=== PATIENT | male | born 1950 | race Caucasian/White ===

== ENCOUNTER 2019-07-26 09:18 | Inpatient (IN) ==
--- NOTE | 2019-07-26 10:22 | Emergency Department Note ---
General Adult HPI - General Chief complaint: Bleeding Other Stated complaint: Bleeding from Permacath port Time Seen by Provider: 07/26/19 10:01 Source: patient, family Mode of arrival: ambulatory Limitations: no limitations - History of Present Illness HPI Narrative: 69-year-old male with a history of bleeding around dialysis catheter since placement [address] Melchor. He is on a chemotherapy drug for CLL, Ibrutnib, which could increase his bleeding risk but he is not on any blood thinners but he also has uremic associated platelet dysfunction. He is due for dialysis tomorrow; he had dialysis Saturday or 2 days ago. His bandage this morning soaked through with blood so he was concerned and came in. Apparently this happened several days ago and [facility] ER gave him DDAVP to get the bleeding to stop . He does not have a hematoma visible at this time - Related Data Home Medications Medication Instructions Recorded Confirmed epinephrine 0.3 mg/0.3 mL 0.3 mg IM Q10-15M PRN 01/05/16 07/21/19 injection, auto-injector metoprolol tartrate 100 mg tablet 100 mg PO BID 01/05/16 07/21/19 simvastatin 20 mg tablet 20 mg PO QDAY tab 01/05/16 07/21/19 tramadol 50 mg tablet 100 mg PO TID tab 01/05/16 07/21/19 ibrutinib 140 mg capsule 420 mg PO QDAY cap 03/13/18 07/21/19 insulin glargine 100 unit/mL (3 See Rx Instructions SUB-Q QHS 03/13/18 07/21/19 mL) subcutaneous pen ferrous gluconate 240 mg (27 mg 240 mg PO QDAY 06/19/19 07/21/19 iron) tablet insulin aspart U-100 100 unit/mL See Rx Instructions SUB-Q BID ml 06/19/19 07/21/19 (3 mL) subcutaneous pen acetaminophen 650 mg 1,300 mg PO Q7H PRN tab 07/21/19 07/21/19 tablet,extended release furosemide 40 mg tablet 40 mg PO QDAY tab 07/21/19 07/21/19 Previous Rx's Medication Instructions Recorded amlodipine 5 mg tablet 5 mg PO BID #180 tab 05/19/18 cholecalciferol (vitamin D3) 10,000 unit PO QDAY #90 cap 02/19/19 10,000 unit capsule tamsulosin 0.4 mg capsule 0.4 mg PO QDAY #90 cap 05/08/19 febuxostat 40 mg tablet See Rx Instructions .ROUTE 05/21/19 .COMPLEX #30 tablet Allergies Allergy/AdvReac Type Severity Reaction Status Date / Time hydrochlorothiazide Allergy Unknown Rash Verified 07/26/19 09:22 ibuprofen Allergy Unknown Kidney Verified 07/26/19 09:22 Disease penicillin V Allergy Unknown rash Verified 07/26/19 09:22 Bee sting Allergy Unknown Other Uncoded 07/21/19 09:26 Review of Systems All systems ED: reviewed and negative except as stated. Past Medical History - Past Medical History Attestation: Yes: The following information was validated with the patient. [facility] Narrative: Family History (Last Reviewed 06/19/19 @ 11:12 by Thelma Gonzalez RN) Father DM type 2 (diabetes mellitus, type 2) Grandmother DM type 2 (diabetes mellitus, type 2) Mother DM type 2 (diabetes mellitus, type 2) Brother DM type 2 (diabetes mellitus, type 2) Medical History (Last Reviewed 06/19/19 @ 11:12 by Thelma Gonzalez, MINAL) Other lymphoid leukemia, in relapse (Chronic) Gouty arthritis (Chronic) Tubular adenoma of colon (Chronic) Constipation (Chronic) Diastolic dysfunction (Chronic) Leukemia (Chronic) Encounter for long-term current use of medication (Acute) Abnormal immunological finding in serum (Chronic) Tophus (Chronic) Petechial rash (Chronic) Arteriovenous malformation (Chronic) Peripheral neuropathy (Chronic) Hx of basal cell carcinoma (Chronic) Effusion of knee joint right (Chronic) Chronic pain of right knee (Chronic) DJD (degenerative joint disease) (Chronic) Hyperlipidemia (Chronic) Sleep apnea (Chronic) Hypertension (Chronic) Tinnitus (Chronic) Anemia (Chronic) Controlled type 2 diabetes mellitus (Chronic) Olecranon bursitis of left elbow (Chronic) Chronic lymphoid leukemia (Chronic) Nasal polyp (Chronic) Hypertensive cardiomyopathy (Chronic) Gout (Acute) Vasculitis of skin (Chronic) Blunt wound (Chronic) Past Surgical History (Last Reviewed 06/19/19 @ 11:12 by Thelma Gonzalez RN) Hx of arthroscopy of knee (Chronic) Hx of colonoscopy (Chronic) Hx of inguinal herniorrhaphy (Chronic) Hx of total knee replacement (Chronic) - Social History smoking status: Former smoker Physical Exam No acute distress resting. Normocephalic atraumatic. Conjunctive are clear sclerae white nonicteric. No nasal discharge or congestion. Oropharynx pink and moist. Heart is regular rate and rhythm no murmur appreciated. Lungs are clear to auscultation bilaterally throughout without rales wheezes rhonchi or respiratory distress. Dialysis catheter is in the left upper chest wall. We changed his bandages I see a large blood clot at the medial portion of the wound site-we did not fully remove that clot but cleaned all around it and put a temporary bandage on top in sterile fashion. We did not remove that clot because we did not want to disturb the hemostasis for talking to the interventional radiologist. He does have another wound site on the right which has good hemostasis but a bandage over that as well. He is alert oriented able to answer questions appropriately Limitations: no limitations Course Vital Signs Temperature 98.0 F 07/26/19 09:19 Pulse Rate 76 07/26/19 09:19 Respiratory Rate 16 07/26/19 09:19 Blood Pressure 158/86 07/26/19 09:19 Pulse Oximetry (%) 98 07/26/19 09:19 Temperature 98.0 F 07/26/19 09:19 Pulse Rate 89 07/26/19 12:32 Respiratory Rate 16 07/26/19 09:19 Blood Pressure 158/86 07/26/19 09:19 Pulse Oximetry (%) 98 07/26/19 12:32 Medical Decision Making - Lab Data Lab results reviewed: Yes I reviewed the patient's lab results. Result diagrams: 07/26/19 10:55 07/26/19 10:55 Lab Results 07/26/19 07/26/19 07/26/19 Range/Units 10:55 10:55 10:55 WBC 14.4 H (4.50-11.00) K/mcL RBC 3.23 L (4.63-6.08) M/mcL Hgb 9.4 L (13.7-17.5) g/dL Hct 28.8 L (40.1-51.0) % MCV 89.2 (80.0-100.0) fL MCH 29.1 (26.0-34.0) pg MCHC 32.6 (31.0-36.0) g/dL RDW 13.9 (11.5-14.5) % Plt Count 102 L (140-440) K/mcL MPV 10.3 (7.4-10.4) fL Gran % 76.9 (38.0-78.0) % Lymph % (Auto) 15.1 L (15.5-49.0) % Alexander % (Auto) 7.6 (1.0-12.0) % Eos % (Auto) 0.1 (0.0-7.0) % Baso % (Auto) 0.3 (0.0-2.0) % Gran # 11.06 H (1.80-8.00) K/mcL Lymph # (Auto) 2.18 (1.50-4.80) K/mcL Alexander # (Auto) 1.10 H (0.10-0.90) K/mcL Eos # (Auto) 0.01 (0.00-0.70) K/mcL Baso # (Auto) 0.05 (0.00-0.30) K/mcL PT 15.1 H (11.9-14.5) sec INR 1.2 H (0.9-1.1) Sodium 134 (133-145) mmol/L Potassium 4.2 (3.3-5.1) mmol/L Chloride 99 (96-108) mmol/L Carbon Dioxide 20 L (22-30) mmol/L Anion Gap 15.0 (8-16) BUN 60 H (8-23) mg/dl Creatinine 5.4 H* (0.7-1.2) mg/dl GFR Calculation 10 Glucose 151 H (70-105) mg/dL Calcium 8.5 L (8.6-10.4) mg/dl Total Bilirubin 0.5 (0.0-1.0) mg/dL AST 10 (0-37) U/l ALT 14 (0-40) U/l Alkaline Phosphatase 65 (39-117) U/L Total Protein 6.1 (5.9-8.4) gm/dL Albumin 3.7 (3.2-5.2) gm/dL Globulin 2.4 (2.2-3.7) gm/dL Albumin/Globulin Ratio 1.5 (1.0-2.3) Disposition Pt seen by SALARY AND WAGE ADMINISTRATOR/PA only: No Clinical Impression: Hemorrhage complicating a procedure, ESRD (end stage renal disease) on dialysis, Chronic lymphoid leukemia Summary: Continued bleeding from dialysis catheter site likely secondary to elevated BUN but his chemotherapy drug, Imbrutinib may be contributing-this is a known side effect of this medicine. Called out to interventional radiology at [facility] for more information, assistance and guidance with this-this is where he had the procedure done I discussed the case with Dr. Melchor, vascular interventional radiologist over at [facility], who recommended we repeat DDAVP to help stop bleeding. He also recommended doing dialysis early to help with uremic platelet dysfunction. I then discussed the case with Dr. Kim, his clinical social worker, who agreed we could do dialysis if we brought him in the hospital on an emergent basis. Labs are ordered Dr. Kim came in to the ER and visited with the patient. DDAVP was running. We will plan on admitting the patient for emergency dialysis. Updated Dr. Melchor on patient status-patient's BUN is 60. Discussed the situation with the patient. He agreed to come in for emergency dialysis. He would be due for his chemotherapy drug tomorrow morning as well. I then discussed the case with Dr. Dutton, hospitalist who agreed to accept the patient further care and evaluation in the hospital Disposition: Xfer As Inpt ([facility]) Condition: Fair Referrals: Fabby Damon ARNP [Primary Care Provider] -
[2019-07-26] MEDS ORDERED: DESMOPRESSIN ACETATE 20 MCG in 0.9 % SODIUM CHLORIDE 50 ML IV ONE (10:40)
[2019-07-26 11:24] LABS: Basophils # (Auto) 0.05 K/mcL (0.00-0.30); Basophils % (Auto) 0.3 % (0.0-2.0); Eosinophils # (Auto) 0.01 K/mcL (0.00-0.70); Eosinophils % (Auto) 0.1 % (0.0-7.0); Granulocytes % (Auto) 76.9 % (38.0-78.0); Hematocrit 28.8 % (40.1-51.0); Hemoglobin 9.4 g/dL (13.7-17.5); Lymphocytes # (Auto) 2.18 K/mcL (1.50-4.80); Lymphocytes % (Auto) 15.1 % (15.5-49.0); Mean Cell Volume 89.2 fL (80.0-100.0); Mean Corpuscular HGB Conc 32.6 g/dL (31.0-36.0); Mean Platelet Volume 10.3 fL (7.4-10.4); Monocytes % (Auto) 7.6 % (1.0-12.0); Platelet Count 102 K/mcL (140-440); RBC 3.23 M/mcL (4.63-6.08); Red Cell Distribution Width 13.9 % (11.5-14.5); WBC 14.4 K/mcL (4.50-11.00)
[2019-07-26 11:43] LABS: ALT/SGPT 14 U/l (0-40); AST/SGOT 10 U/l (0-37); Albumin 3.7 gm/dL (3.2-5.2); Albumin/Globulin Ratio 1.5 (1.0-2.3); Alkaline Phosphatase 65 U/L (39-117); Bilirubin,Total 0.5 mg/dL (0.0-1.0); Blood Urea Nitrogen 60 mg/dl (8-23); Calcium 8.5 mg/dl (8.6-10.4); Carbon Dioxide 20 mmol/L (22-30); Chloride 99 mmol/L (96-108); Globulin 2.4 gm/dL (2.2-3.7); Glucose 151 mg/dL (70-105)
[2019-07-26 11:54] LABS: Glomerular Filtration Rate 10
[2019-07-26 12:03] LABS: INR 1.2 (0.9-1.1); Prothrombin Time 15.1 sec (11.9-14.5)
--- NOTE | 2019-07-26 13:41 | Internal Med History&Physical ---
Medical - H&P: HPI Patient information: Note initiated : 07/26/19 at 1:39 pm Service Date, if different from initiated Date: [] Patient: Artie Bhatt a 69 y/o M admitted on for Bleeding from Permacath port. Chief Complaint: [] History of present illness: Mr. Bhatt is a 69 year old M Patient had a recent hemodialysis catheter placed by Dr. Melchor and has had subsequent bleeding since then. The catheter placed at [facility] on and return the next day for bleeding and had DDAVP which seemed to help for day. And is been bleeding again over the weekend. Even to the ED because of the bleeding and Dr. Bear talked with Dr. Melchor. DDAVP was given again and because of the continued bleeding is requested for him to get dialysis today. Dr. Kim would like to admit him to obs for dialysis and monitor bleeding. She had a little bit of nausea this morning. Otherwise no new complaints no chest pain shortness of breath. Other bleeding. Review of Systems: Positives as above. Denies headache/fever/chills/vomiting/chest or abdominal pain/cough/dyspnea/diarrhea. Many 10 point review of system reviewed negative Medical - H&P: PMH Medical history: Medical History (Last Reviewed 06/19/19 @ 11:12 by Thelma Gonzalez RN) Other lymphoid leukemia, in relapse (Chronic) Gouty arthritis (Chronic) Tubular adenoma of colon (Chronic) Constipation (Chronic) Diastolic dysfunction (Chronic) Leukemia (Chronic) Encounter for long-term current use of medication (Acute) Abnormal immunological finding in serum (Chronic) Tophus (Chronic) Petechial rash (Chronic) Arteriovenous malformation (Chronic) Peripheral neuropathy (Chronic) Hx of basal cell carcinoma (Chronic) Effusion of knee joint right (Chronic) Chronic pain of right knee (Chronic) DJD (degenerative joint disease) (Chronic) Hyperlipidemia (Chronic) Sleep apnea (Chronic) Hypertension (Chronic) Tinnitus (Chronic) Anemia (Chronic) Controlled type 2 diabetes mellitus (Chronic) Olecranon bursitis of left elbow (Chronic) Chronic lymphoid leukemia (Chronic) Nasal polyp (Chronic) Hypertensive cardiomyopathy (Chronic) Gout (Acute) Vasculitis of skin (Chronic) Blunt wound (Chronic) Past Surgical History (Last Reviewed 06/19/19 @ 11:12 by Thelma Gonzalez RN) Hx of arthroscopy of knee (Chronic) Hx of colonoscopy (Chronic) Hx of inguinal herniorrhaphy (Chronic) Hx of total knee replacement (Chronic) Family History (Last Reviewed 06/19/19 @ 11:12 by Thelma Gonzalez RN) Father DM type 2 (diabetes mellitus, type 2) Grandmother DM type 2 (diabetes mellitus, type 2) Mother DM type 2 (diabetes mellitus, type 2) Brother DM type 2 (diabetes mellitus, type 2) Social History (Last Updated 07/21/19 @ 10:11 by Bethany Kim MD) Patient is a former smoker and is 30 pack history Drinks alcohol rarely Lives by himself Medical - H&P: Meds Home Medications Medication Instructions Recorded Confirmed Type epinephrine 0.3 mg/0.3 mL 0.3 mg IM Q10-15M PRN 01/05/16 07/26/19 History injection, auto-injector metoprolol tartrate 100 mg tablet 100 mg PO BID 01/05/16 07/26/19 History simvastatin 20 mg tablet 20 mg PO QDAY tab 01/05/16 07/26/19 History tramadol 50 mg tablet 100 mg PO TID tab 01/05/16 07/26/19 History ibrutinib 140 mg capsule 420 mg PO QDAY cap 03/13/18 07/26/19 History insulin glargine 100 unit/mL (3 See Rx Instructions SUB-Q QHS 03/13/18 07/26/19 History mL) subcutaneous pen amlodipine 5 mg tablet 5 mg PO BID #180 tab 05/19/18 07/26/19 Rx cholecalciferol (vitamin D3) 10,000 unit PO QDAY #90 cap 02/19/19 07/26/19 Rx 10,000 unit capsule tamsulosin 0.4 mg capsule 0.4 mg PO QDAY #90 cap 05/08/19 07/21/19 Rx febuxostat 40 mg tablet See Rx Instructions .ROUTE 05/21/19 07/26/19 Rx .COMPLEX #30 tablet ferrous gluconate 240 mg (27 mg 240 mg PO QDAY 06/19/19 07/26/19 History iron) tablet insulin aspart U-100 100 unit/mL See Rx Instructions SUB-Q BID ml 06/19/19 07/26/19 History (3 mL) subcutaneous pen acetaminophen 650 mg 1,300 mg PO Q7H PRN tab 07/21/19 07/26/19 History tablet,extended release furosemide 40 mg tablet 40 mg PO QDAY tab 07/21/19 07/26/19 History Allergies Allergy/AdvReac Type Severity Reaction Status Date / Time hydrochlorothiazide Allergy Unknown Rash Verified 07/26/19 09:22 ibuprofen Allergy Unknown Kidney Verified 07/26/19 09:22 Disease penicillin V Allergy Unknown rash Verified 07/26/19 09:22 Bee sting Allergy Unknown Other Uncoded 07/21/19 09:26 Medical - H&P: Exam - Constitutional Vitals: Temp Pulse Resp BP Pulse Ox 98.0 F 88 16 162/70 97 07/26/19 09:19 07/26/19 12:47 07/26/19 09:19 07/26/19 12:41 07/26/19 13:02 Exam: General: Alert, Awake, No acute Distress Eyes/N/T: EOMI, PERRL, Head/Neck: neck supple, normocephalic atraumatic CV: RRR, 2/6 SM, normal s1/s2 Pulm: Clear b/l, no wheezing/rhonchi/rales Abd: soft, nontender, +BS x4 Ext: no clubbing/cyanosis 1+RLE and 2+ LLE edema Neuro: Alert, no focal deficits, moves all extremities, CN 2-12 grossly intact, symmetrical strength b/l upper/lower, sensations intact b/l upper/lower Skin: warm/dry Medical - H&P: Reslt - Labs CBC & Chem 7: 07/26/19 10:55 07/26/19 10:55 Labs: Short CBC 07/26/19 Range/Units 10:55 WBC 14.4 H (4.50-11.00) K/mcL Hgb 9.4 L (13.7-17.5) g/dL Hct 28.8 L (40.1-51.0) % Plt Count 102 L (140-440) K/mcL BMP 07/26/19 10:55 Sodium 134 Potassium 4.2 Chloride 99 Carbon Dioxide 20 L BUN 60 H Creatinine 5.4 H* Glucose 151 H Calcium 8.5 L Liver Function 07/26/19 Range/Units 10:55 Total Bilirubin 0.5 (0.0-1.0) mg/dL AST 10 (0-37) U/l ALT 14 (0-40) U/l Alkaline Phosphatase 65 (39-117) U/L Albumin 3.7 (3.2-5.2) gm/dL Medical - H&P: A/P - Narrative A/P Narrative: A: *Bleeding around hemodialysis catheter: 2/2 underlying CLL and chemotherapy plus likely underlying platelet dysfunction from ESRD *ESRD: *Anemia, acute blood loss on chronic: *CLL: *HTN: *DM: P: -Nephro for HD today -f/u H&H -cont home meds -SSI and basal -ppx: SCD full code
[2019-07-26] MEDS ORDERED: traMADol 50 MG TABLET PO ONE (14:08)
[2019-07-26] MEDS ORDERED: ACETAMINOPHEN 325 MG TABLET PO ONE (14:08)
--- NOTE | 2019-07-26 14:15 | Nephrology Consult Note ---
History of Present Illness - Reason for Consult Patient information: Note initiated : 07/26/19 at 2:08 pm Patient: Artie Bhatt 69 y/o M admitted on for Bleeding from Permacath port. Consult date: 07/26/19 end stage renal disease, metabolic acidosis Requesting physician: Tae Dutton - Chief Complaint Bleeding from dialysis catheter - History of Present Illness Artie Bhatt is a 69-year-old male with diabetes mellitus type 2, hypertension, a history of chronic lymphocytic leukemia and history of colonic AVMs, started on chronic hemodialysis on 07/24/2019 for end stage renal disease. He had tunneled hemodialysis catheter placement at [facility] on 07/23/2019. Exit site has been oozing blood since then. He was seen at [facility] ED on 07/25/2019 and given DDAVP. The patient has history of diffuse ecchymosis and takes a chemotherapy drug for CLL, Ibrutnib. He presented to [facility] ED for persistent bleeding. He received DDAVP in ED but still has oozing. Dr. Melchor was called and recommended hemodialysis for uremic component of bleeding diathesis. Review of Systems Constitutional: weakness, no fever(s) Nose, mouth and throat: no nasal congestion, no sore throat Cardiovascular: no chest pain, no palpatations Respiratory: no dyspnea, no wheezing Gastrointestinal: no melena, no nausea, no vomiting Genitourinary: no dysuria, no hematuria Integumentary: no rash Neurological: no confusion, no focal weakness Psychiatric: no anxiety, no panic attacks Hematologic/Lymphatic: easy bleeding, easy bruising Allergic/Immunologic: no tongue swelling, no uticaria Past History Past medical history: Medical History (Last Reviewed 06/19/19 @ 11:12 by Thelma Gonzalez RN) Other lymphoid leukemia, in relapse (Chronic) Gouty arthritis (Chronic) Tubular adenoma of colon (Chronic) Constipation (Chronic) Diastolic dysfunction (Chronic) Leukemia (Chronic) Encounter for long-term current use of medication (Acute) Abnormal immunological finding in serum (Chronic) Tophus (Chronic) Petechial rash (Chronic) Arteriovenous malformation (Chronic) Peripheral neuropathy (Chronic) Hx of basal cell carcinoma (Chronic) Effusion of knee joint right (Chronic) Chronic pain of right knee (Chronic) DJD (degenerative joint disease) (Chronic) Hyperlipidemia (Chronic) Sleep apnea (Chronic) Hypertension (Chronic) Tinnitus (Chronic) Anemia (Chronic) Controlled type 2 diabetes mellitus (Chronic) Olecranon bursitis of left elbow (Chronic) Chronic lymphoid leukemia (Chronic) Nasal polyp (Chronic) Hypertensive cardiomyopathy (Chronic) Gout (Acute) Vasculitis of skin (Chronic) Blunt wound (Chronic) Past surgical history: Past Surgical History (Last Reviewed 06/19/19 @ 11:12 by Thelma Gonzalez RN) Hx of arthroscopy of knee (Chronic) Hx of colonoscopy (Chronic) Hx of inguinal herniorrhaphy (Chronic) Hx of total knee replacement (Chronic) Past family history: Family History (Last Reviewed 06/19/19 @ 11:12 by Thelma Gonzalez RN) Father DM type 2 (diabetes mellitus, type 2) Grandmother DM type 2 (diabetes mellitus, type 2) Mother DM type 2 (diabetes mellitus, type 2) Brother DM type 2 (diabetes mellitus, type 2) Medications and Allergies Home Medications Medication Instructions Recorded Confirmed Type epinephrine 0.3 mg/0.3 mL 0.3 mg IM Q10-15M PRN 01/05/16 07/26/19 History injection, auto-injector metoprolol tartrate 100 mg tablet 100 mg PO BID 01/05/16 07/26/19 History simvastatin 20 mg tablet 20 mg PO QDAY tab 01/05/16 07/26/19 History tramadol 50 mg tablet 100 mg PO TID tab 01/05/16 07/26/19 History ibrutinib 140 mg capsule 420 mg PO QDAY cap 03/13/18 07/26/19 History insulin glargine 100 unit/mL (3 See Rx Instructions SUB-Q QHS 03/13/18 07/26/19 History mL) subcutaneous pen amlodipine 5 mg tablet 5 mg PO BID #180 tab 05/19/18 07/26/19 Rx cholecalciferol (vitamin D3) 10,000 unit PO QDAY #90 cap 02/19/19 07/26/19 Rx 10,000 unit capsule tamsulosin 0.4 mg capsule 0.4 mg PO QDAY #90 cap 05/08/19 07/21/19 Rx febuxostat 40 mg tablet See Rx Instructions .ROUTE 05/21/19 07/26/19 Rx .COMPLEX #30 tablet ferrous gluconate 240 mg (27 mg 240 mg PO QDAY 06/19/19 07/26/19 History iron) tablet insulin aspart U-100 100 unit/mL See Rx Instructions SUB-Q BID ml 06/19/19 07/26/19 History (3 mL) subcutaneous pen acetaminophen 650 mg 1,300 mg PO Q7H PRN tab 07/21/19 07/26/19 History tablet,extended release furosemide 40 mg tablet 40 mg PO QDAY tab 07/21/19 07/26/19 History Allergies Allergy/AdvReac Type Severity Reaction Status Date / Time hydrochlorothiazide Allergy Unknown Rash Verified 07/26/19 09:22 ibuprofen Allergy Unknown Kidney Verified 07/26/19 09:22 Disease penicillin V Allergy Unknown rash Verified 07/26/19 09:22 Bee sting Allergy Unknown Other Uncoded 07/21/19 09:26 Exam - Vital Signs Vital signs: Temp Pulse Resp BP Pulse Ox 98.0 F 88 16 161/75 95 07/26/19 09:19 07/26/19 12:47 07/26/19 09:19 07/26/19 14:02 07/26/19 14:02 - General Appearance General appearance: appears started age, fatigue EENT: mucous membranes moist Neck: supple Respiratory: clear Cardiology: edema Gastrointestinal: no tenderness Integumentary: warm and dry, ecchymotic Neurologic: no focal deficit, alert and oriented x3 Musculoskeletal: no deformities Psychiatric: mood/affect appropriate, cooperative Results - Lab Results 07/26/19 10:55 07/26/19 10:55 Most recent lab results Calcium 8.5 mg/dl (8.6-10.4) L 07/26/19 10:55 Assessment and Plan (1) ESRD (end stage renal disease) on dialysis Hemodialysis today which will be his second since 07/24/2019 for 2.5 hours with low flows for uremic bleeding diathesis. Will UF 1 kg and also try to correct metabolic acidosis. Status: Chronic Priority: Medium (2) Metabolic acidosis Status: Chronic Priority: Medium (3) Complications, dialysis, catheter, mechanical Status: Acute Priority: Medium Qualifiers: Encounter type: initial encounter Qualified Code(s): T82.49XA - Other complication of vascular dialysis catheter, initial encounter
[2019-07-26] MEDS ORDERED: DEXTROSE 50% 50 ML VIAL IV PRN (16:00)
[2019-07-26] MEDS ORDERED: MAGNESIUM SULFATE 2 GM/50 ML BAG IV PRN (16:00)
[2019-07-26] MEDS ORDERED: NON FORMULARY MEDICATION 1 DOSE MISCELL (Epinephrine [Epipen 2-Pak] 0.3 MG) IM PRN (16:00)
[2019-07-26] MEDS ORDERED: ACETAMINOPHEN 325 MG TABLET PO PRN (16:00)
[2019-07-26] MEDS ORDERED: traMADol 50 MG TABLET PO SCH (16:00)
[2019-07-26] MEDS ORDERED: POLYETHYLENE GLYCOL 3350 17 GM PACKET PO PRN (16:00)
[2019-07-26] MEDS ORDERED: SENNOSIDES 1 TABLET PO PRN (16:00)
[2019-07-26] MEDS ORDERED: ACETAMINOPHEN 1300 MG PO PRN (16:00)
[2019-07-26] MEDS ORDERED: DEXTROSE 31 GM ORAL.SUSP PO PRN (16:00)
[2019-07-26] MEDS ORDERED: IPRATROPIUM/ALBUTEROL 3 ML AMPUL.NEB NEB PRN (16:00)
[2019-07-26] MEDS ORDERED: ONDANSETRON 4 MG/2 ML VIAL IV PRN (16:00)
[2019-07-26] MEDS ORDERED: POTASSIUM CHLORIDE 40 MEQ in DEXTROSE 5% IN WATER 500 ML IV PRN (16:00)
[2019-07-26] MEDS ORDERED: POTASSIUM CHLORIDE 20 MEQ TABLET PO PRN ×2 (16:00)
[2019-07-26] MEDS: 0.9 % SODIUM CHLORIDE 10 ML SYRINGE IV SCH (16:05)
[2019-07-26] MEDS ORDERED: traMADol 50 MG TABLET PO PRN (16:15)
[2019-07-26] MEDS: INSULIN LISPRO 1 UNIT/0.01 ML UNIT SQ SCH ×2 (16:55→21:12)
[2019-07-26 17:53] LABS: Hematocrit 31.2 % (40.1-51.0); Hemoglobin 10.4 g/dL (13.7-17.5)
[2019-07-26] MEDS: traMADol 50 MG TABLET PO PRN (19:56)
[2019-07-26] MEDS: METOPROLOL TARTRATE 50 MG TABLET PO SCH (19:56)
[2019-07-26] MEDS: ACETAMINOPHEN 325 MG TABLET PO PRN (19:57)
[2019-07-26] MEDS: amLODIPine 5 MG TABLET PO SCH (19:57)
[2019-07-26] MEDS: INSULIN GLARGINE, HUMAN 1 UNIT/0.01 ML SQ SCH (21:12)
[2019-07-27] MEDS: 0.9 % SODIUM CHLORIDE 10 ML SYRINGE IV SCH ×4 (02:52→22:06)
[2019-07-27 06:42] LABS: Basophils # (Auto) 0.02 K/mcL (0.00-0.30); Basophils % (Auto) 0.2 % (0.0-2.0); Eosinophils # (Auto) 0 K/mcL (0.00-0.70); Eosinophils % (Auto) 0 % (0.0-7.0); Granulocytes % (Auto) 85.9 % (38.0-78.0); Hematocrit 31.1 % (40.1-51.0); Hemoglobin 9.9 g/dL (13.7-17.5); Lymphocytes # (Auto) 0.86 K/mcL (1.50-4.80); Lymphocytes % (Auto) 6.5 % (15.5-49.0); Mean Cell Volume 90.4 fL (80.0-100.0); Mean Corpuscular HGB Conc 31.8 g/dL (31.0-36.0); Mean Platelet Volume 10.8 fL (7.4-10.4); Monocytes # (Auto) 0.98 K/mcL (0.10-0.90); Monocytes % (Auto) 7.4 % (1.0-12.0); Platelet Count 97 K/mcL (140-440); RBC 3.44 M/mcL (4.63-6.08); Red Cell Distribution Width 13.8 % (11.5-14.5); WBC 13.3 K/mcL (4.50-11.00)
[2019-07-27 07:10] LABS: ALT/SGPT 14 U/l (0-40); AST/SGOT 13 U/l (0-37); Albumin 3.6 gm/dL (3.2-5.2); Albumin/Globulin Ratio 1.4 (1.0-2.3); Alkaline Phosphatase 65 U/L (39-117); Bilirubin,Direct 0.2 mg/dL (0.0-0.3); Bilirubin,Total 0.7 mg/dL (0.0-1.0); Blood Urea Nitrogen 49 mg/dl (8-23); Calcium 8.5 mg/dl (8.6-10.4); Carbon Dioxide 20 mmol/L (22-30); Globulin 2.6 gm/dL (2.2-3.7); Glucose 258 mg/dL (70-105); Lactate Dehydrogenase 219 U/L (94-250); Triglycerides 197 mg/dl (<150); Uric Acid 3.1 mg/dL (2.5-8.0)
[2019-07-27 07:17] LABS: Chloride 94 mmol/L (96-108); Glomerular Filtration Rate 10
--- NOTE | 2019-07-27 07:47 | Internal Med Progress Note ---
Medical - PN: Subj Patient information: Note initiated : 07/27/19 at 7:44 am Service Date, if different from initiated Date: [] Patient: Artie Bhatt 69 y/o M admitted on 07/26/19 for Bleeding from Permacath port. Chief Complaint: [] Interval history: Mr. Bhatt is a 69 year old M Patient had a recent hemodialysis catheter placed by Dr. Melchor and has had subsequent bleeding since then. The catheter placed at [facility] on and return the next day for bleeding and had DDAVP which seemed to help for day. And is been bleeding again over the weekend. Even to the ED because of the bleeding and Dr. Bear talked with Dr. Melchor. DDAVP was given again and because of the continued bleeding is requested for him to get dialysis today. Dr. Kim would like to admit him to obs for dialysis and monitor bleeding. She had a little bit of nausea this morning. Otherwise no new complaints no chest pain shortness of breath. Other bleeding. 07/27 Still had a little oozing last night from the site. Poor sleep last night otherwise no new complaints. Review of Systems: Positives as above. Denies headache/fever/chills/vomiting/chest or abdominal pain/cough/dyspnea/diarrhea. - Constitutional Vitals: Vital Signs Temp Pulse Resp BP Pulse Ox 100.6 F H 107 H 20 161/76 95 07/27/19 04:00 07/27/19 04:00 07/27/19 04:00 07/27/19 04:00 07/27/19 04:00 Period Temp Pulse Resp BP Sys/Corona Pulse Ox Last 24 Hr 98.0 F-100.6 F 76-121 16-24 94-179/59-104 90-100 Intake and Output 07/26/19 07/27/19 07/27/19 21:59 05:59 13:59 Intake Total 800 Output Total 1400 350 Balance -1400 450 Weight 113.852 kg Intake & Output: Intake & Output 07/26/19 07/27/19 07/27/19 21:59 05:59 13:59 Intake Total 800 Output Total 1400 350 Balance -1400 450 Weight 113.852 kg Intake: Oral 800 Output: Void Amount 300 350 Hemodialysis UF 1100 Other: Urine Appearance Clear Clear Urine Color Dark Yellow Dark Yellow Urine Odor Normal # Voids 2 1 1 Exam: General: Alert, Awake, No acute Distress Eyes/N/T: EOMI, Head/Neck: neck supple, CV: RRR, 2/6 SM, Pulm: Clear b/l, no wheezing/rhonchi/rales Abd: soft, nontender, +BS x4 Ext: no clubbing/cyanosis 1+RLE and 2+ LLE edema Neuro: Alert, no focal deficits, moves all extremities, Skin: warm/dry Medical - PN: Obj Da - Labs CBC & Chem 7: 07/27/19 05:35 07/27/19 05:35 Labs: Abnormal Lab Results 07/27/19 07/27/19 07/26/19 05:35 05:35 17:15 WBC 13.3 H RBC 3.44 L Hgb 9.9 L 10.4 L Hct 31.1 L 31.2 L Plt Count 97 L MPV 10.8 H Gran % 85.9 H Lymph % (Auto) 6.5 L Gran # 11.44 H Lymph # (Auto) 0.86 L Woodson # (Auto) 0.98 H PT INR Chloride 94 L Carbon Dioxide 20 L Anion Gap 19.0 H BUN 49 H Creatinine 5.3 H* Glucose 258 H Calcium 8.5 L Magnesium 1.5 L GGT 64 H Triglycerides 197 H 07/26/19 07/26/19 07/26/19 10:55 10:55 10:55 WBC 14.4 H RBC 3.23 L Hgb 9.4 L Hct 28.8 L Plt Count 102 L MPV Gran % Lymph % (Auto) 15.1 L Gran # 11.06 H Lymph # (Auto) Woodson # (Auto) 1.10 H PT 15.1 H INR 1.2 H Chloride Carbon Dioxide 20 L Anion Gap BUN 60 H Creatinine 5.4 H* Glucose 151 H Calcium 8.5 L Magnesium GGT Triglycerides Meds: Medications Acetaminophen (Tylenol) 650 mg PO Q6HP PRN PRN Reason: PAIN/FEVER > 101 Last Admin: 07/26/19 19:57 Dose: 650 mg Documented by: Albuterol/Ipratropium (Duoneb) 3 ml NEB Q4HP PRN PRN Reason: Shortness Of Breath Amlodipine Besylate (Norvasc) 5 mg PO BID JENA Last Admin: 07/26/19 19:57 Dose: 5 mg Documented by: Dextrose (Dextrose 50%) 0 ml IV UD PRN PRN Reason: Hypoglycemia Diagnostic Test (Pha) (Accu-Chek) 1 each FS [facility] Last Admin: 07/26/19 19:57 Dose: 1 each Documented by: Ferrous Gluconate (Fergon) 324 mg PO DAILY [facility] Furosemide (Lasix) 40 mg PO QDAY [facility] Glucose (Insta-Glucose) 15 gm PO PRN PRN PRN Reason: Hypoglycemia Potassium Chloride 40 meq/ (Dextrose) 520 mls @ 130 mls/hr IV UD PRN PRN Reason: Potassium < 3 Magnesium Sulfate (Magnesium Sulfate) 2 gm in 50 mls @ 50 mls/hr IV UD PRN PRN Reason: Magnesium </= 1.6 Insulin Glargine (Lantus) 52 unit SQ [facility] Last Admin: 07/26/19 21:12 Dose: 52 units Documented by: Insulin Human Lispro (Humalog) 0 unit SQ [facility]; Protocol Last Admin: 07/26/19 21:12 Dose: 6 unit Documented by: Metoprolol Tartrate (Lopressor) 100 mg PO BID [facility] Last Admin: 07/26/19 19:56 Dose: 100 mg Documented by: Ondansetron HCl (Zofran) 4 mg IV Q4HP PRN PRN Reason: Nausea And Vomiting Last Admin: 07/27/19 05:09 Dose: 4 mg Documented by: Ibrutinib [Imbruvica (] 420 Mg Tablet) 1 dose PO DAILY [facility] Febuxostat 40 Mg (Tablet) 1 dose PO DAILY [facility] Polyethylene Glycol (Miralax) 17 gm PO DAILYP PRN PRN Reason: Constipation Potassium Chloride (Kdur) 40 meq PO UD PRN PRN Reason: Potssium is 3-3.5 Potassium Chloride (Kdur) 40 meq PO UD PRN PRN Reason: Potassium < 3 Senna (Senokot) 2 tab PO DAILYP PRN PRN Reason: Constipation Simvastatin (Zocor) 20 mg PO QDAY [facility] Sodium Chloride (Saline Flush) 10 ml IV Q8 [facility] Last Admin: 07/27/19 05:10 Dose: 10 ml Documented by: Tramadol HCl (Ultram) 100 mg PO TIDP PRN; Protocol PRN Reason: Pain Last Admin: 07/26/19 19:56 Dose: 100 mg Documented by: Vitamin D (Vitamin D3) 10,000 unit PO DAILY JENA Medical - PN: A/P - Time Spent With Patient Total time spent is greater than 50% in coordination of care (as documented) at patient's floor/unit and/or counseling patient: - Narrative A/P Narrative: A: *Bleeding around hemodialysis catheter: 2/2 underlying CLL and chemotherapy plus likely underlying platelet dysfunction from ESRD *ESRD: *Anemia, acute blood loss on chronic: H&H stable *CLL: *HTN: *DM: P: -Nephro for HD -f/u H&H -cont home meds -SSI and basal -ppx: SCD full code Medical - PN: Qual - VTE Deep Vein Thrombosis/Pulmonary Embolism Present on Admission: No
[2019-07-27] MEDS: INSULIN LISPRO 1 UNIT/0.01 ML UNIT SQ SCH ×4 (08:05→19:44)
[2019-07-27] MEDS: amLODIPine 5 MG TABLET PO SCH (08:11)
[2019-07-27] MEDS: METOPROLOL TARTRATE 50 MG TABLET PO SCH ×2 (08:11→19:43)
[2019-07-27] MEDS ORDERED: Febuxostat 40 MG Tablet PO SCH (09:00)
[2019-07-27] MEDS ORDERED: FUROSEMIDE 40 MG TABLET PO SCH (09:00)
[2019-07-27] MEDS ORDERED: FERROUS GLUCONATE 324 MG TABLET PO SCH (09:00)
[2019-07-27] MEDS ORDERED: SIMVASTATIN 20 MG TABLET PO SCH (09:00)
[2019-07-27] MEDS ORDERED: VITAMIN D3 5,000 UNIT CAPSULE PO SCH (09:00)
[2019-07-27 09:23] LABS: Band Neutrophils % 4 % (0-10); Lymphocytes % 9 % (15-49); Monocytes % (Manual) 13 % (1-12); Platelet Estimate DECREASED (NORMAL); RBC Morphology NORMAL (NORMAL); Segmented Neutrophils % 74 % (38-78)
--- NOTE | 2019-07-27 09:41 | Discharge Summary ---
Medical - DS: Prov Patient information: Note initiated : 07/27/19 at 9:39 am Service Date, if different from initiated Date: [] Patient: Artie Bhatt 69 y/o M admitted on 07/26/19 for Bleeding from Permacath port. Chief Complaint: [] Date of admission: 07/26/19 14:44 Discharge date: 07/27/19 Primary care physician: Fabby Damon Consults: 07/26/19 Consult to Physician [CONS] Stat Comment: Consulting Provider: Tae Dutton Reason For Exam: Physician to Consult 07/26/19 14:06 Consult to Physician [CONS] Routine Comment: Consulting Provider: Bethany Kim Reason For Exam: Physician to Consult Medical - DS: Meds - Discharge Medications Active and Home Medications: Home Medications epinephrine 0.3 mg/0.3 mL injection, auto-injector 0.3 mg IM Q10-15M PRN 01/05/16 [History Confirmed 07/26/19 Last Taken Unknown] metoprolol tartrate 100 mg tablet 100 mg PO BID 01/05/16 [History Confirmed 07/26/19 Last Taken Unknown] simvastatin 20 mg tablet 20 mg PO QDAY tab 01/05/16 [History Confirmed 07/26/19 Last Taken Unknown] tramadol 50 mg tablet 100 mg PO TID tab 01/05/16 [History Confirmed 07/26/19 Last Taken Unknown] ibrutinib 140 mg capsule 420 mg PO QDAY cap 03/13/18 [History Confirmed 07/26/19 Last Taken Unknown] insulin glargine 100 unit/mL (3 mL) subcutaneous pen See Rx Instructions SUB-Q QHS 03/13/18 [History Confirmed 07/26/19 Last Taken Unknown] amlodipine 5 mg tablet 5 mg PO BID #180 tab 05/19/18 [Rx Confirmed 07/26/19 Last Taken Unknown] cholecalciferol (vitamin D3) 10,000 unit capsule 10,000 unit PO QDAY #90 cap 02/19/19 [Rx Confirmed 07/26/19 Last Taken Unknown] tamsulosin 0.4 mg capsule 0.4 mg PO QDAY #90 cap 05/08/19 [Rx Confirmed 07/21/19 Last Taken Unknown] febuxostat 40 mg tablet See Rx Instructions .ROUTE .COMPLEX #30 tablet 05/21/19 [Rx Confirmed 07/26/19 Last Taken Unknown] ferrous gluconate 240 mg (27 mg iron) tablet 240 mg PO QDAY 06/19/19 [History Confirmed 07/26/19 Last Taken Unknown] insulin aspart U-100 100 unit/mL (3 mL) subcutaneous pen See Rx Instructions SUB-Q BID ml 06/19/19 [History Confirmed 07/26/19 Last Taken Unknown] acetaminophen 650 mg tablet,extended release 1,300 mg PO Q7H PRN tab 07/21/19 [History Confirmed 07/26/19 Last Taken Unknown] furosemide 40 mg tablet 40 mg PO QDAY tab 07/21/19 [History Confirmed 07/26/19 Last Taken Unknown] Medical - DS: Hosp Hospital Course: Mr. Bhatt is a 69 year old M Patient had a recent hemodialysis catheter placed by Dr. Melchor and has had subsequent bleeding since then. The catheter placed at [facility] on and return the next day for bleeding and had DDAVP which seemed to help for day. And is been bleeding again over the weekend. Even to the ED because of the bleeding and Dr. Bear talked with Dr. Melchor. DDAVP was given again and because of the continued bleeding is requested for him to get dialysis today. Dr. Kim would like to admit him to obs for dialysis and monitor bleeding. She had a little bit of nausea this morning. Otherwise no new complaints no chest pain shortness of breath. Other bleeding. 07/27 Still had a little oozing last night from the site. No active bleeding. Poor sleep last night otherwise no new complaints. Discharge diagnosis: Bleeding around hemodialysis catheter site Secondary discharge diagnosis: CLL stage renal disease chronic anemia hypertension diabetes - Time Spent with Patient Total time spent providing and/or coordinating discharge services: Greater than 30 minutes Medical - DS: Exam - Constitutional Vitals: Vital Signs Temp Pulse Pulse Resp BP BP BP 07/27/19 08:15 99.0 F 108 H 20 126/74 07/27/19 04:00 100.6 F H 107 H 20 161/76 07/26/19 23:45 100 F H 89 18 105/65 07/26/19 21:51 90 95/61 07/26/19 21:36 92 H 94/62 07/26/19 21:21 97 H 101/68 07/26/19 21:07 105 H 112/68 07/26/19 20:52 100.0 F H 115 H 135/67 07/26/19 20:42 100.0 F H 07/26/19 20:37 121 H 133/71 07/26/19 20:21 114 H 139/74 07/26/19 20:07 117 H 125/69 07/26/19 20:00 100.0 F H 110 H 24 H 160/76 07/26/19 19:57 100.0 F H 07/26/19 19:10 100 F H 98 H 179/104 07/26/19 18:45 97 H 146/86 07/26/19 18:30 97 H 132/80 07/26/19 18:15 89 141/83 07/26/19 18:00 96 H 137/80 07/26/19 17:45 101 H 143/86 07/26/19 17:30 94 H 119/67 07/26/19 17:15 109 H 107/59 07/26/19 17:00 93 H 127/78 07/26/19 16:45 93 H 122/77 07/26/19 16:30 98.1 F 107 H 122/68 07/26/19 16:00 99.7 F H 105 H 20 162/77 07/26/19 14:44 99.7 F H 105 H 20 162/77 07/26/19 14:17 163/78 07/26/19 14:02 161/75 07/26/19 13:46 160/82 07/26/19 13:19 07/26/19 13:02 07/26/19 12:47 88 07/26/19 12:41 90 162/70 07/26/19 12:32 89 07/26/19 12:21 07/26/19 12:03 84 07/26/19 11:47 80 Pulse Ox 07/27/19 08:15 95 07/27/19 04:00 95 07/26/19 23:45 90 07/26/19 21:51 94 07/26/19 21:36 97 07/26/19 21:21 97 07/26/19 21:07 95 07/26/19 20:52 95 07/26/19 20:42 07/26/19 20:37 92 07/26/19 20:21 92 07/26/19 20:07 96 07/26/19 20:00 97 07/26/19 19:57 07/26/19 19:10 07/26/19 18:45 07/26/19 18:30 07/26/19 18:15 07/26/19 18:00 07/26/19 17:45 07/26/19 17:30 07/26/19 17:15 07/26/19 17:00 07/26/19 16:45 07/26/19 16:30 07/26/19 16:00 96 07/26/19 14:44 96 07/26/19 14:17 96 07/26/19 14:02 95 07/26/19 13:46 97 07/26/19 13:19 97 07/26/19 13:02 97 07/26/19 12:47 97 07/26/19 12:41 98 07/26/19 12:32 98 07/26/19 12:21 100 07/26/19 12:03 98 07/26/19 11:47 100 Intake and Output 07/26/19 07/27/19 07/27/19 21:59 05:59 13:59 Intake Total 800 650 Output Total 1400 350 125 Balance -1400 450 525 Intake: Oral 800 650 Output: Void Amount 300 350 125 Hemodialysis UF 1100 Other: Urine Appearance Clear Clear Clear Urine Color Dark Yellow Dark Yellow Dark Yellow Urine Odor Normal Normal # Voids 2 1 1 Weight 113.852 kg Medical - DS: Data Labs on day of discharge: Labs from last 24 hours 07/27/19 07/27/19 07/27/19 05:35 05:35 05:35 WBC 13.3 H RBC 3.44 L Hgb 9.9 L Hct 31.1 L MCV 90.4 MCH 28.8 MCHC 31.8 RDW 13.8 Plt Count 97 L MPV 10.8 H Gran % 85.9 H Lymph % (Auto) 6.5 L Cavalier % (Auto) 7.4 Eos % (Auto) 0 Baso % (Auto) 0.2 Gran # 11.44 H Lymph # (Auto) 0.86 L Cavalier # (Auto) 0.98 H Eos # (Auto) 0 Baso # (Auto) 0.02 Total Counted 100 Seg Neutrophils % 74 Band Neutrophils % 4 Lymphocytes % 9 L Monocytes % (Manual) 13 H WBC Morphology Abnorm A Vacuolated Neuts 1+ A Platelet Estimate Decreased A RBC Morphology Normal PT INR Sodium 133 Potassium 4.5 Chloride 94 L Carbon Dioxide 20 L Anion Gap 19.0 H BUN 49 H Creatinine 5.3 H* GFR Calculation 10 Glucose 258 H Uric Acid 3.1 Calcium 8.5 L Phosphorus 3.0 Magnesium 1.5 L Total Bilirubin 0.7 Direct Bilirubin 0.2 GGT 64 H AST 13 ALT 14 Alkaline Phosphatase 65 Lactate Dehydrogenase 219 Total Protein 6.2 Albumin 3.6 Globulin 2.6 Albumin/Globulin Ratio 1.4 Triglycerides 197 H 07/26/19 07/26/19 07/26/19 17:15 10:55 10:55 WBC RBC Hgb 10.4 L Hct 31.2 L MCV MCH MCHC RDW Plt Count MPV Gran % Lymph % (Auto) Cavalier % (Auto) Eos % (Auto) Baso % (Auto) Gran # Lymph # (Auto) Cavalier # (Auto) Eos # (Auto) Baso # (Auto) Total Counted Seg Neutrophils % Band Neutrophils % Lymphocytes % Monocytes % (Manual) WBC Morphology Vacuolated Neuts Platelet Estimate RBC Morphology PT 15.1 H INR 1.2 H Sodium 134 Potassium 4.2 Chloride 99 Carbon Dioxide 20 L Anion Gap 15.0 BUN 60 H Creatinine 5.4 H* GFR Calculation 10 Glucose 151 H Uric Acid Calcium 8.5 L Phosphorus Magnesium Total Bilirubin 0.5 Direct Bilirubin GGT AST 10 ALT 14 Alkaline Phosphatase 65 Lactate Dehydrogenase Total Protein 6.1 Albumin 3.7 Globulin 2.4 Albumin/Globulin Ratio 1.5 Triglycerides 07/26/19 10:55 WBC 14.4 H RBC 3.23 L Hgb 9.4 L Hct 28.8 L MCV 89.2 MCH 29.1 MCHC 32.6 RDW 13.9 Plt Count 102 L MPV 10.3 Gran % 76.9 Lymph % (Auto) 15.1 L Cavalier % (Auto) 7.6 Eos % (Auto) 0.1 Baso % (Auto) 0.3 Gran # 11.06 H Lymph # (Auto) 2.18 Cavalier # (Auto) 1.10 H Eos # (Auto) 0.01 Baso # (Auto) 0.05 Total Counted Seg Neutrophils % Band Neutrophils % Lymphocytes % Monocytes % (Manual) WBC Morphology Vacuolated Neuts Platelet Estimate RBC Morphology PT INR Sodium Potassium Chloride Carbon Dioxide Anion Gap BUN Creatinine GFR Calculation Glucose Uric Acid Calcium Phosphorus Magnesium Total Bilirubin Direct Bilirubin GGT AST ALT Alkaline Phosphatase Lactate Dehydrogenase Total Protein Albumin Globulin Albumin/Globulin Ratio Triglycerides Medical - DS: A/P - Patient/Caregiver Discharge Instructions Activity: increase activity as tolerated Diet: Renal/Consistent Carbs - Follow up Plan Follow up with: Fabby Damon ARNP [Primary Care Provider] - Jossue Morelos MD [Physician] - Disposition: Home, Self-Care Prognosis: Fair Rehab Potential: Fair Overall status at discharge: patient is progressing back to baseline Medical - DS: Qual - VTE Deep Vein Thrombosis/Pulmonary Embolism Present on Admission: No
[2019-07-27] MEDS: traMADol 50 MG TABLET PO PRN (19:43)
[2019-07-27] MEDS: INSULIN GLARGINE, HUMAN 1 UNIT/0.01 ML SQ SCH (19:44)
--- NOTE | 2019-07-27 20:03 | Nephrology Progress Note ---
Subjective Patient information: Note initiated : 07/27/19 at 7:50 pm Service Date, if different from initiated Date: [] Patient: Artie Bhatt 69 y/o M admitted on 07/26/19 for Bleeding from Permacath port. Chief Complaint: [] Principal diagnosis: ESRD and bleeding from recent HD placement Interval history: Hx of CLL on Rx No prior bleeding diathasis After placement of cuffed HD catheter he has swelling and likely hematoma along tractIntermittent fever to 38.1 Was weak and confused/impulsive today. Catheter dressing with well formed clot but soaked thru gauze Went to HD and had another episode of fever, weakness and decreased level of mentation There was hypotension as we tried to lower CVP to reduce catheter bleeding Was called by HD nurse that he is basically a 1:1 patient Asked by MS nurse to re-evaluate post HD He is lethargic but arousable and answers appropriately Following simple instructions No active bleeding from catheter site Myoclonus is present Lifts arms and leg against gravity Blood cultures obtained in HD Needs cath U/A and C&S CXR Vanco loading dose and cefepime as he has CLL pending cultures May as well make full admit and start looking for NHP Hold the Imbruica as many of the side effects are related to bleeding, hemorrhage and low platelets. Pertinent ROS: As in HPI and admit note Additional PMFSH (Level 3 Only): N/A Objective - Vital Signs Vital signs: Vital Signs Temp Pulse Resp BP BP Pulse Ox 07/27/19 18:35 36.9 C 107 H 26 H 129/62 96 07/27/19 12:00 37.9 C H 98 H 22 112/77 93 07/27/19 08:15 37.2 C 108 H 20 126/74 95 07/27/19 04:00 38.1 C H 107 H 20 161/76 95 07/26/19 23:45 37.7 C H 89 18 105/65 90 07/26/19 21:51 90 95/61 94 07/26/19 21:36 92 H 94/62 97 07/26/19 21:21 97 H 101/68 97 07/26/19 21:07 105 H 112/68 95 07/26/19 20:52 37.8 C H 115 H 135/67 95 07/26/19 20:42 37.8 C H 07/26/19 20:37 121 H 133/71 92 07/26/19 20:21 114 H 139/74 92 07/26/19 20:07 117 H 125/69 96 07/26/19 20:00 37.8 C H 110 H 24 H 160/76 97 07/26/19 19:57 37.8 C H Intake and Output 07/27/19 07/27/19 07/27/19 05:59 13:59 21:59 Intake Total 800 650 Output Total 350 325 50 Balance 450 325 -50 Intake: Oral 800 650 Output: Void Amount 350 325 50 Other: Meal Breakfast Percent of Meal Consumed 75% Urine Appearance Clear Clear Clear Urine Color Dark Yellow Dark Yellow Dark Yellow Urine Odor Normal Normal # Voids 1 1 Intake & Output: Intake & Output 07/27/19 07/27/19 07/27/19 05:59 13:59 21:59 Intake Total 800 650 Output Total 350 325 50 Balance 450 325 -50 Intake: Oral 800 650 Output: Void Amount 350 325 50 Other: Meal Breakfast Percent of Meal Consumed 75% Urine Appearance Clear Clear Clear Urine Color Dark Yellow Dark Yellow Dark Yellow Urine Odor Normal Normal # Voids 1 1 - General Appearance General appearance: chronically ill, fatigue, frail EENT: ATNC, PERRL, mucous membranes dry Neck: no JVD, no carotid bruit Respiratory: rhonchi Cardiology: no rub, edema Gastrointestinal: normoactive bowel sounds Integumentary: ecchymotic Neurologic: no asterixis Psychiatric: depressed - Lab 07/27/19 05:35 07/27/19 05:35 Most recent lab results Calcium 8.5 mg/dl (8.6-10.4) L 07/27/19 05:35 Phosphorus 3.0 mg/dL (2.7-4.5) 07/27/19 05:35 Magnesium 1.5 mg/dL (1.6-2.5) L 07/27/19 05:35 Assessment and Plan (1) ESRD (end stage renal disease) on dialysis 1. Due to underlying medical condition and co-morbidities I do not think this patient will benefit from group home HD. Anticipate High 1 year mortality and morbidity Next HD in next 48 hours Status: Chronic Priority: High (2) Complications, dialysis, catheter, mechanical Bleeding improved with thrombin gauze and HD and Cessation of Heparin Stop hisImbruvica for now due to bleeding complicatuions Status: Acute Priority: High Qualifiers: Encounter type: initial encounter Qualified Code(s): T82.49XA - Other complication of vascular dialysis catheter, initial encounter (3) Other lymphoid leukemia, in relapse Hold Imbruvica due to catheter bleeding Status: Chronic Priority: Medium (4) Fever Occured on HD and cultures drawn Also occured in early AM before dialysis Given CLL he will need broad coverage, fever w/u and conversion to full admit. Garcia culture CXR Vanco and cefepime Status: Acute Priority: High Qualifiers: Encounter type: initial encounter
[2019-07-27] MEDS ORDERED: VANCOMYCIN 2,000 MG in 0.9 % SODIUM CHLORIDE 500 ML IV ONE (20:23)
[2019-07-27] MEDS ORDERED: CEFEPIME 1 GM VIAL IV ONE (20:32)
[2019-07-27] MEDS ORDERED: MELATONIN 3 MG TABLET PO SCH (21:00)
[2019-07-27] MEDS: ACETAMINOPHEN 325 MG TABLET PO PRN (23:15)
[2019-07-27 23:27] LABS: Appearance,Urine HAZY; Bacteria,Urine 0 /hpf (0); Bilirubin,Urine NEG (NEG); Color,Urine YELLOW; Culture Indicated,Urine NO; Glucose,Urine (UA) 50 mg/dL (NEG); Ketones,Urine NEG (NEG); Leukocyte Esterase,Urine NEG /uL (NEG); Nitrate,Urine NEG (NEG); Protein,Urine >=500 mg/dL (NEG); Specific Gravity,Urine 1.015 (1.000-1.035); Urine Blood 0.2 mg/dL (<0.03); Urine RBC 5 /hpf (0-1); Urine Squamous Epithelial Cell < 1 /hpf (0-4); Urine WBC 7 /hpf (0-4); Urobilinogen,Urine NEG (NEG)
[2019-07-28] MEDS ORDERED: 0.9 % SODIUM CHLORIDE 250 ML IV ONE (02:27)
[2019-07-28] MEDS ORDERED: 0.9 % SODIUM CHLORIDE 250 ML IV SCH (02:30)
[2019-07-28] MEDS ORDERED: NOREPINEPHRINE BITARTRATE 16 MG in 0.9 % SODIUM CHLORIDE 234 ML IV SCH (02:30)
[2019-07-28] MEDS ORDERED: NOREPINEPHRINE BITARTRATE 4 MG/4 ML VIAL IV ONE (02:33)
[2019-07-28] MEDS ORDERED: DEXTROSE 31 GM ORAL.SUSP PO PRN (02:51)
[2019-07-28] MEDS ORDERED: ONDANSETRON 4 MG/2 ML VIAL IV PRN (02:51)
[2019-07-28] MEDS ORDERED: ACETAMINOPHEN 325 MG TABLET PO PRN (02:51)
[2019-07-28] MEDS ORDERED: IPRATROPIUM/ALBUTEROL 3 ML AMPUL.NEB NEB PRN (02:51)
[2019-07-28] MEDS ORDERED: MAGNESIUM SULFATE 2 GM/50 ML BAG IV PRN (02:51)
[2019-07-28] MEDS ORDERED: SENNOSIDES 1 TABLET PO PRN (02:51)
[2019-07-28] MEDS ORDERED: POTASSIUM CHLORIDE 20 MEQ TABLET PO PRN ×2 (02:51)
[2019-07-28] MEDS ORDERED: POTASSIUM CHLORIDE 40 MEQ in DEXTROSE 5% IN WATER 500 ML IV PRN (02:51)
[2019-07-28] MEDS ORDERED: DEXTROSE 50% 50 ML VIAL IV PRN (02:51)
[2019-07-28] MEDS: 0.9 % SODIUM CHLORIDE 250 ML IV SCH ×2 (02:59→16:39)
[2019-07-28 03:11] LABS: Basophils # (Auto) 0.02 K/mcL (0.00-0.30); Basophils % (Auto) 0.1 % (0.0-2.0); Eosinophils # (Auto) 0.14 K/mcL (0.00-0.70); Eosinophils % (Auto) 0.9 % (0.0-7.0); Granulocytes % (Auto) 80.7 % (38.0-78.0); Hematocrit 26.6 % (40.1-51.0); Hemoglobin 8.8 g/dL (13.7-17.5); Lymphocytes # (Auto) 1.81 K/mcL (1.50-4.80); Lymphocytes % (Auto) 11.6 % (15.5-49.0); Mean Cell Volume 89.6 fL (80.0-100.0); Mean Corpuscular HGB Conc 33.1 g/dL (31.0-36.0); Mean Platelet Volume 10.9 fL (7.4-10.4); Monocytes # (Auto) 1.04 K/mcL (0.10-0.90); Monocytes % (Auto) 6.7 % (1.0-12.0); Platelet Count 88 K/mcL (140-440); RBC 2.97 M/mcL (4.63-6.08); Red Cell Distribution Width 13.5 % (11.5-14.5); WBC 15.6 K/mcL (4.50-11.00)
[2019-07-28 03:25] LABS: ALT/SGPT 22 U/l (0-40); AST/SGOT 29 U/l (0-37); Albumin 2.9 gm/dL (3.2-5.2); Albumin/Globulin Ratio 1.1 (1.0-2.3); Alkaline Phosphatase 60 U/L (39-117); Bilirubin,Direct 0.2 mg/dL (0.0-0.3); Bilirubin,Total 0.6 mg/dL (0.0-1.0); Blood Urea Nitrogen 58 mg/dl (8-23); Calcium 7.7 mg/dl (8.6-10.4); Carbon Dioxide 19 mmol/L (22-30); Globulin 2.6 gm/dL (2.2-3.7); Glucose 207 mg/dL (70-105); Lactate Dehydrogenase 271 U/L (94-250); Phosphorous 4.1 mg/dL (2.7-4.5); Triglycerides 234 mg/dl (<150); Uric Acid 2.6 mg/dL (2.5-8.0)
[2019-07-28 03:30] LABS: Chloride 95 mmol/L (96-108); Glomerular Filtration Rate 8
[2019-07-28] MEDS ORDERED: traMADol 50 MG TABLET PO ONE (03:59)
[2019-07-28] MEDS ORDERED: ACETAMINOPHEN 1,000 MG/100 ML BOTTLE IV ONE (04:46)
[2019-07-28] MEDS ORDERED: ACETAMINOPHEN 650 MG/65 ML BOTTLE IV PRN (04:52)
[2019-07-28] MEDS: 0.9 % SODIUM CHLORIDE 10 ML SYRINGE IV SCH ×3 (05:33→21:24)
[2019-07-28] MEDS ORDERED: VANCOMYCIN PER PHARMACY IV SCH (06:00)
--- NOTE | 2019-07-28 07:19 | Internal Med Progress Note ---
Medical - PN: Subj Patient information: Note initiated : 07/28/19 at 7:12 am Service Date, if different from initiated Date: [] Patient: Artie Bhatt 69 y/o M admitted on 07/27/19 for Bleeding from Permacath port. Chief Complaint: [] Interval history: Mr. Bhatt is a 69 year old M Patient had a recent hemodialysis catheter placed by Dr. Melchor and has had subsequent bleeding since then. The catheter placed at [facility] on and return the next day for bleeding and had DDAVP which seemed to help for day. And is been bleeding again over the weekend. Even to the ED because of the bleeding and Dr. Bear talked with Dr. Melchor. DDAVP was given again and because of the continued bleeding is requested for him to get dialysis today. Dr. Kim would like to admit him to obs for dialysis and monitor bleeding. She had a little bit of nausea this morning. Otherwise no new complaints no chest pain shortness of breath. Other bleeding. 07/27 Still had a little oozing last night from the site. Poor sleep last night otherwise no new complaints. 07/28 Patient had continued fevers through the night which increased and he became hypotensive. Patient started have been started on antibiotics earlier in the evening. Patient then started on vasopressors and transferred to the ICU. Vasopressors have been cut in half this morning. Has occasional cough. Some chills. Review of Systems: Denies headache/fever/nausea/vomiting/chest or abdominal pain/diarrhea. - Constitutional Vitals: Vital Signs Temp Pulse Resp BP Pulse Ox 99.8 F H 85 19 107/65 98 07/28/19 05:31 07/28/19 05:31 07/28/19 05:31 07/28/19 05:31 07/28/19 05:31 Period Temp Pulse Resp BP Sys/Corona Pulse Ox Last 24 Hr 98.5 F-102.7 F 85-108 19-36 78-135/53-77 90-99 Intake and Output 07/27/19 07/28/19 07/28/19 21:59 05:59 13:59 Intake Total 1000 713 Output Total 50 400 Balance 950 313 Weight 113.035 kg Intake & Output: Intake & Output 01/27/20 01/28/20 01/28/20 21:59 05:59 13:59 Intake Total 1000 713 Output Total 50 400 Balance 950 313 Weight 113.035 kg Intake: IV 353 Sodium Chloride 0.9% 250 ml @ 250 Wide Open IV BOLUS ONE Rx#: [id number] OFIRMEV 1,000 mg In 100 ml @ 0 100 mls/hr IV .STK-MED ONE Rx#: [id number] Levophed 16 mg In Sodium 3 Chloride 0.9% 234 ml @ 10 MCG/ MIN 9.375 mls/hr IV Q24H [facility] Rx #:[id number] Oral 1000 360 Output: Urine Catheter Amount 400 Void Amount 50 Other: Urine Appearance Clear Straight Cloudy Urine Color Dark Yellow Straight Bright Yellow Urine Odor Normal Exam: General: Awake, No acute Distress Eyes/N/T: EOMI, Head/Neck: neck supple, CV: RRR, 2/6 SM, Pulm: Clear b/l, no wheezing/rhonchi/rales Abd: soft, nontender, +BS x4 Ext: no clubbing/cyanosis 1+RLE and 2+ LLE edema Neuro: Alert, moves all extremities, follow commands Skin: warm/dry Medical - PN: Obj Da - Labs CBC & Chem 7: 07/28/19 02:25 07/28/19 02:25 Labs: Abnormal Lab Results 07/28/19 07/28/19 07/27/19 02:25 02:25 21:40 WBC 15.6 H RBC 2.97 L Hgb 8.8 L Hct 26.6 L Plt Count 88 L MPV 10.9 H Gran % 80.7 H Lymph % (Auto) 11.6 L Gran # 12.60 H Lymph # (Auto) [place] # (Auto) 1.04 H Lymphocytes % Monocytes % (Manual) WBC Morphology Vacuolated Neuts Platelet Estimate PT INR Sodium 132 L Chloride 95 L Carbon Dioxide 19 L Anion Gap 18.0 H BUN 58 H Creatinine 6.3 H* Glucose 207 H Calcium 7.7 L Magnesium GGT Lactate Dehydrogenase 271 H Total Protein 5.5 L Albumin 2.9 L Triglycerides 234 H Urine Protein >=500 A Urine Glucose (UA) 50 A Urine Occult Blood 0.2 A Urine RBC 5 H Urine WBC 7 H 07/27/19 07/27/19 07/27/19 05:35 05:35 05:35 WBC 13.3 H RBC 3.44 L Hgb 9.9 L Hct 31.1 L Plt Count 97 L MPV 10.8 H Gran % 85.9 H Lymph % (Auto) 6.5 L Gran # 11.44 H Lymph # (Auto) 0.86 L [place] # (Auto) 0.98 H Lymphocytes % 9 L Monocytes % (Manual) 13 H WBC Morphology Abnorm A Vacuolated Neuts 1+ A Platelet Estimate Decreased A PT INR Sodium Chloride 94 L Carbon Dioxide 20 L Anion Gap 19.0 H BUN 49 H Creatinine 5.3 H* Glucose 258 H Calcium 8.5 L Magnesium 1.5 L GGT 64 H Lactate Dehydrogenase Total Protein Albumin Triglycerides 197 H Urine Protein Urine Glucose (UA) Urine Occult Blood Urine RBC Urine WBC 07/26/19 07/26/19 07/26/19 17:15 10:55 10:55 WBC RBC Hgb 10.4 L Hct 31.2 L Plt Count MPV Gran % Lymph % (Auto) Gran # Lymph # (Auto) [place] # (Auto) Lymphocytes % Monocytes % (Manual) WBC Morphology Vacuolated Neuts Platelet Estimate PT 15.1 H INR 1.2 H Sodium Chloride Carbon Dioxide 20 L Anion Gap BUN 60 H Creatinine 5.4 H* Glucose 151 H Calcium 8.5 L Magnesium GGT Lactate Dehydrogenase Total Protein Albumin Triglycerides Urine Protein Urine Glucose (UA) Urine Occult Blood Urine RBC Urine WBC 07/26/19 10:55 WBC 14.4 H RBC 3.23 L Hgb 9.4 L Hct 28.8 L Plt Count 102 L MPV Gran % Lymph % (Auto) 15.1 L Gran # 11.06 H Lymph # (Auto) [place] # (Auto) 1.10 H Lymphocytes % Monocytes % (Manual) WBC Morphology Vacuolated Neuts Platelet Estimate PT INR Sodium Chloride Carbon Dioxide Anion Gap BUN Creatinine Glucose Calcium Magnesium GGT Lactate Dehydrogenase Total Protein Albumin Triglycerides Urine Protein Urine Glucose (UA) Urine Occult Blood Urine RBC Urine WBC Meds: Medications Acetaminophen (Tylenol) 650 mg PO Q6HP PRN PRN Reason: PAIN/FEVER > 101 Albuterol/Ipratropium (Duoneb) 3 ml NEB Q4HP PRN PRN Reason: Shortness Of Breath Cefepime HCl (Maxipime) 0.5 gm IV Q24H [facility]; Protocol Dextrose (Dextrose 50%) 0 ml IV UD PRN PRN Reason: Hypoglycemia Diagnostic Test (Pha) (Accu-Chek) 1 each FS ACHS [facility] Last Admin: 07/28/19 06:52 Dose: 1 each Documented by: Ferrous Gluconate (Fergon) 324 mg PO DAILY [facility] Glucose (Insta-Glucose) 15 gm PO PRN PRN PRN Reason: Hypoglycemia Potassium Chloride 40 meq/ (Dextrose) 520 mls @ 130 mls/hr IV UD PRN PRN Reason: Potassium < 3 Magnesium Sulfate (Magnesium Sulfate) 2 gm in 50 mls @ 50 mls/hr IV UD PRN PRN Reason: Magnesium </= 1.6 Norepinephrine Bitartrate 16 (mg/ Sodium Chloride) 250 mls @ 9.375 mls/hr IV Q24H [facility]; Protocol Sodium Chloride (Sodium Chloride 0.9%) 250 mls @ 20 mls/hr IV .[id number] [facility] Last Admin: 07/28/19 02:59 Dose: Not Given Documented by: Acetaminophen (Ofirmev) 650 mg in 65 mls @ 130 mls/hr IV Q6HP PRN; Protocol PRN Reason: PAIN/FEVER > 101 Insulin Glargine (Lantus) 52 unit SQ HS [facility] Insulin Human Lispro (Humalog) 0 unit SQ ACHS [facility]; Protocol Melatonin (Melatonin 3mg Tablet) 3 mg PO QHS [facility] Ondansetron HCl (Zofran) 4 mg IV Q4HP PRN PRN Reason: Nausea And Vomiting Febuxostat 40 Mg (Tablet) 1 dose PO DAILY [facility] Polyethylene Glycol (Miralax) 17 gm PO DAILYP PRN PRN Reason: Constipation Potassium Chloride (Kdur) 40 meq PO UD PRN PRN Reason: Potssium is 3-3.5 Potassium Chloride (Kdur) 40 meq PO UD PRN PRN Reason: Potassium < 3 Senna (Senokot) 2 tab PO DAILYP PRN PRN Reason: Constipation Simvastatin (Zocor) 20 mg PO QDAY [facility] Sodium Chloride (Saline Flush) 10 ml IV Q8 [facility] Last Admin: 07/28/19 05:33 Dose: 10 ml Documented by: Tamsulosin HCl (Flomax) 0.4 mg PO QDAY [facility] Tramadol HCl (Ultram) 100 mg PO TIDP PRN; Protocol PRN Reason: Pain Vancomycin HCl (Vancomycin Per Pharmacy) 1 order IV UD [facility]; Protocol Vitamin D (Vitamin D3) 10,000 unit PO DAILY [facility] Medical - PN: A/P - Time Spent With Patient Total time spent is greater than 50% in coordination of care (as documented) at patient's floor/unit and/or counseling patient: - Narrative A/P Narrative: A: *Septic Shock: -on vasopressors weaning down -UA/CXR unremarkable for source of infection *Bacteremia (MRSA): source of entry likely recently placed HD Cath *Bleeding around hemodialysis catheter: 2/2 underlying CLL and chemotherapy plus likely underlying platelet dysfunction from ESRD -improved *ESRD: *Anemia, acute blood loss on chronic: H&H stable *CLL: *HTN: *DM: P: -wean off vasopressors as able -Vanc -pending BC's, also ordered BC via HD cath -Nephro following -monitoring H&H -echo pending -SSI and basal -ppx: SCD full code Medical - PN: Qual - VTE Deep Vein Thrombosis/Pulmonary Embolism Present on Admission: No
--- NOTE | 2019-07-28 07:30 | XRay Report ---
HISTORY: Fever, bleeding from a permacath port FINDINGS: The heart is mildly enlarged but magnified by portable technique. The heart is larger today than it was on 02/23/16. Lung volumes are smaller today and there is crowding of the pulmonary vascular markings. There is no consolidating infiltrate mass or pleural effusion. Aorta is tortuous. Patient has a Port-A-Cath placed through the right internal jugular vein into the innominate vein. The catheter is looped above the clavicle. Placement of this catheter is unchanged since 2016. A second larger dual lumen catheter has been inserted through the left internal jugular vein with the tip in the superior vena cava. The catheter appears well-positioned and intact. IMPRESSION: Mild cardiomegaly Prominent lung markings bilaterally. This may be crowding of normal pulmonary vascular markings related to suboptimal inspiration or a mild generalized interstitial inflammatory process Interpreted and Authenticated by: Salomon Celeste 07/28/19
[2019-07-28] MEDS: INSULIN LISPRO 1 UNIT/0.01 ML UNIT SQ SCH ×4 (08:00→21:23)
--- NOTE | 2019-07-28 08:32 | Nephrology Progress Note ---
Subjective Patient information: Note initiated : 07/28/19 at 8:28 am Service Date, if different from initiated Date: [] Patient: Artie Bhatt 69 y/o M admitted on 07/27/19 for Bleeding from Permacath port. Chief Complaint: [] Principal diagnosis: ESRD and bleeding from recent HD placement Interval history: Has the appearance of SIRS with fever spikes x 2, low BP during and post HD (co uld be secondary to fluid removal, hemodynamic effects of dialysis, or sepsis), and finally altered mentation and weakness upon return to his room after dialysis. There is been an increase in his white count he failed to respond to fluid bolus and he now finds himself requiring norepinephrine for blood pressure support. Laboratory Tests 07/27/19 07/28/19 07/28/19 21:40 02:25 02:25 WBC 15.6 H Hgb 8.8 L Hct 26.6 L Plt Count 88 L Gran # 12.60 H VBG Lactic Acid 1.4 Sodium 132 L Potassium 4.1 Chloride 95 L Carbon Dioxide 19 L Anion Gap 18.0 H BUN 58 H Creatinine 6.3 H* Glucose 207 H Uric Acid 2.6 Calcium 7.7 L Phosphorus 4.1 Magnesium 1.6 Lactate Dehydrogenase 271 H Albumin 2.9 L Procalcitonin 99.7 Urine Color Yellow Urine Appearance Hazy Urine pH 6.0 Ur Specific Ada 1.015 Urine Protein >=500 A Urine Glucose (UA) 50 A Urine Ketones Neg Urine Occult Blood 0.2 A Urine Nitrate Neg Urine Bilirubin Neg Urine Urobilinogen Neg Ur Leukocyte Esterase Neg Urine RBC 5 H Urine WBC 7 H Ur Squamous Epith Cells < 1 Urine Bacteria 0 Portable CXR 07/27/2017: MPRESSION: Mild cardiomegaly Prominent lung markings bilaterally. This may be crowding of normal pulmonary vascular markings related to suboptimal inspiration or a mild generalized interstitial inflammatory process Pertinent ROS: 10 pt ROS and documented in HPI and subsequent history. Nothing more to add. Additional PMFSH (Level 3 Only): N/A Objective - Vital Signs Vital signs: Vital Signs Temp Pulse Pulse Resp BP BP BP 07/28/19 07:56 07/28/19 07:31 36.9 C 81 20 115/74 07/28/19 07:02 37.0 C 82 16 123/64 07/28/19 06:54 37.1 C 84 17 120/64 07/28/19 06:31 37.2 C 87 17 122/58 07/28/19 06:01 37.4 C H 84 21 111/51 07/28/19 05:31 37.7 C H 85 19 107/65 07/28/19 05:01 37.9 C H 86 24 H 111/70 07/28/19 04:50 37.9 C H 07/28/19 04:46 37.9 C H 88 22 129/57 07/28/19 04:31 37.9 C H 87 24 H 116/69 07/28/19 04:16 37.8 C H 86 21 135/63 07/28/19 04:01 37.6 C H 87 19 128/66 07/28/19 03:45 89 25 H 133/53 07/28/19 03:01 84/58 07/28/19 02:56 115/67 07/28/19 02:41 96/60 07/28/19 02:36 87/56 07/28/19 02:22 88/61 07/28/19 02:08 78/54 07/28/19 01:57 37.6 C H 87 24 H 94/59 07/28/19 00:00 39.3 C H 101 H 36 H 108/62 07/27/19 23:15 38.8 C H 07/27/19 23:04 39.2 C H 104 H 36 H 104/60 07/27/19 18:35 36.9 C 107 H 26 H 129/62 07/27/19 12:00 37.9 C H 98 H 22 112/77 Pulse Ox 07/28/19 07:56 96 07/28/19 07:31 94 07/28/19 07:02 95 07/28/19 06:54 98 07/28/19 06:31 96 07/28/19 06:01 98 07/28/19 05:31 98 07/28/19 05:01 97 07/28/19 04:50 07/28/19 04:46 97 07/28/19 04:31 97 07/28/19 04:16 99 07/28/19 04:01 96 07/28/19 03:45 91 07/28/19 03:01 07/28/19 02:56 07/28/19 02:41 07/28/19 02:36 07/28/19 02:22 07/28/19 02:08 07/28/19 01:57 92 07/28/19 00:00 90 07/27/19 23:15 07/27/19 23:04 90 07/27/19 18:35 96 07/27/19 12:00 93 Intake and Output 07/27/19 07/28/19 07/28/19 21:59 05:59 13:59 Intake Total 1000 713 39 Output Total 50 400 Balance 950 313 39 Intake: IV 353 39 Sodium Chloride 0.9% 250 ml @ 250 Wide Open IV BOLUS ONE Rx#: [id number] OFIRMEV 1,000 mg In 100 ml @ 0 100 mls/hr IV .STK-MED ONE Rx#: [id number] Levophed 16 mg In Sodium 3 39 Chloride 0.9% 234 ml @ 10 MCG/ MIN 9.375 mls/hr IV Q24H [facility] Rx #:[id number] Oral 1000 360 Output: Urine Catheter Amount 400 Void Amount 50 Other: Urine Appearance Clear Straight Cloudy Urine Color Dark Yellow Straight Bright Yellow Urine Odor Normal Weight 113.035 kg Intake & Output: Intake & Output 07/27/19 07/28/19 07/28/19 21:59 05:59 13:59 Intake Total 1000 713 39 Output Total 50 400 Balance 950 313 39 Weight 113.035 kg Intake: IV 353 39 Sodium Chloride 0.9% 250 ml @ 250 Wide Open IV BOLUS ONE Rx#: [id number] OFIRMEV 1,000 mg In 100 ml @ 0 100 mls/hr IV .STK-MED ONE Rx#: [id number] Levophed 16 mg In Sodium 3 39 Chloride 0.9% 234 ml @ 10 MCG/ MIN 9.375 mls/hr IV Q24H [facility] Rx #:[id number] Oral 1000 360 Output: Urine Catheter Amount 400 Void Amount 50 Other: Urine Appearance Clear Straight Cloudy Urine Color Dark Yellow Straight Bright Yellow Urine Odor Normal - General Appearance General appearance: moderate distress, chronically ill, fatigue EENT: ATNC, PERRL, mucous membranes dry Neck: no JVD, no carotid bruit Respiratory: no scoliosis, course breath sounds Cardiology: no rub, no gallops, no edema, rapid rhythm, normal S1, normal S2 Gastrointestinal: normoactive bowel sounds, no tenderness, no guarding Integumentary: no rash, ecchymotic, hyperpigmentation Neurologic: no asterixis, confused (weak but moves all extremities) Psychiatric: mood/affect appropriate (impoverished) - Lab 07/28/19 17:59 07/28/19 02:25 Most recent lab results Calcium 7.7 mg/dl (8.6-10.4) L 07/28/19 02:25 Phosphorus 4.1 mg/dL (2.7-4.5) 07/28/19 02:25 Magnesium 1.6 mg/dL (1.6-2.5) 07/28/19 02:25 - Imaging Kidney/bladder ultrasound: image reviewed (MRI spine: The vertebral bodies are normal in height signal and alignment. There is) Assessment and Plan (1) ESRD (end stage renal disease) on dialysis 1. Due to underlying medical condition and co-morbidities I do not think this patient will benefit from fpc HD. Anticipate High 1 year mortality and morbidity. 2. Hd tomorrow with 4 hrs, 1-2 liter U/F, albumin for bp support, heparin free treatent and remover recently placed cuff catheter due to MRSA infection with localized redness and swelling at the area need the IJ insertion site bot the skin exit site. 3. Complication if right IJ HD catheter including bleeding Next HD in AM tomorrow. Status: Chronic Priority: High (2) Other lymphoid leukemia, in relapse Hold Imbruvica due to catheter bleeding Status: Chronic Priority: Medium (3) Complications, dialysis, catheter, mechanical Bleeding improved with thrombin gauze and HD and Cessation of Heparin MRSA (+) bacteremia and SIRS/SEPSIS. Survived past 24 hours but far from out of the chau Updated discussion of high mortality with sepsis, followed by 25% mortality per year on HD in >70 yr olds with DM. CLL and treatment thereof is helping increase morbidity and mortality as well. Stop hisImbruvica for now due to bleeding complicatuions Status: Acute Priority: High Qualifiers: Qualified Code(s): T82.49XA - Other complication of vascular dialysis catheter, initial encounter (4) Fever Occured on HD and cultures drawn Also occured in early AM before dialysis Given CLL he will need broad coverage, fever w/u and conversion to full admit. Garcia culture CXR Vanco and cefepime 1 set of blood cultures already positive. 2 gm IV load of vanco last evening, stop 4th generation cephalosporin Status: Acute Priority: High Qualifiers: Qualified Code(s): T88.3XXA - Malignant hyperthermia due to anesthesia, initial encounter
[2019-07-28] MEDS ORDERED: CEFEPIME 1 GM VIAL IV SCH (09:00)
[2019-07-28] MEDS ORDERED: TAMSULOSIN 0.4 MG CAPSULE PO SCH (09:00)
[2019-07-28] MEDS ORDERED: POLYETHYLENE GLYCOL 3350 17 GM PACKET PO SCH (09:00)
[2019-07-28] MEDS: TAMSULOSIN 0.4 MG CAPSULE PO SCH (09:08)
[2019-07-28] MEDS: VITAMIN D3 5,000 UNIT CAPSULE PO SCH (09:08)
[2019-07-28] MEDS: FERROUS GLUCONATE 324 MG TABLET PO SCH (09:08)
[2019-07-28] MEDS: Febuxostat 40 MG Tablet PO SCH (09:09)
[2019-07-28] MEDS: SIMVASTATIN 20 MG TABLET PO SCH (09:09)
[2019-07-28] MEDS: MUPIROCIN OINT 2% 22GM TOPICAL SCH ×2 (11:50→21:24)
[2019-07-28] MEDS: POLYETHYLENE GLYCOL 3350 17 GM PACKET PO PRN (11:50)
[2019-07-28] MEDS: traMADol 50 MG TABLET PO PRN ×2 (11:51→19:34)
--- NOTE | 2019-07-28 13:03 | XRay Report ---
HISTORY: Screening for metal in orbits prior to an MRI scan FINDINGS: there are no metallic foreign bodies in or around the orbits. Orbits appear normal and symmetric. The visualized sinuses are clear. No facial bone lesion is identified. IMPRESSION: normal exam Interpreted and Authenticated by: Salomon Celeste 07/28/19
[2019-07-28] MEDS ORDERED: LORazepam 2 MG/ML VIAL IV ONE (13:35)
--- NOTE | 2019-07-28 14:05 | Infectious Disease Consult ---
History of Present Illness Patient information: Note initiated : 07/28/19 at 2:03 pm Service Date, if different from initiated Date: [] Patient: Artie Bhatt 69 y/o M admitted on 07/27/19 for Bleeding from Permacath port. Chief Complaint: [] Consult date: 07/28/19 Requesting Physician: Tae Dutton Reason for Consult: MRSA bacteremia Chief complaint: bleeding from HD cath, low back pain History of present illness: 69 year old man with CLL (currently on Ibrutininb), ESRD, DM2 was admitted to [facility] on 07/26 for bleeding from recently placed tunnelled HD catheter. Is not a good historian. HPI obtained from chart review mainly. He had the HD catheter placed by Dr. Melchor about 7-8 days ago, and had multiple ER visits since then due to bleeding from and around the cath site. It is unclear if he had any MRSA nasal testing prior to HD cath placement. Pt started having fevers since last night, and pt became hypotensive, needing norepinepherine infusion. Blood Cx were sent. Pt was started on IV Vanc and IV cefepime. At time of visit, pt confirmed the above Hx. Added that he is in unbearable low back pain now. Unsure of how long he had it but thinks that it has recently got worse. Endorsed fevers, chills. Denied any recent skin boils, n/v, diarrhea. Mentions that his last HD was on Saturday. Denies any sick contacts. Review of Systems All systems PM: reviewed and no additional remarkable complaints except as stated Constitutional: as per HPI Past History Past medical history: ESRD on HD since last 1 week DM2 with neuropathy CLL: on Ibrutinib Past surgical history: b/l TKA Past social history: lives in [place], [place] Medications and Allergies Home Medications Medication Instructions Recorded Confirmed Type epinephrine 0.3 mg/0.3 mL 0.3 mg IM Q10-15M PRN 01/05/16 07/26/19 History injection, auto-injector metoprolol tartrate 100 mg tablet 100 mg PO BID 01/05/16 07/26/19 History simvastatin 20 mg tablet 20 mg PO QDAY tab 01/05/16 07/26/19 History tramadol 50 mg tablet 100 mg PO TID tab 01/05/16 07/26/19 History ibrutinib 140 mg capsule 420 mg PO QDAY cap 03/13/18 07/26/19 History insulin glargine 100 unit/mL (3 See Rx Instructions SUB-Q QHS 03/13/18 07/26/19 History mL) subcutaneous pen amlodipine 5 mg tablet 5 mg PO BID #180 tab 05/19/18 07/26/19 Rx cholecalciferol (vitamin D3) 10,000 unit PO QDAY #90 cap 02/19/19 07/26/19 Rx 10,000 unit capsule tamsulosin 0.4 mg capsule 0.4 mg PO QDAY #90 cap 05/08/19 07/27/19 Rx febuxostat 40 mg tablet See Rx Instructions .ROUTE 05/21/19 07/26/19 Rx .COMPLEX #30 tablet ferrous gluconate 240 mg (27 mg 240 mg PO QDAY 06/19/19 07/26/19 History iron) tablet insulin aspart U-100 100 unit/mL See Rx Instructions SUB-Q BID ml 06/19/19 07/26/19 History (3 mL) subcutaneous pen acetaminophen 650 mg 1,300 mg PO Q7H PRN tab 07/21/19 07/26/19 History tablet,extended release furosemide 40 mg tablet 40 mg PO QDAY tab 07/21/19 07/26/19 History Allergies Allergy/AdvReac Type Severity Reaction Status Date / Time hydrochlorothiazide Allergy Mild Rash Verified 07/28/19 07:17 penicillin V Allergy Mild rash Verified 07/28/19 07:17 ibuprofen Allergy Unknown Kidney Verified 07/26/19 09:22 Disease Bee sting Allergy Unknown Other Uncoded 07/21/19 09:26 Physical Examination Vital signs: Temp Pulse Resp BP Pulse Ox 38.4 C H 113 H 21 153/132 95 07/28/19 12:10 07/28/19 12:10 07/28/19 12:10 07/28/19 12:01 07/28/19 12:10 General appearance: appears uncomfortable Eyes pulmonary: nonicteric ENT: oropharynx dry, other (no thrush) Neck: other (has prominent supraclavicular pad of fat) Auscultation: bilateral: diminished breath sounds Cardiovascular: other (s1 s2 normal, no m/r/g) Gastrointestinal: normoactive bowel sounds, non-tender Integumentary: other (has stasis dermatitis in both legs) Extremities: other Gait: other (has point vertebral tenderness over lumbar spine, no fluctuance, SLRT +ve on both sides, absent sensation in L5-S1 dermatome on fine touch) Results - Laboratory Findings CBC and BMP: 07/29/19 05:11 07/29/19 05:11 PT/INR, D-dimer PT 15.1 sec (11.9-14.5) H 07/26/19 10:55 INR 1.2 (0.9-1.1) H 07/26/19 10:55 Abnormal lab findings: Abnormal Labs 07/26/19 07/26/19 07/26/19 10:55 10:55 10:55 WBC 14.4 H RBC 3.23 L Hgb 9.4 L Hct 28.8 L Plt Count 102 L MPV Gran % Lymph % (Auto) 15.1 L Gran # 11.06 H Lymph # (Auto) [place] # (Auto) 1.10 H Lymphocytes % Monocytes % (Manual) WBC Morphology Vacuolated Neuts Platelet Estimate PT 15.1 H INR 1.2 H Sodium Chloride Carbon Dioxide 20 L Anion Gap BUN 60 H Creatinine 5.4 H* Glucose 151 H Calcium 8.5 L Magnesium GGT Lactate Dehydrogenase Total Protein Albumin Triglycerides Urine Protein Urine Glucose (UA) Urine Occult Blood Urine RBC Urine WBC 07/26/19 07/27/19 07/27/19 17:15 05:35 05:35 WBC 13.3 H RBC 3.44 L Hgb 10.4 L 9.9 L Hct 31.2 L 31.1 L Plt Count 97 L MPV 10.8 H Gran % 85.9 H Lymph % (Auto) 6.5 L Gran # 11.44 H Lymph # (Auto) 0.86 L [place] # (Auto) 0.98 H Lymphocytes % Monocytes % (Manual) WBC Morphology Vacuolated Neuts Platelet Estimate PT INR Sodium Chloride 94 L Carbon Dioxide 20 L Anion Gap 19.0 H BUN 49 H Creatinine 5.3 H* Glucose 258 H Calcium 8.5 L Magnesium 1.5 L GGT 64 H Lactate Dehydrogenase Total Protein Albumin Triglycerides 197 H Urine Protein Urine Glucose (UA) Urine Occult Blood Urine RBC Urine WBC 07/27/19 07/27/19 07/28/19 05:35 21:40 02:25 WBC 15.6 H RBC 2.97 L Hgb 8.8 L Hct 26.6 L Plt Count 88 L MPV 10.9 H Gran % 80.7 H Lymph % (Auto) 11.6 L Gran # 12.60 H Lymph # (Auto) [place] # (Auto) 1.04 H Lymphocytes % 9 L Monocytes % (Manual) 13 H WBC Morphology Abnorm A Vacuolated Neuts 1+ A Platelet Estimate Decreased A PT INR Sodium Chloride Carbon Dioxide Anion Gap BUN Creatinine Glucose Calcium Magnesium GGT Lactate Dehydrogenase Total Protein Albumin Triglycerides Urine Protein >=500 A Urine Glucose (UA) 50 A Urine Occult Blood 0.2 A Urine RBC 5 H Urine WBC 7 H 07/28/19 02:25 WBC RBC Hgb Hct Plt Count MPV Gran % Lymph % (Auto) Gran # Lymph # (Auto) [place] # (Auto) Lymphocytes % Monocytes % (Manual) WBC Morphology Vacuolated Neuts Platelet Estimate PT INR Sodium 132 L Chloride 95 L Carbon Dioxide 19 L Anion Gap 18.0 H BUN 58 H Creatinine 6.3 H* Glucose 207 H Calcium 7.7 L Magnesium GGT Lactate Dehydrogenase 271 H Total Protein 5.5 L Albumin 2.9 L Triglycerides 234 H Urine Protein Urine Glucose (UA) Urine Occult Blood Urine RBC Urine WBC Microbiology: Microbiology 07/27/19 20:00 Blood Blood Culture - Preliminary Gram positive cocci 07/28/19 02:50 Nose MRSA (PCR) - Final MRSA PCR positive 07/27/19 15:45 Blood Blood Culture - Preliminary Gram positive cocci Assessment and Plan - Narrative A/P Narrative: A: 1. Tunneled HD-catheter associated MRSA bacteremia: - blood Cx from ve, 2/2 sets - risk factors: MRSA nasal carrier, HD catheter, bleeding around the HD catheter insertion site, on chemo for CLL, chemo-port - HD catheter seems most likely source with seeding from nasal MRSA. Early HD catheter removal should be considered given septic shock 2. Septic shock: sec to (1) 3. Lumbar back pain with lack of sensation in L5-S1 dermatomes, SLRT +ve - r/o any lumbar spine infection 4. ESRD on HD 5. DM2 with neuropathy 6. CLL : on Po Ibrutinib Recommendations: - Remove the HD catheter. Draw 2 sets of blood Cx after removal. If Cx neg for 48 hrs, place a new HD catheter. Spoke with Dr Quintanilla today, and he is on board - Given possibility of seeding of chemoport with MRSA bacteremia; will touch base with the oncologist for its removal as part of management and source control - Continue IV Vanc per pharmacy assisted dosing. Check levels prior to HD (target 15-20) - D/C Cefepime - MRI of thoracic and lumbar spine without contrast. - await TTE, repeat blood Cx - continue MRSA decolonization with intranasal mupirocin 2% bid and below neck whole body chlorhexidine once daily, for 5 days will follow Andrea Becerra MD Infectious diseases
--- NOTE | 2019-07-28 16:35 | Magnetic Resonance Report ---
History: Low back pain, MRSA bacteremia, renal failure, evaluate for epidural abscess TECHNIQUE: Multiplanar imaging was performed using multiple pulse sequences. FINDINGS: L5-S1 disc is normal in height. There is a small midline bulge. Mild arthritis is present in both facets. Left-sided neural foramen is severely stenotic and there is moderately severe stenosis on the right side. Central canal is normal in caliber. L4-5 disc is mildly narrowed and degenerated. There is a medium-sized broad-based disc herniation. There is also arthritis in the facets and hypertrophy of ligamentum flavum resulting in severe spinal canal stenosis. There is severe stenosis of the right and moderately severe stenosis left-sided neural foramina. The L3-4 disc is normal. There is mild spinal canal stenosis due to hypertrophy of the facets and the ligamentum flavum. The neural foramina are normal. The T12-L1, L1-2 and L2-3 disc space levels are normal. The vertebral bodies are normal in height signal and alignment. There is no evidence of a fracture, osteomyelitis or discitis. No epidural or paraspinal abscess are present. The spinal cord is normal and the conus is at the L1 level. IMPRESSION: No evidence of spinal infection Severe spinal canal stenosis at L4-5 due to a moderate size broad-based herniated disc and arthritis in the facets Small midline bulge at L5-S1 Stenosis of the neural foramina bilaterally at L4-5 and L5-S1. Greatest narrowing is on the right side at L4-5 Interpreted and Authenticated by: Salomon Celeste 07/28/19
--- NOTE | 2019-07-28 16:40 | Magnetic Resonance Report ---
History: Thoracic back pain, MRSA bacteremia, renal failure, evaluate for epidural abscess TECHNIQUE: Multiplanar imaging was performed using multiple pulse sequences. FINDINGS: There is no evidence of spinal infection. No epidural or paraspinal abscess are present. No fracture or destructive bone lesion are present either. There is arthritis with formation of medium-size anterior spurs throughout the mid and lower thoracic spine was smaller anterior spurs in the upper thoracic spine. There is moderate disc space narrowing at T7-8 and T8-9. There are Schmorl's nodes at T7, T8 and T9. No disc bulge or herniation are present. The spinal cord is normal in size signal and contour. No spinal canal or neural foraminal stenosis are present IMPRESSION: Arthritis throughout the thoracic spine No evidence of infection, neoplasm or herniated disc Interpreted and Authenticated by: Salomon Celeste 07/28/19
[2019-07-28] MEDS: METOPROLOL TARTRATE 5 MG/5 ML VIAL IV PRN ×2 (16:50→17:33)
[2019-07-28] MEDS: METOPROLOL TARTRATE 50 MG TABLET PO SCH ×3 (16:51→21:24)
[2019-07-28 19:08] LABS: Hematocrit 29.4 % (40.1-51.0); Hemoglobin 9.7 g/dL (13.7-17.5)
[2019-07-28 20:11] LABS: Vancomycin,Random 19.5 ug/mL
[2019-07-28] MEDS: INSULIN GLARGINE, HUMAN 1 UNIT/0.01 ML SQ SCH (21:23)
[2019-07-28] MEDS: MELATONIN 3 MG TABLET PO SCH ×2 (21:24→21:32)
[2019-07-29] MEDS: traMADol 50 MG TABLET PO PRN ×3 (02:05→20:43)
[2019-07-29] MEDS ORDERED: NOREPINEPHRINE BITARTRATE 16 MG in 0.9 % SODIUM CHLORIDE 234 ML IV PRN (02:30)
[2019-07-29] MEDS: 0.9 % SODIUM CHLORIDE 250 ML IV SCH ×2 (03:12→16:06)
[2019-07-29] MEDS: 0.9 % SODIUM CHLORIDE 10 ML SYRINGE IV SCH ×3 (05:21→20:36)
[2019-07-29] MEDS: Febuxostat 40 MG Tablet PO SCH (07:16)
[2019-07-29 07:18] LABS: Phosphorous 5.3 mg/dL (2.7-4.5)
[2019-07-29 07:22] LABS: Basophils # (Auto) 0.03 K/mcL (0.00-0.30); Basophils % (Auto) 0.2 % (0.0-2.0); Eosinophils # (Auto) 0.07 K/mcL (0.00-0.70); Eosinophils % (Auto) 0.5 % (0.0-7.0); Granulocytes % (Auto) 80.6 % (38.0-78.0); Hematocrit 27.4 % (40.1-51.0); Lymphocytes # (Auto) 1.32 K/mcL (1.50-4.80); Lymphocytes % (Auto) 10.1 % (15.5-49.0); Mean Cell Volume 89.5 fL (80.0-100.0); Mean Corpuscular HGB Conc 32.8 g/dL (31.0-36.0); Mean Platelet Volume 12.9 fL (7.4-10.4); Monocytes # (Auto) 1.13 K/mcL (0.10-0.90); Monocytes % (Auto) 8.6 % (1.0-12.0); Platelet Count 73 K/mcL (140-440); RBC 3.06 M/mcL (4.63-6.08); WBC 13.1 K/mcL (4.50-11.00)
[2019-07-29 07:26] LABS: Calcium 8.1 mg/dl (8.6-10.4); Carbon Dioxide 19 mmol/L (22-30); Glucose 204 mg/dL (70-105)
[2019-07-29] MEDS: INSULIN LISPRO 1 UNIT/0.01 ML UNIT SQ SCH ×4 (07:43→20:36)
[2019-07-29] MEDS: MUPIROCIN OINT 2% 22GM TOPICAL SCH ×2 (07:43→20:35)
[2019-07-29] MEDS: FERROUS GLUCONATE 324 MG TABLET PO SCH (07:44)
[2019-07-29] MEDS: SIMVASTATIN 20 MG TABLET PO SCH (07:44)
[2019-07-29] MEDS: METOPROLOL TARTRATE 50 MG TABLET PO SCH ×2 (07:44→20:49)
[2019-07-29] MEDS: TAMSULOSIN 0.4 MG CAPSULE PO SCH (07:44)
[2019-07-29 07:47] LABS: Blood Urea Nitrogen 91 mg/dl (8-23); Chloride 94 mmol/L (96-108); Glomerular Filtration Rate 5
--- NOTE | 2019-07-29 07:53 | Internal Med Progress Note ---
Medical - PN: Subj Patient information: Note initiated : 07/29/19 at 7:48 am Service Date, if different from initiated Date: [] Patient: Artie Bhatt 69 y/o M admitted on 07/27/19 for Bleeding from Permacath port. Chief Complaint: [] Interval history: Mr. Bhatt is a 69 year old M Patient had a recent hemodialysis catheter placed by Dr. Melchor and has had subsequent bleeding since then. The catheter placed at [facility] on and return the next day for bleeding and had DDAVP which seemed to help for day. And is been bleeding again over the weekend. Even to the ED because of the bleeding and Dr. Bear talked with Dr. Melchor. DDAVP was given again and because of the continued bleeding is requested for him to get dialysis today. Dr. Kim would like to admit him to obs for dialysis and monitor bleeding. She had a little bit of nausea this morning. Otherwise no new complaints no chest pain shortness of breath. Other bleeding. 07/27 Still had a little oozing last night from the site. Poor sleep last night otherwise no new complaints. 07/28 Patient had continued fevers through the night which increased and he became hypotensive. Patient started have been started on antibiotics earlier in the evening. Patient then started on vasopressors and transferred to the ICU. Vasopressors have been cut in half this morning. Has occasional cough. Some chills. called by nurse early evening pt in afib 120's, restarted home lopressor @lower dose, with prn IV lopressor 07/29 No overnight events. Patient feeling better. Blood cultures from yesterday positive. No new complaints. Review of Systems: Denies headache/fever/nausea/vomiting/chest or abdominal pain/diarrhea. - Constitutional Vitals: Vital Signs Temp Pulse Resp BP Pulse Ox 99.0 F 88 23 H 119/66 94 07/29/19 04:01 07/29/19 04:01 07/29/19 04:01 07/29/19 04:01 07/29/19 04:01 Period Temp Pulse Resp BP Sys/Corona Pulse Ox Last 24 Hr 97.6 F-101.9 F 69-120 13-25 72-153/52-132 91-99 Intake and Output 07/28/19 07/29/19 07/29/19 21:59 05:59 13:59 Intake Total 720 Output Total 450 450 Balance -450 270 Weight 108.817 kg Intake & Output: Intake & Output 07/28/19 07/29/19 07/29/19 21:59 05:59 13:59 Intake Total 720 Output Total 450 450 Balance -450 270 Weight 108.817 kg Intake: Oral 720 Output: Urine Catheter Amount 450 450 Other: Urine Appearance Straight Clear Urine Color Straight Dark Yellow Exam: General: Awake, No acute Distress Eyes/N/T: EOMI, Head/Neck: neck supple, CV: irreg with occasional regularity this morning, 2/6 SM, Pulm: Clear b/l, no wheezing/rhonchi/rales Abd: soft, nontender, +BS x4 Ext: no clubbing/cyanosis, b/l LE edema Neuro: Alert, moves all extremities, follow commands Skin: warm/dry Medical - PN: Obj Da - Labs CBC & Chem 7: 07/29/19 05:11 07/29/19 05:11 Labs: Abnormal Lab Results 07/29/19 07/29/19 07/29/19 05:11 05:11 05:11 WBC 13.1 H RBC 3.06 L Hgb 9.0 L Hct 27.4 L Plt Count 73 L MPV 12.9 H Gran % 80.6 H Lymph % (Auto) 10.1 L Gran # 10.58 H Lymph # (Auto) 1.32 L [place] # (Auto) 1.13 H Lymphocytes % Monocytes % (Manual) WBC Morphology Vacuolated Neuts Platelet Estimate PT INR Sodium Chloride 94 L Carbon Dioxide 19 L Anion Gap 20.0 H BUN 91 H Creatinine 8.9 H* Glucose 204 H Calcium 8.1 L Phosphorus 5.3 H Magnesium GGT Lactate Dehydrogenase Total Protein Albumin 3.0 L Triglycerides Urine Protein Urine Glucose (UA) Urine Occult Blood Urine RBC Urine WBC 07/28/19 07/28/19 07/28/19 17:59 02:25 02:25 WBC 15.6 H RBC 2.97 L Hgb 9.7 L 8.8 L Hct 29.4 L 26.6 L Plt Count 88 L MPV 10.9 H Gran % 80.7 H Lymph % (Auto) 11.6 L Gran # 12.60 H Lymph # (Auto) [place] # (Auto) 1.04 H Lymphocytes % Monocytes % (Manual) WBC Morphology Vacuolated Neuts Platelet Estimate PT INR Sodium 132 L Chloride 95 L Carbon Dioxide 19 L Anion Gap 18.0 H BUN 58 H Creatinine 6.3 H* Glucose 207 H Calcium 7.7 L Phosphorus Magnesium GGT Lactate Dehydrogenase 271 H Total Protein 5.5 L Albumin 2.9 L Triglycerides 234 H Urine Protein Urine Glucose (UA) Urine Occult Blood Urine RBC Urine WBC 07/27/19 07/27/19 07/27/19 21:40 05:35 05:35 WBC RBC Hgb Hct Plt Count MPV Gran % Lymph % (Auto) Gran # Lymph # (Auto) [place] # (Auto) Lymphocytes % 9 L Monocytes % (Manual) 13 H WBC Morphology Abnorm A Vacuolated Neuts 1+ A Platelet Estimate Decreased A PT INR Sodium Chloride 94 L Carbon Dioxide 20 L Anion Gap 19.0 H BUN 49 H Creatinine 5.3 H* Glucose 258 H Calcium 8.5 L Phosphorus Magnesium 1.5 L GGT 64 H Lactate Dehydrogenase Total Protein Albumin Triglycerides 197 H Urine Protein >=500 A Urine Glucose (UA) 50 A Urine Occult Blood 0.2 A Urine RBC 5 H Urine WBC 7 H 07/27/19 07/26/19 07/26/19 05:35 17:15 10:55 WBC 13.3 H RBC 3.44 L Hgb 9.9 L 10.4 L Hct 31.1 L 31.2 L Plt Count 97 L MPV 10.8 H Gran % 85.9 H Lymph % (Auto) 6.5 L Gran # 11.44 H Lymph # (Auto) 0.86 L [place] # (Auto) 0.98 H Lymphocytes % Monocytes % (Manual) WBC Morphology Vacuolated Neuts Platelet Estimate PT INR Sodium Chloride Carbon Dioxide 20 L Anion Gap BUN 60 H Creatinine 5.4 H* Glucose 151 H Calcium 8.5 L Phosphorus Magnesium GGT Lactate Dehydrogenase Total Protein Albumin Triglycerides Urine Protein Urine Glucose (UA) Urine Occult Blood Urine RBC Urine WBC 07/26/19 07/26/19 10:55 10:55 WBC 14.4 H RBC 3.23 L Hgb 9.4 L Hct 28.8 L Plt Count 102 L MPV Gran % Lymph % (Auto) 15.1 L Gran # 11.06 H Lymph # (Auto) [place] # (Auto) 1.10 H Lymphocytes % Monocytes % (Manual) WBC Morphology Vacuolated Neuts Platelet Estimate PT 15.1 H INR 1.2 H Sodium Chloride Carbon Dioxide Anion Gap BUN Creatinine Glucose Calcium Phosphorus Magnesium GGT Lactate Dehydrogenase Total Protein Albumin Triglycerides Urine Protein Urine Glucose (UA) Urine Occult Blood Urine RBC Urine WBC Meds: Medications Acetaminophen (Tylenol) 650 mg PO Q6HP PRN PRN Reason: PAIN/FEVER > 101 Albuterol/Ipratropium (Duoneb) 3 ml NEB Q4HP PRN PRN Reason: Shortness Of Breath Dextrose (Dextrose 50%) 0 ml IV UD PRN PRN Reason: Hypoglycemia Diagnostic Test (Pha) (Accu-Chek) 1 each FS [facility] Last Admin: 07/29/19 07:39 Dose: 1 each Documented by: Ferrous Gluconate (Fergon) 324 mg PO DAILY [facility] Last Admin: 07/29/19 07:44 Dose: 324 mg Documented by: Glucose (Insta-Glucose) 15 gm PO PRN PRN PRN Reason: Hypoglycemia Potassium Chloride 40 meq/ (Dextrose) 520 mls @ 130 mls/hr IV UD PRN PRN Reason: Potassium < 3 Magnesium Sulfate (Magnesium Sulfate) 2 gm in 50 mls @ 50 mls/hr IV UD PRN PRN Reason: Magnesium </= 1.6 Norepinephrine Bitartrate 16 (mg/ Sodium Chloride) 250 mls @ 9.375 mls/hr IV Q24HP PRN; Protocol PRN Reason: Hypotension Sodium Chloride (Sodium Chloride 0.9%) 250 mls @ 20 mls/hr IV .[id number] [facility] Last Admin: 07/29/19 03:12 Dose: Not Given Documented by: Acetaminophen (Ofirmev) 650 mg in 65 mls @ 130 mls/hr IV Q6HP PRN; Protocol PRN Reason: PAIN/FEVER > 101 Insulin Glargine (Lantus) 52 unit SQ [facility] Last Admin: 07/28/19 21:23 Dose: 52 units Documented by: Insulin Human Lispro (Humalog) 0 unit SQ [facility]; Protocol Last Admin: 07/29/19 07:43 Dose: 4 unit Documented by: Melatonin (Melatonin 3mg Tablet) 3 mg PO QHS [facility] Last Admin: 07/28/19 21:32 Dose: Not Given Documented by: Metoprolol Tartrate (Lopressor) 50 mg PO BID [facility] Last Admin: 07/29/19 07:44 Dose: 50 mg Documented by: Metoprolol Tartrate (Lopressor) 5 mg IV Q2HP PRN PRN Reason: Tachyarrhythmias HR>110 Last Admin: 07/28/19 17:33 Dose: 5 mg Documented by: Morphine Sulfate (Morphine) 1 - 3 mg IV Q3HP PRN; Protocol PRN Reason: Per Pain Protocol Last Admin: 07/29/19 00:12 Dose: 2 mg Documented by: Mupirocin (Bactroban Oint 2%) 1 dose TOPICAL BID [facility] Stop: 08/01/19 21:01 Last Admin: 07/29/19 07:43 Dose: 1 dose Documented by: Ondansetron HCl (Zofran) 4 mg IV Q4HP PRN PRN Reason: Nausea And Vomiting Febuxostat 40 Mg (Tablet) 1 dose PO DAILY [facility] Last Admin: 07/29/19 07:16 Dose: Not Given Documented by: Polyethylene Glycol (Miralax) 17 gm PO DAILYP PRN PRN Reason: Constipation Last Admin: 07/28/19 11:50 Dose: 17 gm Documented by: Potassium Chloride (Kdur) 40 meq PO UD PRN PRN Reason: Potssium is 3-3.5 Potassium Chloride (Kdur) 40 meq PO UD PRN PRN Reason: Potassium < 3 Senna (Senokot) 2 tab PO DAILYP PRN PRN Reason: Constipation Simvastatin (Zocor) 20 mg PO QDAY [facility] Last Admin: 07/29/19 07:44 Dose: 20 mg Documented by: Sodium Chloride (Saline Flush) 10 ml IV Q8 [facility] Last Admin: 07/29/19 05:21 Dose: 10 ml Documented by: Tamsulosin HCl (Flomax) 0.4 mg PO QDAY [facility] Last Admin: 07/29/19 07:44 Dose: 0.4 mg Documented by: Tramadol HCl (Ultram) 100 mg PO TIDP PRN; Protocol PRN Reason: Pain Last Admin: 07/29/19 02:05 Dose: 100 mg Documented by: Vancomycin HCl (Vancomycin Per Pharmacy) 1 order IV UD [facility]; Protocol Vitamin D (Vitamin D3) 10,000 unit PO DAILY [facility] Last Admin: 07/28/19 09:08 Dose: 10,000 unit Documented by: Medical - PN: A/P - Time Spent With Patient Total time spent is greater than 50% in coordination of care (as documented) at patient's floor/unit and/or counseling patient: - Narrative A/P Narrative: A: *Septic Shock: -off vasopressors off since morning of -UA/CXR unremarkable for source of infection *Bacteremia (MRSA): source of entry suspected to be recently placed HD Cath *Afib rvr (?new): likely 2/2 above -controlled *ESRD: *Bleeding around hemodialysis catheter: 2/2 underlying CLL and chemotherapy plus likely underlying platelet dysfunction from ESRD -stable *Anemia, acute blood loss on chronic: H&H stable *CLL: *HTN: *DM: P: -Vancomycin, ID following -repeat BC in AM, also pending BC via HD cath -Nephro following -HD catheter to come out; ID discussing with oncologist about port coming out -monitoring H&H -cont home lopressor but at lower dose given low BP, prn IV -echo pending -SSI and basal -ppx: SCD full code Medical - PN: Qual - VTE Deep Vein Thrombosis/Pulmonary Embolism Present on Admission: No
[2019-07-29] MEDS: VITAMIN D3 5,000 UNIT CAPSULE PO SCH (08:08)
[2019-07-29] MEDS ORDERED: ALBUMIN HUMAN 12.5 GM/50 ML BAG IV PRN (09:21)
[2019-07-29 09:24] LABS: Band Neutrophils % 16 % (0-10); Dohle Bodies FEW (NONE SEEN); Hypochromasia 1+ (NONE SEEN); Lymphocytes % 13 % (15-49); Monocytes % (Manual) 6 % (1-12); Platelet Estimate DECREASED (NORMAL); Polychromasia 1+ (NONE SEEN); RBC Morphology ABNORM (NORMAL); Segmented Neutrophils % 65 % (38-78)
[2019-07-29] MEDS ORDERED: ALTEPLASE 2 MG VIAL IV ONE ×3 (09:40→11:05)
[2019-07-29 10:20] LABS: Vancomycin,Random 17.4 ug/mL
--- NOTE | 2019-07-29 15:11 | Infectious Disease Prog Note ---
Subjective Patient information: Note initiated : 07/29/19 at 3:07 pm Service Date, if different from initiated Date: [] Patient: Artie Bhatt 69 y/o M admitted on 07/27/19 for Bleeding from Permacath port. Chief Complaint: [] Principal diagnosis: ESRD and bleeding from recent HD placement Interval history: Pt reports feeling slightly better in terms of his back pain. Had fevers last ni ght but not since then. Denies any n/v/diarrhea. was undergoing HD at time of visit. aware of plan to remove the HD catheter. Objective Objective Narrative: ao x 3, in nad chest has decreased BS at bases, with some crackles s1 s2 normal, no m/r/g bs ++, nttd the left chest wall cath site has some swelling, the dressing has blood soaked in it - Vital Signs Vital signs: Vital Signs Temp Pulse Resp BP Pulse Ox 07/29/19 15:00 93 H 95/61 07/29/19 14:46 87 97/55 07/29/19 14:30 98 H 84/53 07/29/19 14:16 93 H 82/58 07/29/19 14:02 96 H 99/54 07/29/19 13:46 99 H 81/59 07/29/19 13:33 93 H 91/69 07/29/19 13:17 93 H 94/60 07/29/19 13:05 96 H 101/49 07/29/19 12:50 91 H 104/56 07/29/19 12:20 37.1 C 90 131/119 07/29/19 04:01 37.2 C 88 23 H 119/66 94 07/29/19 03:01 80 22 107/55 91 07/29/19 02:02 25 H 99/67 07/29/19 01:01 17 123/61 95 07/29/19 00:01 37.3 C H 81 25 H 123/70 93 07/28/19 23:02 76 16 120/63 95 07/28/19 22:10 75 23 H 103/69 94 07/28/19 22:03 69 25 H 88/57 96 07/28/19 21:25 78 19 72/52 95 07/28/19 21:01 24 H 82/66 07/28/19 20:01 36.4 C 99 H 19 114/58 95 07/28/19 19:33 94 H 13 103/71 97 07/28/19 19:30 94 07/28/19 19:01 96 H 17 99/69 99 07/28/19 18:01 108 H 21 121/63 96 07/28/19 17:31 120 H 19 112/76 96 07/28/19 17:27 37.5 C H 07/28/19 16:42 106 H 91 07/28/19 16:33 120 H 122/81 93 07/28/19 16:30 97 Intake and Output 07/29/19 07/29/19 07/29/19 05:59 13:59 21:59 Intake Total 720 120 Output Total 450 Balance 270 120 Intake: Oral 720 120 Output: Urine Catheter Amount 450 Other: Meal Breakfast Percent of Meal Consumed 5% Feeding Ability Assist with Tray Set Up Weight 108.817 kg Patient Weight 07/30/19 05:59 Weight 108.817 kg Intake & Output: Intake & Output 07/29/19 07/29/19 07/29/19 05:59 13:59 21:59 Intake Total 720 120 Output Total 450 Balance 270 120 Weight 108.817 kg Intake: Oral 720 120 Output: Urine Catheter Amount 450 Other: Meal Breakfast Percent of Meal Consumed 5% Feeding Ability Assist with Tray Set Up - Lab 07/29/19 05:11 07/29/19 05:11 Most recent lab results Calcium 8.1 mg/dl (8.6-10.4) L 07/29/19 05:11 Phosphorus 5.3 mg/dL (2.7-4.5) H 07/29/19 05:11 Magnesium 2.1 mg/dL (1.6-2.5) 07/29/19 05:11 Microbiology 07/27/19 20:00 Blood Blood Culture - Preliminary Staphylococcus aureus 07/27/19 21:40 Urine - Catheterized Urine Culture - Preliminary Staphylococcus aureus 07/28/19 12:13 Blood Blood Culture - Preliminary Gram positive cocci 07/28/19 12:00 Blood Blood Culture - Preliminary Gram positive cocci 07/28/19 02:50 Nose MRSA (PCR) - Final MRSA PCR positive 07/27/19 15:45 Blood Blood Culture - Preliminary Gram positive cocci Medications Active Medications: Acetaminophen (Tylenol) 650 mg PO Q6HP PRN PRN Reason: PAIN/FEVER > 101 Albuterol/Ipratropium (Duoneb) 3 ml NEB Q4HP PRN PRN Reason: Shortness Of Breath Dextrose (Dextrose 50%) 0 ml IV UD PRN PRN Reason: Hypoglycemia Diagnostic Test (Pha) (Accu-Chek) 1 each FS ACHS [facility] Last Admin: 07/29/19 11:37 Dose: 1 each Documented by: [email or web address] Admin: 07/29/19 07:39 Dose: 1 each Documented by: [id number] Admin: 07/28/19 21:16 Dose: 1 each Documented by: [email or web address] Admin: 07/28/19 17:42 Dose: 1 each Documented by: [email or web address] Admin: 07/28/19 11:53 Dose: 1 each Documented by: [id number] Admin: 07/28/19 06:52 Dose: 1 each Documented by: [id number] Ferrous Gluconate (Fergon) 324 mg PO DAILY [facility] Last Admin: 07/29/19 07:44 Dose: 324 mg Documented by: [id number] Admin: 07/28/19 09:08 Dose: 324 mg Documented by: [id number] Glucose (Insta-Glucose) 15 gm PO PRN PRN PRN Reason: Hypoglycemia Potassium Chloride 40 meq/ (Dextrose) 520 mls @ 130 mls/hr IV UD PRN PRN Reason: Potassium < 3 Magnesium Sulfate (Magnesium Sulfate) 2 gm in 50 mls @ 50 mls/hr IV UD PRN PRN Reason: Magnesium </= 1.6 Norepinephrine Bitartrate 16 (mg/ Sodium Chloride) 250 mls @ 9.375 mls/hr IV Q24HP PRN; Protocol PRN Reason: Hypotension Sodium Chloride (Sodium Chloride 0.9%) 250 mls @ 20 mls/hr IV .[id number] [facility] Last Admin: 07/29/19 03:12 Dose: Not Given Documented by: [email or web address] Non-Admin Reason: Clinical Judgement Admin: 07/28/19 16:39 Dose: Not Given Documented by: [id number] Non-Admin Reason: prn Admin: 07/28/19 02:59 Dose: Not Given Documented by: [email or web address] Non-Admin Reason: see other chartine Acetaminophen (Ofirmev) 650 mg in 65 mls @ 130 mls/hr IV Q6HP PRN; Protocol PRN Reason: PAIN/FEVER > 101 Albumin Human (Buminate) 12.5 gm in 50 mls @ 100 mls/hr IV Q1HP PRN PRN Reason: Hypotension Last Admin: 07/29/19 13:49 Dose: 100 mls/hr Documented by: [id number] Vancomycin HCl 1,500 mg/ (Sodium Chloride) 500 mls @ 333.3 mls/hr IV ONCE ONE Stop: 07/29/19 18:30 Insulin Glargine (Lantus) 52 unit SQ [facility] Last Admin: 07/28/19 21:23 Dose: 52 units Documented by: [email or web address] Insulin Human Lispro (Humalog) 0 unit SQ [facility]; Protocol Last Admin: 07/29/19 11:42 Dose: 8 unit Documented by: [id number] Admin: 07/29/19 07:43 Dose: 4 unit Documented by: Admin: 07/28/19 21:23 Dose: 6 unit Documented by: [email or web address] Admin: 07/28/19 18:04 Dose: 4 unit Documented by: [id number] Admin: 07/28/19 13:17 Dose: 8 unit Documented by: [id number] Admin: 07/28/19 08:00 Dose: 6 unit Documented by: [id number] Melatonin (Melatonin 3mg Tablet) 3 mg PO QHS [facility] Last Admin: 07/28/19 21:32 Dose: Not Given Documented by: [email or web address] Non-Admin Reason: Held for decreased mentation Metoprolol Tartrate (Lopressor) 5 mg IV Q2HP PRN PRN Reason: Tachyarrhythmias HR>110 Last Admin: 07/28/19 17:33 Dose: 5 mg Documented by: [id number] Metoprolol Tartrate (Lopressor) 25 mg PO BID [facility] Morphine Sulfate (Morphine) 1 - 3 mg IV Q3HP PRN; Protocol PRN Reason: Per Pain Protocol Last Admin: 07/29/19 00:12 Dose: 2 mg Documented by: [email or web address] Admin: 07/28/19 16:50 Dose: 2 mg Documented by: [id number] Admin: 07/28/19 13:49 Dose: 2 mg Documented by: [id number] Mupirocin (Bactroban Oint 2%) 1 dose TOPICAL BID [facility] Stop: 08/01/19 21:01 Last Admin: 07/29/19 07:43 Dose: 1 dose Documented by: [id number] Admin: 07/28/19 21:24 Dose: 1 dose Documented by: [email or web address] Admin: 07/28/19 11:50 Dose: 1 dose Documented by: [id number] Ondansetron HCl (Zofran) 4 mg IV Q4HP PRN PRN Reason: Nausea And Vomiting Febuxostat 40 Mg (Tablet) 1 dose PO DAILY [facility] Last Admin: 07/29/19 07:16 Dose: Not Given Documented by: [email or web address] Non-Admin Reason: Unavailable Admin: 07/28/19 09:09 Dose: Not Given Documented by: [id number] Non-Admin Reason: Unavailable Polyethylene Glycol (Miralax) 17 gm PO DAILYP PRN PRN Reason: Constipation Last Admin: 07/28/19 11:50 Dose: 17 gm Documented by: [id number] Potassium Chloride (Kdur) 40 meq PO UD PRN PRN Reason: Potssium is 3-3.5 Potassium Chloride (Kdur) 40 meq PO UD PRN PRN Reason: Potassium < 3 Senna (Senokot) 2 tab PO DAILYP PRN PRN Reason: Constipation Simvastatin (Zocor) 20 mg PO QDAY [facility] Last Admin: 07/29/19 07:44 Dose: 20 mg Documented by: [id number] Admin: 07/28/19 09:09 Dose: 20 mg Documented by: [id number] Sodium Chloride (Saline Flush) 10 ml IV Q8 [facility] Last Admin: 07/29/19 12:41 Dose: 10 ml Documented by: [id number] Admin: 07/29/19 05:21 Dose: 10 ml Documented by: [email or web address] Admin: 07/28/19 21:24 Dose: 10 ml Documented by: [email or web address] Admin: 07/28/19 16:39 Dose: 10 ml Documented by: [id number] Admin: 07/28/19 05:33 Dose: 10 ml Documented by: [email or web address] Tamsulosin HCl (Flomax) 0.4 mg PO QDAY [facility] Last Admin: 07/29/19 07:44 Dose: 0.4 mg Documented by: [id number] Admin: 07/28/19 09:08 Dose: 0.4 mg Documented by: [id number] Tramadol HCl (Ultram) 100 mg PO TIDP PRN; Protocol PRN Reason: Pain Last Admin: 07/29/19 02:05 Dose: 100 mg Documented by: [email or web address] Admin: 07/28/19 19:34 Dose: 100 mg Documented by: [email or web address] Admin: 07/28/19 11:51 Dose: 100 mg Documented by: [email or web address] Vancomycin HCl (Vancomycin Per Pharmacy) 1 order IV UD [facility]; Protocol Vitamin D (Vitamin D3) 10,000 unit PO DAILY [facility] Last Admin: 07/29/19 08:08 Dose: 10,000 unit Documented by: [id number] Admin: 07/28/19 09:08 Dose: 10,000 unit Documented by: [id number] Assessment and Plan - Narrative A/P Narrative: A: 1. 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 Early HD catheter removal should be considered given septic shock 2. Septic shock: sec to (1) 3. Lumbar back pain with lack of sensation in L5-S1 dermatomes, SLRT +ve - MRI neg for any lumbar spine infection. Above clinical findinngs due to degenerative disc ds and spinal canal stenosis due to disc protrusion 4. ESRD on HD 5. DM2 with neuropathy 6. CLL : on Po Ibrutinib Recommendations: - HD cath to be removed today by Dr Quintanilla - Draw 2 sets of blood Cx after removal. If blood Cx (from today) neg for next 48 hrs, a new HD cath could be placed - Given possibility of seeding of chemoport with MRSA bacteremia; consider removal as part of management and source control. Oncologist (Dr Sierra) ok with its removal. - Continue IV Vanc per pharmacy assisted dosing. Check levels prior to HD (target 15-20). Vanc level of 17 noted from today am - will plan for OP DIANE, given high risk for IE and limited TTE - continue MRSA decolonization with intranasal mupirocin 2% bid and below neck whole body chlorhexidine once daily, for 5 days will follow Andrea Becerra MD Infectious diseases
[2019-07-29] MEDS ORDERED: VANCOMYCIN 1,500 MG in 0.9 % SODIUM CHLORIDE 500 ML IV ONE (17:00)
[2019-07-29] MEDS: MELATONIN 3 MG TABLET PO SCH (20:35)
[2019-07-29] MEDS: INSULIN GLARGINE, HUMAN 1 UNIT/0.01 ML SQ SCH (20:48)
--- NOTE | 2019-07-29 20:54 | Nephrology Progress Note ---
Subjective Patient information: Note initiated : 07/29/19 at 8:36 pm Service Date, if different from initiated Date: [] Patient: Artie Bhatt 69 y/o M admitted on 07/27/19 for Bleeding from Permacath port. Chief Complaint: [] Principal diagnosis: ESRD and bleeding from recent HD placement Interval history: Patient seen and evaluated on HD today. The catheter had poor flows and requir ed cathflo Tx x 2. Following HD the catheter was easily removed and brown pus pored forth from the track and was sent for culture and sensitivity. At the incision site near the right IJ insertion site there is a area swollen and may represent an abscess or hematoma. This should be ultrasounded and if a fluid collection is present it should be drained as well. Plan is to continue vancomycin and use temporary mariaelena catheter in femoral region till blood is sterilized and we can re-establish access with a cuffed HD catheter from the right side with flouro guidence to avoid the right portacath with the loop in right innominant vein. Pertinent ROS: 10 point ROS is negative except for subjective and prior ros Additional PMFSH (Level 3 Only): N/A Objective - Vital Signs Vital signs: Vital Signs Temp Pulse Pulse Resp BP Pulse Ox 07/29/19 17:44 93 H 22 92 07/29/19 16:46 22 119/57 92 07/29/19 16:31 22 125/109 95 07/29/19 16:16 22 113/55 98 07/29/19 16:13 36.9 C 91 H 98/61 07/29/19 16:10 22 114/62 93 07/29/19 16:01 36.3 C 22 98/61 94 07/29/19 15:49 96 H 118/94 07/29/19 15:46 22 118/94 98 07/29/19 15:34 91 H 106/62 07/29/19 15:31 21 106/62 92 07/29/19 15:16 22 111/59 94 07/29/19 15:15 90 111/59 07/29/19 15:01 21 95/61 95 07/29/19 15:00 93 H 95/61 07/29/19 14:46 87 22 97/55 94 07/29/19 14:31 21 84/53 95 07/29/19 14:30 98 H 84/53 07/29/19 14:16 93 H 22 82/58 93 07/29/19 14:02 96 H 99/54 07/29/19 14:01 21 99/54 95 07/29/19 13:49 22 81/64 95 07/29/19 13:46 99 H 22 81/59 95 07/29/19 13:33 93 H 91/69 07/29/19 13:31 19 91/69 07/29/19 13:17 93 H 94/60 07/29/19 13:16 19 94/60 07/29/19 13:05 96 H 101/49 07/29/19 13:01 18 101/49 94 07/29/19 12:50 91 H 104/56 07/29/19 12:49 36.6 C 19 104/56 93 07/29/19 12:20 37.1 C 90 131/119 07/29/19 11:01 22 122/70 93 07/29/19 10:01 19 90/68 90 07/29/19 09:31 18 109/56 92 07/29/19 09:29 22 94/63 95 07/29/19 09:02 24 H 93/68 93 07/29/19 08:01 36.7 C 21 101/60 95 07/29/19 08:00 92 H 22 95 07/29/19 07:01 20 98/61 93 07/29/19 06:15 21 103/64 92 07/29/19 06:01 15 144/111 93 07/29/19 05:03 23 H 128/53 95 07/29/19 04:01 37.2 C 88 23 H 119/66 94 07/29/19 03:01 80 22 107/55 91 07/29/19 02:02 25 H 99/67 07/29/19 01:01 17 123/61 95 07/29/19 00:01 37.3 C H 81 25 H 123/70 93 07/28/19 23:02 76 16 120/63 95 07/28/19 22:10 75 23 H 103/69 94 07/28/19 22:03 69 25 H 88/57 96 07/28/19 21:25 78 19 72/52 95 07/28/19 21:01 24 H 82/66 Intake and Output 01/07/29/19 07/29/19 05:59 13:59 21:59 Intake Total 720 120 50 Output Total 450 1125 Balance 270 120 -1075 Intake: IV 50 Oral 720 120 Output: Urine Catheter Amount 450 325 Hemodialysis UF 800 Other: Meal Breakfast Percent of Meal Consumed 5% Feeding Ability Assist with Tray Set Up Urine Appearance Clear Clear Straight Clear Clear Urine Color Dark Yellow Light Camila Straight Dark Yellow Dark Yellow Urine Odor Normal Normal Straight Normal Normal Weight 108.817 kg Patient Weight 07/30/19 05:59 Weight 108.817 kg Intake & Output: Intake & Output 07/29/19 07/29/19 07/29/19 05:59 13:59 21:59 Intake Total 720 120 50 Output Total 450 1125 Balance 270 120 -1075 Weight 108.817 kg Intake: IV 50 Oral 720 120 Output: Urine Catheter Amount 450 325 Hemodialysis UF 800 Other: Meal Breakfast Percent of Meal Consumed 5% Feeding Ability Assist with Tray Set Up Urine Appearance Clear Clear Straight Clear Clear Urine Color Dark Yellow Light Camila Straight Dark Yellow Dark Yellow Urine Odor Normal Normal Straight Normal Normal - General Appearance General appearance: moderate distress, chronically ill EENT: ATNC, PERRL, mucous membranes moist Neck: no JVD Respiratory: no kyphosis Cardiology: no murmurs, no rub, no gallops, regular rate, regular rhythm Gastrointestinal: normoactive bowel sounds Integumentary: warm and dry, hyperpigmentation Neurologic: disoriented, upper extremity weakness Musculoskeletal: erythema (left SCM/SC region) Psychiatric: cooperative - Lab 07/29/19 05:11 07/29/19 05:11 Most recent lab results Calcium 8.1 mg/dl (8.6-10.4) L 07/29/19 05:11 Phosphorus 5.3 mg/dL (2.7-4.5) H 07/29/19 05:11 Magnesium 2.1 mg/dL (1.6-2.5) 07/29/19 05:11 Assessment and Plan (1) ESRD (end stage renal disease) on dialysis 1. Due to underlying medical condition and co-morbidities I do not think this patient will benefit from assisted HD. Anticipate High 1 year mortality and morbidity. 2. Hd tomorrow with 4 hrs, 1-2 liter U/F, albumin for bp support, heparin free treatent and remover recently placed cuff catheter due to MRSA infection with localized redness and swelling at the area need the IJ insertion site bot the skin exit site. 3. Complication if right IJ HD catheter including bleeding Next HD in AM tomorrow. Status: Chronic Priority: High (2) Other lymphoid leukemia, in relapse Hold Imbruvica due to catheter bleeding Status: Chronic Priority: Medium (3) Complications, dialysis, catheter, mechanical Bleeding improved with thrombin gauze and HD and Cessation of Heparin MRSA (+) bacteremia and SIRS/SEPSIS. Survived past 24 hours but far from out of the chau Updated discussion of high mortality with sepsis, followed by 25% mortality per year on HD in >70 yr olds with DM. CLL and treatment thereof is helping increase morbidity and mortality as well. Stop hisImbruvica for now due to bleeding complicatuions Status: Acute Priority: High Qualifiers: Encounter type: initial encounter Qualified Code(s): T82.49XA - Other complication of vascular dialysis catheter, initial encounter (4) Fever Occured on HD and cultures drawn Also occured in early AM before dialysis Given CLL he will need broad coverage, fever w/u and conversion to full admit. Garcia culture CXR Vanco and cefepime 1 set of blood cultures already positive. 2 gm IV load of vanco last evening, stop 4th generation cephalosporin Status: Acute Priority: High Qualifiers: Encounter type: initial encounter (5) MRSA (methicillin resistant Staphylococcus aureus) septicemia 1. Nares (+) 2. Blood culture positive + SIRS = sepsis 3. Reculter from peripheral vein and catheter during todays treatment 4. Obviously infected Left cuffed catheter removed and is ~1 week old. First treatment was uneventful at HD unit untill back bleeding from catheter occured. This could have led to infectious compromise but he was febile by Saturday evening. By saturday flat out septic post HD treatment and required admission to ICU and < 24 hrs of pressor support. CLL also compromised immune status. 5. No new catheter untill culture neg. 6. All blood cultures so far MRSA (4 sets) Urine preliminary staph but no WBC so colonization suspected Nares (+) MRSA on admission Status: Acute Priority: High
[2019-07-30] MEDS: 0.9 % SODIUM CHLORIDE 250 ML IV SCH (05:05)
[2019-07-30] MEDS: 0.9 % SODIUM CHLORIDE 10 ML SYRINGE IV SCH ×3 (05:05→20:59)
[2019-07-30 06:42] LABS: Hematocrit 26.1 % (40.1-51.0); Hemoglobin 8.3 g/dL (13.7-17.5); Mean Cell Volume 90.3 fL (80.0-100.0); Mean Corpuscular HGB Conc 31.8 g/dL (31.0-36.0); Mean Platelet Volume 12.6 fL (7.4-10.4); Platelet Count 67 K/mcL (140-440); RBC 2.89 M/mcL (4.63-6.08); WBC 14.8 K/mcL (4.50-11.00)
[2019-07-30 07:01] LABS: ALT/SGPT 50 U/l (0-40); AST/SGOT 56 U/l (0-37); Albumin 2.7 gm/dL (3.2-5.2); Albumin/Globulin Ratio 0.9 (1.0-2.3); Alkaline Phosphatase 79 U/L (39-117); Bilirubin,Total 0.4 mg/dL (0.0-1.0); Calcium 8.3 mg/dl (8.6-10.4); Chloride 96 mmol/L (96-108); Glucose 164 mg/dL (70-105); Lactate Dehydrogenase 275 U/L (94-250); Phosphorous 5.1 mg/dL (2.7-4.5); Uric Acid 3.3 mg/dL (2.5-8.0)
[2019-07-30 07:19] LABS: Band Neutrophils % 1 % (0-10); Bilirubin,Direct < 0.2 mg/dL (0.0-0.3); Blood Urea Nitrogen 68 mg/dl (8-23); Carbon Dioxide 23 mmol/L (22-30); Glomerular Filtration Rate 8; Hypochromasia 2+ (NONE SEEN); Lymphocytes % 15 % (15-49); Monocytes % (Manual) 9 % (1-12); Platelet Estimate DECREASED (NORMAL); Polychromasia 1+ (NONE SEEN); RBC Morphology ABNORM (NORMAL); Segmented Neutrophils % 75 % (38-78); Triglycerides 324 mg/dl (<150)
[2019-07-30] MEDS: INSULIN LISPRO 1 UNIT/0.01 ML UNIT SQ SCH ×4 (08:03→20:20)
--- NOTE | 2019-07-30 08:38 | Nephrology Progress Note ---
Subjective Patient information: Note initiated : 07/30/19 at 8:31 am Service Date, if different from initiated Date: [] Patient: Artie Bhatt 69 y/o M admitted on 07/27/19 for Bleeding from Permacath port. Chief Complaint: [] Principal diagnosis: ESRD and bleeding from recent HD placement Interval history: Left IJ cather removed 07/29 and exit site with pus drainage sent for culture. High Grade backteremia persists Probable needs port-a-cath removed as it is/will become infected due to >72 hr of MRSA bacteremia The left IJ insertion site at the clavicular head,SCM muscle need U/S and if fluid collection present this will need surgical drainage as well Vascular access for HD will have to be by rotating femoral catheters untill infection in cleared up, the another catheter will have to be placed in RIGHT IJ approach and perhaps placement of an AVG at the same time for minimum use of a catheter. Colinization of jeannette with MRSA and bleeding from catheter site probably combined to cause the infection, CLL help by imunosuppression. U/S of Neck Region: FINDINGS: At the anterior base the neck and left side at the supraclavicular fossa there is a complex heterogeneous clot which measures 1.9 x 3.4 x 5.7 cm. Along the posterior aspect of the clot, extending towards the thoracic inlet there is a linear tract with pulsatile flow within it. This is the tract where the catheter had been removed and there is still active slow bleeding. No abscess is identified. The adjacent left internal jugular vein is completely thrombosed. Normal flow is seen in the common carotid artery. IMPRESSION: Active slow bleeding along the tract where the permacath had been removed. Moderate-sized hematoma at the left supraclavicular fossa, adjacent to the permacath tract Thrombosis of the left internal jugular vein Pertinent ROS: No fever Eating some No access for HD Events reviewed and discussed with the radiologist Additional PMFSH (Level 3 Only): N/A Objective - Vital Signs Vital signs: Vital Signs Temp Pulse Pulse Resp BP Pulse Ox 07/30/19 07:26 88 19 95 07/30/19 07:01 36.9 C 20 109/64 93 07/30/19 06:01 18 117/64 91 07/30/19 05:01 16 117/77 94 07/30/19 04:01 37.0 C 19 107/59 93 07/30/19 03:01 22 96/59 92 07/30/19 02:01 17 85/63 92 07/30/19 01:01 23 H 114/64 87 L 07/30/19 00:01 36.9 C 19 133/60 93 07/29/19 23:01 17 103/67 90 07/29/19 22:01 22 105/55 93 07/29/19 21:01 24 H 97/63 93 07/29/19 20:01 36.8 C 22 97/57 94 07/29/19 20:00 93 07/29/19 19:01 24 H 102/54 07/29/19 18:16 26 H 106/59 94 07/29/19 18:01 27 H 93/64 07/29/19 17:47 20 100/76 07/29/19 17:44 93 H 22 92 07/29/19 17:31 27 H 133/55 92 07/29/19 17:16 24 H 113/76 91 07/29/19 17:01 27 H 106/62 89 L 07/29/19 16:46 22 119/57 92 07/29/19 16:31 22 125/109 95 07/29/19 16:16 22 113/55 98 07/29/19 16:13 36.9 C 91 H 98/61 07/29/19 16:10 22 114/62 93 07/29/19 16:01 36.3 C 22 98/61 94 07/29/19 15:49 96 H 118/94 07/29/19 15:46 22 118/94 98 07/29/19 15:34 91 H 106/62 07/29/19 15:31 21 106/62 92 07/29/19 15:16 22 111/59 94 07/29/19 15:15 90 111/59 07/29/19 15:01 21 95/61 95 07/29/19 15:00 93 H 95/61 07/29/19 14:46 87 22 97/55 94 07/29/19 14:31 21 84/53 95 07/29/19 14:30 98 H 84/53 07/29/19 14:16 93 H 22 82/58 93 07/29/19 14:02 96 H 99/54 07/29/19 14:01 21 99/54 95 01/29/20 13:49 22 81/64 95 07/29/19 13:46 99 H 22 81/59 95 07/29/19 13:33 93 H 91/69 07/29/19 13:31 19 91/69 07/29/19 13:17 93 H 94/60 07/29/19 13:16 19 94/60 07/29/19 13:05 96 H 101/49 07/29/19 13:01 18 101/49 94 07/29/19 12:50 91 H 104/56 07/29/19 12:49 36.6 C 19 104/56 93 07/29/19 12:20 37.1 C 90 131/119 07/29/19 11:01 22 122/70 93 07/29/19 10:01 19 90/68 90 07/29/19 09:31 18 109/56 92 07/29/19 09:29 22 94/63 95 07/29/19 09:02 24 H /68 93 Intake and Output 07/29/19 07/30/19 07/30/19 21:59 05:59 13:59 Intake Total 550 360 Output Total 1170 50 Balance -620 310 Intake: IV 550 Vancomycin 1,500 mg In Sodium 500 Chloride 0.9% 500 ml @ 333.3 mls/hr IV ONCE ONE Rx#: [id number] Oral 360 Output: Urine Catheter Amount 370 50 Hemodialysis UF 800 Other: Urine Appearance Clear Clear Clear Straight Clear Clear Clear Urine Color Straw Straw Dark Yellow Straight Straw Straw Dark Yellow Urine Odor Normal Normal Normal Straight Normal Normal Weight 110.495 kg Intake & Output: Intake & Output 07/29/19 07/30/19 07/30/19 21:59 05:59 13:59 Intake Total 550 360 Output Total 1170 50 Balance -620 310 Weight 110.495 kg Intake: IV 550 Vancomycin 1,500 mg In Sodium 500 Chloride 0.9% 500 ml @ 333.3 mls/hr IV ONCE ONE Rx#: [id number] Oral 360 Output: Urine Catheter Amount 370 50 Hemodialysis UF 800 Other: Urine Appearance Clear Clear Clear Straight Clear Clear Clear Urine Color Straw Straw Dark Yellow Straight Straw Straw Dark Yellow Urine Odor Normal Normal Normal Straight Normal Normal - General Appearance General appearance: moderate distress, frail EENT: ATNC, PERRL, mucous membranes moist Neck: supple (Swellin at insetion site near SCM muscle and notch formed by SCM insertion to clavicle. Tunned catheter tract is tender and oozing) Respiratory: course breath sounds, rhonchi Cardiology: no rub, no gallops Gastrointestinal: normoactive bowel sounds Integumentary: warm and dry Neurologic: disoriented Musculoskeletal: no deformities, no cyanosis, no clubbing, warmth (see above chesr and neck) Psychiatric: mood/affect appropriate - Lab 07/30/19 04:44 07/30/19 04:44 Most recent lab results Calcium 8.3 mg/dl (8.6-10.4) L 07/30/19 04:44 Phosphorus 5.1 mg/dL (2.7-4.5) H 07/30/19 04:44 Magnesium 2.1 mg/dL (1.6-2.5) 07/30/19 04:44 - Imaging Kidney/bladder ultrasound: report reviewed (FINDINGS: At the anterior base the neck and left side at the) Assessment and Plan (1) ESRD (end stage renal disease) on dialysis 1. Due to underlying medical condition and co-morbidities I do not think this patient will benefit from terminal system operator HD. Anticipate High 1 year mortality and morbidity. 2. Hd tomorrow with 4 hrs, 1-2 liter U/F, albumin for bp support, heparin free treatent and remover recently placed cuff catheter due to MRSA infection with localized redness and swelling at the area need the IJ insertion site bot the skin exit site. 3. Complication if right IJ HD catheter including bleeding Next HD in AM tomorrow. Status: Chronic Priority: High (2) Other lymphoid leukemia, in relapse Hold Imbruvica due to catheter bleeding Status: Chronic Priority: Medium (3) Complications, dialysis, catheter, mechanical Bleeding improved with thrombin gauze and HD and Cessation of Heparin MRSA (+) bacteremia and SIRS/SEPSIS. Survived past 24 hours but far from out of the chau Updated discussion of high mortality with sepsis, followed by 25% mortality per year on HD in >70 yr olds with DM. CLL and treatment thereof is helping increase morbidity and mortality as well. Stop hisImbruvica for now due to bleeding complicatuions Status: Acute Priority: High Qualifiers: Encounter type: initial encounter Qualified Code(s): T82.49XA - Other complication of vascular dialysis catheter, initial encounter (4) Fever Occured on HD and cultures drawn Also occured in early AM before dialysis Given CLL he will need broad coverage, fever w/u and conversion to full admit. Garcia culture CXR Vanco and cefepime 1 set of blood cultures already positive. 2 gm IV load of vanco last evening, stop 4th generation cephalosporin Status: Acute Priority: High Qualifiers: Encounter type: initial encounter (5) MRSA (methicillin resistant Staphylococcus aureus) septicemia 1. Nares (+) 2. Blood culture positive + SIRS = sepsis 3. Reculter from peripheral vein and catheter during todays treatment 4. Obviously infected Left cuffed catheter removed and is ~1 week old. First treatment was uneventful at HD unit untill back bleeding from catheter occured. This could have led to infectious compromise but he was febile by Saturday evening. By saturday flat out septic post HD treatment and required admission to ICU and < 24 hrs of pressor support. CLL also compromised immune status. 5. No new catheter untill culture neg. 6. All blood cultures so far MRSA (4 sets) Urine preliminary staph but no WBC so colonization suspected Nares (+) MRSA on admission Status: Acute Priority: High (6) Septic thrombophlebitis 1. Documented on U/S this AM (07/30/18) 2. Catheter is out, high grade MRSA persists 3. This is a life threatening situation as the is throbytopenic, dialysis dependent, no dialysis access and CLL underlying cause of these complications or the drug used to treat the CLL which has hemorrhagic and thrombotic complications. 4. My take on all this is if we do not clear the bloodstream in 72 hrs, he is a treatment failure and needs referred for consideration of surgical resection of the thrombus. I don't see where IR has a role in chemical or mecanical thrombolysis. 5. I'd wait till we see if he clears his bacteremia before decicing on anticoagulation, starting with heparin. 6. Probably should obtain a baseline CTA and views of neck. Since he is already ESRD, only risk if the osmotic load of IV contrast and the expected further loss of his underlying GFR from 8 to 10 % prior to HD initiation. Reviewed on Upto date: JUGULAR VEIN Pathogenesis Jugular vein suppurative thrombophlebitis is also known as Lemierre's syndrome, postanginal sepsis, and necrobacillosis [18]. The condition is frequently preceded by pharyngitis, usually in association with tonsil or peritonsillar involvement. Other antecedent conditions include primary dental infection or infectious mononucleosis [11]. Jugular vein suppurative thrombophlebitis is characterized by infectious involvement of the carotid sheath vessels with bacteremia. In general, infection progresses from the oropharynx to the parapharyngeal or lateral pharyngeal space. The anterior part of this space consists of the anterior neck muscles; the posterior section contains the carotid sheath that encloses the internal jugular vein, internal carotid artery, the vagal nerve, and lymph nodes (figure 1) [11]. Jugular vein suppurative thrombophlebitis can also be associated with intravenous catheter insertion. Clinical manifestations Jugular vein suppurative thrombophlebitis should be suspected in patients with antecedent pharyngitis, septic pulmonary emboli, and persistent fever despite antimicrobial therapy. Jugular vein suppurative thrombophlebitis frequently affects previously healthy young adults; in one series the mean age was 20 years [8]. The interval between the preceding pharyngitis and the onset of jugular vein thrombophlebitis is usually less than one week [11,19]. Patients typically present acutely with fever (>39C) and rigors, often accompanied by respiratory distress [11]. Most patients have localized neck a nd/or throat pain. Clinical examination of the oropharynx may demonstrate ulceration, a pseudomembrane, or erythema [11,19]. Tenderness, swelling, and/or induration may be observed overlying the jugular vein, over the angle of the jaw or along the sternocleidomastoid muscle [20]. In some cases there are no abnormal physical findings in the oropharynx. Septic emboli to the lung are common; in two reports this finding was observed in 97 percent of cases [11,19]. Chest radiography may demonstrate infiltrates, which can cavitate to form lung abscesses and empyema [20]. Metastatic infection can also occur at other sites, leading to empyema, septic arthritis, and/or osteomyelitis [6,11]. Microbiology The causative organisms of jugular vein suppurative thrombophlebitis are usually members of the normal oropharyngeal chris [19]. The most common pathogen is the anaerobe Fusobacterium necrophorum; this pathogen has been isolated in healthy individuals as well as those with jugular vein suppurative thrombophlebitis and tonsillitis [21]. Other pathogens include other Fusobacterium species (eg, Fusobacterium nucleatum) [19] and other organisms such as Eikenella corrodens [22], Porphyromonas asaccharolytica [23], streptococci including Streptococcus pyogenes [24], and Bacteroides [11]. Org anisms may be isolated from the blood and from metastatic sites of infection. Catheter associated jugular vein suppurative thrombophlebitis is associated with skin chris and nosocomial pathogens. Diagnosis Jugular vein suppurative thrombophlebitis should be suspected in patients with antecedent pharyngitis, septic pulmonary emboli, and persistent fever despite antimicrobial therapy. The microbiologic diagnosis may be made based on culture of blood, and culture purulent material expressed from the site if present. The most useful radiographic tool to evaluate for jugular vein suppurative thrombophlebitis is high resolution computed tomography (CT) scan with contrast. It may demonstrate filling defects or thrombus, with or without soft tissue swelling [19]. Because of the frequency of pulmonary emboli, the CT scan is ofte n extended to include the chest. Ultrasonography may be used to evaluate for jugular vein thrombosis and/or assess for extension of thrombus [19]. This imaging is less useful in regions deep to the clavicle or mandible. There is limited experience with magnetic resonance (MR) imaging, but it has been suggested to be a useful modality [25]. Treatment The principles of treatment include removing the focus of infection (eg, intravenous catheter), prompt administration of intravenous antibiotics, and consideration regarding surgical intervention and/or anticoagulation. Antibiotics Empiric therapy for jugular vein suppurative thrombophlebitis should include a beta-lactamase resistant beta-lactam antibiotic, since treatment failure with penicillin and F. necrophorum beta-lactamase production has been reported [19,26]. Acceptable regimens include ampicillin-sulbactam (3 g every six hours), piperacillin-tazobactam (4.5 g every six hours), or monotherapy with a carbapenem. Antibiotics should be tailored accordingly to culture and susceptibility data when available. In the setting of catheter associated jugular vein suppurative thrombophlebitis, empiric therapy should also include an agent with activity against skin chris such as vancomycin (15 to 20 mg/kg/dose every 8 to 12 hours, not to exceed 2 g per dose). Antibiotic therapy should last at least until there has been a definite clinical response and/or until pulmonary abscesses have resolved as demonstrated by CT scan. The duration of therapy generally is for at least four weeks, including a minimum of two weeks intravenous therapy followed by oral therapy [27]. Surgery In general, most favor surgical intervention only in the setting of ongoing sepsis or for patients who have not responded to antimicrobial therapy; there are no randomized trials to guide such decisions [4,8]. When surgical intervention is warranted, surgical ligation or excision of the internal jugular vein may be necessary [8,11]. Surgical drainage of pulmonary abscesses or empyema may also be warranted [19]. Adjacent peritonsillar or other neck abscess in the vicinity of a catheter should prompt surgical incision and drainage as well as catheter removal. There are isolated reports of successful endovascular treatment (ie, thrombolysis) in cases of suppurative thrombophlebitis involving the jugular vein [17]. Anticoagulation The role of anticoagulation for jugular vein suppurative thrombophlebitis is controversial; there are no controlled studies. Some authors favor anticoagulation only if there is evidence for extension of thrombus [19]. We suggest anticoagulation if there is evidence of significant extension of thrombus, especially in the presence of persistent bacteremia and/or uncontrolled clinical sepsis. Status: Acute
[2019-07-30] MEDS: SIMVASTATIN 20 MG TABLET PO SCH (09:13)
[2019-07-30] MEDS: POLYETHYLENE GLYCOL 3350 17 GM PACKET PO PRN (09:13)
[2019-07-30] MEDS: FERROUS GLUCONATE 324 MG TABLET PO SCH (09:13)
[2019-07-30] MEDS: MUPIROCIN OINT 2% 22GM TOPICAL SCH ×2 (09:13→20:20)
[2019-07-30] MEDS: TAMSULOSIN 0.4 MG CAPSULE PO SCH (09:13)
[2019-07-30] MEDS: METOPROLOL TARTRATE 50 MG TABLET PO SCH ×2 (09:13→20:21)
[2019-07-30] MEDS: traMADol 50 MG TABLET PO PRN ×2 (09:13→20:21)
[2019-07-30] MEDS: Febuxostat 40 MG Tablet PO SCH (09:14)
[2019-07-30] MEDS: VITAMIN D3 5,000 UNIT CAPSULE PO SCH (09:51)
--- NOTE | 2019-07-30 10:33 | Ultrasound Report ---
History: Bleeding and infection at the site of the permacath port in the left supraclavicular fossa. The catheter was removed last night but is still oozing blood. FINDINGS: At the anterior base the neck and left side at the supraclavicular fossa there is a complex heterogeneous clot which measures 1.9 x 3.4 x 5.7 cm. Along the posterior aspect of the clot, extending towards the thoracic inlet there is a linear tract with pulsatile flow within it. This is the tract where the catheter had been removed and there is still active slow bleeding. No abscess is identified. The adjacent left internal jugular vein is completely thrombosed. Normal flow is seen in the common carotid artery. IMPRESSION: Active slow bleeding along the tract where the permacath had been removed. Moderate-sized hematoma at the left supraclavicular fossa, adjacent to the permacath tract Thrombosis of the left internal jugular vein Dr. Morelos was called with results Interpreted and Authenticated by: Salomon Celeste 07/30/19
[2019-07-30] MEDS ORDERED: IOPAMIDOL 100 ML BOTTLE IV ONE (12:38)
--- NOTE | 2019-07-30 13:18 | Cat Scan Report ---
History: Septic thrombosis of the left jugular and innominate vein following removal of a permacath dialysis catheter from the left side of the neck TECHNIQUE: Following injection of intravenous nonionic contrast, arterial phase images were acquired of the chest. Venous phase images were obtained of the neck. 10 minute delayed images were acquired from the mid brain through the thoracic inlet. Sagittal coronal and MIPS images were created. Radiation exposure was limited using dose reduction technology. FINDINGS: There is complete thrombosis of the left jugular vein from the level of the hypopharynx down into the thoracic inlet. The clot extends through the innominate vein and protrudes into the lumen of the superior vena cava. There are small bubbles of air within the innominate vein. There is also clot extending into the left subclavian vein. The axillary vein is patent. Clot does not extend intracranially. The right jugular vein is normal. There is a hematoma anterior to the base of the neck and contain small bubbles of air. Is located lateral to the larynx and is causing mild deviation of the larynx to the right. The delayed images show no extravasation of contrast into the hematoma. Where the air bubbles are located within the hematoma, the hematoma has low attenuation. This could be due to an evolving abscess or blood breakdown products of varying age. There is stranding of the anterior subcutaneous fat. Patient has a goiter. The left lobe of the thyroid is enlarged and deviates the trachea to the right. No mass is seen within the thyroid. There is normal enhancement of the carotid arteries. Densely calcified plaques are present in the carotid bifurcations. There may be a hemodynamically significant stenosis at the right carotid bifurcation. There is a right internal jugular catheter. The upper portion of the catheter is looped within the vein. Distal segment extends into the thoracic portion of the superior vena cava and there is no thrombus around this catheter. There is a small consolidating alveolar infiltrate posteriorly in the left lower lobe which could be atelectasis or pneumonia. Smaller band of consolidation is present in the posterior basal segment of the right lower lobe. There are tiny bilateral layering pleural effusions. There are a few bands of scar or discoid atelectasis scattered in both lungs. Heart size is normal. There is no pericardial effusion. Moderate atherosclerotic coronary artery disease is present, predominantly involving the left anterior descending. The pulmonary arteries are normal without evidence of emboli. There are no abnormally enlarged lymph nodes in the mediastinum. There are several enlarged lymph nodes in the left axilla which measure up to 2.6 cm. Somewhat smaller lymph nodes are present in the right axilla. IMPRESSION: Complete thrombosis of the left innominate vein extending through the jugular vein up to the hypopharynx and laterally into the left subclavian vein. There are bubbles of air within the vein suggesting infection. Complex possibly infected hematoma anterior to the jugular vein at the base of the neck. No evidence of active bleeding from the puncture site in the left internal jugular vein. Bibasilar pneumonia or atelectasis, left greater than right. No evidence of pulmonary emboli Dr. Morelos was called with the results Interpreted and Authenticated by: Salomon Celeste 07/30/19
--- NOTE | 2019-07-30 13:26 | Internal Med Progress Note ---
Medical - PN: Subj Patient information: Note initiated : 07/30/19 at 1:22 pm Service Date, if different from initiated Date: [] Patient: Artie Bhatt 69 y/o M admitted on 07/27/19 for Bleeding from Permacath port. Chief Complaint: [] Interval history: pt with left tunneled IJ dialysis port removed by Dr. Morelos yesterday. The pt had pus there and is with MRSA bacteremia for last 4 days. Today no fever and WBC down some but there is likely seeding of the right Port a Cath as well. I spoke with consultants Dr. Morelos, Dr. Becerra and also Dr. Gonzalez. We have plan for Port a Cath removal. TTE was ok and DIANE planned for outpt to guide duration of the abx treatment (vanco for MRSA) Pt states he feels well at this time and without complaint. Says cath since 2010 was flushed but not used then had use a week ago for chemo. Dr. Becerra spoke with pt oncologist and for immediate future oral agents are intended. Abx will be given with dialysis. Dialysis temp femoral cath planned for this weekend by Dr. Morelos. Pertinent ROS: no fever no chest pain - Constitutional Vitals: Vital Signs Temp Pulse Resp BP Pulse Ox 98.1 F 88 19 128/65 94 07/30/19 12:38 07/30/19 07:26 07/30/19 12:38 07/30/19 12:38 07/30/19 12:38 Period Temp Pulse Resp BP Sys/Corona Pulse Ox Last 24 Hr 97.4 F-98.6 F 87-99 16-27 81-133/53-109 87-98 Intake and Output 07/29/19 07/30/19 07/30/19 21:59 05:59 13:59 Intake Total 550 360 360 Output Total 1170 50 Balance -620 310 360 Weight 243 lb 9.6 oz Intake & Output: Intake & Output 07/29/19 07/30/19 07/30/19 21:59 05:59 13:59 Intake Total 550 360 360 Output Total 1170 50 Balance -620 310 360 Weight 243 lb 9.6 oz Intake: IV 550 Vancomycin 1,500 mg In Sodium 500 Chloride 0.9% 500 ml @ 333.3 mls/hr IV ONCE ONE Rx#: [id number] Oral 360 360 Output: Urine Catheter Amount 370 50 Hemodialysis UF 800 Other: Meal Breakfast Percent of Meal Consumed 100% Feeding Ability Assist with Tray Set Up Urine Appearance Clear Clear Clear Straight Clear Clear Clear Urine Color Straw Straw Dark Yellow Straight Straw Straw Dark Yellow Urine Odor Normal Normal Normal Straight Normal Normal General appearance: no acute distress, obese - Cardiovascular Cardiovascular exam: Present: normal rate and rhythm - Expanded Upper Extremity Exam Shoulder exam: Present: swelling (left chest above the clavicle. right chest port a cath in place not tender or fluctuant), tenderness Vascular: Present: radial pulse (present bilat) Medical - PN: Obj Da - Labs CBC & Chem 7: 07/30/19 04:44 07/30/19 04:44 Labs: Abnormal Lab Results 07/30/19 07/30/19 07/29/19 04:44 04:44 05:11 WBC 14.8 H RBC 2.89 L Hgb 8.3 L Hct 26.1 L Plt Count 67 L MPV 12.6 H Gran % Lymph % (Auto) Gran # Lymph # (Auto) Swain # (Auto) Band Neutrophils % 16 H Lymphocytes % 13 L WBC Morphology Abnorm A Dohle Bodies Few A Platelet Estimate Decreased A Decreased A RBC Morphology Abnorm A Abnorm A Polychromasia 1+ A 1+ A Hypochromasia 2+ A 1+ A Sodium Chloride Carbon Dioxide Anion Gap 18.0 H BUN 68 H Creatinine 6.6 H* Glucose 164 H Calcium 8.3 L Phosphorus 5.1 H AST 56 H ALT 50 H Lactate Dehydrogenase 275 H Total Protein 5.7 L Albumin 2.7 L Albumin/Globulin Ratio 0.9 L Triglycerides 324 H Urine Protein Urine Glucose (UA) Urine Occult Blood Urine RBC Urine WBC 07/29/19 07/29/19 07/29/19 05:11 05:11 05:11 WBC 13.1 H RBC 3.06 L Hgb 9.0 L Hct 27.4 L Plt Count 73 L MPV 12.9 H Gran % 80.6 H Lymph % (Auto) 10.1 L Gran # 10.58 H Lymph # (Auto) 1.32 L Swain # (Auto) 1.13 H Band Neutrophils % Lymphocytes % WBC Morphology Dohle Bodies Platelet Estimate RBC Morphology Polychromasia Hypochromasia Sodium Chloride 94 L Carbon Dioxide 19 L Anion Gap 20.0 H BUN 91 H Creatinine 8.9 H* Glucose 204 H Calcium 8.1 L Phosphorus 5.3 H AST ALT Lactate Dehydrogenase Total Protein Albumin 3.0 L Albumin/Globulin Ratio Triglycerides Urine Protein Urine Glucose (UA) Urine Occult Blood Urine RBC Urine WBC 07/28/19 07/28/19 07/28/19 17:59 02:25 02:25 WBC 15.6 H RBC 2.97 L Hgb 9.7 L 8.8 L Hct 29.4 L 26.6 L Plt Count 88 L MPV 10.9 H Gran % 80.7 H Lymph % (Auto) 11.6 L Gran # 12.60 H Lymph # (Auto) Swain # (Auto) 1.04 H Band Neutrophils % Lymphocytes % WBC Morphology Dohle Bodies Platelet Estimate RBC Morphology Polychromasia Hypochromasia Sodium 132 L Chloride 95 L Carbon Dioxide 19 L Anion Gap 18.0 H BUN 58 H Creatinine 6.3 H* Glucose 207 H Calcium 7.7 L Phosphorus AST ALT Lactate Dehydrogenase 271 H Total Protein 5.5 L Albumin 2.9 L Albumin/Globulin Ratio Triglycerides 234 H Urine Protein Urine Glucose (UA) Urine Occult Blood Urine RBC Urine WBC 07/27/19 21:40 WBC RBC Hgb Hct Plt Count MPV Gran % Lymph % (Auto) Gran # Lymph # (Auto) Swain # (Auto) Band Neutrophils % Lymphocytes % WBC Morphology Dohle Bodies Platelet Estimate RBC Morphology Polychromasia Hypochromasia Sodium Chloride Carbon Dioxide Anion Gap BUN Creatinine Glucose Calcium Phosphorus AST ALT Lactate Dehydrogenase Total Protein Albumin Albumin/Globulin Ratio Triglycerides Urine Protein >=500 A Urine Glucose (UA) 50 A Urine Occult Blood 0.2 A Urine RBC 5 H Urine WBC 7 H Meds: Medications Acetaminophen (Tylenol) 650 mg PO Q6HP PRN PRN Reason: PAIN/FEVER > 101 Albuterol/Ipratropium (Duoneb) 3 ml NEB Q4HP PRN PRN Reason: Shortness Of Breath Dextrose (Dextrose 50%) 0 ml IV UD PRN PRN Reason: Hypoglycemia Diagnostic Test (Pha) (Accu-Chek) 1 each FS ACHS [facility] Last Admin: 07/30/19 13:14 Dose: 1 each Documented by: Ferrous Gluconate (Fergon) 324 mg PO DAILY [facility] Last Admin: 07/30/19 09:13 Dose: 324 mg Documented by: Glucose (Insta-Glucose) 15 gm PO PRN PRN PRN Reason: Hypoglycemia Potassium Chloride 40 meq/ (Dextrose) 520 mls @ 130 mls/hr IV UD PRN PRN Reason: Potassium < 3 Magnesium Sulfate (Magnesium Sulfate) 2 gm in 50 mls @ 50 mls/hr IV UD PRN PRN Reason: Magnesium </= 1.6 Acetaminophen (Ofirmev) 650 mg in 65 mls @ 130 mls/hr IV Q6HP PRN; Protocol PRN Reason: PAIN/FEVER > 101 Albumin Human (Buminate) 12.5 gm in 50 mls @ 100 mls/hr IV Q1HP PRN PRN Reason: Hypotension Last Infusion: 07/29/19 14:30 Dose: Infused Documented by: Insulin Glargine (Lantus) 52 unit SQ HS [facility] Last Admin: 07/29/19 20:48 Dose: 52 units Documented by: Insulin Human Lispro (Humalog) 0 unit SQ [facility]; Protocol Last Admin: 07/30/19 13:17 Dose: 6 unit Documented by: Melatonin (Melatonin 3mg Tablet) 3 mg PO QHS [facility] Last Admin: 07/29/19 20:35 Dose: 3 mg Documented by: Metoprolol Tartrate (Lopressor) 5 mg IV Q2HP PRN PRN Reason: Tachyarrhythmias HR>110 Last Admin: 07/28/19 17:33 Dose: 5 mg Documented by: Metoprolol Tartrate (Lopressor) 25 mg PO BID [facility] Last Admin: 07/30/19 09:13 Dose: 25 mg Documented by: Morphine Sulfate (Morphine) 1 - 3 mg IV Q3HP PRN; Protocol PRN Reason: Per Pain Protocol Last Admin: 07/29/19 00:12 Dose: 2 mg Documented by: Mupirocin (Bactroban Oint 2%) 1 dose TOPICAL BID [facility] Stop: 08/01/19 21:01 Last Admin: 07/30/19 09:13 Dose: 1 dose Documented by: Ondansetron HCl (Zofran) 4 mg IV Q4HP PRN PRN Reason: Nausea And Vomiting Febuxostat 40 Mg (Tablet) 1 dose PO DAILY [facility] Last Admin: 07/30/19 09:14 Dose: Not Given Documented by: Polyethylene Glycol (Miralax) 17 gm PO DAILYP PRN PRN Reason: Constipation Last Admin: 07/30/19 09:13 Dose: 17 gm Documented by: Potassium Chloride (Kdur) 40 meq PO UD PRN PRN Reason: Potssium is 3-3.5 Potassium Chloride (Kdur) 40 meq PO UD PRN PRN Reason: Potassium < 3 Senna (Senokot) 2 tab PO DAILYP PRN PRN Reason: Constipation Last Admin: 07/29/19 20:44 Dose: 2 tab Documented by: Simvastatin (Zocor) 20 mg PO QDAY [facility] Last Admin: 07/30/19 09:13 Dose: 20 mg Documented by: Sodium Chloride (Saline Flush) 10 ml IV Q8 [facility] Last Admin: 07/30/19 12:04 Dose: 10 ml Documented by: Tamsulosin HCl (Flomax) 0.4 mg PO QDAY [facility] Last Admin: 07/30/19 09:13 Dose: 0.4 mg Documented by: Tramadol HCl (Ultram) 100 mg PO TIDP PRN; Protocol PRN Reason: Pain Last Admin: 07/30/19 09:13 Dose: 100 mg Documented by: Vancomycin HCl (Vancomycin Per Pharmacy) 1 order IV UD [facility]; Protocol Vitamin D (Vitamin D3) 10,000 unit PO DAILY [facility] Last Admin: 07/30/19 09:51 Dose: 10,000 unit Documented by: Medical - PN: A/P - Time Spent With Patient Total time spent is greater than 50% in coordination of care (as documented) at patient's floor/unit and/or counseling patient: Greater than 35 minutes (1) Septic thrombophlebitis Problem details: left tunneled dialysis catheter removed yesterday. fever and wbc decreased. cont vanco. await CT results. Status: Acute Current Visit: Yes (2) MRSA (methicillin resistant Staphylococcus aureus) septicemia Problem details: right Port a Cath still in place and will need to be removed surgically. I spoke with Dr. Gonzalez and plan for morning procedure. will make pt NPO. Status: Acute Current Visit: Yes (3) ESRD (end stage renal disease) on dialysis Problem details: dialysis on hold for few days. Plan temp femoral dialysis cath for dialysis while awaiting safe replacement of tunneled dialysis catheter. Status: Chronic Current Visit: Yes (4) Complications, dialysis, catheter, mechanical Problem details: removed. awaiting healing Status: Acute Current Visit: Yes Medical - PN: Qual - VTE Deep Vein Thrombosis/Pulmonary Embolism Present on Admission: No
--- NOTE | 2019-07-30 14:44 | Infectious Disease Prog Note ---
Subjective Patient information: Note initiated : 07/30/19 at 2:35 pm Service Date, if different from initiated Date: [] Patient: Artie Bhatt 69 y/o M admitted on 07/27/19 for Bleeding from Permacath port. Chief Complaint: [] Principal diagnosis: ESRD and bleeding from recent HD placement Interval history: Pt is doing better. Denies any fever, chills, n/v. Endorses contipation and bloa ting. Mentions that back pain is around 4-5/10, tolerable with pain meds. Also reports some left shoulder pain, mentions that it is chronic and has been there for many years.Denies any pain over joints (knees, elbows, ankles, wrists) Objective Objective Narrative: alert, awake, oriented x 3 has minimal tenderness and redness over the left IJ, site of previously placed IJ cath chest has b/l decreased BS at bases s1 s2 normal, murmur not heard bs ++, nttd - Vital Signs Vital signs: Vital Signs Temp Pulse Pulse Resp BP Pulse Ox 07/30/19 12:38 36.7 C 19 128/65 94 07/30/19 11:14 22 108/82 94 07/30/19 10:01 19 108/63 94 07/30/19 09:01 19 117/72 94 07/30/19 08:01 36.7 C 20 118/68 94 07/30/19 07:26 88 19 95 07/30/19 07:01 36.9 C 20 109/64 93 07/30/19 06:01 18 117/64 91 07/30/19 05:01 16 117/77 94 07/30/19 04:01 37.0 C 19 107/59 93 07/30/19 03:01 22 96/59 92 07/30/19 02:01 17 85/63 92 07/30/19 01:01 23 H 114/64 87 L 07/30/19 00:01 36.9 C 19 133/60 93 07/29/19 23:01 17 103/67 90 07/29/19 22:01 22 105/55 93 07/29/19 21:01 24 H 97/63 93 07/29/19 20:01 36.8 C 22 97/57 94 07/29/19 20:00 93 07/29/19 19:01 24 H 102/54 07/29/19 18:16 26 H 106/59 94 07/29/19 18:01 27 H 93/64 07/29/19 17:47 20 100/76 07/29/19 17:44 93 H 22 92 07/29/19 17:31 27 H 133/55 92 07/29/19 17:16 24 H 113/76 91 07/29/19 17:01 27 H 106/62 89 L 07/29/19 16:46 22 119/57 92 07/29/19 16:31 22 125/109 95 07/29/19 16:16 22 113/55 98 07/29/19 16:13 36.9 C 91 H 98/61 07/29/19 16:10 22 114/62 93 07/29/19 16:01 36.3 C 22 98/61 94 07/29/19 15:49 96 H 118/94 07/29/19 15:46 22 118/94 98 07/29/19 15:34 91 H 106/62 07/29/19 15:31 21 106/62 92 07/29/19 15:16 22 111/59 94 07/29/19 15:15 90 111/59 07/29/19 15:01 21 95/61 95 07/29/19 15:00 93 H 95/61 07/29/19 14:46 87 22 97/55 94 Intake and Output 07/30/19 07/30/19 07/30/19 05:59 13:59 21:59 Intake Total 360 360 Output Total 50 Balance 310 360 Intake: Oral 360 360 Output: Urine Catheter Amount 50 Other: Meal Breakfast Percent of Meal Consumed 100% Feeding Ability Assist with Tray Set Up Urine Appearance Clear Clear Straight Clear Clear Urine Color Straw Dark Yellow Straight Straw Dark Yellow Urine Odor Normal Normal Straight Normal Intake & Output: Intake & Output 07/30/19 07/30/19 07/30/19 05:59 13:59 21:59 Intake Total 360 360 Output Total 50 Balance 310 360 Intake: Oral 360 360 Output: Urine Catheter Amount 50 Other: Meal Breakfast Percent of Meal Consumed 100% Feeding Ability Assist with Tray Set Up Urine Appearance Clear Clear Straight Clear Clear Urine Color Straw Dark Yellow Straight Straw Dark Yellow Urine Odor Normal Normal Straight Normal - Lab 07/30/19 04:44 07/30/19 04:44 Most recent lab results Calcium 8.3 mg/dl (8.6-10.4) L 07/30/19 04:44 Phosphorus 5.1 mg/dL (2.7-4.5) H 07/30/19 04:44 Magnesium 2.1 mg/dL (1.6-2.5) 07/30/19 04:44 Microbiology 07/29/19 13:04 Blood Blood Culture - Preliminary Gram positive cocci 07/29/19 22:43 Catheter Tip - Optiflow Gram Stain - Final 07/29/19 22:43 Catheter Tip - Optiflow Wound Culture - Preliminary Staphylococcus aureus 07/28/19 12:13 Blood Blood Culture - Preliminary Staphylococcus aureus 07/28/19 12:00 Blood Blood Culture - Preliminary Staphylococcus aureus 07/27/19 20:00 Blood Blood Culture - Final Methicillin resistant s.aureus 07/27/19 21:40 Urine - Catheterized Urine Culture - Final Staphylococcus aureus 07/29/19 12:55 Blood Blood Culture - Preliminary Gram positive cocci 07/28/19 02:50 Nose MRSA (PCR) - Final MRSA PCR positive 07/27/19 15:45 Blood Blood Culture - Preliminary Gram positive cocci Medications Active Medications: Acetaminophen (Tylenol) 650 mg PO Q6HP PRN PRN Reason: PAIN/FEVER > 101 Albuterol/Ipratropium (Duoneb) 3 ml NEB Q4HP PRN PRN Reason: Shortness Of Breath Dextrose (Dextrose 50%) 0 ml IV UD PRN PRN Reason: Hypoglycemia Diagnostic Test (Pha) (Accu-Chek) 1 each FS ACHS [facility] Last Admin: 07/30/19 13:14 Dose: 1 each Documented by: [id number] Admin: 07/30/19 08:00 Dose: 1 each Documented by: [id number] Admin: 07/30/19 05:05 Dose: 1 each Documented by: Admin: 07/29/19 20:35 Dose: 1 each Documented by: Admin: 07/29/19 17:47 Dose: 1 each Documented by: Admin: 07/29/19 11:37 Dose: 1 each Documented by: [id number] Admin: 07/29/19 07:39 Dose: 1 each Documented by: [id number] Admin: 07/28/19 21:16 Dose: 1 each Documented by: [email or web address] Admin: 07/28/19 17:42 Dose: 1 each Documented by: [id number] Admin: 07/28/19 11:53 Dose: 1 each Documented by: [id number] Admin: 07/28/19 06:52 Dose: 1 each Documented by: [id number] Ferrous Gluconate (Fergon) 324 mg PO DAILY [facility] Last Admin: 07/30/19 09:13 Dose: 324 mg Documented by: [id number] Admin: 07/29/19 07:44 Dose: 324 mg Documented by: [id number] Admin: 07/28/19 09:08 Dose: 324 mg Documented by: [id number] Glucose (Insta-Glucose) 15 gm PO PRN PRN PRN Reason: Hypoglycemia Potassium Chloride 40 meq/ (Dextrose) 520 mls @ 130 mls/hr IV UD PRN PRN Reason: Potassium < 3 Magnesium Sulfate (Magnesium Sulfate) 2 gm in 50 mls @ 50 mls/hr IV UD PRN PRN Reason: Magnesium </= 1.6 Acetaminophen (Ofirmev) 650 mg in 65 mls @ 130 mls/hr IV Q6HP PRN; Protocol PRN Reason: PAIN/FEVER > 101 Albumin Human (Buminate) 12.5 gm in 50 mls @ 100 mls/hr IV Q1HP PRN PRN Reason: Hypotension Last Infusion: 07/29/19 14:30 Dose: 0 mls/hr Documented by: [id number] Admin: 07/29/19 13:49 Dose: 100 mls/hr Documented by: [id number] Insulin Glargine (Lantus) 52 unit SQ HS [facility] Last Admin: 07/29/19 20:48 Dose: 52 units Documented by: Admin: 07/28/19 21:23 Dose: 52 units Documented by: [email or web address] Insulin Human Lispro (Humalog) 0 unit SQ ACHS [facility]; Protocol Last Admin: 07/30/19 13:17 Dose: 6 unit Documented by: [id number] Admin: 07/30/19 08:03 Dose: 2 unit Documented by: [id number] Admin: 07/29/19 20:36 Dose: Not Given Documented by: [email or web address] Non-Admin Reason: patient refused dinner Admin: 07/29/19 17:50 Dose: Not Given Documented by: [email or web address] Non-Admin Reason: No Coverage Needed Admin: 07/29/19 11:42 Dose: 8 unit Documented by: [id number] Admin: 07/29/19 07:43 Dose: 4 unit Documented by: Admin: 07/28/19 21:23 Dose: 6 unit Documented by: [email or web address] Admin: 07/28/19 18:04 Dose: 4 unit Documented by: [email or web address] Admin: 07/28/19 13:17 Dose: 8 unit Documented by: [id number] Admin: 07/28/19 08:00 Dose: 6 unit Documented by: [id number] Melatonin (Melatonin 3mg Tablet) 3 mg PO QHS [facility] Last Admin: 07/29/19 20:35 Dose: 3 mg Documented by: Admin: 07/28/19 21:32 Dose: Not Given Documented by: [email or web address] Non-Admin Reason: Held for decreased mentation Metoprolol Tartrate (Lopressor) 5 mg IV Q2HP PRN PRN Reason: Tachyarrhythmias HR>110 Last Admin: 07/28/19 17:33 Dose: 5 mg Documented by: [id number] Metoprolol Tartrate (Lopressor) 25 mg PO BID [facility] Last Admin: 07/30/19 09:13 Dose: 25 mg Documented by: Admin: 07/29/19 20:49 Dose: Not Given Documented by: [email or web address] Non-Admin Reason: Held for low blood pressure. Morphine Sulfate (Morphine) 1 - 3 mg IV Q3HP PRN; Protocol PRN Reason: Per Pain Protocol Last Admin: 07/29/19 00:12 Dose: 2 mg Documented by: [email or web address] Admin: 07/28/19 16:50 Dose: 2 mg Documented by: [id number] Admin: 07/28/19 13:49 Dose: 2 mg Documented by: [id number] Mupirocin (Bactroban Oint 2%) 1 dose TOPICAL BID [facility] Stop: 08/01/19 21:01 Last Admin: 07/30/19 09:13 Dose: 1 dose Documented by: Admin: 07/29/19 20:35 Dose: 1 dose Documented by: Admin: 07/29/19 07:43 Dose: 1 dose Documented by: [id number] Admin: 07/28/19 21:24 Dose: 1 dose Documented by: [email or web address] Admin: 07/28/19 11:50 Dose: 1 dose Documented by: [id number] Ondansetron HCl (Zofran) 4 mg IV Q4HP PRN PRN Reason: Nausea And Vomiting Febuxostat 40 Mg (Tablet) 1 dose PO DAILY [facility] Last Admin: 07/30/19 09:14 Dose: Not Given Documented by: [email or web address] Non-Admin Reason: Unavailable Admin: 07/29/19 07:16 Dose: Not Given Documented by: [email or web address] Non-Admin Reason: Unavailable Admin: 07/28/19 09:09 Dose: Not Given Documented by: [id number] Non-Admin Reason: Unavailable Polyethylene Glycol (Miralax) 17 gm PO DAILYP PRN PRN Reason: Constipation Last Admin: 07/30/19 09:13 Dose: 17 gm Documented by: [id number] Admin: 07/28/19 11:50 Dose: 17 gm Documented by: [id number] Potassium Chloride (Kdur) 40 meq PO UD PRN PRN Reason: Potssium is 3-3.5 Potassium Chloride (Kdur) 40 meq PO UD PRN PRN Reason: Potassium < 3 Senna (Senokot) 2 tab PO DAILYP PRN PRN Reason: Constipation Last Admin: 07/29/19 20:44 Dose: 2 tab Documented by: [email or web address] Simvastatin (Zocor) 20 mg PO QDAY [facility] Last Admin: 07/30/19 09:13 Dose: 20 mg Documented by: Admin: 07/29/19 07:44 Dose: 20 mg Documented by: Admin: 07/28/19 09:09 Dose: 20 mg Documented by: [id number] Sodium Chloride (Saline Flush) 10 ml IV Q8 [facility] Last Admin: 07/30/19 12:04 Dose: 10 ml Documented by: Admin: 07/30/19 05:05 Dose: 10 ml Documented by: Admin: 07/29/19 20:36 Dose: 10 ml Documented by: [email or web address] Admin: 07/29/19 12:41 Dose: 10 ml Documented by: Admin: 07/29/19 05:21 Dose: 10 ml Documented by: [email or web address] Admin: 07/28/19 21:24 Dose: 10 ml Documented by: [email or web address] Admin: 07/28/19 16:39 Dose: 10 ml Documented by: [id number] Admin: 07/28/19 05:33 Dose: 10 ml Documented by: [email or web address] Tamsulosin HCl (Flomax) 0.4 mg PO QDAY [facility] Last Admin: 07/30/19 09:13 Dose: 0.4 mg Documented by: [id number] Admin: 07/29/19 07:44 Dose: 0.4 mg Documented by: [id number] Admin: 07/28/19 09:08 Dose: 0.4 mg Documented by: [id number] Tramadol HCl (Ultram) 100 mg PO TIDP PRN; Protocol PRN Reason: Pain Last Admin: 07/30/19 09:13 Dose: 100 mg Documented by: [id number] Admin: 07/29/19 20:43 Dose: 100 mg Documented by: Admin: 07/29/19 16:08 Dose: 100 mg Documented by: [id number] Admin: 07/29/19 02:05 Dose: 100 mg Documented by: [email or web address] Admin: 07/28/19 19:34 Dose: 100 mg Documented by: [email or web address] Admin: 07/28/19 11:51 Dose: 100 mg Documented by: [id number] Vancomycin HCl (Vancomycin Per Pharmacy) 1 order IV UD [facility]; Protocol Vitamin D (Vitamin D3) 10,000 unit PO DAILY [facility] Last Admin: 07/30/19 09:51 Dose: 10,000 unit Documented by: [id number] Admin: 07/29/19 08:08 Dose: 10,000 unit Documented by: [id number] Admin: 07/28/19 09:08 Dose: 10,000 unit Documented by: [id number] Assessment and Plan - Narrative A/P Narrative: A: 1. 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 HD catheter seems most likely source with seeding from nasal MRSA. - persistence of bacteremia is sec to indwelling catheters: HD cath (removed yesterday) and chemoporta cath, and septic thrombophlebitis. The Vanc TRISTEN has been 1 on cx from 07/27 and therefore doesnot suggest resistance to Vancomycin. 2. Left IJ and innominate vein, left subclavian vein thrombosis: sec to MRSA infection and HD cath (now removed) - presence of air bubbles seems sec to recent instrumentation. I have no concerns for anaerobic bacteria causing this infection. Given clinical improvement, no additional antibiotics needed 3. Septic shock: sec to (1) - NOW RESOLVED 4. Lumbar back pain with lack of sensation in L5-S1 dermatomes, SLRT +ve - MRI neg for any lumbar spine infection. Above clinical findinngs due to degenerative disc ds and spinal canal stenosis due to disc protrusion 5. ESRD on HD 6. DM2 with neuropathy 7. CLL : on Po Ibrutinib Recommendations: - Left chest myesha-cath to be removed tomorrow. will help with source control and persistence of MRSA bacteremia - Draw 2 sets of blood Cx after removal. If blood Cx drawn tomorrow neg for next 48 hrs, a new HD cath could be placed - Continue IV Vanc per pharmacy assisted dosing. Check Vanc levels tomorrow and prior to HD (target 15-20). Vanc level of 17 noted from yesterday - Spoke with Micro to check MICs to Vanc on blood Cx from 07/29. - will plan for outpatient DIANE, given high risk for IE and TTE being limited due to thick chest wall - continue MRSA decolonization with intranasal mupirocin 2% bid and below neck whole body chlorhexidine once daily, for 5 days - anticipate minimum 6 weeks of IV Vanc (counting from 1st day of neg blood Cx) will follow Andrea Becerra MD Infectious diseases
[2019-07-30] MEDS: INSULIN GLARGINE, HUMAN 1 UNIT/0.01 ML SQ SCH (20:20)
[2019-07-30] MEDS: MELATONIN 3 MG TABLET PO SCH (20:21)
[2019-07-31] MEDS: 0.9 % SODIUM CHLORIDE 10 ML SYRINGE IV SCH ×3 (05:39→21:21)
[2019-07-31 07:23] LABS: Basophils # (Auto) 0.04 K/mcL (0.00-0.30); Basophils % (Auto) 0.2 % (0.0-2.0); Eosinophils # (Auto) 0.09 K/mcL (0.00-0.70); Eosinophils % (Auto) 0.5 % (0.0-7.0); Granulocytes % (Auto) 76.4 % (38.0-78.0); Hematocrit 24.9 % (40.1-51.0); Hemoglobin 8.1 g/dL (13.7-17.5); Lymphocytes # (Auto) 2.55 K/mcL (1.50-4.80); Lymphocytes % (Auto) 15.1 % (15.5-49.0); Mean Cell Volume 89.2 fL (80.0-100.0); Mean Corpuscular HGB Conc 32.5 g/dL (31.0-36.0); Mean Platelet Volume 11.9 fL (7.4-10.4); Monocytes # (Auto) 1.32 K/mcL (0.10-0.90); Monocytes % (Auto) 7.8 % (1.0-12.0); Platelet Count 70 K/mcL (140-440); RBC 2.79 M/mcL (4.63-6.08); WBC 16.9 K/mcL (4.50-11.00)
[2019-07-31 08:04] LABS: ALT/SGPT 48 U/l (0-40); AST/SGOT 54 U/l (0-37); Albumin 2.7 gm/dL (3.2-5.2); Albumin/Globulin Ratio 1.1 (1.0-2.3); Alkaline Phosphatase 81 U/L (39-117); Bilirubin,Direct < 0.2 mg/dL (0.0-0.3); Bilirubin,Total 0.4 mg/dL (0.0-1.0); Carbon Dioxide 21 mmol/L (22-30); Globulin 2.5 gm/dL (2.2-3.7); Glucose 122 mg/dL (70-105); Lactate Dehydrogenase 249 U/L (94-250); Triglycerides 274 mg/dl (<150); Uric Acid 5.8 mg/dL (2.5-8.0)
[2019-07-31 08:13] LABS: Blood Urea Nitrogen 102 mg/dl (8-23); Chloride 89 mmol/L (96-108); Glomerular Filtration Rate 5; Phosphorous 7.6 mg/dL (2.7-4.5)
[2019-07-31] MEDS: METOPROLOL TARTRATE 50 MG TABLET PO SCH ×2 (08:32→21:19)
[2019-07-31] MEDS: FERROUS GLUCONATE 324 MG TABLET PO SCH (08:32)
[2019-07-31] MEDS: INSULIN LISPRO 1 UNIT/0.01 ML UNIT SQ SCH ×4 (08:32→21:18)
[2019-07-31] MEDS: VITAMIN D3 5,000 UNIT CAPSULE PO SCH (08:32)
[2019-07-31] MEDS: TAMSULOSIN 0.4 MG CAPSULE PO SCH (08:32)
[2019-07-31] MEDS: Febuxostat 40 MG Tablet PO SCH (08:32)
[2019-07-31] MEDS: SIMVASTATIN 20 MG TABLET PO SCH ×2 (08:33→08:36)
[2019-07-31] MEDS: MUPIROCIN OINT 2% 22GM TOPICAL SCH ×2 (08:46→21:19)
--- NOTE | 2019-07-31 12:16 | Internal Med Progress Note ---
Medical - PN: Subj Patient information: Note initiated : 07/31/19 at 12:12 pm Service Date, if different from initiated Date: [] Patient: Artie Bhatt 69 y/o M admitted on 07/27/19 for Bleeding from Permacath port. Chief Complaint: [] Interval history: pt with left tunneled IJ dialysis port removed by Dr. Morelos 07/29/19. The pt had pus there and is with MRSA bacteremia for last 5 days. Today no fever and W BC down some but there is likely seeding of the right Port a Cath as well. I spoke with consultants Dr. Morelos, Dr. Becerra and also Dr. Gonzalez. We have plan for Port a Cath removal. TTE was ok and DIANE planned for outpt to guide duration of the abx treatment (vanco for MRSA) Pt complaining of cramps in arms and legs. also has tremors. didnt sleep well last night. Says cath since 2010 was flushed but not used then had use a week ago for chemo. Dr. Becerra spoke with pt oncologist and for immediate future oral agents are intended. Abx will be given with dialysis. Dialysis temp femoral cath planned for this weekend by Dr. Morelos. Left Port a Cath removal today with Dr. Gonzalez is scheduled. Pt states prior to a week ago was making urine and not on dialysis - Constitutional Vitals: Vital Signs Temp Pulse Resp BP Pulse Ox 98.9 F 80 20 117/60 88 L 07/31/19 11:01 07/31/19 08:00 07/31/19 10:01 07/31/19 11:01 07/31/19 11:01 Period Temp Pulse Resp BP Sys/Corona Pulse Ox Last 24 Hr 98.1 F-98.9 F 80-81 14-20 82-129/46-71 88-95 Intake and Output 07/30/19 07/31/19 07/31/19 21:59 05:59 13:59 Intake Total 320 Output Total 175 240 160 Balance -175 80 -160 Weight 243 lb 9.6 oz Intake & Output: Intake & Output 07/30/19 07/31/19 07/31/19 21:59 05:59 13:59 Intake Total 320 Output Total 175 240 160 Balance -175 80 -160 Weight 243 lb 9.6 oz Intake: Oral 320 Output: Urine Catheter Amount 175 240 160 Other: Meal Dinner Percent of Meal Consumed 25% Urine Appearance Clear Clear Cloudy Sediment Straight Clear Urine Color Bright Yellow Bright Yellow Bright Yellow Straight Dark Yellow Urine Odor Normal Normal Normal Straight Normal General appearance: obese - Eye Eye exam: Absent: conjunctival injection, scleral icterus - Respiratory Respiratory exam: Present: normal respiratory exam, CTAB - Cardiovascular Cardiovascular exam: Present: irregular rhythm, systolic murmur Additional comments: 3/6 LET[facility] LUSB rad to right chest shoulder - GI/Abdominal GI/Abdominal exam: Present: soft (obese). Absent: tenderness - Extremities Exam Extremities exam: Present: pedal edema (trace) - Psychiatric Psychiatric exam: Present: depressed, normal affect - Skin Skin exam: Present: dry, warm Additional comments: but Left upper chest over clavicle with erythema and induration. decreased from yesterday Medical - PN: Obj Da - Labs CBC & Chem 7: 07/31/19 06:45 07/31/19 06:45 Labs: Abnormal Lab Results 07/31/19 07/31/19 07/30/19 06:45 06:45 04:44 WBC 16.9 H RBC 2.79 L Hgb 8.1 L Hct 24.9 L Plt Count 70 L MPV 11.9 H Gran % Lymph % (Auto) 15.1 L Gran # 12.94 H Lymph # (Auto) [place] # (Auto) 1.32 H Band Neutrophils % Lymphocytes % WBC Morphology Dohle Bodies Platelet Estimate RBC Morphology Polychromasia Hypochromasia Sodium 131 L Chloride 89 L Carbon Dioxide 21 L Anion Gap 21.0 H 18.0 H BUN 102 H* 68 H Creatinine 9.4 H* 6.6 H* Glucose 122 H 164 H Calcium 8.0 L 8.3 L Phosphorus 7.6 H* 5.1 H AST 54 H 56 H ALT 48 H 50 H Lactate Dehydrogenase 275 H Total Protein 5.2 L 5.7 L Albumin 2.7 L 2.7 L Albumin/Globulin Ratio 0.9 L Triglycerides 274 H 324 H 07/30/19 07/29/19 07/29/19 04:44 05:11 05:11 WBC 14.8 H RBC 2.89 L Hgb 8.3 L Hct 26.1 L Plt Count 67 L MPV 12.6 H Gran % Lymph % (Auto) Gran # Lymph # (Auto) [place] # (Auto) Band Neutrophils % 16 H Lymphocytes % 13 L WBC Morphology Abnorm A Dohle Bodies Few A Platelet Estimate Decreased A Decreased A RBC Morphology Abnorm A Abnorm A Polychromasia 1+ A 1+ A Hypochromasia 2+ A 1+ A Sodium Chloride Carbon Dioxide Anion Gap BUN Creatinine Glucose Calcium Phosphorus 5.3 H AST ALT Lactate Dehydrogenase Total Protein Albumin 3.0 L Albumin/Globulin Ratio Triglycerides 07/29/19 07/29/19 07/28/19 05:11 05:11 17:59 WBC 13.1 H RBC 3.06 L Hgb 9.0 L 9.7 L Hct 27.4 L 29.4 L Plt Count 73 L MPV 12.9 H Gran % 80.6 H Lymph % (Auto) 10.1 L Gran # 10.58 H Lymph # (Auto) 1.[address] [place] # (Auto) 1.13 H Band Neutrophils % Lymphocytes % WBC Morphology Dohle Bodies Platelet Estimate RBC Morphology Polychromasia Hypochromasia Sodium Chloride 94 L Carbon Dioxide 19 L Anion Gap 20.0 H BUN 91 H Creatinine 8.9 H* Glucose 204 H Calcium 8.1 L Phosphorus AST ALT Lactate Dehydrogenase Total Protein Albumin Albumin/Globulin Ratio Triglycerides Meds: Medications Acetaminophen (Tylenol) 650 mg PO Q6HP PRN PRN Reason: PAIN/FEVER > 101 Albuterol/Ipratropium (Duoneb) 3 ml NEB Q4HP PRN PRN Reason: Shortness Of Breath Dextrose (Dextrose 50%) 0 ml IV UD PRN PRN Reason: Hypoglycemia Diagnostic Test (Pha) (Accu-Chek) 1 each FS [facility] Last Admin: 07/31/19 11:52 Dose: 1 each Documented by: Ferrous Gluconate (Fergon) 324 mg PO DAILY [facility] Last Admin: 07/31/19 08:32 Dose: Not Given Documented by: Glucose (Insta-Glucose) 15 gm PO PRN PRN PRN Reason: Hypoglycemia Acetaminophen (Ofirmev) 650 mg in 65 mls @ 130 mls/hr IV Q6HP PRN; Protocol PRN Reason: PAIN/FEVER > 101 Insulin Glargine (Lantus) 52 unit SQ [facility] Last Admin: 07/30/19 20:20 Dose: 52 units Documented by: Insulin Human Lispro (Humalog) 0 unit SQ [facility]; Protocol Last Admin: 07/31/19 11:52 Dose: 2 unit Documented by: Melatonin (Melatonin 3mg Tablet) 3 mg PO QHS [facility] Last Admin: 07/30/19 20:21 Dose: 3 mg Documented by: Metoprolol Tartrate (Lopressor) 5 mg IV Q2HP PRN PRN Reason: Tachyarrhythmias HR>110 Last Admin: 07/28/19 17:33 Dose: 5 mg Documented by: Metoprolol Tartrate (Lopressor) 25 mg PO BID [facility] Last Admin: 07/31/19 08:32 Dose: Not Given Documented by: Morphine Sulfate (Morphine) 1 - 3 mg IV Q3HP PRN; Protocol PRN Reason: Per Pain Protocol Last Admin: 07/31/19 02:02 Dose: 2 mg Documented by: Mupirocin (Bactroban Oint 2%) 1 dose TOPICAL BID [facility] Stop: 08/01/19 21:01 Last Admin: 07/31/19 08:46 Dose: 1 dose Documented by: Ondansetron HCl (Zofran) 4 mg IV Q4HP PRN PRN Reason: Nausea And Vomiting Febuxostat 40 Mg (Tablet) 1 dose PO DAILY [facility] Last Admin: 07/31/19 08:32 Dose: Not Given Documented by: Polyethylene Glycol (Miralax) 17 gm PO DAILYP PRN PRN Reason: Constipation Last Admin: 07/30/19 09:13 Dose: 17 gm Documented by: Potassium Chloride (Kdur) 40 meq PO UD PRN PRN Reason: Potssium is 3-3.5 Potassium Chloride (Kdur) 40 meq PO UD PRN PRN Reason: Potassium < 3 Senna (Senokot) 2 tab PO DAILYP PRN PRN Reason: Constipation Last Admin: 07/29/19 20:44 Dose: 2 tab Documented by: Simvastatin (Zocor) 20 mg PO QDAY [facility] Last Admin: 07/31/19 08:36 Dose: Not Given Documented by: Sodium Chloride (Saline Flush) 10 ml IV Q8 [facility] Last Admin: 07/31/19 05:39 Dose: 10 ml Documented by: Tamsulosin HCl (Flomax) 0.4 mg PO QDAY [facility] Last Admin: 07/31/19 08:32 Dose: Not Given Documented by: Tramadol HCl (Ultram) 100 mg PO TIDP PRN; Protocol PRN Reason: Pain Last Admin: 07/30/19 20:21 Dose: 100 mg Documented by: Vancomycin HCl (Vancomycin Per Pharmacy) 1 order IV UD [facility]; Protocol Vitamin D (Vitamin D3) 10,000 unit PO DAILY [facility] Last Admin: 07/31/19 08:32 Dose: Not Given Documented by: Medical - PN: A/P - Time Spent With Patient Total time spent is greater than 50% in coordination of care (as documented) at patient's floor/unit and/or counseling patient: Greater than 35 minutes (1) Septic thrombophlebitis Problem details: left tunneled dialysis catheter removed 07/29/19. fever and wbc decreased. cont vanco. CT showed occluded left innominate vein. exam shows less induration and bulging at base of neck Status: Acute Assessment and plan: right Port a Cath to be removed today by Dr. Gonzalez Current Visit: Yes (2) MRSA (methicillin resistant Staphylococcus aureus) septicemia Problem details: right Port a Cath still in place and will need to be removed as planned today Status: Acute Assessment and plan: 6 weeks treatment for MRSA with vanco planned. Dr. Becerra managing abx course. Current Visit: Yes (3) ESRD (end stage renal disease) on dialysis Problem details: dialysis on hold for few days. Plan temp femoral dialysis cath for dialysis while awaiting safe replacement of tunneled dialysis catheter. Status: Chronic Assessment and plan: anticipate will need dialysis tomorrow and will need temporary femoral dialysis catheter Current Visit: Yes (4) Complications, dialysis, catheter, mechanical Problem details: removed. awaiting healing Status: Acute Current Visit: Yes Medical - PN: Qual - VTE Deep Vein Thrombosis/Pulmonary Embolism Present on Admission: No
[2019-07-31] MEDS ORDERED: LORazepam 2 MG/ML VIAL IV PRN ×2 (12:23→14:45)
--- NOTE | 2019-07-31 12:40 | Nephrology Progress Note ---
Subjective Patient information: Note initiated : 07/31/19 at 12:36 pm Service Date, if different from initiated Date: [] Patient: Artie Bhatt 69 y/o M admitted on 07/27/19 for Bleeding from Permacath port. Chief Complaint: [] Principal diagnosis: ESRD and bleeding from recent HD placement Interval history: Left IJ cather removed 07/29 and exit site with pus drainage sent for culture. High Grade backteremia persists Probable needs port-a-cath removed as it is/will become infected due to >72 hr of MRSA bacteremia The left IJ insertion site at the clavicular head,SCM muscle need U/S and if fluid collection present this will need surgical drainage as well Vascular access for HD will have to be by rotating femoral catheters untill infection in cleared up, the another catheter will have to be placed in RIGHT IJ approach and perhaps placement of an AVG at the same time for minimum use of a catheter. Colinization of jeannette with MRSA and bleeding from catheter site probably combined to cause the infection, CLL help by imunosuppression. U/S of Neck Region: FINDINGS: At the anterior base the neck and left side at the supraclavicular fossa there is a complex heterogeneous clot which measures 1.9 x 3.4 x 5.7 cm. Along the posterior aspect of the clot, extending towards the thoracic inlet there is a linear tract with pulsatile flow within it. This is the tract where the catheter had been removed and there is still active slow bleeding. No abscess is identified. The adjacent left internal jugular vein is completely thrombosed. Normal flow is seen in the common carotid artery. IMPRESSION: Active slow bleeding along the tract where the permacath had been removed. Moderate-sized hematoma at the left supraclavicular fossa, adjacent to the permacath tract Thrombosis of the left internal jugular vein CT neck and CTA Chest: There is complete thrombosis of the left jugular vein from the level of the hypopharynx down into the thoracic inlet. The clot extends through the innominate vein and protrudes into the lumen of the superior vena cava. There are small bubbles of air within the innominate vein. There is also clot extending into the left subclavian vein. The axillary vein is patent. Clot does not extend intracranially. The right jugular vein is normal. There is a hematoma anterior to the base of the neck and contain small bubbles of air. Is located lateral to the larynx and is causing mild deviation of the larynx to the right. The delayed images show no extravasation of contrast into the hematoma. Where the air bubbles are located within the hematoma, the hematoma has low attenuation. This could be due to an evolving abscess or blood breakdown products of varying age. There is stranding of the anterior subcutaneous fat. Patient has a goiter. The left lobe of the thyroid is enlarged and deviates the trachea to the right. No mass is seen within the thyroid. There is normal enhancement of the carotid arteries. Densely calcified plaques are present in the carotid bifurcations. There may be a hemodynamically significant stenosis at the right carotid bifurcation. There is a right internal jugular catheter. The upper portion of the catheter is looped within the vein. Distal segment extends into the thoracic portion of the superior vena cava and there is no thrombus around this catheter. There is a small consolidating alveolar infiltrate posteriorly in the left lower lobe which could be atelectasis or pneumonia. Smaller band of consolidation is present in the posterior basal segment of the right lower lobe. There are tiny bilateral layering pleural effusions. There are a few bands of scar or discoid atelectasis scattered in both lungs. Heart size is normal. There is no pericardial effusion. Moderate atherosclerotic coronary artery disease is present, predominantly involving the left anterior descending. The pulmonary arteries are normal without evidence of emboli. There are no abnormally enlarged lymph nodes in the mediastinum. There are several enlarged lymph nodes in the left axilla which measure up to 2.6 cm. Somewhat smaller lymph nodes are present in the right axilla. IMPRESSION: Complete thrombosis of the left innominate vein extending through the jugular vein up to the hypopharynx and laterally into the left subclavian vein. There are bubbles of air within the vein suggesting infection. Complex possibly infected hematoma anterior to the jugular vein at the base of the neck. Favorable fever curve is the good news. No dialysis access and no clearing of blood cultures are athe bad news. Will need HD soon He remains ill and CATABOLIC SO ONCE ACCESS IS RE-ESTABLISHED HE WILL NEED DAILY DIALYSIS. wILL WAIT 24 HOURS BEFORE REPLACING A TEMPORARY FEMORAL HD CATHETER,. Pertinent ROS: 10 point ROS has nothing new than previously reported Additional PMFSH (Level 3 Only): N/A Objective - Vital Signs Vital signs: Vital Signs Temp Pulse Resp BP Pulse Ox 07/31/19 12:14 92 07/31/19 12:01 37.2 C 16 114/55 93 07/31/19 11:01 37.2 C 117/60 88 L 07/31/19 10:15 129/59 93 07/31/19 10:01 20 129/59 91 07/31/19 09:01 118/62 90 07/31/19 08:02 36.9 C 120/62 94 07/31/19 08:00 80 20 92 07/31/19 07:01 119/64 93 07/31/19 06:01 108/55 93 07/31/19 05:01 110/58 93 07/31/19 04:45 93 07/31/19 04:02 16 107/54 95 07/31/19 03:02 117/63 92 07/31/19 02:02 118/59 93 07/31/19 02:00 81 18 92 07/31/19 01:01 18 101/65 95 07/31/19 00:23 95 07/31/19 00:01 18 96/67 07/30/19 23:01 90/62 94 07/30/19 22:06 100/64 07/30/19 22:02 93 07/30/19 21:02 102/60 90 07/30/19 21:01 89 L 07/30/19 20:01 36.7 C 14 112/58 91 07/30/19 20:00 91 07/30/19 19:01 96/55 90 07/30/19 18:13 103/62 93 07/30/19 18:08 88/71 91 07/30/19 18:01 82/62 93 07/30/19 16:01 37.1 C 18 98/55 92 07/30/19 15:01 18 103/46 92 07/30/19 14:01 17 91/59 92 07/30/19 14:00 81 18 92 07/30/19 13:02 19 108/68 92 07/30/19 12:38 36.7 C 19 128/65 94 Intake and Output 07/30/19 07/31/19 07/31/19 21:59 05:59 13:59 Intake Total 320 Output Total 175 240 160 Balance -175 80 -160 Intake: Oral 320 Output: Urine Catheter Amount 175 240 160 Other: Meal Dinner Percent of Meal Consumed 25% Urine Appearance Clear Clear Cloudy Sediment Straight Clear Urine Color Bright Yellow Bright Yellow Bright Yellow Straight Dark Yellow Urine Odor Normal Normal Normal Straight Normal Weight 110.495 kg Intake & Output: Intake & Output 07/30/19 07/31/19 07/31/19 21:59 05:59 13:59 Intake Total 320 Output Total 175 240 160 Balance -175 80 -160 Weight 110.495 kg Intake: Oral 320 Output: Urine Catheter Amount 175 240 160 Other: Meal Dinner Percent of Meal Consumed 25% Urine Appearance Clear Clear Cloudy Sediment Straight Clear Urine Color Bright Yellow Bright Yellow Bright Yellow Straight Dark Yellow Urine Odor Normal Normal Normal Straight Normal - General Appearance General appearance: moderate distress EENT: ATNC, PERRL Neck: no JVD, no carotid bruit (Inproved swelling and less local warmth left IJ region) Respiratory: no kyphosis Cardiology: no murmurs, no rub, no gallops, no edema Gastrointestinal: normoactive bowel sounds, absent bowel sounds Integumentary: no rash Neurologic: no focal deficit, no asterixis Musculoskeletal: no deformities Psychiatric: mood/affect appropriate - Lab 07/31/19 06:45 07/31/19 06:45 Most recent lab results Calcium 8.0 mg/dl (8.6-10.4) L 07/31/19 06:45 Phosphorus 7.6 mg/dL (2.7-4.5) H* 07/31/19 06:45 Magnesium 2.4 mg/dL (1.6-2.5) 07/31/19 06:45 Assessment and Plan (1) ESRD (end stage renal disease) on dialysis 1. Due to underlying medical condition and co-morbidities I do not think this patient will benefit from assisted HD. Anticipate High 1 year mortality and morbidity. 2. Hd tomorrow with 4 hrs, 1-2 liter U/F, albumin for bp support, heparin free treatent and remover recently placed cuff catheter due to MRSA infection with localized redness and swelling at the area need the IJ insertion site bot the skin exit site. 3. Complication if right IJ HD catheter including bleeding Next HD in AM tomorrow. Status: Chronic Priority: High Comment: dialysis on hold for few days. Plan temp femoral dialysis cath for dialysis while awaiting safe replacement of tunneled dialysis catheter. (2) Other lymphoid leukemia, in relapse Hold Imbruvica due to catheter bleeding Status: Chronic Priority: Medium (3) Complications, dialysis, catheter, mechanical Bleeding improved with thrombin gauze and HD and Cessation of Heparin MRSA (+) bacteremia and SIRS/SEPSIS. Survived past 24 hours but far from out of the chau Updated discussion of high mortality with sepsis, followed by 25% mortality per year on HD in >70 yr olds with DM. CLL and treatment thereof is helping increase morbidity and mortality as well. Stop hisImbruvica for now due to bleeding complicatuions Status: Acute Priority: High Comment: removed. awaiting healing Qualifiers: Encounter type: initial encounter Qualified Code(s): T82.49XA - Other complication of vascular dialysis catheter, initial encounter (4) Fever Occured on HD and cultures drawn Also occured in early AM before dialysis Given CLL he will need broad coverage, fever w/u and conversion to full admit. Garcia culture CXR Vanco and cefepime 1 set of blood cultures already positive. 2 gm IV load of vanco last evening, stop 4th generation cephalosporin Status: Acute Priority: High Qualifiers: Encounter type: initial encounter (5) MRSA (methicillin resistant Staphylococcus aureus) septicemia 1. Nares (+) 2. Blood culture positive + SIRS = sepsis 3. Reculter from peripheral vein and catheter during todays treatment 4. Obviously infected Left cuffed catheter removed and is ~1 week old. First treatment was uneventful at HD unit untill back bleeding from catheter occured. This could have led to infectious compromise but he was febile by Saturday evening. By saturday flat out septic post HD treatment and required admission to ICU and < 24 hrs of pressor support. CLL also compromised immune status. 5. No new catheter untill culture neg. 6. All blood cultures so far MRSA (4 sets) Urine preliminary staph but no WBC so colonization suspected Nares (+) MRSA on admission Status: Acute Priority: High Comment: right Port a Cath still in place and will need to be removed as planned today (6) Septic thrombophlebitis 1. Documented on U/S this AM (07/30/18) 2. Catheter is out, high grade MRSA persists 3. This is a life threatening situation as the is throbytopenic, dialysis dependent, no dialysis access and CLL underlying cause of these complications or the drug used to treat the CLL which has hemorrhagic and thrombotic complications. 4. My take on all this is if we do not clear the bloodstream in 72 hrs, he is a treatment failure and needs referred for consideration of surgical resection of the thrombus. I don't see where IR has a role in chemical or mecanical thrombolysis. 5. I'd wait till we see if he clears his bacteremia before decicing on anticoagulation, starting with heparin. 6. Probably should obtain a baseline CTA and views of neck. Since he is already ESRD, only risk if the osmotic load of IV contrast and the expected further loss of his underlying GFR from 8 to 10 % prior to HD initiation. Reviewed on Upto date: JUGULAR VEIN Pathogenesis Jugular vein suppurative thrombophlebitis is also known as Lemierre's syndrome, postanginal sepsis, and necrobacillosis [18]. The condition is frequently preceded by pharyngitis, usually in association with tonsil or peritonsillar involvement. Other antecedent conditions include primary dental infection or infectious mononucleosis [11]. Jugular vein suppurative thrombophlebitis is characterized by infectious involvement of the carotid sheath vessels with bacteremia. In general, infection progresses from the oropharynx to the parapharyngeal or lateral pharyngeal space. The anterior part of this space consists of the anterior neck muscles; the posterior section contains the carotid sheath that encloses the internal jugular vein, internal carotid artery, the vagal nerve, and lymph nodes (figure 1) [11]. Jugular vein suppurative thrombophlebitis can also be associated with intravenous catheter insertion. Clinical manifestations Jugular vein suppurative thrombophlebitis should be suspected in patients with antecedent pharyngitis, septic pulmonary emboli, and persistent fever despite antimicrobial therapy. Jugular vein suppurative thrombophlebitis frequently affects previously healthy young adults; in one series the mean age was 20 years [8]. The interval between the preceding pharyngitis and the onset of jugular vein thrombophlebitis is usually less than one week [11,19]. Patients typically present acutely with fever (>39C) and rigors, often accompanied by respiratory distress [11]. Most patients have localized neck and/or throat pain. Clinical examination of the oropharynx may demonstrate ulceration, a pseudomembrane, or erythema [11,19]. Tenderness, swelling, and/or induration may be observed overlying the jugular vein, over the angle of the jaw or along the sternocleidomastoid muscle [20]. In some cases there are no abnormal physical findings in the oropharynx. Septic emboli to the lung are common; in two reports this finding was observed in 97 percent of cases [11,19]. Chest radiography may demonstrate infiltrates, which can cavitate to form lung abscesses and empyema [20]. Metastatic infection can also occur at other sites, leading to empyema, septic arthritis, and/or osteomyelitis [6,11]. Microbiology The causative organisms of jugular vein suppurative thrombophlebitis are usually members of the normal oropharyngeal chris [19]. The most common pathogen is the anaerobe Fusobacterium necrophorum; this pathogen has been isolated in healthy individuals as well as those with jugular vein suppurative thrombophlebitis and tonsillitis [21]. Other pathogens include other Fusobacterium species (eg, Fusobacterium nucleatum) [19] and other organisms such as Eikenella corrodens [22], Porphyromonas asaccharolytica [23], streptococci including Streptococcus pyogenes [24], and Bacteroides [11]. Organisms may be isolated from the blood and from metastatic sites of infection. Catheter associated jugular vein suppurative thrombophlebitis is associated with skin chris and nosocomial pathogens. Diagnosis Jugular vein suppurative thrombophlebitis should be suspected in patients with antecedent pharyngitis, septic pulmonary emboli, and persistent fever despite antimicrobial therapy. The microbiologic diagnosis may be made based on culture of blood, and culture purulent material expressed from the site if present. The most useful radiographic tool to evaluate for jugular vein suppurative th rombophlebitis is high resolution computed tomography (CT) scan with contrast. It may demonstrate filling defects or thrombus, with or without soft tissue swelling [19]. Because of the frequency of pulmonary emboli, the CT scan is often extended to include the chest. Ultrasonography may be used to evaluate for jugular vein thrombosis and/or assess for extension of thrombus [19]. This imaging is less useful in regions deep to the clavicle or mandible. There is limited experience with magnetic resonance (MR) imaging, but it has been suggested to be a useful modality [25]. Treatment The principles of treatment include removing the focus of infection (eg, intravenous catheter), prompt administration of intravenous antibiotics, and consideration regarding surgical intervention and/or anticoagulation. Antibiotics Empiric therapy for jugular vein suppurative thrombophlebitis should include a beta-lactamase resistant beta-lactam antibiotic, since treatment failure with penicillin and F. necrophorum beta-lactamase production has been reported [19,26]. Acceptable regimens include ampicillin-sulbactam (3 g every six hours), piperacillin-tazobactam (4.5 g every six hours), or monotherapy with a carbapenem. Antibiotics should be tailored accordingly to culture and susceptibility data when available. In the setting of catheter associated jugular vein suppurative thrombophlebitis, empiric therapy should also include an agent with activity against skin chris s uch as vancomycin (15 to 20 mg/kg/dose every 8 to 12 hours, not to exceed 2 g per dose). Antibiotic therapy should last at least until there has been a definite clinical response and/or until pulmonary abscesses have resolved as demonstrated by CT scan. The duration of therapy generally is for at least four weeks, including a minimum of two weeks intravenous therapy followed by oral therapy [27]. Surgery In general, most favor surgical intervention only in the setting of ongoing sepsis or for patients who have not responded to antimicrobial therapy; there are no randomized trials to guide such decisions [4,8]. When surgical intervention is warranted, surgical ligation or excision of the internal jugular vein may be necessary [8,11]. Surgical drainage of pulmonary abscesses or empyema may also be warranted [19]. Adjacent peritonsillar or other neck abscess in the vicinity of a catheter should prompt surgical incision and drainage as well as catheter removal. There are isolated reports of successful endovascular treatment (ie, thr ombolysis) in cases of suppurative thrombophlebitis involving the jugular vein [17]. Anticoagulation The role of anticoagulation for jugular vein suppurative thrombophlebitis is controversial; there are no controlled studies. Some authors favor anticoagulation only if there is evidence for extension of thrombus [19]. We suggest anticoagulation if there is evidence of significant extension of thrombus, especially in the presence of persistent bacteremia and/or uncontrolled clinical sepsis. Status: Acute Comment: left tunneled dialysis catheter removed 07/29/19. fever and wbc decreased. cont vanco. CT showed occluded left innominate vein. exam shows less induration and bulging at base of neck
[2019-07-31 13:19] LABS: Vancomycin,Random 19.8 ug/mL
--- NOTE | 2019-07-31 13:55 | General Surgery Consult Note ---
History of Present Illness Patient information: Note initiated : 07/31/19 at 1:52 pm Service Date, if different from initiated Date: [] Patient: Artie Bhatt 69 y/o M admitted on 07/27/19 for Bleeding from Permacath port. Chief Complaint: [] Reason for consult: other (MRSA SEPTICEMIA) History of present illness: 69 Y.O. MALE WITH MRSA SEPTICEMIA WHO NEEDS REMOVAL OF A RIGHT INTERNAL JUGULAR PORT-A-CATH PART OF THE BACTEREMIA.HE RECENTLY HAD A LEFT SIDED TUNNELED DIALYSIS CATHETER REMOVED. HE IS ON ANTIBIOTIC THERAPY WITH VANCOMYCIN WHICH IS BEING MONITORED BY PHARMACY. HIS LEVEL REMAINS THERAPEUTIC BECAUSE OF LACK OF DIALYSIS. Medications and Allergies Home Medications Medication Instructions Recorded Confirmed Type epinephrine 0.3 mg/0.3 mL 0.3 mg IM Q10-15M PRN 01/05/16 07/26/19 History injection, auto-injector metoprolol tartrate 100 mg tablet 100 mg PO BID 01/05/16 07/26/19 History simvastatin 20 mg tablet 20 mg PO QDAY tab 01/05/16 07/26/19 History tramadol 50 mg tablet 100 mg PO TID tab 01/05/16 07/26/19 History ibrutinib 140 mg capsule 420 mg PO QDAY cap 03/13/18 07/26/19 History insulin glargine 100 unit/mL (3 See Rx Instructions SUB-Q QHS 03/13/18 07/26/19 History mL) subcutaneous pen amlodipine 5 mg tablet 5 mg PO BID #180 tab 05/19/18 07/26/19 Rx cholecalciferol (vitamin D3) 10,000 unit PO QDAY #90 cap 02/19/19 07/26/19 Rx 10,000 unit capsule tamsulosin 0.4 mg capsule 0.4 mg PO QDAY #90 cap 05/08/19 07/27/19 Rx febuxostat 40 mg tablet See Rx Instructions .ROUTE 05/21/19 07/26/19 Rx .COMPLEX #30 tablet ferrous gluconate 240 mg (27 mg 240 mg PO QDAY 06/19/19 07/26/19 History iron) tablet insulin aspart U-100 100 unit/mL See Rx Instructions SUB-Q BID ml 06/19/19 07/26/19 History (3 mL) subcutaneous pen acetaminophen 650 mg 1,300 mg PO Q7H PRN tab 07/21/19 07/26/19 History tablet,extended release furosemide 40 mg tablet 40 mg PO QDAY tab 07/21/19 07/26/19 History Allergies Allergy/AdvReac Type Severity Reaction Status Date / Time hydrochlorothiazide Allergy Mild Rash Verified 07/28/19 07:17 penicillin V Allergy Mild rash Verified 07/28/19 07:17 Exam Temp Pulse Resp BP Pulse Ox 98.9 F 80 20 126/62 94 07/31/19 12:01 07/31/19 08:00 07/31/19 13:01 07/31/19 13:01 07/31/19 13:01 - General physical appearance chronically ill, obese - Neck no masses, no lymphadenopathy, other (CATHETER EXITING FROM RIGHT I J VEIN ONTO RIGHT CHEST WALL) - Respiratory normal expansion, normal respiratory effort, clear to auscultation Results - Labs 07/31/19 06:45 07/31/19 06:45 Abnormal lab results 07/31/19 07/31/19 Range/Units 06:45 06:45 WBC 16.9 H (4.50-11.00) K/mcL RBC 2.79 L (4.63-6.08) M/mcL Hgb 8.1 L (13.7-17.5) g/dL Hct 24.9 L (40.1-51.0) % Plt Count 70 L (140-440) K/mcL MPV 11.9 H (7.4-10.4) fL Lymph % (Auto) 15.1 L (15.5-49.0) % Gran # 12.94 H (1.80-8.00) K/mcL Andrew # (Auto) 1.32 H (0.10-0.90) K/mcL Sodium 131 L (133-145) mmol/L Chloride 89 L (96-108) mmol/L Carbon Dioxide 21 L (22-30) mmol/L Anion Gap 21.0 H (8-16) BUN 102 H* (8-23) mg/dl Creatinine 9.4 H* (0.7-1.2) mg/dl Glucose 122 H (70-105) mg/dL Calcium 8.0 L (8.6-10.4) mg/dl Phosphorus 7.6 H* (2.7-4.5) mg/dL AST 54 H (0-37) U/l ALT 48 H (0-40) U/l Total Protein 5.2 L (5.9-8.4) gm/dL Albumin 2.7 L (3.2-5.2) gm/dL Triglycerides 274 H (<150) mg/dl Diabetes panel 07/31/19 Range/Units 06:45 Sodium 131 L (133-145) mmol/L Potassium 4.4 (3.3-5.1) mmol/L Chloride 89 L (96-108) mmol/L Carbon Dioxide 21 L (22-30) mmol/L BUN 102 H* (8-23) mg/dl Creatinine 9.4 H* (0.7-1.2) mg/dl Glucose 122 H (70-105) mg/dL Calcium 8.0 L (8.6-10.4) mg/dl AST 54 H (0-37) U/l ALT 48 H (0-40) U/l Alkaline Phosphatase 81 (39-117) U/L Total Protein 5.2 L (5.9-8.4) gm/dL Albumin 2.7 L (3.2-5.2) gm/dL Triglycerides 274 H (<150) mg/dl Calcium panel 07/31/19 Range/Units 06:45 Calcium 8.0 L (8.6-10.4) mg/dl Phosphorus 7.6 H* (2.7-4.5) mg/dL Albumin 2.7 L (3.2-5.2) gm/dL Pituitary panel 07/31/19 Range/Units 06:45 Sodium 131 L (133-145) mmol/L Potassium 4.4 (3.3-5.1) mmol/L Chloride 89 L (96-108) mmol/L Carbon Dioxide 21 L (22-30) mmol/L BUN 102 H* (8-23) mg/dl Creatinine 9.4 H* (0.7-1.2) mg/dl Glucose 122 H (70-105) mg/dL Calcium 8.0 L (8.6-10.4) mg/dl Adrenal panel 07/31/19 Range/Units 06:45 Sodium 131 L (133-145) mmol/L Potassium 4.4 (3.3-5.1) mmol/L Chloride 89 L (96-108) mmol/L Carbon Dioxide 21 L (22-30) mmol/L BUN 102 H* (8-23) mg/dl Creatinine 9.4 H* (0.7-1.2) mg/dl Glucose 122 H (70-105) mg/dL Calcium 8.0 L (8.6-10.4) mg/dl Total Bilirubin 0.4 (0.0-1.0) mg/dL AST 54 H (0-37) U/l ALT 48 H (0-40) U/l Alkaline Phosphatase 81 (39-117) U/L Total Protein 5.2 L (5.9-8.4) gm/dL Albumin 2.7 L (3.2-5.2) gm/dL All other labs normal. Assessment and Plan (1) MRSA (methicillin resistant Staphylococcus aureus) septicemia PATIENT IS COUNSELED FOR REMOVAL OF THE INFECTED PORT-A-CATH. Status: Acute Priority: High Comment: right Port a Cath still in place and will need to be removed as planned today (2) Septic thrombophlebitis Status: Acute Comment: left tunneled dialysis catheter removed 07/29/19. fever and wbc decreased. cont vanco. CT showed occluded left innominate vein. exam shows less induration and bulging at base of neck (3) ESRD (end stage renal disease) on dialysis Status: Chronic Priority: High Comment: dialysis on hold for few days. Plan temp femoral dialysis cath for dialysis while awaiting safe replacement of tunneled dialysis catheter.
[2019-07-31] MEDS ORDERED: PROPOFOL 200 MG/20 ML VIAL IV ONE (14:15)
[2019-07-31] MEDS ORDERED: BUPIVACAINE 0.5% 50 ML VIAL IJ ONE (14:26)
--- NOTE | 2019-07-31 14:40 | Brief Operative Note ---
Date of procedure: 07/31/19 Pre-op diagnosis: MRSA BACTEREMIA Post-op diagnosis: other (MRSA BACTEREMIA) Procedure: RIGHT SUBCLAVIAN PORT-A-CATH REMOVAL Grafts/Implants: No Anesthesia: MAC, local Findings: CATHETER LOOKED OK BUT WAS SENT FOR CULTURE Complications: none Surgeon: Layton Gonzalez Specimens Removed/Pathology: other (CATHETER SENT FOR CULTURE) Condition: stable Disposition: ICU
[2019-07-31] MEDS ORDERED: DEXTROSE 31 GM ORAL.SUSP PO PRN (14:45)
[2019-07-31] MEDS ORDERED: POLYETHYLENE GLYCOL 3350 17 GM PACKET PO PRN (14:45)
[2019-07-31] MEDS ORDERED: ACETAMINOPHEN 325 MG TABLET PO PRN (14:45)
[2019-07-31] MEDS ORDERED: VANCOMYCIN PER PHARMACY IV SCH (14:45)
[2019-07-31] MEDS ORDERED: DEXTROSE 50% 50 ML VIAL IV PRN (14:45)
[2019-07-31] MEDS ORDERED: ONDANSETRON 4 MG/2 ML VIAL IV PRN (14:45)
[2019-07-31] MEDS ORDERED: POTASSIUM CHLORIDE 20 MEQ TABLET PO PRN ×2 (14:45)
[2019-07-31] MEDS ORDERED: METOPROLOL TARTRATE 5 MG/5 ML VIAL IV PRN (14:45)
[2019-07-31] MEDS ORDERED: traMADol 50 MG TABLET PO PRN (14:45)
[2019-07-31] MEDS ORDERED: ACETAMINOPHEN 650 MG/65 ML BOTTLE IV PRN (14:45)
[2019-07-31] MEDS ORDERED: IPRATROPIUM/ALBUTEROL 3 ML AMPUL.NEB NEB PRN (14:45)
[2019-07-31] MEDS ORDERED: SENNOSIDES 1 TABLET PO PRN (14:45)
--- NOTE | 2019-07-31 17:33 | Infectious Disease Prog Note ---
Subjective Patient information: Note initiated : 07/31/19 at 5:05 pm Service Date, if different from initiated Date: [] Patient: Artie Bhatt 69 y/o M admitted on 07/27/19 for Bleeding from Permacath port. Chief Complaint: [] Principal diagnosis: ESRD and bleeding from recent HD placement Interval history: Pt feels same a yesterday. Denied any fevers, chills, n/v. Is constipated. Is sc heduled for left chest wall chemo port today. Objective Objective Narrative: alert, awake, oriented x 3 has minimal tenderness and redness over the left IJ, site of previously placed IJ cath chest has b/l decreased BS at bases s1 s2 normal, 2/6 ESM at left 2nd ICS bs ++, nttd has some resting tremors of both hands - Vital Signs Vital signs: Vital Signs Temp Pulse Resp BP Pulse Ox 07/31/19 16:01 20 146/68 99 07/31/19 16:00 36.9 C 07/31/19 15:46 136/63 96 07/31/19 15:31 36.7 C 141/85 07/31/19 15:19 142/67 97 07/31/19 15:02 16 150/70 96 07/31/19 14:50 90 16 98 07/31/19 13:01 20 126/62 94 07/31/19 12:14 92 07/31/19 12:01 37.2 C 16 114/55 93 07/31/19 11:01 37.2 C 117/60 88 L 07/31/19 10:15 129/59 93 07/31/19 10:01 20 129/59 91 07/31/19 09:01 118/62 90 07/31/19 08:02 36.9 C 120/62 94 07/31/19 08:00 80 20 92 07/31/19 07:01 119/64 93 07/31/19 06:01 108/55 93 07/31/19 05:01 110/58 93 07/31/19 04:45 93 07/31/19 04:02 16 107/54 95 07/31/19 03:02 117/63 92 07/31/19 02:02 118/59 93 07/31/19 02:00 81 18 92 07/31/19 01:01 18 101/65 95 07/31/19 00:23 95 07/31/19 00:01 18 96/67 07/30/19 23:01 90/62 94 07/30/19 22:06 100/64 07/30/19 22:02 93 07/30/19 21:02 102/60 90 07/30/19 21:01 89 L 07/30/19 20:01 36.7 C 14 112/58 91 07/30/19 20:00 91 07/30/19 19:01 96/55 90 07/30/19 18:13 103/62 93 07/30/19 18:08 88/71 91 07/30/19 18:01 82/62 93 Intake and Output 07/31/19 07/31/19 07/31/19 05:59 13:59 21:59 Intake Total 320 360 Output Total 240 260 Balance 80 -260 360 Intake: Oral 320 360 Output: Urine Catheter Amount 240 260 Other: Meal Dinner Percent of Meal Consumed 25% Urine Appearance Clear Cloudy Cloudy Sediment Sediment Straight Cloudy Sediment Urine Color Bright Yellow Bright Yellow Bright Yellow Straight Bright Yellow Urine Odor Normal Normal Normal Intake & Output: Intake & Output 07/31/19 07/31/19 07/31/19 05:59 13:59 21:59 Intake Total 320 360 Output Total 240 260 Balance 80 -260 360 Intake: Oral 320 360 Output: Urine Catheter Amount 240 260 Other: Meal Dinner Percent of Meal Consumed 25% Urine Appearance Clear Cloudy Cloudy Sediment Sediment Straight Cloudy Sediment Urine Color Bright Yellow Bright Yellow Bright Yellow Straight Bright Yellow Urine Odor Normal Normal Normal - Lab 07/31/19 06:45 07/31/19 06:45 Most recent lab results Calcium 8.0 mg/dl (8.6-10.4) L 07/31/19 06:45 Phosphorus 7.6 mg/dL (2.7-4.5) H* 07/31/19 06:45 Magnesium 2.4 mg/dL (1.6-2.5) 07/31/19 06:45 Microbiology 07/29/19 13:04 Blood Blood Culture - Preliminary Methicillin resistant s.aureus 07/28/19 12:13 Blood Blood Culture - Preliminary Methicillin resistant s.aureus 07/28/19 12:00 Blood Blood Culture - Preliminary Methicillin resistant s.aureus 07/30/19 04:51 Blood Blood Culture - Preliminary Gram positive cocci 07/30/19 04:44 Blood Blood Culture - Preliminary Gram positive cocci 07/29/19 22:43 Catheter Tip - Optiflow Gram Stain - Final 07/29/19 22:43 Catheter Tip - Optiflow Wound Culture - Preliminary Staphylococcus aureus 07/27/19 20:00 Blood Blood Culture - Final Methicillin resistant s.aureus 07/27/19 21:40 Urine - Catheterized Urine Culture - Final Staphylococcus aureus 07/29/19 12:55 Blood Blood Culture - Preliminary Gram positive cocci 07/28/19 02:50 Nose MRSA (PCR) - Final MRSA PCR positive 07/27/19 15:45 Blood Blood Culture - Preliminary Gram positive cocci Medications Active Medications: Acetaminophen (Tylenol) 650 mg PO Q6HP PRN PRN Reason: PAIN/FEVER > 101 Albuterol/Ipratropium (Duoneb) 3 ml NEB Q4HP PRN PRN Reason: Shortness Of Breath Dextrose (Dextrose 50%) 0 ml IV UD PRN PRN Reason: Hypoglycemia Diagnostic Test (Pha) (Accu-Chek) 1 each FS [facility] Last Admin: 07/31/19 16:57 Dose: 1 each Documented by: LUCAS Ferrous Gluconate (Fergon) 324 mg PO DAILY [facility] Glucose (Insta-Glucose) 15 gm PO PRN PRN PRN Reason: Hypoglycemia Heparin Sodium (Porcine) (Heparin) 5,000 unit SQ Q8 [facility] Acetaminophen (Ofirmev) 650 mg in 65 mls @ 130 mls/hr IV Q6HP PRN; Protocol PRN Reason: PAIN/FEVER > 101 Insulin Glargine (Lantus) 52 unit SQ HS [facility] Insulin Human Lispro (Humalog) 0 unit SQ [facility]; Protocol Last Admin: 07/31/19 16:57 Dose: 2 unit Documented by: LUCAS Lorazepam (Ativan) 1 mg IV Q6HP PRN PRN Reason: ANXIETY/SEDATION Melatonin (Melatonin 3mg Tablet) 3 mg PO HS [facility] Metoprolol Tartrate (Lopressor) 5 mg IV Q2HP PRN PRN Reason: Tachyarrhythmias HR>110 Metoprolol Tartrate (Lopressor) 25 mg PO BID [facility] Morphine Sulfate (Morphine) 1 - 3 mg IV Q3HP PRN; Protocol PRN Reason: Per Pain Protocol Mupirocin (Bactroban Oint 2%) 1 dose TOPICAL BID [facility] Stop: 08/01/19 21:01 Ondansetron HCl (Zofran) 4 mg IV Q4HP PRN PRN Reason: Nausea And Vomiting Febuxostat 40 Mg (Tablet) 1 dose PO DAILY [facility] Polyethylene Glycol (Miralax) 17 gm PO DAILYP PRN PRN Reason: Constipation Potassium Chloride (Kdur) 40 meq PO UD PRN PRN Reason: Potssium is 3-3.5 Potassium Chloride (Kdur) 40 meq PO UD PRN PRN Reason: Potassium < 3 Senna (Senokot) 2 tab PO DAILYP PRN PRN Reason: Constipation Simvastatin (Zocor) 20 mg PO QDAY [facility] Sodium Chloride (Saline Flush) 10 ml IV Q8 [facility] Tamsulosin HCl (Flomax) 0.4 mg PO QDAY [facility] Tramadol HCl (Ultram) 100 mg PO TIDP PRN; Protocol PRN Reason: Pain Vancomycin HCl (Vancomycin Per Pharmacy) 1 order IV UD [facility]; Protocol Vitamin D (Vitamin D3) 10,000 unit PO DAILY J[facility] Assessment and Plan - Narrative A/P Narrative: A: 1. 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 HD catheter seems most likely source with seeding from nasal MRSA. - persistence of bacteremia is sec to indwelling catheters: HD cath (removed yesterday) and chemoporta cath (removed today), and septic thrombophlebitis. The Vanc TRISTEN has been 1 on blood cx from 07/27 and 07/29 therefore doesnot suggest resistance to Vancomycin. 2. Left IJ and innominate vein, left subclavian vein thrombosis: sec to MRSA infection and HD cath (now removed) - presence of air bubbles seems sec to recent instrumentation. I have no concerns for anaerobic bacteria causing this infection. Given clinical improvement, no additional antibiotics needed 3. Septic shock: sec to (1) - NOW RESOLVED 4. Lumbar back pain with lack of sensation in L5-S1 dermatomes, SLRT +ve - MRI neg for any lumbar spine infection. Above clinical findinngs due to degenerative disc ds and spinal canal stenosis due to disc protrusion 5. ESRD on HD 6. DM2 with neuropathy 7. CLL : on Po Ibrutinib 8. 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 - Continue IV Vanc per pharmacy assisted dosing. Check Vanc levels tomorrow and prior to HD (target 15-20). Vanc level of 19 noted from today - will plan for outpatient DIANE, given high risk for IE and TTE being limited due to thick chest wall - anticipate minimum 6 weeks of IV Vanc (counting from 1st day of neg blood Cx) - new temporary HD cath to be placed for HD per Dr Quintanilla. will recommend removal once we have negative blood Cx for 48 hrs, and a permanent HD cath could be placed at that time - consider US soft tissue neck, doppler to assess directionality of blood flow. Pt might need vascular surgery consultation if there is ongoing bleeding. If there is a abscess or drainable fluid collection, consult IR for drainage of infected hematoma anterior to left IJ vein. SEnd aspirate for GS and C/S. will follow Andrea Becerra MD Infectious diseases
[2019-07-31] MEDS ORDERED: MELATONIN 3 MG TABLET PO SCH (21:00)
[2019-07-31] MEDS ORDERED: INSULIN GLARGINE, HUMAN 1 UNIT/0.01 ML SQ SCH (21:00)
[2019-07-31] MEDS: HEPARIN 5,000 UNIT/ML VIAL SQ SCH (21:19)
[2019-08-01] MEDS: 0.9 % SODIUM CHLORIDE 10 ML SYRINGE IV SCH ×2 (05:34→14:52)
[2019-08-01] MEDS: HEPARIN 5,000 UNIT/ML VIAL SQ SCH ×2 (05:34→14:11)
[2019-08-01] MEDS: INSULIN LISPRO 1 UNIT/0.01 ML UNIT SQ SCH ×2 (07:16→12:15)
[2019-08-01 07:22] LABS: ALT/SGPT 46 U/l (0-40); AST/SGOT 57 U/l (0-37); Albumin 2.5 gm/dL (3.2-5.2); Albumin/Globulin Ratio 0.9 (1.0-2.3); Alkaline Phosphatase 96 U/L (39-117); Bilirubin,Total 0.5 mg/dL (0.0-1.0); Carbon Dioxide 19 mmol/L (22-30); Globulin 2.8 gm/dL (2.2-3.7); Glucose 53 mg/dL (70-105)
[2019-08-01 07:44] LABS: Blood Urea Nitrogen 121 mg/dl (8-23); Chloride 87 mmol/L (96-108); Glomerular Filtration Rate 4; Phosphorous 7.9 mg/dL (2.7-4.5)
[2019-08-01 08:10] LABS: Basophils # (Auto) 0.04 K/mcL (0.00-0.30); Basophils % (Auto) 0.2 % (0.0-2.0); Eosinophils # (Auto) 0.05 K/mcL (0.00-0.70); Eosinophils % (Auto) 0.3 % (0.0-7.0); Granulocytes % (Auto) 80.2 % (38.0-78.0); Hematocrit 26.4 % (40.1-51.0); Hemoglobin 8.6 g/dL (13.7-17.5); Lymphocytes # (Auto) 2.67 K/mcL (1.50-4.80); Lymphocytes % (Auto) 13.7 % (15.5-49.0); Mean Cell Volume 87.7 fL (80.0-100.0); Mean Corpuscular HGB Conc 32.6 g/dL (31.0-36.0); Mean Platelet Volume 12.1 fL (7.4-10.4); Monocytes # (Auto) 1.08 K/mcL (0.10-0.90); Monocytes % (Auto) 5.6 % (1.0-12.0); Platelet Count 96 K/mcL (140-440); RBC 3.01 M/mcL (4.63-6.08); WBC 19.4 K/mcL (4.50-11.00)
--- NOTE | 2019-08-01 08:23 | XRay Report ---
HISTORY: Pain and swelling in the proximal right fourth finger FINDINGS: Patient has an IV inserted into the vein along the dorsum of the wrist. There is no soft tissue swelling around the catheter or gas in the soft tissues. Mild soft tissue swelling is present in the second and fourth fingers. There is no fracture or dislocation. The joint spaces and the fourth finger are normal. Patient has severe arthritis in the DIP joint of the second finger with partial destruction of the head of the phalanx, joint space narrowing and spur formation. There is moderately severe narrowing of the third metacarpal phalangeal joint. Patient also has small bony growth along the volar side of the tuft of the distal phalanx of the thumb with overlying soft tissue swelling. It Measures 5.6 mm. Severe joint space narrowing is seen between the scaphoid trapezium and trapezoid. There are small spurs along the margins of the PIP and DIP joints in the third and fifth fingers. IMPRESSION: Moderate osteoarthritis with the greatest degeneration in the DIP joint of the second finger Nonspecific mild soft tissue swelling of the fourth finger which could be due to the underlying arthritis, injury or inflammation. Interpreted and Authenticated by: Salomon Celeste 08/01/19
[2019-08-01] MEDS: MUPIROCIN OINT 2% 22GM TOPICAL SCH (08:45)
[2019-08-01] MEDS: METOPROLOL TARTRATE 50 MG TABLET PO SCH (08:45)
[2019-08-01] MEDS ORDERED: TAMSULOSIN 0.4 MG CAPSULE PO SCH (09:00)
[2019-08-01] MEDS ORDERED: VITAMIN D3 5,000 UNIT CAPSULE PO SCH (09:00)
[2019-08-01] MEDS ORDERED: Febuxostat 40 MG Tablet PO SCH (09:00)
[2019-08-01] MEDS ORDERED: FERROUS GLUCONATE 324 MG TABLET PO SCH (09:00)
[2019-08-01] MEDS ORDERED: SIMVASTATIN 20 MG TABLET PO SCH (09:00)
--- NOTE | 2019-08-01 09:03 | Ultrasound Report ---
History: Follow-up hematoma left-sided neck and deep venous thrombosis in the left subclavian jugular and innominate veins FINDINGS: Patient has complete thrombosis of the mid and lower portion of the left internal jugular vein. There is also clot occluding the left subclavian and innominate veins. This extends laterally into the axillary vein. We cannot evaluate the superior vena cava on this study due to overlying sternum. Anterior to the jugular vein in the lower neck and lateral to the thyroid there is a complex heterogeneous hematoma which measures 1.9 x 3.8 x 4.2 cm. This has not enlarged. There is slow pulsatile movement within the hematoma along the tract where the catheter had previously been positioned. No active extravasation of blood is seen. Overall there is been no change since 07/30/19. IMPRESSION: Stable deep venous thrombosis in the left innominate, subclavian, axillary and jugular veins Stable hematoma anteriorly at the base of the left side of the neck Interpreted and Authenticated by: Salomon Celeste 08/01/19
[2019-08-01] MEDS ORDERED: HEPARIN/D5W 25,000 UNIT in PREMIX 1 BAG IV SCH (12:45)
--- NOTE | 2019-08-01 13:26 | Transfer Summary ---
Transfer Discharge Sum: Prov Patient information: Note initiated : 08/01/19 at 1:24 pm Service Date, if different from initiated Date: [] Patient: Artie Bhatt 69 y/o M admitted on 07/27/19 for Bleeding from Permacath port. Chief Complaint: [] bleeding, hypotension and fever Date of admission: 07/27/19 20:48 Discharge Date: 08/01/19 (transfer to [place], [place]) Primary care physician: Fabby Damon Admitting clinician: Tae Dutton Attending physician on admission: Tae Dutton Consults: 07/26/19 Consult to Physician [CONS] Stat Comment: Consulting Provider: Tae Dutton Reason For Exam: Physician to Consult 07/26/19 14:06 Consult to Physician [CONS] Routine Comment: Consulting Provider: Bethany Kim Reason For Exam: Physician to Consult 07/28/19 09:39 Consult to Physician [CONS] Routine Comment: mrsa bactermia Consulting Provider: Andrea Becerra Reason For Exam: Physician to Consult 07/29/19 10:30 Consult to Physician [CONS] Routine Comment: port removal Consulting Provider: Layton Gonzalez Reason For Exam: Physician to Consult 07/30/19 18:42 Consult to Physician [CONS] Routine Comment: remove right port a cath Consulting Provider: Layton Gonzalez Reason For Exam: Physician to Consult Attending physician on discharge: Douglas Munroe Discharging clinician: Douglas Munroe Receiving physician/facility: [facility] to Dr. Mercedes Qiu MD Hospitalist with consulting Vascular surgeon Dr. Carmichael and newspaper illustrator Dr. Kevyn Bo MD Transfer Discharge Sum: Diag - Discharge Diagnosis (1) Septic thrombophlebitis Status: Acute Problem details: left tunneled dialysis catheter removed 07/29/19. fever and wbc decreased. cont vanco. CT showed occluded left innominate vein. exam shows less induration and bulging at base of neck (2) MRSA (methicillin resistant Staphylococcus aureus) septicemia Status: Acute Problem details: right Port a Cath still in place and will need to be removed as planned today (3) ESRD (end stage renal disease) on dialysis Status: Chronic Problem details: dialysis on hold for few days. Plan temp femoral dialysis cath for dialysis while awaiting safe replacement of tunneled dialysis catheter. (4) Complications, dialysis, catheter, mechanical Status: Acute Problem details: removed. awaiting healing Transfer Discharge Sum: Med - Medications Active and Home Medications: Home Medications epinephrine 0.3 mg/0.3 mL injection, auto-injector 0.3 mg IM Q10-15M PRN 01/05/16 [History Confirmed 07/26/19] metoprolol tartrate 100 mg tablet 100 mg PO BID 01/05/16 [History Confirmed 07/26/19] simvastatin 20 mg tablet 20 mg PO QDAY tab 01/05/16 [History Confirmed 07/26/19] tramadol 50 mg tablet 100 mg PO TID tab 01/05/16 [History Confirmed 07/26/19] ibrutinib 140 mg capsule 420 mg PO QDAY cap 03/13/18 [History Confirmed 07/26/19] insulin glargine 100 unit/mL (3 mL) subcutaneous pen See Rx Instructions SUB-Q QHS 03/13/18 [History Confirmed 07/26/19] amlodipine 5 mg tablet 5 mg PO BID #180 tab 05/19/18 [Rx Confirmed 07/26/19] cholecalciferol (vitamin D3) 10,000 unit capsule 10,000 unit PO QDAY #90 cap 02/19/19 [Rx Confirmed 07/26/19] tamsulosin 0.4 mg capsule 0.4 mg PO QDAY #90 cap 05/08/19 [Rx Confirmed 07/27/19] febuxostat 40 mg tablet See Rx Instructions .ROUTE .COMPLEX #30 tablet 05/21/19 [Rx Confirmed 07/26/19] ferrous gluconate 240 mg (27 mg iron) tablet 240 mg PO QDAY 06/19/19 [History Confirmed 07/26/19] insulin aspart U-100 100 unit/mL (3 mL) subcutaneous pen See Rx Instructions SUB-Q BID ml 06/19/19 [History Confirmed 07/26/19] acetaminophen 650 mg tablet,extended release 1,300 mg PO Q7H PRN tab 07/21/19 [History Confirmed 07/26/19] furosemide 40 mg tablet 40 mg PO QDAY tab 07/21/19 [History Confirmed 07/26/19] Active Medications Acetaminophen (Tylenol) 650 mg PO Q6HP PRN PRN Reason: PAIN/FEVER > 101 Albuterol/Ipratropium (Duoneb) 3 ml NEB Q4HP PRN PRN Reason: Shortness Of Breath Dextrose (Dextrose 50%) 0 ml IV UD PRN PRN Reason: Hypoglycemia Diagnostic Test (Pha) (Accu-Chek) 1 each FS [facility] Last Admin: 08/01/19 12:15 Dose: 1 each Documented by: Ferrous Gluconate (Fergon) 324 mg PO DAILY [facility] Last Admin: 08/01/19 08:44 Dose: 324 mg Documented by: Glucose (Insta-Glucose) 15 gm PO PRN PRN PRN Reason: Hypoglycemia Heparin Sodium (Porcine) (Heparin) 5,000 unit SQ Q8 [facility] Last Admin: 08/01/19 05:34 Dose: 5,000 unit Documented by: Acetaminophen (Ofirmev) 650 mg in 65 mls @ 130 mls/hr IV Q6HP PRN; Protocol PRN Reason: PAIN/FEVER > 101 Heparin Sodium/Dextrose 25,000 (unit/ Premix) 500 mls @ 32.056 mls/hr IV .[id number] [facility]; Protocol Insulin Glargine (Lantus) 52 unit SQ [facility] Last Admin: 07/31/19 21:17 Dose: 52 units Documented by: Insulin Human Lispro (Humalog) 0 unit SQ [facility]; Protocol Last Admin: 08/01/19 12:15 Dose: Not Given Documented by: Lorazepam (Ativan) 1 mg IV Q6HP PRN PRN Reason: ANXIETY/SEDATION Melatonin (Melatonin 3mg Tablet) 3 mg PO [facility] Last Admin: 07/31/19 21:20 Dose: Not Given Documented by: Metoprolol Tartrate (Lopressor) 5 mg IV Q2HP PRN PRN Reason: Tachyarrhythmias HR>110 Metoprolol Tartrate (Lopressor) 25 mg PO BID [facility] Last Admin: 08/01/19 08:45 Dose: 25 mg Documented by: Morphine Sulfate (Morphine) 1 - 3 mg IV Q3HP PRN; Protocol PRN Reason: Per Pain Protocol Last Admin: 08/01/19 03:58 Dose: 2 mg Documented by: Mupirocin (Bactroban Oint 2%) 1 dose TOPICAL BID [facility] Stop: 08/01/19 21:01 Last Admin: 08/01/19 08:45 Dose: 1 dose Documented by: Ondansetron HCl (Zofran) 4 mg IV Q4HP PRN PRN Reason: Nausea And Vomiting Febuxostat 40 Mg (Tablet) 1 dose PO DAILY [facility] Last Admin: 08/01/19 08:45 Dose: Not Given Documented by: Polyethylene Glycol (Miralax) 17 gm PO DAILYP PRN PRN Reason: Constipation Last Admin: 08/01/19 08:55 Dose: 17 gm Documented by: Potassium Chloride (Kdur) 40 meq PO UD PRN PRN Reason: Potssium is 3-3.5 Potassium Chloride (Kdur) 40 meq PO UD PRN PRN Reason: Potassium < 3 Senna (Senokot) 2 tab PO DAILYP PRN PRN Reason: Constipation Simvastatin (Zocor) 20 mg PO QDAY [facility] Last Admin: 08/01/19 08:44 Dose: 20 mg Documented by: Sodium Chloride (Saline Flush) 10 ml IV Q8 [facility] Last Admin: 08/01/19 05:34 Dose: 10 ml Documented by: Tamsulosin HCl (Flomax) 0.4 mg PO QDAY [facility] Last Admin: 08/01/19 08:44 Dose: 0.4 mg Documented by: Tramadol HCl (Ultram) 100 mg PO TIDP PRN; Protocol PRN Reason: Pain Vancomycin HCl (Vancomycin Per Pharmacy) 1 order IV UD [facility]; Protocol Vitamin D (Vitamin D3) 10,000 unit PO DAILY [facility] Last Admin: 08/01/19 08:45 Dose: 10,000 unit Documented by: Transfer Discharge Sum: Hosp Hospital course: Mr. Bhatt is a 69 year old M with hx of CLL and thrombocytopenia. had a right chest Port a Cath since 2010. Flushed regularly but not used until recent chemotherapy by oncology and plan for transition to oral medication only. Patient had known chronic kidney disease progressing to end-stage renal disease within the last month and was started on dialysis following tunneled PermCath placement by Dr. Melchor on January 21, 2020 at [facility] in [place]. Patient had known thrombocytopenia though mild at 6200 and he had oozing from the catheter site which was treated with DDAVP on Saturday and again over the weekend at the emergency department Patient was admitted on 07/26/2019 with bleeding and it was thought that dialysis for uremia could help. 07/27/2019 patient developed fevers and sepsis and on the night of the as well as on the patient was on pressors including norepinephrine and treated with vancomycin. The left tunneled catheter was removed on 07/29/2019 following dialysis that day and he had pus from the tract. Blood cultures have been +2 of 2 from 07/27/2019 until 07/31/2019 I believe the patient has had inpatient dialysis 3 times July 26, and He has received vancomycin since the and troughs have been 17 or 18. Patient had left PermCath removed on the Right Port-A-Cath was removed by Dr. Gonzalez on July 31 and thus far the culture of the catheter is negative but the blood cultures remain positive even from the Imaging was done following removal of the left PermCath due to swelling in the left chest and he was found to have internal jugular DVT with occlusion. There also was a venous puncture tract and hematoma per imaging on 07/30/2019 there was a supraclavicular hematoma possibly infected and at tunneling track adjacent to this hematoma going to the jugular vein which had DVT. There was some pulsatile nature within the tract. CT scan was done on 07/30/2019 of the neck and chest. Additionally I repeated ultrasound imaging today 07/31/2019 which shows probable infected hematoma 3 x 2 cm and continued innominate vein, subclavian, internal jugular and some involvement of the left axillary vein with DVT. Due to the nonclearing upper extremity DVT, extension of this DVT, persistent bacteremia suggesting infected thrombophlebitis, need for dialysis due to significant uremia and probable need for drainage of the abscess I am concerned patient needs a higher level of care. I discussed this with Dr. Becerra and Dr. Morelos and Dr. Gonzalez who are in agreement with this plan. Yg does not have inpatient dialysis. We do not have vascular surgery to deal with these patients complicated upper from a DVT as well as infected thrombophlebitis. I spoke with Dr. Carmichael, vascular surgery, Dr. Bo, nephrology and Dr. Qiu hospitalist at [facility]. They were very helpful in accepting this patient who has a very complicated medical problem at this time. I updated the patient as well as his daughter Crystal Trejo regarding this plan - Time Spent with Patient Total time spent providing and/or coordinating transfer services: Less than 30 minutes Transfer Discharge Sum: Exam - Constitutional Vitals: Vital Signs Temp Pulse Resp BP Pulse Ox 02/01/20 12:01 98.3 F 121/62 08/01/19 11:01 122/56 08/01/19 10:02 121/57 96 08/01/19 09:01 125/63 94 08/01/19 08:01 112/66 95 08/01/19 07:21 94 08/01/19 07:01 128/54 93 08/01/19 06:02 123/42 97 08/01/19 05:12 93 08/01/19 05:01 20 135/64 95 08/01/19 04:01 98.6 F 24 H 125/64 96 08/01/19 03:05 92 08/01/19 03:02 20 119/70 93 08/01/19 02:55 22 93 08/01/19 02:01 20 126/59 92 08/01/19 01:01 126/64 08/01/19 00:10 94 08/01/19 00:01 98.0 F 20 127/57 92 07/31/19 23:01 18 114/59 87 L 07/31/19 22:01 22 117/58 90 07/31/19 21:01 20 129/90 94 07/31/19 20:01 99.1 F H 18 117/90 07/31/19 19:01 20 125/64 94 07/31/19 18:01 135/61 94 07/31/19 17:01 137/67 94 07/31/19 16:46 117/55 95 07/31/19 16:32 103/69 95 07/31/19 16:17 140/59 94 07/31/19 16:06 146/68 91 07/31/19 16:01 20 146/68 99 07/31/19 16:00 98.5 F 07/31/19 15:46 136/63 96 07/31/19 15:31 98.0 F 141/85 07/31/19 15:19 142/67 97 07/31/19 15:02 16 150/70 96 07/31/19 14:50 90 16 98 Intake and Output 07/31/19 08/01/19 08/01/19 21:59 05:59 13:59 Intake Total 720 900 480 Output Total 200 440 260 Balance 520 460 220 Intake: Oral 720 900 480 Output: Urine Catheter Amount 200 440 260 Other: Meal Breakfast Percent of Meal Consumed bites Feeding Ability Assist with Tray Set Up Assist with Tray Set Up Urine Appearance Cloudy Cloudy Sediment Straight Cloudy Sediment Uretheral (Goldstein) Cloudy Cloudy Urine Color Bright Yellow Dark Yellow Straight Bright Yellow Uretheral (Goldstein) Dark Yellow Dark Yellow Urine Odor Normal Weight 252 lb 6.4 oz 252 lb 6.4 oz Patient Weight 08/02/19 05:59 Weight 252 lb 6.4 oz General appearance: morbidly obese - Neck Neck exam: Present: tenderness (At base of the neck over the inflamed portion in the supraclavicular fossa) - Respiratory Respiratory exam: Present: normal respiratory exam - Cardiovascular Cardiovascular exam: Present: normal rate and rhythm, systolic murmur (Best heard at right and left second intercostal space and radiating to the right upper chest) - exam: Present: normal inspection (Goldstein in place with mid tone yellow urine. Passing approximately 1000 cc daily) - Extremities Exam Extremities exam: Present: pedal edema (Trace) - Psychiatric Psychiatric exam: Present: agitated, anxious (Yesterday wanted to go home despite no safe plan of discharge. This appeared to be related to postanesthesia. Today he is not combative but very tangential in his thought process. He is relaying facts that are not appropriate to discussion), depressed - Skin Skin exam: Present: erythema (At left supraclavicular fossa), warm Transfer Discharge Sum: Data Procedures and tests throughout hospitalization: Pending Orders 07/26/19 Consult to Physician [CONS] Stat 07/26/19 13:12 Hemodialysis Treatment .ROUTINE 07/26/19 13:49 Resuscitation Status Routine 07/26/19 14:06 Consult to Physician [CONS] Routine 07/26/19 16:00 Ambulate-Progressive .PRN Anti-Embolism Devices DAILY Elevate head of bed .ROUTINE Intake and Output qshiftio Notify Provider .routine Up to chair DAILY Weight Monitoring QHS RD to Adjust Diet/Supplements as Needed Routine Nebulizer management .Routine Pulse Oximetry .ROUTINE 07/27/19 15:45 Blood Culture Urgent 07/27/19 20:48 Admit as Inpatient Routine 07/28/19 07:15 Communication order NOW 07/28/19 09:39 Consult to Physician [CONS] Routine 07/28/19 12:13 Blood Culture Urgent 07/29/19 08:00 Hemodialysis Treatment .ROUTINE 07/29/19 10:30 Consult to Physician [CONS] Routine 07/29/19 13:04 Blood Culture Routine 07/30/19 04:51 Blood Culture Routine 07/30/19 06:25 Physical Therapy Eval & Tx BID 07/30/19 18:42 Consult to Physician [CONS] Routine 07/31/19 14:30 Anaerobic Culture and Gram St Routine Gram Stain Routine Wound Culture and Gram Stain Routine 07/31/19 14:45 Acetaminophen [Ofirmev] 650 mg in 65 ml IV Q6HP Acetaminophen [Tylenol] 650 mg PO Q6HP PRN Dextrose 50% See Dose Instructions IV UD PRN Dextrose [Insta-Glucose] 15 gm PO PRN PRN Ipratropium/Albuterol [Duoneb] 3 ml NEB Q4HP PRN LORazepam [Ativan] 1 mg IV Q6HP PRN Metoprolol Tartrate [Lopressor] 5 mg IV Q2HP PRN Ondansetron [Zofran] 4 mg IV Q4HP PRN Polyethylene Glycol 3350 [Miralax] 17 gm PO DAILYP PRN Potassium Chloride [Kdur] 40 meq PO UD PRN Potassium Chloride [Kdur] 40 meq PO UD PRN Sennosides [Senokot] 2 tab PO DAILYP PRN Vancomycin Per Pharmacy 1 order IV UD morphine 1 - 3 mg IV Q3HP PRN traMADol [Ultram] 100 mg PO TIDP PRN 07/31/19 14:46 Renal/Consistent Carbohydrate Diet 07/31/19 17:00 Accu-Chek 1 each FS [facility] Insulin Lispro [HumaLOG] See Dose Instructions SQ [facility] 07/31/19 17:20 Blood Culture Stat 07/31/19 21:00 Insulin Glargine, Human [Lantus] 52 unit SQ [facility] Melatonin [Melatonin 3Mg Tablet] 3 mg PO HS Metoprolol Tartrate [Lopressor] 25 mg PO BID Mupirocin Oint 2% [Bactroban Oint 2%] 1 dose TOPICAL BID 07/31/19 22:00 0.9 % Sodium Chloride [Saline Flush] 10 ml IV Q8 Heparin 5,000 unit SQ Q8 08/01/19 09:00 Ferrous Gluconate [Fergon] 324 mg PO DAILY Patients Own Medication 1 dose PO DAILY Simvastatin [Zocor] 20 mg PO QDAY Tamsulosin [Flomax] 0.4 mg PO QDAY Vitamin D3 10,000 unit PO DAILY 08/01/19 12:45 Premix 1 bag Heparin/D5w 25,000 unit IV 14 unit/kg/hr 08/01/19 13:12 APTT [Partial Thromboplastin Time] Stat Protime, POC [Prothrombin Time, POC] Stat Transfer Discharge Sum: A/P - Problem Maintenance (1) Septic thrombophlebitis Assessment & Plan: Patient will be started on heparin no bolus as discussed with Dr. Carmichael. I am going to stop the 5000 3 times daily subcu heparin which I had been giving him for DVT prophylaxis in attempt to prevent propagation of the clot. That has not been effective. There is some risk of bleeding at the previous permacath site or enlarging of the infected hematoma but benefit deemed greater than the risk at this time. Patient's platelets are adequate. Continue with vancomycin. Status: Acute Comment: left tunneled dialysis catheter removed 07/29/19. fever and wbc decreased. cont vanco. CT showed occluded left innominate vein. exam shows less induration and bulging at base of neck (2) MRSA (methicillin resistant Staphylococcus aureus) septicemia Assessment & Plan: Left tunneled cath removed 07/29/2019 and right Port-A-Cath removed 07/31/2019. Blood cultures continue to be positive. There is an abscess that may need to be drained and infected thrombophlebitis with deep venous thrombosis is suspected. Procalcitonin did drop from 100-30. The white count remains elevated initially dropping from 20-14 then up to 19 today Status: Acute Comment: right Port a Cath still in place and will need to be removed as planned today (3) ESRD (end stage renal disease) on dialysis Assessment & Plan: Continue with vancomycin. Infected foreign bodies (catheters and ports (have been removed. There is an abscess that may need to be drained Patient's potassium is safe at 4.0 azotemia severe with creatinine of 10. Status: Chronic Comment: dialysis on hold for few days. Plan temp femoral dialysis cath for dialysis while awaiting safe replacement of tunneled dialysis catheter. (4) Complications, dialysis, catheter, mechanical Status: Acute Comment: removed. awaiting healing Qualifiers: Qualified Code(s): T82.49XA - Other complication of vascular dialysis cath eter, initial encounter - Plan Functional capacity at transfer: bed bound Overall status at transfer: patient is not back to baseline Disposition: [facility] Quality Measure Queries - VTE Deep Vein Thrombosis/Pulmonary Embolism Present on Admission: No
--- NOTE | 2019-08-01 13:29 | Nephrology Progress Note ---
Subjective Patient information: Note initiated : 08/01/19 at 1:27 pm Service Date, if different from initiated Date: [] Patient: Artie Bhatt 69 y/o M admitted on 07/27/19 for Bleeding from Permacath port. Chief Complaint: [] Principal diagnosis: ESRD and bleeding from recent HD placement Interval history: Starting late last week this patient was sent for a cuffed left IJ catheter plac ement (right side had a port from chemo Rx for CLL). He had 1 successfus HD treatment as an outpatient but the began to bleed excessively from the exit site. He came to ED and was placed in observation status and dialyzed for a short run with no fever or alteration of MS until Saturday when he began to exhib altered MS, weakneness and now had 2 fever spikes. The catheter was still bleeding thru multiple lavers of 4x4"s and he underwent a second HD treatment saturday evening with arkered alteration in mental and physical status. Cultures were obtained and he received 2 gm of vanco plus 1 gm cefepime as he is a CLL patient. The catheter track is reg and warm and the IJ insersion site was tend er and had a firm mass ~2 x 2 cm. Later he was transferred to ICU for pressor support and presumed gm positive line sepsis. Every culture has been (+) for MRSA so the patient was dialyzed las sat and the IJ catheter removed. Scanning demonstrated extensive thrombosis and the diagnosis is now septic thromophlebitis. The most recent scan shows the extensive nature of the thrombus, but no extension in past 48 hours (off heparin). As the bleeding from the insertion side has quit, HEPARINIZATION and continued Vancomycin are recommended. He needs HD soon via a femoral HD catheter but no perment access is possible till his septic thrombosis and continuous bacteremia ihas resolved. As this will likely requive a vascular surgeon, he should be transfered to [facility] for a higher level of care. Given the multiple organs involed including sepsis, CLL, renal failure, alteration of mental status and labile hemodynamics, his prognosis is poor. U/S 07/31/19 FINDINGS: Patient has complete thrombosis of the mid and lower portion of the left internal jugular vein. There is also clot occluding the left subclavian and innominate veins. This extends laterally into the axillary vein. We cannot evaluate the superior vena cava on this study due to overlying sternum. Anterior to the jugular vein in the lower neck and lateral to the thyroid there is a complex heterogeneous hematoma which measures 1.9 x 3.8 x 4.2 cm. This has not enlarged. There is slow pulsatile movement within the hematoma along the tract where the catheter had previously been positioned. No active extravasation of blood is seen. Overall there is been no change since 07/30/19. IMPRESSION: Stable deep venous thrombosis in the left innominate, subclavian, axillary and jugular veins Stable hematoma anteriorly at the base of the left side of the neck Interpreted and Authenticated by: Salomon Celeste 08/01/19 Pertinent ROS: Decreased mental status Additional PMFSH (Level 3 Only): N/A Objective - Vital Signs Vital signs: Vital Signs Temp Pulse Resp BP Pulse Ox 08/01/19 12:01 36.8 C 121/62 08/01/19 11:01 122/56 08/01/19 10:02 121/57 96 08/01/19 09:01 125/63 94 08/01/19 08:01 112/66 95 08/01/19 07:21 94 08/01/19 07:01 128/54 93 08/01/19 06:02 123/42 97 08/01/19 05:12 93 08/01/19 05:01 20 135/64 95 08/01/19 04:01 37.0 C 24 H 125/64 96 08/01/19 03:05 92 08/01/19 03:02 20 119/70 93 08/01/19 02:55 22 93 08/01/19 02:01 20 126/59 92 08/01/19 01:01 126/64 08/01/19 00:10 94 08/01/19 00:01 36.7 C 20 127/57 92 07/31/19 23:01 18 114/59 87 L 07/31/19 22:01 22 117/58 90 07/31/19 21:01 20 129/90 94 07/31/19 20:01 37.3 C H 18 117/90 07/31/19 19:01 20 125/64 94 07/31/19 18:01 135/61 94 07/31/19 17:01 137/67 94 07/31/19 16:46 117/55 95 07/31/19 16:32 103/69 95 07/31/19 16:17 140/59 94 07/31/19 16:06 146/68 91 07/31/19 16:01 20 146/68 99 07/31/19 16:00 36.9 C 07/31/19 15:46 136/63 96 07/31/19 15:31 36.7 C 141/85 07/31/19 15:19 142/67 97 07/31/19 15:02 16 150/70 96 07/31/19 14:50 90 16 98 Intake and Output 07/31/19 08/01/19 08/01/19 21:59 05:59 13:59 Intake Total 720 900 480 Output Total 200 440 260 Balance 520 460 220 Intake: Oral 720 900 480 Output: Urine Catheter Amount 200 440 260 Other: Meal Breakfast Percent of Meal Consumed bites Feeding Ability Assist with Tray Set Up Assist with Tray Set Up Urine Appearance Cloudy Cloudy Sediment Straight Cloudy Sediment Uretheral (Goldstein) Cloudy Cloudy Urine Color Bright Yellow Dark Yellow Straight Bright Yellow Uretheral (Goldstein) Dark Yellow Dark Yellow Urine Odor Normal Weight 114.487 kg 114.487 kg Patient Weight 08/02/19 05:59 Weight 114.487 kg Intake & Output: Intake & Output 07/31/19 08/01/19 08/01/19 21:59 05:59 13:59 Intake Total 720 900 480 Output Total 200 440 260 Balance 520 460 220 Weight 114.487 kg 114.487 kg Intake: Oral 720 900 480 Output: Urine Catheter Amount 200 440 260 Other: Meal Breakfast Percent of Meal Consumed bites Feeding Ability Assist with Tray Set Up Assist with Tray Set Up Urine Appearance Cloudy Cloudy Sediment Straight Cloudy Sediment Uretheral (Goldstein) Cloudy Cloudy Urine Color Bright Yellow Dark Yellow Straight Bright Yellow Uretheral (Goldstein) Dark Yellow Dark Yellow Urine Odor Normal - General Appearance General appearance: moderate distress EENT: ATNC, PERRL, mucous membranes moist Neck: no JVD (Left side with swelling and redness from throbosis of IJ, innominant and SCV) Respiratory: no kyphosis, course breath sounds, rhonchi Cardiology: holosystolic murmur, edema (The HSM is louder and I'm worried about endocarditis) Gastrointestinal: normoactive bowel sounds, no tenderness Integumentary: no rash, warm and dry, erythema (left IF/neck region) Neurologic: no focal deficit, no asterixis, alert and oriented x3, CN 3-12 intact Musculoskeletal: no deformities, erythema, no cyanosis (Left IJ insertion site and up the neck) - Lab 08/01/19 05:17 08/01/19 05:17 Most recent lab results Calcium 8.0 mg/dl (8.6-10.4) L 08/01/19 05:17 Phosphorus 7.9 mg/dL (2.7-4.5) H* 08/01/19 05:17 Magnesium 2.4 mg/dL (1.6-2.5) 07/31/19 06:45 Assessment and Plan (1) ESRD (end stage renal disease) on dialysis 1. Due to underlying medical condition and co-morbidities I do not think this patient will benefit from detention HD. Anticipate High 1 year mortality and morbidity. 2. Hd tomorrow with 4 hrs, 1-2 liter U/F, albumin for bp support, heparin free treatent and remover recently placed cuff catheter due to MRSA infection with localized redness and swelling at the area need the IJ insertion site bot the skin exit site. 3. Complication if right IJ HD catheter including bleeding Next HD within 24 hours Needs femoral access If not transferred will start HD later tonight Status: Chronic Priority: High Comment: dialysis on hold for few days. Plan temp femoral dialysis cath for dialysis while awaiting safe replacement of tunneled dialysis catheter. (2) Other lymphoid leukemia, in relapse Hold Imbruvica due to catheter bleeding Status: Chronic Priority: Medium (3) Complications, dialysis, catheter, mechanical Bleeding improved with thrombin gauze and HD and Cessation of Heparin MRSA (+) bacteremia and SIRS/SEPSIS. Survived past 24 hours but far from out of the chau Updated discussion of high mortality with sepsis, followed by 25% mortality per year on HD in >70 yr olds with DM. CLL and treatment thereof is helping increase morbidity and mortality as well. Stop hisImbruvica for now due to bleeding complicatuions Status: Acute Priority: High Comment: removed. awaiting healing Qualifiers: Encounter type: initial encounter Qualified Code(s): T82.49XA - Other complication of vascular dialysis catheter, initial encounter (4) Fever Occured on HD and cultures drawn Also occured in early AM before dialysis Given CLL he will need broad coverage, fever w/u and conversion to full admit. Garcia culture CXR Vanco and cefepime 1 set of blood cultures already positive. 2 gm IV load of vanco last evening, stop 4th generation cephalosporin Status: Acute Priority: High Qualifiers: Encounter type: initial encounter (5) MRSA (methicillin resistant Staphylococcus aureus) septicemia 1. Nares (+) 2. Blood culture positive + SIRS = sepsis 3. Reculter from peripheral vein and catheter during todays treatment 4. Obviously infected Left cuffed catheter removed and is ~1 week old. First treatment was uneventful at HD unit untill back bleeding from catheter occured. This could have led to infectious compromise but he was febile by Saturday evening. By saturday flat out septic post HD treatment and required admission to ICU and < 24 hrs of pressor support. CLL also compromised immune status. 5. No new catheter untill culture neg. 6. All blood cultures so far MRSA (4 sets) Urine preliminary staph but no WBC so colonization suspected Nares (+) MRSA on admission Status: Acute Priority: High Comment: right Port a Cath still in place and will need to be removed as planned today (6) Septic thrombophlebitis 1. Documented on U/S this AM (07/30/18) 2. Catheter is out, high grade MRSA persists 3. This is a life threatening situation as the is throbytopenic, dialysis dependent, no dialysis access and CLL underlying cause of these complications or the drug used to treat the CLL which has hemorrhagic and thrombotic complications. 4. My take on all this is if we do not clear the bloodstream in 72 hrs, he is a treatment failure and needs referred for consideration of surgical resection of the thrombus. I don't see where IR has a role in chemical or mecanical thrombolysis. 5. I'd wait till we see if he clears his bacteremia before decicing on anticoagulation, starting with heparin. 6. Probably should obtain a baseline CTA and views of neck. Since he is already ESRD, only risk if the osmotic load of IV contrast and the expected further loss of his underlying GFR from 8 to 10 % prior to HD initiation. Reviewed on Upto date: JUGULAR VEIN Pathogenesis Jugular vein suppurative thrombophlebitis is also known as Lemierre's syndrome, postanginal sepsis, and necrobacillosis [18]. The condition is frequently preceded by pharyngitis, usually in association with tonsil or peritonsillar involvement. Other antecedent conditions include primary dental infection or infectious mononucleosis [11]. Jugular vein suppurative thrombophlebitis is characterized by infectious involvement of the carotid sheath vessels with bacteremia. In general, infection progresses from the oropharynx to the parapharyngeal or lateral pharyngeal space. The anterior part of this space consists of the anterior neck muscles; the posterior section contains the carotid sheath that encloses the internal jugular vein, internal carotid artery, the vagal nerve, and lymph nodes (figure 1) [11]. Jugular vein suppurative thrombophlebitis can also be associated with intravenous catheter insertion. Clinical manifestations Jugular vein suppurative thrombophlebitis should be suspected in patients with antecedent pharyngitis, septic pulmonary emboli, and persistent fever despite antimicrobial therapy. Jugular vein suppurative thrombophlebitis frequently affects previously healthy young adults; in one series the mean age was 20 years [8]. The interval between the preceding pharyngitis and the onset of jugular vein thrombophlebitis is usually less than one week [11,19]. Patients typically present acutely with fever (>39C) and rigors, often accompanied by respiratory distress [11]. Most patients have localized neck and/or throat pain. Clinical examination of the oropharynx may demonstrate u lceration, a pseudomembrane, or erythema [11,19]. Tenderness, swelling, and/or induration may be observed overlying the jugular vein, over the angle of the jaw or along the sternocleidomastoid muscle [20]. In some cases there are no abnormal physical findings in the oropharynx. Septic emboli to the lung are common; in two reports this finding was observed in 97 percent of cases [11,19]. Chest radiography may demonstrate infiltrates, which can cavitate to form lung abscesses and empyema [20]. Metastatic infection can also occur at other sites, leading to empyema, septic arthritis, and/or osteomyelitis [6,11]. Microbiology The causative organisms of jugular vein suppurative thrombophlebitis are usually members of the normal oropharyngeal chris [19]. The most common pathogen is the anaerobe Fusobacterium necrophorum; this pathogen has been isolated in healthy individuals as well as those with jugular vein suppurative thrombophlebitis and tonsillitis [21]. Other pathogens include other Fusobacterium species (eg, Fusobacterium nucleatum) [19] and other organisms such as Eikenella corrodens [22], Porphyromonas asaccharolytica [23], streptococci including Streptococcus pyogenes [24], and Bacteroides [11]. Organisms may be isolated from the blood and from metastatic sites of infection. Catheter associated jugular vein suppurative thrombophlebitis is associated with skin chris and nosocomial pathogens. Diagnosis Jugular vein suppurative thrombophlebitis should be suspected in patients with antecedent pharyngitis, septic pulmonary emboli, and persistent fever despite antimicrobial therapy. The microbiologic diagnosis may be made based on culture of blood, and culture purulent material expressed from the site if present. The most useful radiographic tool to evaluate for jugular vein suppurative thrombophlebitis is high resolution computed tomography (CT) scan with contrast. It may demonstrate filling defects or thrombus, with or without soft tissue swelling [19]. Because of the frequency of pulmonary emboli, the CT scan is often extended to include the chest. Ultrasonography may be used to evaluate for jugular vein thrombosis and/or assess for extension of thrombus [19]. This imaging is less useful in regions deep to the clavicle or mandible. There is limited experience with magnetic resonance (MR) imaging, but it has been suggested to be a useful modality [25]. Treatment The principles of treatment include removing the focus of infection (eg, intravenous catheter), prompt administration of intravenous antibiotics, and consideration regarding surgical intervention and/or anticoagulation. Antibiotics Empiric therapy for jugular vein suppurative thrombophlebitis should include a beta-lactamase resistant beta-lactam antibiotic, since treatment failure with penicillin and F. necrophorum beta-lactamase production has been reported [19,26]. Acceptable regimens include ampicillin-sulbactam (3 g every six hours), piperacillin-tazobactam (4.5 g every six hours), or monothera py with a carbapenem. Antibiotics should be tailored accordingly to culture and susceptibility data when available. In the setting of catheter associated jugular vein suppurative thrombophlebitis, empiric therapy should also include an agent with activity against skin chris such as vancomycin (15 to 20 mg/kg/dose every 8 to 12 hours, not to exceed 2 g per dose). Antibiotic therapy should last at least until there has been a definite clinical response and/or until pulmonary abscesses have resolved as demonstrated by CT scan. The duration of therapy generally is for at least four weeks, including a minimum of two weeks intravenous therapy followed by oral therapy [27]. Surgery In general, most favor surgical intervention only in the setting of ongoing sepsis or for patients who have not responded to antimicrobial therapy; there are no randomized trials to guide such decisions [4,8]. When surgical intervention is warranted, surgical ligation or excision of the internal jugular vein may be necessary [8,11]. Surgical drainage of pulmonary abscesses or empyema may also be warranted [19]. Adjacent peritonsillar or other neck abscess in the vicinity of a catheter should prompt surgical incision and drainage as well as catheter removal. There are isolated reports of successful endovascular treatment (ie, thrombolysis) in cases of suppurative thrombophlebitis involving the jugular vein [17]. Anticoagulation The role of anticoagulation for jugular vein suppurative thrombophlebitis is controversial; there are no controlled studies. Some authors favor anticoagulation only if there is evidence for extension of thrombus [19]. We suggest anticoagulation if there is evidence of significant extension of thrombus, especially in the presence of persistent bacteremia and/or uncontrolled clinical sepsis. Today, he has +/- thrombus extension BUT STILL BACTEREMIC => Start heparin, continue vanco with trough levels of 20, needs to be at a center where vascular surgery can help evaluate and manage the extensive clot. Status: Acute Comment: left tunneled dialysis catheter removed 07/29/19. fever and wbc decreased. cont vanco. CT showed occluded left innominate vein. exam shows less induration and bulging at base of neck
[2019-08-01 13:33] LABS: POC INR 1.4 (0.9-1.2); POC Pro Time 16.7 sec (11.9-14.5)
--- NOTE | 2019-08-04 14:27 | Operative Note ---
DATE OF OPERATION: 07/31/2019 PREOPERATIVE DIAGNOSIS: Methicillin resistant Staphylococcal aureus bacteremia. POSTOPERATIVE DIAGNOSIS: Methicillin resistant Staphylococcal aureus bacteremia. PROCEDURE: Removal of right subclavian Port-A-Cath system. SURGEON: Layton Gonzalez M.D. DESCRIPTION OF PROCEDURE: Under MAC anesthesia with local infiltration, the Port-A-Cath on the right side was prepped and draped in a sterile field. The catheter chamber was locally infiltrated with 1% Xylocaine. The area superior to the chamber was infiltrated with 1% Xylocaine and the catheter and skin were circumferentially sutured but suture was not tied. Using a 10 blade, incision was made over the chamber until the pocket was encountered. There was no purulence in the pocket and the catheter and chamber appeared to be uninvolved. The chamber was dissected away from the capsule. There were no sutures holding this chamber in place. The attachments to the connection were taken down with electrocautery after which the catheter was removed, and the system was inspected. It looked uninvolved. The catheter was cut and was sent in the culture medium for culture. The catheter tract was closed with 2-0 Prolene. The chamber pocket was left open and packed with Aquacel AG strips. It was covered with 4 x 4 Tegaderm. The patient tolerated the procedure well. He was awakened and transferred to the postanesthetic care unit in satisfactory condition. LCS:sp Job ID: [id number] Doc ID: [id number] Layton Gonzalez M.D.
== END 2019-08-01 15:05 | disposition short-term general hospital (02) | DRG 252 ==
LOC: ED 09:18 → MEDSUR 09:18 → ICU 07-28 03:39
PROVIDERS: ADMIT Internal Medicine; ATTEND Internal Medicine

== ENCOUNTER 2019-09-16 18:23 | Inpatient (IN) ==
--- NOTE | 2019-09-16 19:23 | Emergency Department Note ---
Recheck HPI - General Chief Complaint: Recheck/Abnormal Lab/Rx Stated Complaint: recheck labs Time Seen by Provider: 09/16/19 18:53 Source: patient Mode of arrival: ambulatory Limitations: no limitations - History of Present Illness HPI Narrative: 69-year-old male comes in after getting dialysis for cough and congestion. He has had the cough for over a month. He got that when he was in [place] a month ago for a serious infection. Anyways the cough is not really gotten better or worse but it feels like he has a gurgling in his throat. He reports no history of heart failure. No fever nausea vomiting or diarrhea. He had a chest x-ray earlier was read as normal - Related Data Home Medications Medication Instructions Recorded Confirmed simvastatin 20 mg tablet 20 mg PO QDAY tab 01/05/16 09/16/19 tramadol 50 mg tablet 100 mg PO TID tab 01/05/16 09/16/19 insulin glargine 100 unit/mL (3 See Rx Instructions SUB-Q QHS 03/13/18 09/16/19 mL) subcutaneous pen ferrous gluconate 240 mg (27 mg 240 mg PO QDAY 06/19/19 09/16/19 iron) tablet insulin aspart U-100 100 unit/mL See Rx Instructions SUB-Q BID ml 06/19/19 09/16/19 (3 mL) subcutaneous pen acetaminophen 650 mg 1,300 mg PO Q7H PRN tab 07/21/19 09/16/19 tablet,extended release Apixaban [Eliquis] 5 mg PO BID 09/16/19 09/16/19 Calcium Acetate [Calphron] 667 mg PO BID 09/16/19 09/16/19 Carvedilol [Coreg] 3.125 mg PO BID 09/16/19 09/16/19 Fluticasone Hfa 44Mcg [Flovent Hfa 88 mg INH BID 09/16/19 09/16/19 44Mcg] Ipratropium/Albuterol [Duoneb] 3 ml NEB BID 09/16/19 09/16/19 Pantoprazole [Protonix] 40 mg PO BIDAC 09/16/19 09/16/19 Previous Rx's Medication Instructions Recorded tamsulosin 0.4 mg capsule 0.4 mg PO QDAY #90 cap 05/08/19 Allergies Allergy/AdvReac Type Severity Reaction Status Date / Time hydrochlorothiazide Allergy Mild Rash Verified 09/16/19 18:29 penicillin V Allergy Mild rash Verified 09/16/19 18:29 Review of Systems All systems ED: reviewed and negative except as stated. Past Medical History - Past Medical History Attestation: Yes: The following information was validated with the patient. [facility] Narrative: Family History (Last Reviewed 06/19/19 @ 11:12 by Thelma Gnozalez, MINAL) Father DM type 2 (diabetes mellitus, type 2) Grandmother DM type 2 (diabetes mellitus, type 2) Mother DM type 2 (diabetes mellitus, type 2) Brother DM type 2 (diabetes mellitus, type 2) Medical History (Last Reviewed 06/19/19 @ 11:12 by Thelma Gonzalez RN) Other lymphoid leukemia, in relapse (Chronic) Gouty arthritis (Chronic) Tubular adenoma of colon (Chronic) Constipation (Chronic) Diastolic dysfunction (Chronic) Leukemia (Chronic) Encounter for long-term current use of medication (Acute) Abnormal immunological finding in serum (Chronic) Tophus (Chronic) Petechial rash (Chronic) Arteriovenous malformation (Chronic) Peripheral neuropathy (Chronic) Hx of basal cell carcinoma (Chronic) Effusion of knee joint right (Chronic) Chronic pain of right knee (Chronic) DJD (degenerative joint disease) (Chronic) Hyperlipidemia (Chronic) Sleep apnea (Chronic) Hypertension (Chronic) Tinnitus (Chronic) Anemia (Chronic) Controlled type 2 diabetes mellitus (Chronic) Olecranon bursitis of left elbow (Chronic) Chronic lymphoid leukemia (Chronic) Nasal polyp (Chronic) Hypertensive cardiomyopathy (Chronic) Gout (Acute) Vasculitis of skin (Chronic) Blunt wound (Chronic) Past Surgical History (Last Reviewed 06/19/19 @ 11:12 by Thelma Gonzalez RN) Hx of arthroscopy of knee (Chronic) Hx of colonoscopy (Chronic) Hx of inguinal herniorrhaphy (Chronic) Hx of total knee replacement (Chronic) - Social History smoking status: Former smoker Physical Exam No acute distress resting comfortably. Normocephalic atraumatic. Conjunctive are clear sclerae white nonicteric. No nasal discharge or congestion. Oropharynx pink and moist. Posterior pharynx clear. Neck is supple without lymphadenopathy or thyromegaly. No carotid bruit. Heart is regular rate and rhythm no murmur appreciated. Lungs are clear to auscultation on the lower lobes but the upper lobes have some wheezing and rhonchi perhaps even rales but this is equivocal. No dyspnea he is able to talk in complete sentences. Abdomen is soft nontender nondistended except periumbilical which has mild tenderness which he did not know about until I pushed on his belly. No peritoneal signs or guarding. No pedal edema. Alert oriented able to answer questions appropriately Limitations: no limitations Course Vital Signs Temperature 97.7 F 09/16/19 18:25 Pulse Rate 119 H 09/16/19 18:25 Respiratory Rate 20 09/16/19 18:25 Blood Pressure 129/80 09/16/19 18:25 Pulse Oximetry (%) 99 09/16/19 18:25 Temperature 97.7 F 09/16/19 18:25 Pulse Rate 100 H 09/16/19 22:05 Respiratory Rate 36 H 09/16/19 22:46 Blood Pressure 121/67 09/16/19 22:46 Pulse Oximetry (%) 94 09/16/19 22:05 Recheck/Abnormal Lab/Rx - Lab Data Lab results reviewed: Yes I reviewed the patient's lab results. Result diagrams: 09/16/19 19:47 09/16/19 19:47 Lab Results 09/16/19 09/16/19 09/16/19 Range/Units 19:47 19:47 19:47 WBC 20.7 H (4.50-11.00) K/mcL RBC 2.61 L (4.63-6.08) M/mcL Hgb 6.8 L* (13.7-17.5) g/dL Hct 22.1 L (40.1-51.0) % MCV 84.7 (80.0-100.0) fL MCH 26.1 (26.0-34.0) pg MCHC 30.8 L (31.0-36.0) g/dL RDW 15.6 H (11.5-14.5) % Plt Count 179 (140-440) K/mcL MPV 8.5 (7.4-10.4) fL Gran % 28.0 L (38.0-78.0) % Lymph % (Auto) 67.0 H (15.5-49.0) % [place] % (Auto) 4.0 (1.0-12.0) % Eos % (Auto) 1.0 (0.0-7.0) % Baso % (Auto) 0 (0.0-2.0) % Gran # TNP Lymph # (Auto) TNP [place] # (Auto) TNP Eos # (Auto) TNP Baso # (Auto) TNP Differential Comment VBG Lactic Acid 1.0 (0.5-2.0) mmol/L Sodium 131 L (133-145) mmol/L Potassium 4.0 (3.3-5.1) mmol/L Chloride 93 L (96-108) mmol/L Carbon Dioxide 28 (22-30) mmol/L Anion Gap 10.0 (8-16) BUN 15 (8-23) mg/dl Creatinine 2.7 H (0.7-1.2) mg/dl GFR Calculation 23 Glucose 104 (70-105) mg/dL Calcium 8.5 L (8.6-10.4) mg/dl Total Bilirubin 0.4 (0.0-1.0) mg/dL AST 15 (0-37) U/l ALT 11 (0-40) U/l Alkaline Phosphatase 179 H (39-117) U/L Total Protein 5.5 L (5.9-8.4) gm/dL Albumin 3.1 L (3.2-5.2) gm/dL Globulin 2.4 (2.2-3.7) gm/dL Albumin/Globulin Ratio 1.3 (1.0-2.3) Procalcitonin (<0.10) ng/mL 09/16/19 Range/Units 19:47 WBC (4.50-11.00) K/mcL RBC (4.63-6.08) M/mcL Hgb (13.7-17.5) g/dL Hct (40.1-51.0) % MCV (80.0-100.0) fL MCH (26.0-34.0) pg MCHC (31.0-36.0) g/dL RDW (11.5-14.5) % Plt Count (140-440) K/mcL MPV (7.4-10.4) fL Gran % (38.0-78.0) % Lymph % (Auto) (15.5-49.0) % [place] % (Auto) (1.0-12.0) % Eos % (Auto) (0.0-7.0) % Baso % (Auto) (0.0-2.0) % Gran # Lymph # (Auto) [place] # (Auto) Eos # (Auto) Baso # (Auto) Differential Comment VBG Lactic Acid (0.5-2.0) mmol/L Sodium (133-145) mmol/L Potassium (3.3-5.1) mmol/L Chloride (96-108) mmol/L Carbon Dioxide (22-30) mmol/L Anion Gap (8-16) BUN (8-23) mg/dl Creatinine (0.7-1.2) mg/dl GFR Calculation Glucose (70-105) mg/dL Calcium (8.6-10.4) mg/dl Total Bilirubin (0.0-1.0) mg/dL AST (0-37) U/l ALT (0-40) U/l Alkaline Phosphatase (39-117) U/L Total Protein (5.9-8.4) gm/dL Albumin (3.2-5.2) gm/dL Globulin (2.2-3.7) gm/dL Albumin/Globulin Ratio (1.0-2.3) Procalcitonin 0.50 (<0.10) ng/mL - Radiology Data Radiology results reviewed: Yes I reviewed the patient's radiology results. Chest x-ray done earlier today shows no acute infiltrate CT scan of the lungs without contrast shows improvement of aeration of the lungs however a few new densities have developed while a few old ones have disappeared. Direct radiology reads this as infectious inflammatory pneumonitis. They note reactive lymph nodes Disposition Pt seen by [facility] only: No Clinical Impression: Other lymphoid leukemia, in relapse, MRSA (methicillin resistant Staphylococcus aureus) septicemia Anemia Qualifiers: Anemia type: unspecified type Qualified Code(s): D64.9 - Anemia, unspecified Summary: Ordered CT scan of the chest without contrast. Laboratories ordered as well. Influenza swab. Occasional productive cough noted but he is afebrile with stable vital signs CT scan shows actual improvement of his lungs but he does have some reactive lymph nodes and a few new densities which are small. Direct radiology notes concern for inflammatory pneumonitis. Additional history and review of his chart notes that he had an infected thrombosis of the innominate vein and into the jugular vein which turned out to be MRSA. He did up end up being transferred to [place]. After returning he was on IV antibiotics- he just finished IV antibiotics 2 days ago His hemoglobin level is down to 6.8 so transfusion is ordered x3 units packed red blood cells I discussed findings with the patient but he is not a very good historian. I then discussed the case with Dr. Gillette, his kidney doctor who reviewed the chart and recommended a recheck of resting vancomycin level and bring him in for monitoring and blood transfusion. Recommended vancomycin 20 mg/kg if it was low. I then discussed the case with Dr. Ramos, hospitalist. He agreed to accept the patient if I would write transition orders-which I did. He recommended that I start cefepime in addition to the vancomycin as this patient is allergic to penicillin. Disposition: Xfer As Inpt ([facility]) Condition: Serious Referrals: Artie Foster MD [Primary Care Provider] -
[2019-09-16] MEDS ORDERED: ACETAMINOPHEN 325 MG TABLET PO ONE (21:11)
[2019-09-16 21:41] LABS: Hematocrit 22.1 % (40.1-51.0); Hemoglobin 6.8 g/dL (13.7-17.5); Mean Cell Volume 84.7 fL (80.0-100.0); Mean Corpuscular HGB Conc 30.8 g/dL (31.0-36.0); Mean Platelet Volume 8.5 fL (7.4-10.4); Platelet Count 179 K/mcL (140-440); RBC 2.61 M/mcL (4.63-6.08); Red Cell Distribution Width 15.6 % (11.5-14.5); WBC 20.7 K/mcL (4.50-11.00)
[2019-09-16 21:50] LABS: ALT/SGPT 11 U/l (0-40); AST/SGOT 15 U/l (0-37); Albumin 3.1 gm/dL (3.2-5.2); Albumin/Globulin Ratio 1.3 (1.0-2.3); Alkaline Phosphatase 179 U/L (39-117); Bilirubin,Total 0.4 mg/dL (0.0-1.0); Blood Urea Nitrogen 15 mg/dl (8-23); Calcium 8.5 mg/dl (8.6-10.4); Carbon Dioxide 28 mmol/L (22-30); Chloride 93 mmol/L (96-108); Globulin 2.4 gm/dL (2.2-3.7); Glomerular Filtration Rate 23; Glucose 104 mg/dL (70-105)
[2019-09-16 22:12] LABS: Basophils % (Auto) 0 % (0.0-2.0)
[2019-09-16] MEDS ORDERED: 0.9 % SODIUM CHLORIDE 250 ML IV SCH (22:45)
[2019-09-16] MEDS ORDERED: CEFEPIME 1 GM VIAL IV ONE (22:57)
[2019-09-16] MEDS ORDERED: APIXABAN 5 MG TABLET PO ONE (23:34)
[2019-09-16] MEDS: APIXABAN 5 MG TABLET PO SCH (23:34)
[2019-09-17 00:19] LABS: Vancomycin,Random 17.7 ug/mL
[2019-09-17] MEDS ORDERED: ONDANSETRON 4 MG ODT TABLET SL PRN (07:16)
[2019-09-17] MEDS ORDERED: ONDANSETRON 4 MG/2 ML VIAL IV PRN (07:16)
[2019-09-17] MEDS ORDERED: DEXTROSE 31 GM ORAL.SUSP PO PRN (07:16)
[2019-09-17] MEDS ORDERED: ACETAMINOPHEN 650 MG/65 ML BOTTLE IV PRN (07:16)
[2019-09-17] MEDS ORDERED: DEXTROSE 50% 50 ML VIAL IV PRN (07:16)
[2019-09-17] MEDS ORDERED: MELATONIN 3 MG TABLET PO PRN (07:16)
[2019-09-17] MEDS ORDERED: POLYETHYLENE GLYCOL 3350 17 GM PACKET PO PRN (07:16)
[2019-09-17] MEDS ORDERED: BISACODYL 10 MG SUPP.RECT PR PRN (07:16)
[2019-09-17] MEDS ORDERED: guaiFENesin/CODEINE 10 ML UDC PO PRN (07:16)
--- NOTE | 2019-09-17 07:16 | Internal Med History&Physical ---
Medical - H&P: [facility] Patient information: Note initiated : 09/17/19 at 7:16 am Service Date, if different from initiated Date: [] Patient: Artie Bhatt a 69 y/o M admitted on 09/17/19 for recheck labs. Chief Complaint: [] Chief complaint: Cough, weakness History of present illness: Mr. 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 Patient was transferred from [place] to [facility] 3 weeks ago and has been undergoing rehab along with IV vancomycin during dialysis however since discharge he has not really felt well even for a day. He endorses to persistent cough along with weakness and malaise. He presents with worsening symptoms including dyspnea/fatigue. Initial work-up in the ER was consistent with severe anemia with a hemoglobin of 6.8. Patient has been on vancomycin during dialysis for bacteremia. CT chest Chest CT was consistent with multifocal infiltrates with a suspicion of septic emboli but not remarkably different from prior imaging. 3 units of blood transfusion was ordered and subsequently hospitalist service was consulted in light of above. At the time evaluation patient appears weak and fatigued lethargic. He is able to answer some of the questions. He lives at [place] but has been recently undergoing rehab at [facility]. He denies fever, headache, joint pain, rash or joint swelling. He further denies diarrhea, dysuria, but endorses shortness of breath and increasing cough. Review of systems A 10 point review system was performed and is negative except for ones cussed above Medical - H&P: PMH Medical history: Other lymphoid leukemia, in relapse (Chronic) Gouty arthritis (Chronic) Tubular adenoma of colon (Chronic) Constipation (Chronic) Diastolic dysfunction (Chronic) Leukemia (Chronic) Encounter for long-term current use of medication (Acute) Abnormal immunological finding in serum (Chronic) Tophus (Chronic) Petechial rash (Chronic) Arteriovenous malformation (Chronic) Peripheral neuropathy (Chronic) Hx of basal cell carcinoma (Chronic) Effusion of knee joint right (Chronic) Chronic pain of right knee (Chronic) DJD (degenerative joint disease) (Chronic) Hyperlipidemia (Chronic) Sleep apnea (Chronic) Hypertension (Chronic) Tinnitus (Chronic) Anemia (Chronic) Controlled type 2 diabetes mellitus (Chronic) Olecranon bursitis of left elbow (Chronic) Chronic lymphoid leukemia (Chronic) Nasal polyp (Chronic) Hypertensive cardiomyopathy (Chronic) Gout (Acute) Vasculitis of skin (Chronic) Blunt wound (Chronic) Past Surgical History Hx of arthroscopy of knee (Chronic) Hx of colonoscopy (Chronic) Hx of inguinal herniorrhaphy (Chronic) Hx of total knee replacement (Chronic) Family History Father DM type 2 (diabetes mellitus, type 2) Grandmother DM type 2 (diabetes mellitus, type 2) Mother DM type 2 (diabetes mellitus, type 2) Brother DM type 2 (diabetes mellitus, type 2) Social History Patient is a former smoker and is 30 pack history Drinks alcohol rarely Lives by himself Medical - H&P: Meds Home Medications Medication Instructions Recorded Confirmed Type simvastatin 20 mg tablet 20 mg PO QDAY tab 01/05/16 09/16/19 History tramadol 50 mg tablet 100 mg PO TID tab 01/05/16 09/16/19 History insulin glargine 100 unit/mL (3 See Rx Instructions SUB-Q QHS 03/13/18 09/16/19 History mL) subcutaneous pen tamsulosin 0.4 mg capsule 0.4 mg PO QDAY #90 cap 05/08/19 09/16/19 Rx ferrous gluconate 240 mg (27 mg 240 mg PO QDAY 06/19/19 09/16/19 History iron) tablet insulin aspart U-100 100 unit/mL See Rx Instructions SUB-Q BID ml 06/19/19 09/16/19 History (3 mL) subcutaneous pen acetaminophen 650 mg 1,300 mg PO Q7H PRN tab 07/21/19 09/16/19 History tablet,extended release Apixaban [Eliquis] 5 mg PO BID 09/16/19 09/16/19 History Calcium Acetate [Calphron] 667 mg PO BID 09/16/19 09/16/19 History Carvedilol [Coreg] 3.125 mg PO BID 09/16/19 09/16/19 History Fluticasone Hfa 44Mcg [Flovent Hfa 88 mg INH BID 09/16/19 09/16/19 History 44Mcg] Ipratropium/Albuterol [Duoneb] 3 ml NEB BID 09/16/19 09/16/19 History Pantoprazole [Protonix] 40 mg PO BIDAC 09/16/19 09/16/19 History Allergies Allergy/AdvReac Type Severity Reaction Status Date / Time hydrochlorothiazide Allergy Mild Rash Verified 09/16/19 18:29 penicillin V Allergy Mild rash Verified 09/16/19 18:29 Medical - H&P: Exam - Constitutional Vitals: Temp Pulse Resp BP Pulse Ox 99.5 F H 95 H 24 H 111/79 94 09/17/19 07:01 09/17/19 07:01 09/17/19 07:01 09/17/19 07:01 09/17/19 07:01 General appearance: no acute distress Exam: Alert oriented Nonlabored breathing Head normocephalic Oral cavity dry No ear nose discharge Neck lymphadenopathy S1-S occasionally irregular rhythm Right subclavian dialysis catheter Diminished breath sounds bases Abdomen soft nontender Lower extremity no sinus clubbing no joint swelling Skin no suspicious lesion Psych alert cooperative Neuro nonfocal Medical - H&P: Reslt - Labs CBC & Chem 7: 09/17/19 08:57 09/17/19 08:57 Labs: Short CBC 09/16/19 Range/Units 19:47 WBC 20.7 H (4.50-11.00) K/mcL Hgb 6.8 L* (13.7-17.5) g/dL Hct 22.1 L (40.1-51.0) % Plt Count 179 (140-440) K/mcL BMP 09/16/19 19:47 Sodium 131 L Potassium 4.0 Chloride 93 L Carbon Dioxide 28 BUN 15 Creatinine 2.7 H Glucose 104 Calcium 8.5 L Liver Function 09/16/19 Range/Units 19:47 Total Bilirubin 0.4 (0.0-1.0) mg/dL AST 15 (0-37) U/l ALT 11 (0-40) U/l Alkaline Phosphatase 179 H (39-117) U/L Albumin 3.1 L (3.2-5.2) gm/dL Medical - H&P: A/P - Narrative A/P Narrative: * Multifocal pneumonia-probable septic emboli from previous septic thrombophlebitis however has been on vancomycin for MRSA bacteremia. Noted on CT chest. Repeat surveillance blood cultures * Recent MRSA bacteremia with septicemia on IV vancomycin during dialysis * ESRD on hemodialysis-HD per nephrology * Anemia of chronic disease status post 3 units PRBC transfusion * History of septic thrombophlebitis. Currently on anticoagulation apixaban * Hypertension on Coreg * History of BPH on tamsulosin * COPD on bronchodilators * DM type II on basal prandial insulin/CC diet * Full code * Prophylaxis on anticoagulation Plan * Inpatient admission, anticipate a minimum of 2 midnight hospitalization for management of multifocal pneumonia and multiple comorbidities * Vancomycin troughs followed by vancomycin dosing per pharmacy * Respiratory viral panel/ID consult * ESRD management per nephrology on hemodialysis * Pre-existing medical condition management home meds * PRBC transfusion Medical - H&P: Qual - VTE Deep Vein Thrombosis/Pulmonary Embolism Present on Admission: No
[2019-09-17] MEDS ORDERED: NOREPINEPHRINE BITARTRATE 16 MG in 0.9 % SODIUM CHLORIDE 234 ML IV SCH (07:30)
[2019-09-17] MEDS ORDERED: VANCOMYCIN PER PHARMACY IV SCH (07:30)
--- NOTE | 2019-09-17 08:51 | Nephrology Consult Note ---
History of Present Illness - Reason for Consult Patient information: Note initiated : 09/17/19 at 8:49 am Patient: Artie Bhatt 69 y/o M admitted on 09/17/19 for recheck labs. Consult date: 09/17/19 end stage renal disease, hyponatremia Requesting physician: Jovanny Trinidad - Chief Complaint Cough - History of Present Illness Artie Bhatt is a 69-year-old male with end-stage renal disease on chronic hemodialysis (through right IJ tunneled hemodialysis catheter, on MWF), chronic anemia due to ESRD, diabetes mellitus type 2, hypertension, a history of chronic lymphocytic leukemia and history of colonic AVMs, admitted on X. He recently had a hospitalization at [facility] and [place] due to nonclearing upper extremity DVT with extension along with MRSA bacteremia and thrombophlebitis that required clot extraction. Patient was transferred from [place] to [facility] 3 weeks ago. He is on Vancomycin during dialysis. He presented to ED for worsening persistent cough along with weakness. He is admitted for severe anemia with a hemoglobin of 6.8 and pneumonia. Review of Systems Constitutional: lethargy, weakness Nose, mouth and throat: no nasal congestion, no sore throat Cardiovascular: no chest pain, no palpatations Respiratory: cough, dyspnea on exertion Gastrointestinal: no abdominal pain, no diarrhea Genitourinary: no dysuria, no hematuria Musculoskeletal: no back pain, no neck pain Integumentary: no rash, no wounds Neurological: no confusion, no focal weakness Psychiatric: no anxiety, no panic attacks Endocrine: no cold intolerance, no heat intolerance Hematologic/Lymphatic: no easy bleeding, no easy bruising Allergic/Immunologic: no tongue swelling, no uticaria Past History Past medical history: Medical History (Last Reviewed 06/19/19 @ 11:12 by Thelma Gonzalez RN) Other lymphoid leukemia, in relapse (Chronic) Gouty arthritis (Chronic) Tubular adenoma of colon (Chronic) Constipation (Chronic) Diastolic dysfunction (Chronic) Leukemia (Chronic) Encounter for long-term current use of medication (Acute) Abnormal immunological finding in serum (Chronic) Tophus (Chronic) Petechial rash (Chronic) Arteriovenous malformation (Chronic) Peripheral neuropathy (Chronic) Hx of basal cell carcinoma (Chronic) Effusion of knee joint right (Chronic) Chronic pain of right knee (Chronic) DJD (degenerative joint disease) (Chronic) Hyperlipidemia (Chronic) Sleep apnea (Chronic) Hypertension (Chronic) Tinnitus (Chronic) Anemia (Chronic) Controlled type 2 diabetes mellitus (Chronic) Olecranon bursitis of left elbow (Chronic) Chronic lymphoid leukemia (Chronic) Nasal polyp (Chronic) Hypertensive cardiomyopathy (Chronic) Gout (Acute) Vasculitis of skin (Chronic) Blunt wound (Chronic) Past surgical history: Past Surgical History (Last Reviewed 06/19/19 @ 11:12 by Thelma Gonzalez RN) Hx of arthroscopy of knee (Chronic) Hx of colonoscopy (Chronic) Hx of inguinal herniorrhaphy (Chronic) Hx of total knee replacement (Chronic) Past family history: Family History (Last Reviewed 06/19/19 @ 11:12 by Thelma Gonzalez RN) Father DM type 2 (diabetes mellitus, type 2) Grandmother DM type 2 (diabetes mellitus, type 2) Mother DM type 2 (diabetes mellitus, type 2) Brother DM type 2 (diabetes mellitus, type 2) Past social history: Former smoker with 30 pack/year history Drinks alcohol rarely Lives by himself Medications and Allergies Home Medications Medication Instructions Recorded Confirmed Type simvastatin 20 mg tablet 20 mg PO QDAY tab 01/05/16 09/16/19 History tramadol 50 mg tablet 100 mg PO TID tab 01/05/16 09/16/19 History insulin glargine 100 unit/mL (3 See Rx Instructions SUB-Q QHS 03/13/18 09/16/19 History mL) subcutaneous pen tamsulosin 0.4 mg capsule 0.4 mg PO QDAY #90 cap 05/08/19 09/16/19 Rx ferrous gluconate 240 mg (27 mg 240 mg PO QDAY 06/19/19 09/16/19 History iron) tablet insulin aspart U-100 100 unit/mL See Rx Instructions SUB-Q BID ml 06/19/19 09/16/19 History (3 mL) subcutaneous pen acetaminophen 650 mg 1,300 mg PO Q7H PRN tab 07/21/19 09/16/19 History tablet,extended release Apixaban [Eliquis] 5 mg PO BID 09/16/19 09/16/19 History Calcium Acetate [Calphron] 667 mg PO BID 09/16/19 09/16/19 History Carvedilol [Coreg] 3.125 mg PO BID 09/16/19 09/16/19 History Fluticasone Hfa 44Mcg [Flovent Hfa 88 mg INH BID 09/16/19 09/16/19 History 44Mcg] Ipratropium/Albuterol [Duoneb] 3 ml NEB BID 09/16/19 09/16/19 History Pantoprazole [Protonix] 40 mg PO BIDAC 09/16/19 09/16/19 History Allergies Allergy/AdvReac Type Severity Reaction Status Date / Time hydrochlorothiazide Allergy Mild Rash Verified 09/16/19 18:29 penicillin V Allergy Mild rash Verified 09/16/19 18:29 Exam - Vital Signs Vital signs: Temp Pulse Resp BP Pulse Ox 99.0 F 102 H 23 H 111/72 97 09/17/19 08:01 09/17/19 08:01 09/17/19 08:01 09/17/19 08:01 09/17/19 08:01 - General Appearance General appearance: fatigue EENT: mucous membranes moist Neck: supple Respiratory: course breath sounds Cardiology: edema Gastrointestinal: no tenderness Integumentary: warm and dry Neurologic: no focal deficit, alert and oriented x3 Musculoskeletal: no deformities Psychiatric: mood/affect appropriate, cooperative Results - Lab Results 09/16/19 19:47 09/16/19 19:47 Most recent lab results Calcium 8.5 mg/dl (8.6-10.4) L 09/16/19 19:47 Assessment and Plan (1) ESRD (end stage renal disease) on dialysis Artie Bhatt is a 69-year-old male with end-stage renal disease on chronic hemodialysis (through right IJ tunneled hemodialysis catheter, on MWF), chronic anemia due to ESRD, diabetes mellitus type 2, hypertension, a history of chronic lymphocytic leukemia and history of colonic AVMs, admitted on X. He recently had a hospitalization at [facility] and [place] due to nonclearing upper extremity DVT with extension along with MRSA bacteremia and thrombophlebitis that required clot extraction. Patient was transferred from [place] to [facility] 3 weeks ago. He is on Vancomycin during dialysis. He presented to ED for worsening persistent cough along with weakness. He is admitted for severe anemia with a hemoglobin of 6.8 and pneumonia. End-stage renal disease on chronic hemodialysis (through right IJ tunneled hemodialysis catheter, on MWF). Hyponatremia, mild. Severe anemia s/p 3 units PRBC. Plan: Continue hemodialysis MWF. Status: Chronic Priority: Medium Comment: dialysis on hold for few days. Plan temp femoral dialysis cath for dialysis while awaiting safe replacement of tunneled dialysis catheter.
[2019-09-17] MEDS: INSULIN LISPRO 1 UNIT/0.01 ML UNIT SQ SCH ×4 (08:53→22:12)
[2019-09-17] MEDS: MULTIVIT,THER IRON,CA,FA & MIN 1 TABLET PO SCH (09:31)
[2019-09-17] MEDS: DOCUSATE SODIUM 100 MG CAPSULE PO SCH ×2 (09:31→21:05)
[2019-09-17] MEDS: ACETAMINOPHEN 325 MG TABLET PO PRN (09:32)
[2019-09-17] MEDS: APIXABAN 5 MG TABLET PO SCH ×2 (09:34→21:05)
[2019-09-17 09:40] LABS: Hematocrit 30.6 % (40.1-51.0); Hemoglobin 9.6 g/dL (13.7-17.5); Mean Cell Volume 85.2 fL (80.0-100.0); Mean Corpuscular HGB Conc 31.4 g/dL (31.0-36.0); Mean Platelet Volume 8.5 fL (7.4-10.4); Platelet Count 170 K/mcL (140-440); RBC 3.59 M/mcL (4.63-6.08); Red Cell Distribution Width 15.5 % (11.5-14.5); WBC 25.3 K/mcL (4.50-11.00)
[2019-09-17] MEDS: VANCOMYCIN 1,500 MG in 0.9 % SODIUM CHLORIDE 500 ML IV SCH ×2 (09:51→21:05)
[2019-09-17 09:55] LABS: ALT/SGPT 11 U/l (0-40); AST/SGOT 15 U/l (0-37); Albumin/Globulin Ratio 1.1 (1.0-2.3); Alkaline Phosphatase 180 U/L (39-117); Bilirubin,Total 0.5 mg/dL (0.0-1.0); Calcium 8.4 mg/dl (8.6-10.4); Carbon Dioxide 25 mmol/L (22-30); Chloride 96 mmol/L (96-108); Globulin 2.8 gm/dL (2.2-3.7); Glomerular Filtration Rate 17; Glucose 118 mg/dL (70-105)
[2019-09-17 10:12] LABS: Blood Urea Nitrogen 18 mg/dl (8-23)
[2019-09-17 10:28] LABS: Basophils # (Auto) 0 K/mcL (0.00-0.30); Basophils % (Auto) 0 % (0.0-2.0); Eosinophils # (Auto) 0.51 K/mcL (0.00-0.70); Lymphocytes # (Auto) 19.48 K/mcL (1.50-4.80); Monocytes # (Auto) 0.76 K/mcL (0.10-0.90)
[2019-09-17] MEDS: 0.9 % SODIUM CHLORIDE 10 ML SYRINGE IV SCH ×3 (13:30→21:05)
[2019-09-17] MEDS ORDERED: NOREPINEPHRINE BITARTRATE 16 MG in 0.9 % SODIUM CHLORIDE 234 ML IV PRN (15:43)
--- NOTE | 2019-09-17 15:55 | Internal Med Progress Note ---
Medical - PN: Subj Patient information: Note initiated : 09/17/19 at 3:53 pm Service Date, if different from initiated Date: [] Patient: Artie Bhatt a 69 y/o M admitted on 09/17/19 for recheck labs. Chief Complaint: [] Interval history: Mr. 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 Patient was transferred from [place] to [facility] 3 weeks ago and has been undergoing rehab along with IV vancomycin during dialysis however since discharge he has not really felt well even for a day. He endorses to persistent cough along with weakness and malaise. He presents with worsening symptoms including dyspnea/fatigue. Initial work-up in the ER was consistent with severe anemia with a hemoglobin of 6.8. Patient has been on vancomycin during dialys is for bacteremia. CT chest Chest CT was consistent with multifocal infiltrates with a suspicion of septic emboli but not remarkably different from prior imaging. 3 units of blood transfusion was ordered and subsequently hospitalist service was consulted in light of above. At the time evaluation patient appears weak and fatigued lethargic. He is able to answer some of the questions. He lives at [place] but has been recently undergoing rehab at [facility]. He denies fever, headache, joint pain, rash or joint swelling. He further denies diarrhea, dysuria, but endorses shortness of breath and increasing cough. 09/16-patient clinically worse with white count over 25,000, improved hemoglobin status post 2 unit transfusion to 9.6. Ongoing hemodialysis. T-max 100.2. Viral respiratory panel negative. Coronavirus RNA ordered due to high risk travel history to [place]. Blood cultures pending. - Constitutional Vitals: Vital Signs Temp Pulse Resp BP Pulse Ox 100.2 F H 86 23 H 111/75 96 09/17/19 11:58 09/17/19 12:00 09/17/19 12:00 09/17/19 12:00 09/17/19 12:00 Period Temp Pulse Resp BP Sys/Corona Pulse Ox Last 24 Hr 97.7 F-100.2 F 38-119 13-42 97-134/48-101 91-100 Intake and Output 09/17/19 09/17/19 09/17/19 05:59 13:59 21:59 Intake Total 650 945 180 Output Total 525 Balance 650 420 180 Weight 207 lb 11.2 oz Intake & Output: Intake & Output 09/17/19 09/17/19 09/17/19 05:59 13:59 21:59 Intake Total 650 945 180 Output Total 525 Balance 650 420 180 Weight 207 lb 11.2 oz Intake: IV 500 Vancomycin 1,500 mg In Sodium 500 Chloride 0.9% 500 ml @ 333.3 mls/hr IV Q12H [facility] Rx#: [id number] Oral 120 180 Blood Product 650 325 Output: Void Amount 525 Other: Meal Breakfast Lunch Percent of Meal Consumed 100% 100% Feeding Ability Independent Urine Appearance Clear Urine Color Bright Yellow General appearance: moderate distress Exam: Short of breath Tachycardic tachypneic Ongoing hemodialysis No lymphedema Medical - PN: Obj Da - Labs CBC & Chem 7: 09/17/19 08:57 09/17/19 08:57 Labs: Abnormal Lab Results 09/17/19 09/17/19 09/16/19 08:57 08:57 19:47 WBC 25.3 H RBC 3.59 L Hgb 9.6 L Hct 30.6 L MCHC RDW 15.5 H Gran % 18.0 L Lymph % (Auto) 77.0 H Lymph # (Auto) 19.48 H Sodium 131 L Chloride 93 L Creatinine 3.4 H 2.7 H Glucose 118 H Calcium 8.4 L 8.5 L Alkaline Phosphatase 180 H 179 H Total Protein 5.8 L 5.5 L Albumin 3.0 L 3.1 L 09/16/19 19:47 WBC 20.7 H RBC 2.61 L Hgb 6.8 L* Hct 22.1 L MCHC 30.8 L RDW 15.6 H Gran % 28.0 L Lymph % (Auto) 67.0 H Lymph # (Auto) Sodium Chloride Creatinine Glucose Calcium Alkaline Phosphatase Total Protein Albumin Meds: Medications Acetaminophen (Tylenol) 650 mg PO Q4-6HP PRN; Protocol PRN Reason: Per Pain Protocol/Fever > 101 Last Admin: 09/17/19 09:32 Dose: 650 mg Documented by: Apixaban (Eliquis) 5 mg PO BID [facility] Last Admin: 09/17/19 09:34 Dose: 5 mg Documented by: Bisacodyl (Dulcolax) 10 mg DC Q2-3DAYS PRN PRN Reason: Constipation Dextrose (Dextrose 50%) 0 ml IV UD PRN PRN Reason: Hypoglycemia Diagnostic Test (Pha) (Accu-Chek) 1 each FS [facility] Last Admin: 09/17/19 12:25 Dose: 1 each Documented by: Docusate Sodium (Colace) 100 mg PO BID [facility] Last Admin: 09/17/19 09:31 Dose: 100 mg Documented by: Glucose (Insta-Glucose) 15 gm PO PRN PRN PRN Reason: Hypoglycemia Guaifenesin/Codeine Phosphate (Robitussin Ac) 10 ml PO Q4HP PRN PRN Reason: Cough Acetaminophen (Ofirmev) 650 mg in 65 mls @ 130 mls/hr IV Q6HP PRN; Protocol PRN Reason: Per Pain Protocol/Fever > 101 Vancomycin HCl 1,500 mg/ (Sodium Chloride) 500 mls @ 333.3 mls/hr IV Q12H [facility] Last Infusion: 09/17/19 13:30 Dose: Infused Documented by: Norepinephrine Bitartrate 16 (mg/ Sodium Chloride) 250 mls @ 9.375 mls/hr IV Q24HP PRN; Protocol PRN Reason: TITRATE TO KEEP MAP > 65 Sodium Chloride (Sodium Chloride 0.9%) 250 mls @ 20 mls/hr IV .[id number] [facility] Insulin Human Lispro (Humalog) 0 unit SQ [facility]; Protocol Last Admin: 09/17/19 13:07 Dose: 2 unit Documented by: Iron Carb/Multivit/[place]/Folic Acid (Multivitamin W/Minerals) 1 tab PO DAILY [facility] Last Admin: 09/17/19 09:31 Dose: 1 tab Documented by: Melatonin (Melatonin 3mg Tablet) 3 mg PO HSP PRN PRN Reason: Insomnia Ondansetron HCl (Zofran Odt) 4 mg SL Q4-6HP PRN; Protocol PRN Reason: Nausea And Vomiting Ondansetron HCl (Zofran) 4 mg IV Q4-6HP PRN; Protocol PRN Reason: Nausea And Vomiting Polyethylene Glycol (Miralax) 17 gm PO DAILYP PRN PRN Reason: Constipation Senna/Docusate Sodium (Senna Plus Tablet) 1 tab PO HS [facility] Sodium Chloride (Saline Flush) 10 ml IV Q8 [facility] Last Admin: 09/17/19 13:30 Dose: 10 ml Documented by: Vancomycin HCl (Vancomycin Per Pharmacy) 1 order IV UD [facility]; Protocol Medical - PN: A/P - Time Spent With Patient Total time spent is greater than 50% in coordination of care (as documented) at patient's floor/unit and/or counseling patient: Greater than 35 minutes (1) MRSA (methicillin resistant Staphylococcus aureus) septicemia Problem details: right Port a Cath still in place and will need to be removed as planned today Status: Acute Assessment and plan: * Multifocal pneumonia-probable septic emboli from previous septic thrombophlebitis however has been on vancomycin for MRSA bacteremia. Noted on CT chest. Repeat surveillance blood cultures * Severe sepsis with white count over 25,000. On antibiotic coverage * Recent MRSA bacteremia with septicemia on IV vancomycin during dialysis. Repeat surveillance cultures * ESRD on hemodialysis-HD per nephrology * AOCD status post 3 units PRBC transfusion. Hemoglobin 9 * History of septic thrombosis. Anticoagulated on apixaban * Hypertension stable on Coreg * History of BPH on tamsulosin * COPD on bronchodilators * DM type II continue basal prandial insulin/CC diet * Full code * Prophylaxis on anticoagulation Plan * sepsis management guidelines * Antibiotic coverage * Bank dosing per pharmacy * SARS RNA * ESRD management per nephrology * Pre-existing medical condition management home meds Current Visit: Yes Medical - PN: Qual - VTE Deep Vein Thrombosis/Pulmonary Embolism Present on Admission: No
[2019-09-17] MEDS ORDERED: PIPERACILLIN SODIUM/TAZOBACTAM 2.25 GM in DEXTROSE 5% IN WATER 50 ML IV SCH (16:30)
[2019-09-17] MEDS: 0.9 % SODIUM CHLORIDE 250 ML IV SCH (17:29)
[2019-09-17] MEDS: CEFEPIME 1 GM VIAL IV SCH (18:46)
--- NOTE | 2019-09-17 19:18 | Cat Scan Report ---
CLINICAL INFORMATION: Dyspnea and rales and cough COMPARISON: Chest CT 07/10/2012 and 08/10/2019 TECHNIQUE: 0.625 mm axial slices were obtained from the lung apices through the bases without intravenous contrast. 2.5 mm Sagittal, coronal and axial reformatted images were processed and reviewed at bone, lung and soft tissue windows. 7 mm axial MIP images were also reconstructed to optimize pulmonary nodule detection.The exam was performed using radiation dose optimization techniques including, but not limited to, automated exposure control, adjustment of the mA and/or kV according to patient size and use of iterative reconstruction technique. FINDINGS: Pulmonary parenchymal windows show chronic bronchitis with elevated lung volumes and wall thickening/dilatation of the bronchi. Scattered tree-in-bud airspace disease within the periphery of the right upper lobe has decreased the chest CT one month ago. A dilated bronchial segments in the peripheral right upper lobe on image seven shows inflammatory thickening of the wall. There is also patchy groundglass infiltrate in the medial posterior basilar segment of the left lower lobe which is decreased. A small region of groundglass airspace disease in the supradiaphragmatic right lower lobe airspace long-term stability representing fibrosis. The left upper lobe is clear. The mediastinal windows show mild enlargement of the central pulmonary arteries suggesting pulmonary hypertension. Thoracic aorta is normal. The heart is normal in size with very heavy calcific lack and coronary artery. Mildly enlarged lymph nodes in the subcarinal level kate, AP window and lower paratracheal region should represent benign reactive nodes related to infection. The esophagus is normal. A 3.5 cm colloid cyst in the left thyroid lobe is stable since 2013. Bone windows show moderate degenerative disc disease throughout the thoracic spine with large anterior marginal osteophytes as previously seen. Images through the superior abdomen show moderate splenomegaly which is unchanged from the most recent CT 08/10/2019 but is new from the 2013 exam. IMPRESSION: 1. Scattered tree-in-bud infiltrate in the right upper lobe and moderate groundglass infiltrate in the medial and posterior basilar segment left lower lobe. These have actually improved since the most recent comparison CT over one month prior. Left pleural effusion has resolved prior study. There is no specific evidence for coronal virus infiltrates 2. Underlying chronic bronchitis changes. Mild enlargement of the central pulmonary arteries suggesting pulmonary hypertension - stable 3. Mildly enlarged lower mediastinal and bihilar lymph nodes are unchanged from the most recent CT one month prior. These should represent benign reactive lymph nodes. 4. Heavy calcific plaquing proximal coronary arteries 5. Moderate splenomegaly unchanged from the CT one month prior Interpreted and Authenticated by: Balwinder Ayala 09/17/19
[2019-09-17] MEDS: SENNOSIDES/DOCUSATE SODIUM 1 TAB TABLET PO SCH (21:05)
[2019-09-18] MEDS: 0.9 % SODIUM CHLORIDE 250 ML IV SCH ×2 (05:12→17:02)
[2019-09-18 06:02] LABS: Hematocrit 27.5 % (40.1-51.0); Hemoglobin 8.7 g/dL (13.7-17.5); Mean Cell Volume 84.6 fL (80.0-100.0); Mean Corpuscular HGB Conc 31.6 g/dL (31.0-36.0); Mean Platelet Volume 8.4 fL (7.4-10.4); Platelet Count 150 K/mcL (140-440); RBC 3.25 M/mcL (4.63-6.08); Red Cell Distribution Width 15.9 % (11.5-14.5); WBC 22.6 K/mcL (4.50-11.00)
--- NOTE | 2019-09-18 06:11 | Nephrology Progress Note ---
Subjective Patient information: Note initiated : 09/18/19 at 6:08 am Patient: Artie Bhatt 69 y/o M admitted on 09/17/19 for recheck labs. Chief Complaint: Cough Pertinent ROS: Weakness Cough Objective - Vital Signs Vital signs: Vital Signs Temp Pulse Resp BP BP Pulse Ox 09/18/19 04:13 97.5 F 90 20 152/74 97 09/18/19 02:01 96 H 24 H 141/90 92 09/18/19 02:00 19 98 09/18/19 00:02 98.9 F 108 H 31 H 142/85 98 09/17/19 22:18 99 H 21 126/78 96 09/17/19 20:02 112 H 23 H 136/100 99 09/17/19 18:47 98.9 F 111 H 22 143/97 97 09/17/19 15:52 97.8 F 36 H 120/72 97 09/17/19 15:26 94 H 21 120/76 98 09/17/19 14:00 97 09/17/19 12:00 86 23 H 111/75 96 09/17/19 11:58 100.2 F H 95 H 21 131/69 95 09/17/19 11:29 100.2 F H 20 131/69 94 09/17/19 08:01 99.0 F 102 H 23 H 111/72 97 09/17/19 07:01 99.5 F H 95 H 24 H 111/79 94 09/17/19 07:00 94 09/17/19 06:09 94 H 17 123/72 94 Intake and Output 09/17/19 09/18/19 09/18/19 21:59 05:59 13:59 Intake Total 230 700 Output Total 1100 Balance 230 -400 Intake: Oral 180 700 IV - Manual Only 50 Output: Void Amount 1100 Other: Meal Dinner Percent of Meal Consumed 100% Urine Appearance Clear Clear Urine Color Bright Yellow Bright Yellow Urine Odor Normal Normal Weight 211 lb 9.6 oz Intake & Output: Intake & Output 09/17/19 09/18/19 09/18/19 21:59 05:59 13:59 Intake Total 230 700 Output Total 1100 Balance 230 -400 Weight 211 lb 9.6 oz Intake: Oral 180 700 IV - Manual Only 50 Output: Void Amount 1100 Other: Meal Dinner Percent of Meal Consumed 100% Urine Appearance Clear Clear Urine Color Bright Yellow Bright Yellow Urine Odor Normal Normal - General Appearance General appearance: fatigue EENT: mucous membranes moist Neck: no JVD Respiratory: rales Cardiology: no edema Gastrointestinal: no tenderness Integumentary: warm and dry Neurologic: no focal deficit, alert and oriented x3 Musculoskeletal: no deformities Psychiatric: mood/affect appropriate, cooperative - Lab 09/18/19 04:40 09/18/19 04:40 Most recent lab results Calcium 8.4 mg/dl (8.6-10.4) L 09/17/19 08:57 Assessment and Plan (1) ESRD (end stage renal disease) on dialysis Artie Bhatt is a 69-year-old male with end-stage renal disease on chronic hemodialysis, chronic anemia due to ESRD, diabetes mellitus type 2, hypertension, a history of chronic lymphocytic leukemia and history of colonic AVMs. He recently had a hospitalization at [facility] and [place] due to nonclearing upper extremity DVT with extension along with MRSA bacteremia and thrombophlebitis that required clot extraction. Patient was transferred from [place] to [facility] 3 weeks ago. He is on Vancomycin during dialysis. He pres ented to ED for worsening persistent cough along with weakness. He is admitted for severe anemia with a hemoglobin of 6.8 and pneumonia. End-stage renal disease on chronic hemodialysis (through right IJ tunneled hemodialysis catheter, on MWF, at [facility]). Hyponatremia, mild. Severe anemia s/p 3 units PRBC. Multifocal pneumonia with RSV. Recent MRSA bacteremia on IV Vancomycin. Plan: Hemodialysis today then continue MWF. Status: Chronic Priority: Medium Comment: dialysis on hold for few days. Plan temp femoral dialysis cath for dialysis while awaiting safe replacement of tunneled dialysis catheter.
[2019-09-18 06:36] LABS: ALT/SGPT 9 U/l (0-40); AST/SGOT 12 U/l (0-37); Albumin 2.6 gm/dL (3.2-5.2); Alkaline Phosphatase 163 U/L (39-117); Bilirubin,Direct < 0.2 mg/dL (0.0-0.3); Bilirubin,Total 0.4 mg/dL (0.0-1.0); Calcium 8.2 mg/dl (8.6-10.4); Carbon Dioxide 22 mmol/L (22-30); Chloride 98 mmol/L (96-108); Globulin 2.6 gm/dL (2.2-3.7); Glomerular Filtration Rate 15; Glucose 120 mg/dL (70-105); Lactate Dehydrogenase 224 U/L (94-250); Phosphorous 3.5 mg/dL (2.7-4.5); Triglycerides 177 mg/dl (<150); Uric Acid 7.4 mg/dL (2.5-8.0)
[2019-09-18 06:37] LABS: Blood Urea Nitrogen 25 mg/dl (8-23)
[2019-09-18 07:52] LABS: Anisocytosis 1+ (NONE SEEN); Hypochromasia 2+ (NONE SEEN); Lymphocytes % 63 % (15-49); Monocytes % (Manual) 11 % (1-12); Ovalocytes 1+ (NONE SEEN); Platelet Estimate NORMAL (NORMAL); Polychromasia 2+ (NONE SEEN); RBC Morphology ABNORM (NORMAL); Reactive Lymphocytes 7 % (0-2); Segmented Neutrophils % 19 % (38-78); Smudge Cells FEW (NONE SEEN)
[2019-09-18] MEDS: ACETAMINOPHEN 325 MG TABLET PO PRN (08:05)
[2019-09-18] MEDS: INSULIN LISPRO 1 UNIT/0.01 ML UNIT SQ SCH ×4 (08:06→20:38)
[2019-09-18] MEDS: MULTIVIT,THER IRON,CA,FA & MIN 1 TABLET PO SCH (09:07)
[2019-09-18] MEDS: APIXABAN 5 MG TABLET PO SCH ×2 (09:07→20:11)
[2019-09-18] MEDS: DOCUSATE SODIUM 100 MG CAPSULE PO SCH ×2 (09:08→20:11)
[2019-09-18] MEDS ORDERED: ACETAMINOPHEN 1300 MG PO PRN (09:09)
[2019-09-18] MEDS: CEFEPIME 1 GM VIAL IV SCH (13:56)
[2019-09-18] MEDS: traMADol 50 MG TABLET PO SCH ×2 (13:57→20:11)
[2019-09-18] MEDS: 0.9 % SODIUM CHLORIDE 10 ML SYRINGE IV SCH ×4 (13:57→20:40)
[2019-09-18] MEDS: VANCOMYCIN 1,500 MG in 0.9 % SODIUM CHLORIDE 500 ML IV SCH (14:26)
[2019-09-18] MEDS ORDERED: CEFEPIME 1 GM VIAL IV ONE (14:45)
--- NOTE | 2019-09-18 14:54 | Internal Med Progress Note ---
Medical - PN: Subj Patient information: Note initiated : 09/18/19 at 2:52 pm Service Date, if different from initiated Date: [] Patient: Artie Bhatt a 69 y/o M admitted on 09/17/19 for recheck labs. Chief Complaint: [] Interval history: Mr. Bhatt is a 69 year old M with a history of CLL, colonic AVM/ESRD on h emodialysis who recently was transferred to [facility] and then to [place] due to nonclearing upper extremity DVT with extension along with bacteremia and thrombophlebitis that required clot extraction. Patient was transferred from [place] to [facility] 3 weeks ago and has been undergoing rehab along with IV vancomycin during dialysis however since discharge he has not really felt well even for a day. He endorses to persistent cough along with weakness and malaise. He presents with worsening symptoms including dyspnea/fatigue. Initial work-up in the ER was consistent with severe anemia with a hemoglobin of 6.8. Patient has been on vancomycin during dialys is for bacteremia. CT chest Chest CT was consistent with multifocal infiltrates with a suspicion of septic emboli but not remarkably different from prior imaging. 3 units of blood transfusion was ordered and subsequently hospitalist service was consulted in light of above. At the time evaluation patient appears weak and fatigued lethargic. He is able to answer some of the questions. He lives at [place] but has been recently undergoing rehab at [facility]. He denies fever, headache, joint pain, rash or joint swelling. He further denies diarrhea, dysuria, but endorses shortness of breath and increasing cough. 09/16-patient clinically worse with white count over 25,000, improved hemoglobin status post 2 unit transfusion to 9.6. Ongoing hemodialysis. T-max 100.2. Viral respiratory panel negative. Coronavirus RNA ordered due to high risk travel history to [place]. Blood cultures pending. 09/17-patient seen and evaluated. No overnight events. Elevated white count secondary to CLL. However complaining of hip pain. Will undergo CT scan of the hip/lower back as per ID recommendations for further evaluation. Continuing antibiotic coverage. Case discussed with nephrology and okay to proceed with contrast as patient will undergo hemodialysis in the 24 hours. - Constitutional Vitals: Vital Signs Temp Pulse Resp BP Pulse Ox 98.4 F 93 H 23 H 104/66 99 09/18/19 13:34 09/18/19 13:05 09/18/19 12:32 09/18/19 13:05 09/18/19 13:00 Period Temp Pulse Resp BP Sys/Corona Pulse Ox Last 24 Hr 97.2 F-98.9 F 74-112 15-36 103-152/66-100 92-100 Intake and Output 09/18/19 09/18/19 09/18/19 05:59 13:59 21:59 Intake Total 1200 240 Output Total 1100 3000 Balance 100 -2760 Weight 211 lb 9.6 oz Patient Weight 09/19/19 05:59 Weight 211 lb 9.6 oz Intake & Output: Intake & Output 09/18/19 09/18/19 09/18/19 05:59 13:59 21:59 Intake Total 1200 240 Output Total 1100 3000 Balance 100 -2760 Weight 211 lb 9.6 oz Intake: IV 500 Vancomycin 1,500 mg In Sodium 500 Chloride 0.9% 500 ml @ 333.3 mls/hr IV Q12H [facility] Rx#: [id number] Oral 700 240 Output: Void Amount 1100 Hemodialysis UF 3000 Other: Meal Lunch Percent of Meal Consumed 75% Feeding Ability Independent Urine Appearance Clear Urine Color Bright Yellow Urine Odor Normal Stool Color Green Stool Consistency Loose General appearance: no acute distress Exam: Alert oriented nonlabored breathing No anxiety No lymphedema Undergoing hemodialysis Medical - PN: Obj Da - Labs CBC & Chem 7: 09/18/19 04:40 09/18/19 04:40 Labs: Abnormal Lab Results 09/18/19 09/18/19 09/18/19 08:19 04:40 04:40 WBC 22.6 H RBC 3.25 L Hgb 8.7 L Hct 27.5 L MCHC RDW 15.9 H Gran % Lymph % (Auto) Lymph # (Auto) Seg Neutrophils % 19 L Lymphocytes % 63 H WBC Morphology Abnorm A Reactive Lymphocytes 7 H Smudge Cells Few A RBC Morphology Abnorm A Polychromasia 2+ A Hypochromasia 2+ A Anisocytosis 1+ A Ovalocytes 1+ A Sodium Chloride BUN 25 H Creatinine 3.8 H Glucose 120 H Calcium 8.2 L GGT 92 H Alkaline Phosphatase 163 H Total Protein 5.2 L Albumin 2.6 L Triglycerides 177 H Vancomycin Trough 44.3 H* 09/17/19 09/17/19 09/16/19 08:57 08:57 19:47 WBC 25.3 H RBC 3.59 L Hgb 9.6 L Hct 30.6 L MCHC RDW 15.5 H Gran % 18.0 L Lymph % (Auto) 77.0 H Lymph # (Auto) 19.48 H Seg Neutrophils % Lymphocytes % WBC Morphology Reactive Lymphocytes Smudge Cells RBC Morphology Polychromasia Hypochromasia Anisocytosis Ovalocytes Sodium 131 L Chloride 93 L BUN Creatinine 3.4 H 2.7 H Glucose 118 H Calcium 8.4 L 8.5 L GGT Alkaline Phosphatase 180 H 179 H Total Protein 5.8 L 5.5 L Albumin 3.0 L 3.1 L Triglycerides Vancomycin Trough 09/16/19 19:47 WBC 20.7 H RBC 2.61 L Hgb 6.8 L* Hct 22.1 L MCHC 30.8 L RDW 15.6 H Gran % 28.0 L Lymph % (Auto) 67.0 H Lymph # (Auto) Seg Neutrophils % Lymphocytes % WBC Morphology Reactive Lymphocytes Smudge Cells RBC Morphology Polychromasia Hypochromasia Anisocytosis Ovalocytes Sodium Chloride BUN Creatinine Glucose Calcium GGT Alkaline Phosphatase Total Protein Albumin Triglycerides Vancomycin Trough Meds: Medications Acetaminophen (Tylenol) 650 mg PO Q4-6HP PRN; Protocol PRN Reason: Per Pain Protocol/Fever > 101 Last Admin: 09/18/19 08:05 Dose: 650 mg Documented by: Albuterol/Ipratropium (Duoneb) 3 ml NEB BID [facility] Apixaban (Eliquis) 5 mg PO BID [facility] Bisacodyl (Dulcolax) 10 mg MD Q2-3DAYS PRN PRN Reason: Constipation Calcium Acetate (Phoslo) 667 mg PO BIDCC [facility] Carvedilol (Coreg) 3.125 mg PO BIDCC [facility] Cefepime HCl (Maxipime) 2 gm IV MoWeFr@1800 [facility] Dextrose (Dextrose 50%) 0 ml IV UD PRN PRN Reason: Hypoglycemia Diagnostic Test (Pha) (Accu-Chek) 1 each FS ACHS [facility] Last Admin: 09/18/19 11:43 Dose: 1 each Documented by: Docusate Sodium (Colace) 100 mg PO BID [facility] Last Admin: 09/18/19 09:08 Dose: Not Given Documented by: Ferrous Gluconate (Fergon) 324 mg PO QDAY [facility] Fluticasone Propionate (Flovent Hfa 44mcg) 2 puff INH BID [facility] Glucose (Insta-Glucose) 15 gm PO PRN PRN PRN Reason: Hypoglycemia Guaifenesin/Codeine Phosphate (Robitussin Ac) 10 ml PO Q4HP PRN PRN Reason: Cough Acetaminophen (Ofirmev) 650 mg in 65 mls @ 130 mls/hr IV Q6HP PRN; Protocol PRN Reason: Per Pain Protocol/Fever > 101 Norepinephrine Bitartrate 16 (mg/ Sodium Chloride) 250 mls @ 9.375 mls/hr IV Q24HP PRN; Protocol PRN Reason: TITRATE TO KEEP MAP > 65 Sodium Chloride (Sodium Chloride 0.9%) 250 mls @ 20 mls/hr IV .[id number] [facility] Last Admin: 09/18/19 05:12 Dose: Not Given Documented by: Insulin Glargine (Lantus) 28 unit SQ QHS [facility] Insulin Human Lispro (Humalog) 0 unit SQ ACHS [facility]; Protocol Last Admin: 09/18/19 11:46 Dose: 1 unit Documented by: Iron Carb/Multivit/[place]/Folic Acid (Multivitamin W/Minerals) 1 tab PO DAILY [facility] Last Admin: 09/18/19 09:07 Dose: 1 tab Documented by: Melatonin (Melatonin 3mg Tablet) 3 mg PO HSP PRN PRN Reason: Insomnia Ondansetron HCl (Zofran Odt) 4 mg SL Q4-6HP PRN; Protocol PRN Reason: Nausea And Vomiting Ondansetron HCl (Zofran) 4 mg IV Q4-6HP PRN; Protocol PRN Reason: Nausea And Vomiting Pantoprazole Sodium (Protonix) 40 mg PO BIDAC [facility] Polyethylene Glycol (Miralax) 17 gm PO DAILYP PRN PRN Reason: Constipation Senna/Docusate Sodium (Senna Plus Tablet) 1 tab PO HS [facility] Last Admin: 09/17/19 21:05 Dose: 1 tab Documented by: Simvastatin (Zocor) 20 mg PO QDAY [facility] Sodium Chloride (Saline Flush) 10 ml IV Q8 [facility] Last Admin: 09/18/19 14:10 Dose: 10 ml Documented by: Tamsulosin HCl (Flomax) 0.4 mg PO QDAY [facility] Tramadol HCl (Ultram) 100 mg PO TID [facility] Last Admin: 09/18/19 13:57 Dose: 100 mg Documented by: Vancomycin HCl (Vancomycin Per Pharmacy) 1 order IV UD [facility]; Protocol Medical - PN: A/P - Time Spent With Patient Total time spent is greater than 50% in coordination of care (as documented) at patient's floor/unit and/or counseling patient: 25 - 35 minutes (1) MRSA (methicillin resistant Staphylococcus aureus) septicemia Problem details: right Port a Cath still in place and will need to be removed as planned today Status: Acute Assessment and plan: * Multifocal pneumonia-probable septic emboli from previous septic thrombophlebitis however has been on vancomycin for MRSA bacteremia. Noted on CT chest. Surveillance cultures negative. However final CT read reveals improving chest infiltrates from prior CT. Will de-escalate antibiotics as per ID recommendations. * Severe sepsis -clinically improved. * History of CLL stable * Recent MRSA bacteremia with septicemia on IV vancomycin during dialysis. Repeat surveillance cultures * ESRD on hemodialysis -ongoing HD per nephrology * AOCD status post 3 units PRBC transfusion. Hemoglobin 9 * History of septic thrombosis. Anticoagulated on apixaban * Hypertension stable on Coreg * History of BPH on tamsulosin * COPD on bronchodilators * DM type II continue basal prandial insulin/CC diet * Full code * Prophylaxis on anticoagulation Plan * sepsis management guidelines * Antibiotic coverage * Vancomycin dosing per pharmacy * ESRD management per nephrology * Pre-existing medical condition management home meds Current Visit: Yes Medical - PN: Qual - VTE Deep Vein Thrombosis/Pulmonary Embolism Present on Admission: No
[2019-09-18] MEDS ORDERED: IOPAMIDOL 100 ML BOTTLE IV ONE (16:37)
[2019-09-18] MEDS: PANTOPRAZOLE 40 MG TABLET PO SCH (16:55)
[2019-09-18] MEDS: CALCIUM ACETATE 667 MG CAPSULE PO SCH (16:56)
[2019-09-18] MEDS: CARVEDILOL 3.125 MG TABLET PO SCH (16:56)
--- NOTE | 2019-09-18 17:33 | Cat Scan Report ---
CLINICAL INFORMATION: Sepsis COMPARISON: Abdomen and pelvic CT 05/24/2015 TECHNIQUE: Following enteric contrast, 80 cc of Isovue-370 were injected intravenously, and 60 seconds later, 0.625 mm helical slices were obtained from the mid heart through the subtrochanteric regions. Following reconstruction, 2.5 mm sagittal, coronal and axial reformatted images were processed and reviewed at bone, lung and soft tissue windows. Five minutes later, 0.625 mm helical slices were obtained from the mid heart through the kidneys and viewed at soft tissue windows.The exam was performed using radiation dose optimization techniques including, but not limited to, automated exposure control, adjustment of the mA and/or kV according to patient size and use of iterative reconstruction technique. FINDINGS: Lung bases show chronic bronchitis with scattered scarring and/or atelectasis. No effusions. The visualized heart is normal in size. Abdominal images show 2-3 tiny cysts in the liver less than 3 mm. The gallbladder is unremarkable. Intrahepatic and common bile ducts are normal caliber. The pancreas is markedly atrophic almost totally fatty replaced. The spleen is massively enlarged with a vertical dimension 24 cm. On previous study, it was 19.7 cm. Moderate enlargement of the portal and splenic veins with splenic varices likely related to enlarged splenic size. There are also multiple mildly enlarged lymph nodes in the retroperitoneum which is decreased in size ends previous study. The aorta is normal in diameter with scattered atherosclerotic plaque. Both kidneys show scattered wall simple cysts which are stable. Pelvic images show prostate, seminal vesicles and urinary bladder to be normal. There is a 7 cm x 1 cm fluid collection containing small amounts of gas within the central psoas muscle belly which is new. It is suspicious for psoas abscess. The stomach, small and large bowel are unremarkable with exception of few sigmoid diverticuli. Bone windows show no osseous abnormality IMPRESSION: 1. 7 cm x 1 cm fluid collection, containing gas, within the right psoas muscle belly compatible with psoas abscess. 2. Massive splenomegaly 21 cm vertical dimension. This has increased since the comparison study five years ago. A few mildly enlarged retroperitoneal lymph nodes and decreased slightly are likely benign reactive lymph nodes. 3. Scattered small renal cysts stable. 4. Marked pancreatic atrophy worsening from prior exam Interpreted and Authenticated by: Balwinder Ayala 09/18/19
--- NOTE | 2019-09-18 18:56 | Infectious Disease Consult ---
History of Present Illness Patient information: Note initiated : 09/18/19 at 6:46 pm Service Date, if different from initiated Date: [] Patient: Artie Bhatt 69 y/o M admitted on 09/17/19 for recheck labs. Chief Complaint: [] Consult date: 09/18/19 Requesting Physician: Jovanny Trinidad Reason for Consult: Leucocytosis Chief complaint: my right hip hurts History of present illness: 69 year old man well known to me from past hospitalization in 07/2019 - 08/2019 for complicated MRSA bacteremia. Pt was found to have MRSA bacteremia in setting of tunnelled dialysis catheter (TDC) and chemo-port and finding of right IJ venous thrombosis. Pt was managed with IV Vanc before each HD. TDC was removed 07/29 and chemoport was removed 07/31. There were concerns for septic thrombophlebitis due to nodular opacities found on pt's CT lung. Pt was transferred to [facility] in [place] on 08/01. He had a temp HD cath placed. Pt was seen by ID there as well and after clearance of blood Cx since 08/04, had a new TDC placed on 08/13/19. Pt had his hospital course complicated by GI bleed, with EGD showing multiple non-bleeding ulcers and tubular adenoma. He also needed multiple blood transfusions. He was discharged to [place], [place] in [place] on 09/01/2019. He was admitted to [facility] with shortness of breath, cough, wheezing, fatigue. Symptoms started few weeks pror to admisison. Pt denied any other symptoms. Pt had been on IV Vanc for his septic thrombophlebtis and complicated MRSA bacteremia (stop date of 09/15/19), which was continued during the hospital stay. WBC 20.7 at adm. Blood Cx sent. IV Cefepime started to cover gram negatives. A RVP sent (after discussion with me) was +ve for RSV. At time of visit, RVP had come back showing RSV. Pt reported right hip and lower back pain going on for last few days. The pain was worse with hip movements. Pt denied any other joint pain, n/v, diarrhea. Review of Systems All systems PM: reviewed and no additional remarkable complaints except as stated Constitutional: as per HPI Past History Past medical history: MRSA bacteremia CLL, on Ibrutinib in past Rt TKA ESRD on HD Penicillin allergy: reaction was about 20 years ago. Had a skin rash develop i mmediately after getting a penicillin shot. Resolved thereafter. has not received penicillins since then. Past family history: no sick contacts Past social history: transferred from [place], [place] Medications and Allergies Home Medications Medication Instructions Recorded Confirmed Type simvastatin 20 mg tablet 20 mg PO QDAY tab 01/05/16 09/16/19 History tramadol 50 mg tablet 100 mg PO TID tab 01/05/16 09/16/19 History insulin glargine 100 unit/mL (3 28 units SUB-Q QHS 03/13/18 09/18/19 History mL) subcutaneous pen tamsulosin 0.4 mg capsule 0.4 mg PO QDAY #90 cap 05/08/19 09/16/19 Rx ferrous gluconate 240 mg (27 mg 240 mg PO QDAY 06/19/19 09/16/19 History iron) tablet insulin aspart U-100 100 unit/mL See Rx Instructions SUB-Q BID ml 06/19/19 09/16/19 History (3 mL) subcutaneous pen acetaminophen 650 mg 1,300 mg PO Q7H PRN tab 07/21/19 09/16/19 History tablet,extended release Apixaban [Eliquis] 5 mg PO BID 09/16/19 09/16/19 History Calcium Acetate [Calphron] 667 mg PO BID 09/16/19 09/16/19 History Carvedilol [Coreg] 3.125 mg PO BID 09/16/19 09/16/19 History Fluticasone Hfa 44Mcg [Flovent Hfa 88 mg INH BID 09/16/19 09/16/19 History 44Mcg] Ipratropium/Albuterol [Duoneb] 3 ml NEB BID 09/16/19 09/16/19 History Pantoprazole [Protonix] 40 mg PO BIDAC 09/16/19 09/16/19 History Allergies Allergy/AdvReac Type Severity Reaction Status Date / Time hydrochlorothiazide Allergy Mild Rash Verified 09/16/19 18:29 Physical Examination Vital signs: Temp Pulse Resp BP Pulse Ox 36.5 C 93 H 24 H 116/82 94 09/18/19 16:00 09/18/19 13:05 09/18/19 16:00 09/18/19 16:00 09/18/19 16:00 General appearance: no acute distress Eyes pulmonary: nonicteric Effort: normal Auscultation: bilateral: wheezes Cardiovascular: other (s1 s2 normal, no murmur auscultated) Gastrointestinal: normoactive bowel sounds, soft, non-tender Integumentary: normal Extremities: no edema, other right SC vein dialysis catheter looks normal without any signs of redness, swelling, drainage, tenderness. Results - Laboratory Findings CBC and BMP: 09/19/19 04:35 09/19/19 04:35 Abnormal lab findings: Abnormal Labs 09/16/19 09/16/19 09/17/19 19:47 19:47 08:57 WBC 20.7 H 25.3 H RBC 2.61 L 3.59 L Hgb 6.8 L* 9.6 L Hct 22.1 L 30.6 L MCHC 30.8 L RDW 15.6 H 15.5 H Gran % 28.0 L 18.0 L Lymph % (Auto) 67.0 H 77.0 H Lymph # (Auto) 19.48 H Seg Neutrophils % Lymphocytes % WBC Morphology Reactive Lymphocytes Smudge Cells RBC Morphology Polychromasia Hypochromasia Anisocytosis Ovalocytes Sodium 131 L Chloride 93 L BUN Creatinine 2.7 H Glucose Calcium 8.5 L GGT Alkaline Phosphatase 179 H Total Protein 5.5 L Albumin 3.1 L Triglycerides Vancomycin Trough 09/17/19 09/18/19 09/18/19 08:57 04:40 04:40 WBC 22.6 H RBC 3.25 L Hgb 8.7 L Hct 27.5 L MCHC RDW 15.9 H Gran % Lymph % (Auto) Lymph # (Auto) Seg Neutrophils % 19 L Lymphocytes % 63 H WBC Morphology Abnorm A Reactive Lymphocytes 7 H Smudge Cells Few A RBC Morphology Abnorm A Polychromasia 2+ A Hypochromasia 2+ A Anisocytosis 1+ A Ovalocytes 1+ A Sodium Chloride BUN 25 H Creatinine 3.4 H 3.8 H Glucose 118 H 120 H Calcium 8.4 L 8.2 L GGT 92 H Alkaline Phosphatase 180 H 163 H Total Protein 5.8 L 5.2 L Albumin 3.0 L 2.6 L Triglycerides 177 H Vancomycin Trough 09/18/19 08:19 WBC RBC Hgb Hct MCHC RDW Gran % Lymph % (Auto) Lymph # (Auto) Seg Neutrophils % Lymphocytes % WBC Morphology Reactive Lymphocytes Smudge Cells RBC Morphology Polychromasia Hypochromasia Anisocytosis Ovalocytes Sodium Chloride BUN Creatinine Glucose Calcium GGT Alkaline Phosphatase Total Protein Albumin Triglycerides Vancomycin Trough 44.3 H* Microbiology: Microbiology 09/17/19 16:55 Blood Blood Culture - Preliminary 09/17/19 17:04 Blood Blood Culture - Preliminary 09/17/19 07:00 Sputum - Expectorated Gram Stain - Final 09/17/19 07:00 Sputum - Expectorated Sputum Culture - Final 09/16/19 19:56 Blood Blood Culture - Preliminary 09/16/19 19:47 Blood Blood Culture - Preliminary 09/17/19 12:00 Nasopharynx Respiratory Virus Panel (PCR) - Final 09/17/19 12:17 Nasopharynx Respiratory Panel (PCR) - Final 09/17/19 12:55 Nose - Expectorated Sputum Respiratory Syncytial Virus Ag - Final 09/17/19 00:35 Nose MRSA (PCR) - Final Assessment and Plan - Narrative A/P Narrative: A: 1. Acute RSV infection of lungs: wheezing in absence of supplemental O2 requirements suggests bronchiolitis 2. Right sided psoas abscess with gas: 7 x 1 cm fluid collection with bubbles in the belly of muscle - possibly sec to anerobic/gram negative bacteria 3. MRSA bacteremia with seeding of chemo-port, tunnelled dialysis catheter and right IJ septic thrombophlebitis: s/p treatment with IV vanc until 09/14 - both chemo-port removed on 07/31/19, tunnelled dialysis catheter removed on 07/29/19 - blood Cx neg since 08/04/19 (per [facility] notes) 4. CLL: On PO Ibrutinib - on hold until completes treatment for infection 5. ESRD on HD through right SC HD cath 6. Penicillin allergy: Hx of mild rash about 20 years ago - Ok to give Zosyn while pt is in ICU, being monitored. Overall risk for allergic reaction is very low, and benefits outweigh risks as Zosyn is broad spectrum and includes both gram neg and anerobic coverage Recommendations: - Stop IV Cefepime - Start IV Zosyn 2.25 gm q8 hrs (dialysis dosing) - Hold IV Vanc. Check random serum Vanc levels until daily levels are <20. Pt could be restarted on lower dose of IV vanc pre-HD - Pt needs surgical drainage of the abscess, given presence of bubbles and therefore might need transfer to a higher level of care (transfer to [facility] or [facility]) - above antibiotics could be deescalated based on psoas abscess aspirate cultures results. - spoke with pt about penicillin allergy Hx and very low probability of recurrence of an allergic reaction. Pt gave his verbal consent to go ahead Plan dw Dr Trinidad, patient (over the phone) Andrea Becerra MD Infectious diseases
[2019-09-18] MEDS: PIPERACILLIN SODIUM/TAZOBACTAM 2.25 GM in DEXTROSE 5% IN WATER 50 ML IV SCH (20:09)
[2019-09-18] MEDS: SENNOSIDES/DOCUSATE SODIUM 1 TAB TABLET PO SCH (20:11)
[2019-09-18] MEDS ORDERED: INSULIN GLARGINE, HUMAN 1 UNIT/0.01 ML SQ SCH (21:00)
[2019-09-18] MEDS: IPRATROPIUM/ALBUTEROL 3 ML AMPUL.NEB NEB SCH (22:16)
[2019-09-19] MEDS: FLUTICASONE HFA 44MCG INHALER INH SCH ×2 (03:49→11:58)
[2019-09-19] MEDS: PIPERACILLIN SODIUM/TAZOBACTAM 2.25 GM in DEXTROSE 5% IN WATER 50 ML IV SCH ×2 (04:08→13:34)
[2019-09-19] MEDS: 0.9 % SODIUM CHLORIDE 250 ML IV SCH (04:09)
[2019-09-19] MEDS: 0.9 % SODIUM CHLORIDE 10 ML SYRINGE IV SCH ×2 (04:11→14:10)
[2019-09-19 06:04] LABS: Hemoglobin 8.7 g/dL (13.7-17.5); Mean Cell Volume 85.4 fL (80.0-100.0); Mean Corpuscular HGB Conc 31.1 g/dL (31.0-36.0); Mean Platelet Volume 8.7 fL (7.4-10.4); Platelet Count 142 K/mcL (140-440); RBC 3.28 M/mcL (4.63-6.08); WBC 19.7 K/mcL (4.50-11.00)
[2019-09-19 06:19] LABS: ALT/SGPT 8 U/l (0-40); AST/SGOT 10 U/l (0-37); Albumin 2.7 gm/dL (3.2-5.2); Albumin/Globulin Ratio 1.1 (1.0-2.3); Alkaline Phosphatase 147 U/L (39-117); Bilirubin,Direct < 0.2 mg/dL (0.0-0.3); Bilirubin,Total 0.4 mg/dL (0.0-1.0); Calcium 7.8 mg/dl (8.6-10.4); Carbon Dioxide 25 mmol/L (22-30); Chloride 97 mmol/L (96-108); Globulin 2.5 gm/dL (2.2-3.7); Glomerular Filtration Rate 17; Glucose 133 mg/dL (70-105); Lactate Dehydrogenase 185 U/L (94-250); Phosphorous 3.1 mg/dL (2.7-4.5); Triglycerides 174 mg/dl (<150); Uric Acid 5.6 mg/dL (2.5-8.0)
[2019-09-19 06:26] LABS: Blood Urea Nitrogen 19 mg/dl (8-23)
--- NOTE | 2019-09-19 06:28 | Nephrology Progress Note ---
Subjective Patient information: Note initiated : 09/19/19 at 6:25 am Patient: Artie Bhatt 69 y/o M admitted on 09/17/19 for recheck labs. Chief Complaint: Weakness Pertinent ROS: Weakness Objective - Vital Signs Vital signs: Vital Signs Temp Pulse Pulse Resp BP BP Pulse Ox 09/19/19 04:02 97.6 F 90 15 120/72 98 09/19/19 01:57 86 18 116/69 93 09/19/19 01:30 80 17 99 09/19/19 00:00 97.6 F 78 15 121/66 100 09/18/19 20:17 97.0 F 97 H 19 122/82 96 09/18/19 20:00 19 09/18/19 19:16 98.1 F 141 H 24 H 122/82 98 09/18/19 16:00 97.7 F 24 H 116/82 94 09/18/19 15:46 90 25 H 116/82 94 09/18/19 15:31 104 H 19 123/82 96 09/18/19 15:16 97 H 21 114/74 96 09/18/19 15:01 102 H 21 105/77 92 09/18/19 14:47 103 H 23 H 125/64 96 09/18/19 14:31 107 H 26 H 101/76 93 09/18/19 14:16 105 H 24 H 104/81 94 09/18/19 14:01 20 128/69 09/18/19 13:46 16 133/87 09/18/19 13:34 98.4 F 09/18/19 13:31 98 H 23 H 116/74 94 09/18/19 13:17 110 H 19 96/77 98 09/18/19 13:12 100 H 16 120/72 97 09/18/19 13:05 93 H 104/66 09/18/19 13:02 41 L 21 104/66 100 09/18/19 13:00 99 09/18/19 12:47 101 H 19 110/67 99 09/18/19 12:45 82 110/67 09/18/19 12:32 107 H 23 H 95 09/18/19 12:31 94 H 22 122/75 99 09/18/19 12:30 74 122/75 09/18/19 12:15 84 103/80 09/18/19 12:05 80 15 100 09/18/19 12:01 97.5 F 21 130/74 97 09/18/19 12:00 97 H 130/74 09/18/19 11:45 80 112/84 09/18/19 11:30 98 F 81 138/76 09/18/19 11:15 81 130/73 09/18/19 11:02 21 108/80 09/18/19 11:00 78 108/80 09/18/19 10:45 81 130/83 09/18/19 10:30 91 H 128/78 09/18/19 10:15 86 133/70 09/18/19 10:01 23 H 127/76 09/18/19 10:00 97.2 F 76 127/76 09/18/19 08:03 97.5 F 15 136/77 100 09/18/19 08:00 96 Intake and Output 09/18/19 09/19/19 09/19/19 21:59 05:59 13:59 Intake Total 650 240 Output Total 400 Balance 650 -160 Intake: IV 50 Zosyn 2.25 gm In Dextrose 5% in 50 Water 50 ml @ 100 mls/hr IV Q8H JENA Rx#:[id number] Oral 600 240 Output: Void Amount 400 Other: Urine Appearance Clear Clear Urine Color Bright Yellow Dark Yellow Urine Odor Normal Weight 206 lb 1 oz Intake & Output: Intake & Output 09/18/19 09/19/19 09/19/19 21:59 05:59 13:59 Intake Total 650 240 Output Total 400 Balance 650 -160 Weight 206 lb 1 oz Intake: IV 50 Zosyn 2.25 gm In Dextrose 5% in 50 Water 50 ml @ 100 mls/hr IV Q8H JENA Rx#:[id number] Oral 600 240 Output: Void Amount 400 Other: Urine Appearance Clear Clear Urine Color Bright Yellow Dark Yellow Urine Odor Normal - General Appearance General appearance: chronically ill, fatigue EENT: mucous membranes moist Neck: no JVD Respiratory: clear Cardiology: no edema Gastrointestinal: no tenderness Integumentary: warm and dry Neurologic: no focal deficit, alert and oriented x3 Musculoskeletal: no deformities Psychiatric: mood/affect appropriate, cooperative - Lab 09/19/19 04:35 09/19/19 04:35 Most recent lab results Calcium 7.8 mg/dl (8.6-10.4) L 03/21/20 04:35 Phosphorus 3.1 mg/dL (2.7-4.5) 09/19/19 04:35 Magnesium 1.8 mg/dL (1.6-2.5) 09/19/19 04:35 Assessment and Plan (1) ESRD (end stage renal disease) on dialysis Artie Bhatt is a 69-year-old male with end-stage renal disease on chronic hemodialysis, chronic anemia due to ESRD, diabetes mellitus type 2, hypertension, a history of chronic lymphocytic leukemia and history of colonic AVMs. He recently had a hospitalization at [facility] and [facility] due to nonclearing upper extremity DVT with extension along with MRSA bacteremia and thrombophlebitis that required clot extraction. Patient was transferred from [facility] to [facility] 3 weeks ago. He is on Vancomycin during dialysis. He presented to ED for worsening persistent cough along with weakness. He is admitted for severe anemia with a hemoglobin of 6.8 and pneumonia. End-stage renal disease on chronic hemodialysis (through right IJ tunneled hemodialysis catheter, on MWF, at [facility]). CLL. Hyponatremia, mild. Severe anemia s/p 3 units PRBC. Multifocal pneumonia with RSV. Recent MRSA bacteremia on IV Vancomycin. Right Psoas abscess, new diagnosis, requiring transfer to higher level for drainage. Plan: Extra hemodialysis today for IV contrast then continue MWF. The patient seen and evaluated during hemodialysis. Status: Chronic Priority: Medium Comment: dialysis on hold for few days. Plan temp femoral dialysis cath for dialysis while awaiting safe replacement of tunneled dialysis catheter.
[2019-09-19] MEDS: INSULIN LISPRO 1 UNIT/0.01 ML UNIT SQ SCH ×2 (07:51→12:03)
[2019-09-19] MEDS: CALCIUM ACETATE 667 MG CAPSULE PO SCH (08:08)
[2019-09-19] MEDS: CARVEDILOL 3.125 MG TABLET PO SCH (08:08)
[2019-09-19] MEDS: APIXABAN 5 MG TABLET PO SCH (08:08)
[2019-09-19] MEDS: PANTOPRAZOLE 40 MG TABLET PO SCH (08:08)
[2019-09-19 08:32] LABS: Anisocytosis 1+ (NONE SEEN); Lymphocytes % 82 % (15-49); Monocytes % (Manual) 1 % (1-12); Ovalocytes 1+ (NONE SEEN); Platelet Estimate NORMAL (NORMAL); RBC Morphology ABNORM (NORMAL); Segmented Neutrophils % 17 % (38-78); Smudge Cells RARE (NONE SEEN)
[2019-09-19] MEDS: IPRATROPIUM/ALBUTEROL 3 ML AMPUL.NEB NEB SCH (08:45)
[2019-09-19] MEDS: traMADol 50 MG TABLET PO SCH ×2 (08:46→15:57)
[2019-09-19] MEDS: MULTIVIT,THER IRON,CA,FA & MIN 1 TABLET PO SCH (08:46)
[2019-09-19] MEDS ORDERED: TAMSULOSIN 0.4 MG CAPSULE PO SCH (09:00)
[2019-09-19] MEDS ORDERED: SIMVASTATIN 20 MG TABLET PO SCH (09:00)
[2019-09-19] MEDS ORDERED: FERROUS GLUCONATE 324 MG TABLET PO SCH (09:00)
--- NOTE | 2019-09-19 09:31 | Transfer Summary ---
Transfer Discharge Sum: Prov Patient information: Note initiated : 09/19/19 at 9:29 am Service Date, if different from initiated Date: [] Patient: Artie Bhatt 69 y/o M admitted on 09/17/19 for recheck labs. Chief Complaint: [] Date of admission: 09/17/19 00:11 Discharge Date: 09/19/19 Primary care physician: Artie Foster Consults: 09/17/19 07:46 Consult to Physician [CONS] Routine Comment: Consulting Provider: Jovanny Trinidad Reason For Exam: Physician to Consult 09/17/19 16:08 Consult to Physician [CONS] Routine Comment: Consulting Provider: Andrea Becerra Reason For Exam: Physician to Consult Receiving physician/facility: Dr. Hogan Mi [facility] Transfer Discharge Sum: Diag - Discharge Diagnosis (1) Psoas abscess, right Status: Acute Transfer Discharge Sum: Med - Medications Active and Home Medications: Home Medications simvastatin 20 mg tablet 20 mg PO QDAY tab 01/05/16 [History Confirmed 09/16/19] tramadol 50 mg tablet 100 mg PO TID tab 01/05/16 [History Confirmed 09/16/19] insulin glargine 100 unit/mL (3 mL) subcutaneous pen 28 units SUB-Q QHS 03/13/18 [History Confirmed 09/18/19] tamsulosin 0.4 mg capsule 0.4 mg PO QDAY #90 cap 05/08/19 [Rx Confirmed 09/16/19] ferrous gluconate 240 mg (27 mg iron) tablet 240 mg PO QDAY 06/19/19 [History Confirmed 09/16/19] insulin aspart U-100 100 unit/mL (3 mL) subcutaneous pen See Rx Instructions SUB-Q BID ml 06/19/19 [History Confirmed 09/16/19] acetaminophen 650 mg tablet,extended release 1,300 mg PO Q7H PRN tab 07/21/19 [History Confirmed 09/16/19] Apixaban [Eliquis] 5 mg PO BID 09/16/19 [History Confirmed 09/16/19] Calcium Acetate [Calphron] 667 mg PO BID 09/16/19 [History Confirmed 09/16/19] Carvedilol [Coreg] 3.125 mg PO BID 09/16/19 [History Confirmed 09/16/19] Fluticasone Hfa 44Mcg [Flovent Hfa 44Mcg] 88 mg INH BID 09/16/19 [History Confirmed 09/16/19] Ipratropium/Albuterol [Duoneb] 3 ml NEB BID 09/16/19 [History Confirmed 09/16/19] Pantoprazole [Protonix] 40 mg PO BIDAC 09/16/19 [History Confirmed 09/16/19] Active Medications Acetaminophen (Tylenol) 650 mg PO Q4-6HP PRN; Protocol PRN Reason: Per Pain Protocol/Fever > 101 Last Admin: 09/18/19 08:05 Dose: 650 mg Documented by: Albuterol/Ipratropium (Duoneb) 3 ml NEB BID [facility] Last Admin: 09/19/19 08:45 Dose: Not Given Documented by: Apixaban (Eliquis) 5 mg PO BID [facility] Last Admin: 09/19/19 08:08 Dose: 5 mg Documented by: Bisacodyl (Dulcolax) 10 mg MS Q2-3DAYS PRN PRN Reason: Constipation Calcium Acetate (Phoslo) 667 mg PO BIDCC [facility] Last Admin: 09/19/19 08:08 Dose: 667 mg Documented by: Carvedilol (Coreg) 3.125 mg PO BIDCC [facility] Last Admin: 09/19/19 08:08 Dose: 3.125 mg Documented by: Dextrose (Dextrose 50%) 0 ml IV UD PRN PRN Reason: Hypoglycemia Diagnostic Test (Pha) (Accu-Chek) 1 each FS ACHS [facility] Last Admin: 09/19/19 07:30 Dose: 1 each Documented by: Docusate Sodium (Colace) 100 mg PO BID [facility] Last Admin: 09/18/19 20:11 Dose: 100 mg Documented by: Ferrous Gluconate (Fergon) 324 mg PO QDAY [facility] Last Admin: 09/19/19 08:46 Dose: 324 mg Documented by: Fluticasone Propionate (Flovent Hfa 44mcg) 2 puff INH BID [facility] Last Admin: 09/19/19 03:49 Dose: Not Given Documented by: Glucose (Insta-Glucose) 15 gm PO PRN PRN PRN Reason: Hypoglycemia Guaifenesin/Codeine Phosphate (Robitussin Ac) 10 ml PO Q4HP PRN PRN Reason: Cough Acetaminophen (Ofirmev) 650 mg in 65 mls @ 130 mls/hr IV Q6HP PRN; Protocol PRN Reason: Per Pain Protocol/Fever > 101 Norepinephrine Bitartrate 16 (mg/ Sodium Chloride) 250 mls @ 9.375 mls/hr IV Q24HP PRN; Protocol PRN Reason: TITRATE TO KEEP MAP > 65 Sodium Chloride (Sodium Chloride 0.9%) 250 mls @ 20 mls/hr IV .[id number] [facility] Last Admin: 09/19/19 04:09 Dose: Not Given Documented by: Piperacillin Sod/Tazobactam (Sod 2.25 gm/ Dextrose) 50 mls @ 100 mls/hr IV Q8H [facility]; Protocol Last Infusion: 09/19/19 06:41 Dose: Infused Documented by: Insulin Glargine (Lantus) 28 unit SQ QHS [facility] Last Admin: 09/18/19 20:38 Dose: Not Given Documented by: Insulin Human Lispro (Humalog) 0 unit SQ ACHS [facility]; Protocol Last Admin: 09/19/19 07:51 Dose: Not Given Documented by: Iron Carb/Multivit/[place]/Folic Acid (Multivitamin W/Minerals) 1 tab PO DAILY [facility] Last Admin: 09/19/19 08:46 Dose: 1 tab Documented by: Melatonin (Melatonin 3mg Tablet) 3 mg PO HSP PRN PRN Reason: Insomnia Ondansetron HCl (Zofran Odt) 4 mg SL Q4-6HP PRN; Protocol PRN Reason: Nausea And Vomiting Ondansetron HCl (Zofran) 4 mg IV Q4-6HP PRN; Protocol PRN Reason: Nausea And Vomiting Pantoprazole Sodium (Protonix) 40 mg PO BIDAC [facility] Last Admin: 09/19/19 08:08 Dose: 40 mg Documented by: Polyethylene Glycol (Miralax) 17 gm PO DAILYP PRN PRN Reason: Constipation Senna/Docusate Sodium (Senna Plus Tablet) 1 tab PO HS [facility] Last Admin: 09/18/19 20:11 Dose: 1 tab Documented by: Simvastatin (Zocor) 20 mg PO QDAY [facility] Last Admin: 09/19/19 08:46 Dose: 20 mg Documented by: Sodium Chloride (Saline Flush) 10 ml IV Q8 [facility] Last Admin: 09/19/19 04:11 Dose: 10 ml Documented by: Tamsulosin HCl (Flomax) 0.4 mg PO QDAY [facility] Last Admin: 09/19/19 08:46 Dose: 0.4 mg Documented by: Tramadol HCl (Ultram) 100 mg PO TID [facility] Last Admin: 09/19/19 08:46 Dose: 100 mg Documented by: Vancomycin HCl (Vancomycin Per Pharmacy) 1 order IV UD [facility]; Protocol Transfer Discharge Sum: Hosp Hospital course: Transfer diagnosis * Right psoas abscess with gas forming organism, recent MRSA bacteremia-ID recommends surgical washout and avoiding CT-guided drainage to prevent bacteremia and subsequent catheter infection. Case discussed with surgery Dr. Rivera at [place]. Patient accepted for further management including abscess drainage/continued ESRD management * Multifocal pneumonia-probable septic emboli from recent IJ septic thrombophlebitis. Improving on interval chest CT. RSV positive. On continued IV vancomycin for MRSA bacteremia. Surveillance cultures negative. * Sepsis -clinically improved. Stable hemodynamics, map at goal. * History of CLL stable. White count 19.7 with 82% lymphocytes * Recent MRSA bacteremia with septicemia on IV vancomycin during dialysis. Repeat surveillance cultures negative so far * ESRD on hemodialysis -status post HD today 09/18 following IV contrast administration 09/17 * AOCD status post 3 units PRBC transfusion. Hemoglobin stable at 8.7 * History of venous thrombosis. Anticoagulated on apixaban * Hypertension stable on Coreg * History of BPH on tamsulosin * COPD on bronchodilators * DM type II continue basal prandial insulin/CC diet Brief hospital course Mr. Bhatt is a 69 year old M with a history of CLL, colonic AVM/ESRD on HD who recently was transferred to [facility] and then to [place] due to nonclearing upper extremity DVT/IJ septic thrombophlebitis with extension, HD catheter infection, bacteremia. Following treatment including port removal and HD tunneled dialysis catheter change patient was transferred from [place] to [facility] roughly 3 weeks ago and has been undergoing rehab along with IV vancomycin during HD however since discharge he has not really felt well even for a day. He endorses to persistent cough along with weakness fatigue and malaise. He presents with worsening symptoms including dyspnea/fatigue. Initial work-up in the ER was consistent with severe anemia with a hemoglobin of 6.8. Patient has been on vancomycin during dialysis for bacteremia. Chest CT was consistent with multifocal infiltrates with a suspicion of septic emboli but not remarkably different from prior imaging. 3 units of blood transfusion was ordered and subsequently hospitalist service was consulted in light of above. At the time evaluation patient appears weak and fatigued lethargic. He is able to answer some of the questions. He lives at [place] but has been recently undergoing rehab at [facility] following hospitalization. He denies fever, headache, joint pain, rash or joint swelling. He further denies diarrhea, dysuria, but endorses shortness of breath and increasing cough. Travel/contact risk includes recent hospitalization at [place] and multiple healthcare facility exposure. 09/16-patient clinically worse with white count over 25,000, improved hemoglobin status post 3 unit transfusion to 9.6. Ongoing hemodialysis. T-max 100.2. Viral respiratory panel negative. Coronavirus RNA ordered due to high risk travel history to [place]. Blood cultures pending. 09/17-patient seen and evaluated. No overnight events. Elevated white count secondary to CLL. However complaining of hip and lower back pain. Will undergo CT scan of the hip/lower back as per ID recommendations for further evaluation. Continuing antibiotic coverage. Case discussed with nephrology and krisay to proceed with contrast as patient will undergo hemodialysis in the 24 hours. 09/18-CT lower back/hip reveals right psoas abscess with gas. Case discussed with ID. Recommends transfer to tertiary center for surgical evaluation due to high complexity and recent treatment at [place] in [place]. Case discussed with [place] with no beds availability. Subsequently case discussed with Dr. rivera surgeon at [place]. Patient will be transferred via ground ambulance for further evaluation/abscess drainage. He is status post hemodialysis today. Currently on IV vancomycin for recent MRSA bacteremia/Zosyn for gas-forming organism coverage(penicillin allergy has been removed due to patient tolerating Zosyn well). Patient is hemodynamically stable, afebrile, maintaining sats on room air with systolics around 130. COVID 19 test was canceled by ID In the absence of signs consistent with coronavirus infection and RSV positivity. - Time Spent with Patient Total time spent providing and/or coordinating transfer services: Greater than 30 minutes Transfer Discharge Sum: Exam - Constitutional Vitals: Vital Signs Temp Pulse Pulse Resp BP BP Pulse Ox 09/19/19 07:36 97.6 F 19 133/80 96 03//20 07:30 96 09/18/20 04:02 97.6 F 90 15 120/72 98 //20 01:57 86 18 116/69 93 09/18/20 01:30 80 17 99 09/18/20 00:00 97.6 F 78 15 121/66 100 /20/20 20:17 97.0 F 97 H 19 122/82 96 20/20 20:00 19 20 19:16 98.1 F 141 H 24 H 122/82 98 20/20 16:00 97.7 F 24 H 116/82 94 20/20 15:46 90 25 H 116/82 94 20/20 15:31 104 H 19 123/82 96 20/20 15:16 97 H 21 114/74 96 09/17/20 15:01 102 H 21 105/77 92 20/20 14:47 103 H 23 H 125/64 96 20/20 14:31 107 H 26 H 101/76 93 20/20 14:16 105 H 24 H 104/81 94 20/20 14:01 20 128/69 /20/20 13:46 16 133/87 20/20 13:34 98.4 F 20 13:31 98 H 23 H 116/74 94 20/20 13:17 110 H 19 96/77 98 09/17/20 13:12 100 H 16 120/72 97 20/20 13:05 93 H 104/66 20/20 13:02 41 L 21 104/66 100 20/20 13:00 99 20/20 12:47 101 H 19 110/67 99 20/20 12:45 82 110/67 20/20 12:32 107 H 23 H 95 20/20 12:31 94 H 22 122/75 99 20/20 12:30 74 122/75 20/20 12:15 84 103/80 20/20 12:05 80 15 100 20/20 12:01 97.5 F 21 130/74 97 20/20 12:00 97 H 130/74 20/20 11:45 80 112/84 09/18/19 11:30 98 F 81 138/76 09/18/19 11:15 81 130/73 09/18/19 11:02 21 108/80 09/18/19 11:00 78 108/80 09/18/19 10:45 81 130/83 09/18/19 10:30 91 H 128/78 09/18/19 10:15 86 133/70 09/18/19 10:01 23 H 127/76 09/18/19 10:00 97.2 F 76 127/76 Intake and Output 09/18/19 09/19/19 09/19/19 21:59 05:59 13:59 Intake Total 650 240 50 Output Total 400 Balance 650 -160 50 Intake: IV 50 50 Zosyn 2.25 gm In Dextrose 5% in 50 50 Water 50 ml @ 100 mls/hr IV Q8H [facility] Rx#:[id number] Oral 600 240 Output: Void Amount 400 Other: Urine Appearance Clear Clear Urine Color Bright Yellow Dark Yellow Urine Odor Normal Weight 206 lb 1 oz Transfer Discharge Sum: Data Procedures and tests throughout hospitalization: Transfer Discharge Sum: A/P - Problem Maintenance (1) Psoas abscess, right Status: Acute - Plan Functional capacity at transfer: bed bound Overall status at transfer: patient is not back to baseline Disposition: Xfer [facility] Quality Measure Queries - VTE Deep Vein Thrombosis/Pulmonary Embolism Present on Admission: No
[2019-09-19] MEDS: DOCUSATE SODIUM 100 MG CAPSULE PO SCH (11:56)
--- NOTE | 2019-09-19 18:12 | Infectious Disease Prog Note ---
Subjective Patient information: Note initiated : 09/19/19 at 6:09 pm Service Date, if different from initiated Date: [] Patient: Artie Bhatt 69 y/o M admitted on 09/17/19 for recheck labs. Chief Complaint: [] Interval history: Pt feels same as yesterday. Endorses right side hip pain and lower back pain. Denies any fever, chills, n/v, diarrhea, SOB. Endorses cough. Dialyzed yesterday with removal of around 3 L. Objective Objective Narrative: ao x 3, in nad chest has mild wheezing, much better than yesterday. VBS b/l s1 s2 normal, no m/r/g bs ++, tender to touch in left upper quadrant. palpable splenomegaly about 10-12 cm below the left costal margin. Dull to percuss no edema tenderness elicited on right hip movements, SLRT +ve at 20 degrees - Vital Signs Vital signs: Vital Signs Temp Pulse Pulse Resp BP BP Pulse Ox 09/19/19 16:56 37.0 C 96 H 17 134/93 95 09/19/19 16:00 13 108/70 09/19/19 15:00 36.2 C 13 09/19/19 14:38 36.3 C 19 120/70 97 09/19/19 14:15 97 09/19/19 13:05 15 127/72 09/19/19 13:00 35.8 C L 69 105/70 09/19/19 12:45 89 115/70 09/19/19 12:30 82 103/80 09/19/19 12:15 83 116/67 09/19/19 12:01 14 99/72 09/19/19 12:00 99/72 09/19/19 11:45 36.4 C 99 H 110/81 09/19/19 11:30 85 96/74 09/19/19 11:15 84 124/67 09/19/19 11:02 18 105/72 95 09/19/19 11:00 79 105/72 09/19/19 10:45 82 110/79 09/19/19 10:30 95 H 103/66 09/19/19 10:15 79 115/69 09/19/19 10:00 86 113/61 09/19/19 09:55 36.2 C 73 117/79 09/19/19 07:36 36.4 C 19 133/80 96 09/19/19 07:30 96 09/19/19 04:02 36.4 C 90 15 120/72 98 09/19/19 01:57 86 18 116/69 93 09/19/19 01:30 80 17 99 09/19/19 00:00 36.4 C 78 15 121/66 100 09/18/19 20:17 36.1 C 97 H 19 122/82 96 09/18/19 20:00 19 09/18/19 19:16 36.7 C 141 H 24 H 122/82 98 Intake and Output 09/19/19 09/19/19 09/19/19 05:59 13:59 21:59 Intake Total 240 410 410 Output Total 400 1000 25 Balance -160 -590 385 Intake: IV 50 50 Zosyn 2.25 gm In Dextrose 5% in 50 50 Water 50 ml @ 100 mls/hr IV Q8H [facility] Rx#:[id number] Oral 240 360 360 Output: Void Amount 400 25 Hemodialysis UF 1000 Other: Meal Lunch Percent of Meal Consumed 100% Feeding Ability Assist with Tray Set Up Urine Appearance Clear Clear Urine Color Dark Yellow Dark Yellow Urine Odor Normal Normal Intake & Output: Intake & Output 09/19/19 09/19/19 09/19/19 05:59 13:59 21:59 Intake Total 240 410 410 Output Total 400 1000 25 Balance -160 -590 385 Intake: IV 50 50 Zosyn 2.25 gm In Dextrose 5% in 50 50 Water 50 ml @ 100 mls/hr IV Q8H [facility] Rx#:[id number] Oral 240 360 360 Output: Void Amount 400 25 Hemodialysis UF 1000 Other: Meal Lunch Percent of Meal Consumed 100% Feeding Ability Assist with Tray Set Up Urine Appearance Clear Clear Urine Color Dark Yellow Dark Yellow Urine Odor Normal Normal - Lab 09/19/19 04:35 09/19/19 04:35 Most recent lab results Calcium 7.8 mg/dl (8.6-10.4) L 09/19/19 04:35 Phosphorus 3.1 mg/dL (2.7-4.5) 09/19/19 04:35 Magnesium 1.8 mg/dL (1.6-2.5) 09/19/19 04:35 Microbiology 09/17/19 16:55 Blood Blood Culture - Preliminary 09/17/19 17:04 Blood Blood Culture - Preliminary 09/16/19 19:56 Blood Blood Culture - Preliminary 09/16/19 19:47 Blood Blood Culture - Preliminary 09/17/19 07:00 Sputum - Expectorated Gram Stain - Final 09/17/19 07:00 Sputum - Expectorated Sputum Culture - Final 09/17/19 12:00 Nasopharynx Respiratory Virus Panel (PCR) - Final 09/17/19 12:17 Nasopharynx Respiratory Panel (PCR) - Final 09/17/19 12:55 Nose - Expectorated Sputum Respiratory Syncytial Virus Ag - Final 09/17/19 00:35 Nose MRSA (PCR) - Final Assessment and Plan - Narrative A/P Narrative: A: 1. Acute RSV infection of lungs: wheezing in absence of supplemental O2 requirements suggests bronchiolitis 2. Right sided psoas abscess with gas: 7 x 1 cm fluid collection with bubbles in the belly of muscle - possibly sec to anerobic/gram negative bacteria 3. MRSA bacteremia with seeding of chemo-port, tunnelled dialysis catheter and right IJ septic thrombophlebitis: s/p treatment with IV vanc until 09/14 - both chemo-port removed on 07/31/19, tunnelled dialysis catheter removed on 07/29/19 - blood Cx neg since 08/04/19 (per [place] notes) 4. CLL: On PO Ibrutinib - on hold until completes treatment for infection - likely cause of massive splenomegaly 5. ESRD on HD through right SC HD cath 6. Penicillin allergy: - removed from chart as pt tolerated IV Zosyn without any problems Recommendations: - Continue IV Zosyn 2.25 gm q8 hrs (dialysis dosing) - Hold IV Vanc. Check random serum Vanc levels until daily levels are <20. Pt could be restarted on lower dose of IV vanc pre-HD. Today serum Vanc level at ~33 - Agree with transfer to [facility] for surgical drainage of the abscess, given presence of bubbles and overall complexity of the case - above antibiotics could be deescalated based on psoas abscess aspirate cultures results. Plan dw Dr Trinidad, patient (over the phone) Andrea Becerra MD Infectious diseases
[2019-09-21] MEDS ORDERED: CEFEPIME 2 GM VIAL IV SCH (18:00)
== END 2019-09-19 17:25 | disposition short-term general hospital (02) | DRG 371 ==
LOC: ED 18:23 → ICU 09-17 00:11
PROVIDERS: ADMIT Internal Medicine; ATTEND Internal Medicine

== ENCOUNTER 2020-06-06 11:56 | Inpatient (IN) ==
--- NOTE | 2020-06-06 12:34 | Emergency Department Note ---
HPI General Chief complaint: Shortness of Breath/Dyspnea Stated complaint: weakness, SOB Time Seen by Provider: 06/06/20 12:24 Source: EMS Mode of arrival: EMS Limitations: no limitations History of Present Illness HPI Narrative: Narrative: 70-year old patient presenting with chief complaint of dyspnea. Patient's dy spnea arose over the course of days weeks months. Patient with associated symptoms of thirst and is noted to be a dialysis patient. This patient's dyspnea was not exacerbated by exertion within 50-100 feet of walking or several minutes of exercise. Also was not associated with a nocturnal component. Symptoms are continuous gradual and progressive. Additional associated symptoms such as cough, sputum production, nasal congestion, chest pain, peripheral edema, joint swelling, muscle weakness were also inquired. Patient primarily with dyspnea sensation of sensation of suffocation. Related Data Home Medications Medication Instructions Recorded Confirmed simvastatin 20 mg tablet 20 mg PO QDAY tab 01/05/16 06/06/20 tramadol 50 mg tablet 100 mg PO TID tab 01/05/16 06/06/20 insulin glargine 100 unit/mL (3 29 units SUB-Q QHS 03/13/18 06/06/20 mL) subcutaneous pen ferrous gluconate 240 mg (27 mg 240 mg PO QDAY 06/19/19 06/06/20 iron) tablet insulin aspart U-100 100 unit/mL See Rx Instructions SUB-Q BID ml 06/19/19 06/06/20 (3 mL) subcutaneous pen acetaminophen 650 mg 1,300 mg PO Q6HP PRN tab 07/21/19 02/05/20 tablet,extended release pantoprazole 40 mg PO BIDAC 09/16/19 06/06/20 carvedilol 3.125 mg PO BID 01/13/20 02/05/20 furosemide 40 mg tablet 20 mg PO DAILY 01/13/20 06/06/20 oxycodone 5 mg capsule 5 mg PO Q12H PRN cap 01/13/20 02/05/20 calcium acetate(phosphat bind) 667 1,334 mg PO TID 03/17/20 mg capsule darbepoetin landen-albumin 60 mcg/mL mcg .ROUTE 03/17/20 in albumin injection doxycycline hyclate 100 mg capsule 100 mg PO QDAY 03/17/20 06/06/20 melatonin 3 mg capsule 6 mg PO HS PRN cap 03/17/20 06/06/20 B complex-vitamin C-folic acid 0.8 1 tab PO QDAY 03/23/20 mg tablet calcium acetate(phosphat bind) 667 1,334 mg PO TID 03/23/20 mg capsule apixaban [Eliquis] 5 mg PO BID 06/06/20 06/06/20 febuxostat 40 mg PO QDAY 06/06/20 06/06/20 prednisone 10 mg PO TID 06/06/20 06/06/20 Previous Rx's Medication Instructions Recorded tamsulosin 0.4 mg capsule 0.4 mg PO QDAY #90 cap 05/08/19 Allergies Allergy/AdvReac Type Severity Reaction Status Date / Time hydrochlorothiazide Allergy Mild Rash Verified 03/23/20 16:33 Review of Systems ROS ROS Narrative: Narrative: All systems ED: reviewed and negative except as stated. [facility] Narrative Patient History Narrative: Narrative: Medical/Surgical/Family History All Active Problems (Updated 06/07/20 @ 01:51 by Sandip Lord MD) Community acquired pneumonia (Acute) Anasarca associated with disorder of kidney (Acute) Transfusion-dependent anemia (Acute) Failure to thrive in adult (Acute) Erythropoietin-resistant anemia (Chronic) CLL (chronic lymphocytic leukemia) (Acute) Anemia in chronic illness (Acute) Hemorrhage complicating a procedure (Acute) ESRD (end stage renal disease) on dialysis (Chronic) Metabolic acidosis (Chronic) Complications, dialysis, catheter, mechanical (Acute) Fever (Acute) MRSA (methicillin resistant Staphylococcus aureus) septicemia (Acute) Septic thrombophlebitis (Acute) Psoas abscess, right (Acute) Iron deficiency anemia, unspecified (Chronic) Secondary hyperparathyroidism of renal origin (Chronic) Nephrotic syndrome due to diabetes mellitus (Chronic) BPH w urinary obs/LUTS (Chronic) Other lymphoid leukemia, in relapse (Chronic) Gouty arthritis (Chronic) Tubular adenoma of colon (Chronic) Constipation (Chronic) Diastolic dysfunction (Chronic) Leukemia (Chronic) 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 2 diabetes mellitus (Chronic) Localized edema due to fluid overload (Chronic) CKD (chronic kidney disease) stage 4, GFR 15-29 ml/min (Chronic) Gout due to renal impairment (Chronic) Long-term use of high-risk medication (Chronic) Encounter for long-term current use of medication (Acute) Abnormal immunological finding in serum (Chronic) Tophus (Chronic) Petechial rash (Chronic) Arteriovenous malformation (Chronic) Peripheral neuropathy (Chronic) Hx of basal cell carcinoma (Chronic) Effusion of knee joint right (Chronic) Chronic pain of right knee (Chronic) DJD (degenerative joint disease) (Chronic) Hyperlipidemia (Chronic) Sleep apnea (Chronic) Hypertension (Chronic) Tinnitus (Chronic) Anemia (Chronic) Controlled type 2 diabetes mellitus (Chronic) Olecranon bursitis of left elbow (Chronic) Chronic lymphoid leukemia (Chronic) Nasal polyp (Chronic) Hypertensive cardiomyopathy (Chronic) Gout (Acute) Vasculitis of skin (Chronic) Blunt wound (Chronic) Medical History Abnormal immunological finding in serum (Chronic) Anemia (Chronic) Arteriovenous malformation (Chronic) Blunt wound (Chronic) Chronic lymphoid leukemia (Chronic) Chronic pain of right knee (Chronic) Constipation (Chronic) Controlled type 2 diabetes mellitus (Chronic) Diastolic dysfunction (Chronic) DJD (degenerative joint disease) (Chronic) Effusion of knee joint right (Chronic) Encounter for long-term current use of medication (Acute) Gout (Acute) Gouty arthritis (Chronic) Hx of basal cell carcinoma (Chronic) Hyperlipidemia (Chronic) Hypertension (Chronic) Hypertensive cardiomyopathy (Chronic) Leukemia (Chronic) Nasal polyp (Chronic) Olecranon bursitis of left elbow (Chronic) Other lymphoid leukemia, in relapse (Chronic) Peripheral neuropathy (Chronic) Petechial rash (Chronic) Sleep apnea (Chronic) Tinnitus (Chronic) Tophus (Chronic) Tubular adenoma of colon (Chronic) Vasculitis of skin (Chronic) Surgical History Hx of arthroscopy of knee (Chronic) Hx of colonoscopy (Chronic) Hx of inguinal herniorrhaphy (Chronic) Hx of total knee replacement (Chronic) Family History Father DM type 2 (diabetes mellitus, type 2) Grandmother DM type 2 (diabetes mellitus, type 2) Mother DM type 2 (diabetes mellitus, type 2) Brother DM type 2 (diabetes mellitus, type 2) Social History Smoking Status: Former smoker Alcohol Intake Frequency: does not drink Exam Narrative Narrative: Vital signs and evaluated for evidence of hypoxia or hemodynamic compromise specifically tachycardia/hypotension General: Alert but confused Head: Atraumatic, normocephalic Eyes: Extraocular movements intact, sclera anicteric, no conjunctival injection Ears: Pinnae normal, no discharge Mouth: Oral mucosa moist, no acute swelling or evidence of infection Nares: No nasal discharge, patent bilaterally Neck: Trachea midline, full range of motion Chest: Symmetrical chest wall rise, breathing normally; nonlabored respirations Cardiovascular: Patient with excellent perfusion to the extremities; with tachycardia Extremities: Full range of motion joints, no obvious deformities Neuro: Alert, cranial nerves II through XII grossly intact, patient without lateralizing findings such as weakness, or abnormal reflexes Skin: Patient with petechiae diffusely over his body anasarca General Limitations: no limitations Course Vital Signs Vital signs: Vital Signs Temperature 97.0 F 06/06/20 12:00 Pulse Rate 109 H 06/06/20 12:00 Respiratory Rate 17 06/06/20 12:00 Blood Pressure 127/76 06/06/20 12:00 Pulse Oximetry (%) 92 06/06/20 12:00 Temperature 97.3 F 06/07/20 00:01 Pulse Rate 120 H 06/06/20 20:57 Respiratory Rate 23 H 06/07/20 00:01 Blood Pressure 122/69 06/07/20 00:01 Pulse Oximetry (%) 96 06/07/20 00:01 [facility] MDM Narrative Medical decision making narrative: Acute dyspnea differential diagnosis considered in this case included MS, heart failure, cardiac tamponade, bronchospasm, pulmonary embolism, pneumothorax, pneumonia or infection, and upper airway obstruction. After review of chart and patient history/physical exam/labs as well as imaging the differential diagnosis addressed was acute hypoxic respiratory failure, COPD exacerbation, pneumonia, sepsis, pulmonary edema, pneumothorax, metabolic acidosis, acute respiratory distress syndrome, panic attack, airflow obstruction, restrictive lung disease, aspiration, congest pete heart failure, hypercapnia, influenza, bronchitis, upper respiratory infection, pulmonary embolism, cardiac tamponade, valvular obstruction, MS/ACS, and arrhythmia in my medical opinion this patient has dyspnea that reasonably does require admission to the hospital. Patient with findings on evaluation consistent with pneumonia hyperkalemia anasarca. Given these multitude of findings as well as some anemia discussed the case with the hospitalist and Dr. Ramos will admit the patient for further inpatient management. Lab Data Result diagrams: 06/06/20 12:59 06/06/20 12:59 Labs: Lab Results 06/06/20 06/06/20 06/06/20 Range/Units 12:55 12:55 12:59 WBC 243.9 H* (4.5-11.0) K/mcL RBC 2.03 L (4.50-5.90) M/mcL Hgb 5.7 L* (13.5-16.5) g/dL Hct 19.0 L* (41.0-55.0) % MCV 93.6 (80.0-100.0) fL MCH 28.1 (26.0-34.0) pg MCHC 30.0 L (31.0-36.0) g/dL RDW 16.4 H (11.5-14.5) % Plt Count 16 L* (140-440) K/mcL MPV 9.6 (7.4-10.4) fL Neut % (Auto) 2.6 L (38.0-78.0) % Lymph % (Auto) 87.5 H (15.0-49.0) % [place] % (Auto) 9.9 (1.0-12.0) % Eos % (Auto) 0 (0.0-7.0) % Baso % (Auto) 0 (0.0-2.0) % Lymph # (Auto) 213.35 H (1.50-4.80) K/mcL [place] # (Auto) 24.13 H (0.10-0.90) K/mcL Eos # (Auto) 0.03 (0.00-0.70) K/mcL Baso # (Auto) 0.10 (0.00-0.20) K/mcL Absolute Neutrophils 6.33 (1.80-8.00) K/mcL VBG Lactic Acid 0.9 (0.5-2.0) mmol/L Sodium (133-145) mmol/L Potassium (3.3-5.1) mmol/L Chloride (96-108) mmol/L Carbon Dioxide (22-30) mmol/L Anion Gap (8.0-16.0) BUN (8-23) mg/dL Creatinine (0.7-1.2) mg/dL GFR Calculation Glucose (70-105) mg/dL Calcium (8.6-10.4) mg/dL Total Bilirubin (0.1-1.0) mg/dL AST (<40) U/L ALT (<40) U/L Alkaline Phosphatase (39-117) U/L C-Reactive Protein 11.50 H (0.03-0.80) mg/dL Total Protein (5.9-8.4) gm/dL Albumin (3.2-5.2) gm/dL Globulin (2.2-3.7) gm/dL Albumin/Globulin Ratio (1.0-2.3) SARS-CoV-2 (PCR) (Negative) 06/06/20 06/06/20 Range/Units 12:59 14:00 WBC (4.5-11.0) K/mcL RBC (4.50-5.90) M/mcL Hgb (13.5-16.5) g/dL Hct (41.0-55.0) % MCV (80.0-100.0) fL MCH (26.0-34.0) pg MCHC (31.0-36.0) g/dL RDW (11.5-14.5) % Plt Count (140-440) K/mcL MPV (7.4-10.4) fL Neut % (Auto) (38.0-78.0) % Lymph % (Auto) (15.0-49.0) % [place] % (Auto) (1.0-12.0) % Eos % (Auto) (0.0-7.0) % Baso % (Auto) (0.0-2.0) % Lymph # (Auto) (1.50-4.80) K/mcL [place] # (Auto) (0.10-0.90) K/mcL Eos # (Auto) (0.00-0.70) K/mcL Baso # (Auto) (0.00-0.20) K/mcL Absolute Neutrophils (1.80-8.00) K/mcL VBG Lactic Acid (0.5-2.0) mmol/L Sodium 122 L (133-145) mmol/L Potassium 6.0 H* (3.3-5.1) mmol/L Chloride 87 L (96-108) mmol/L Carbon Dioxide 21 L (22-30) mmol/L Anion Gap 14.0 (8.0-16.0) BUN 97 H (8-23) mg/dL Creatinine 3.3 H (0.7-1.2) mg/dL GFR Calculation 18 Glucose 175 H (70-105) mg/dL Calcium 7.8 L (8.6-10.4) mg/dL Total Bilirubin 0.9 (0.1-1.0) mg/dL AST 13 (<40) U/L ALT 8 (<40) U/L Alkaline Phosphatase 143 H (39-117) U/L C-Reactive Protein (0.03-0.80) mg/dL Total Protein 4.9 L (5.9-8.4) gm/dL Albumin 2.5 L (3.2-5.2) gm/dL Globulin 2.4 (2.2-3.7) gm/dL Albumin/Globulin Ratio 1.0 (1.0-2.3) SARS-CoV-2 (PCR) Negative (Negative) Discharge Plan Patient/Caregiver Discharge Instructions Pt seen by MACHINIST CLASS B/PA only: No Clinical Impression: Anasarca associated with disorder of kidney, Transfusion-dependent anemia, CLL (chronic lymphocytic leukemia), ESRD (end stage renal disease) on dialysis, Community acquired pneumonia Patient Disposition: Xfer As Inpt ([facility]) Discharge Date/Time: 06/06/20 17:55
--- NOTE | 2020-06-06 13:39 | XRay Report ---
INDICATION: CP/dyspnea TECHNIQUE: AP portable upright chest x-ray COMPARISON: Previous chest x-rays dated 12/08/2019, 12/06/2019, 12/03/2019 FINDINGS:No change in large caliber right central venous catheter with its tip in the proximal right atrium Lungs:Bilateral pulmonary parenchymal infiltrates, right worse than left. These are new since previous examination. Findings are nonspecific. Findings may be secondary to pneumonia and covid is possible. Pulmonary edema or hemorrhage are also possible. Follow-up radiographs and clinical correlation are necessary Heart, vascular:No significant cardiomegaly. Pulmonary vascularity is normal. No pulmonary edema or pulmonary congestion Mediastinum, kate:No mediastinal widening. No hilar mass Pleura:No pleural fluid. No pleural-based mass or calcification Skeletal:Negative. IMPRESSION: 1. Bilateral pulmonary parenchymal infiltrates, right worse than left 2. Appearance is nonspecific. Pneumonia is possible and covid should be considered Interpreted and Authenticated by: Balwinder Burrows 06/06/20
--- NOTE | 2020-06-06 13:56 | Cat Scan Report ---
INDICATION: dyspnea COMPARISON: Previous chest x-rays dated 06/06/2020, 12/08/2019 TECHNIQUE: Axial noncontrast enhanced images through the chest. Sagittally and coronally reformatted images. MIP reformatted images. FINDINGS: Lungs:Diffusely abnormal lungs. There are multiple infiltrates bilaterally, right worse than left. There are groundglass and some solid infiltrates. Findings are nonspecific but covid pneumonia is possible. Pulmonary hemorrhage could have a similar appearance Mediastinum, vascular:Main pulmonary artery is enlarged. Main pulmonary artery measures approximately 3.9 cm in cross-sectional diameter. Appearance suggests pulmonary arterial hypertension. Ascending aorta is also prominent and measures 4.2 cm in maximum cross-sectional diameter. No pathologic hilar adenopathy. There is mediastinal adenopathy which is nonspecific. Largest pretracheal node measures 2.3 cm. Heart:There is generalized cardiomegaly. There is severe coronary artery calcification. No pericardial effusion Pleura:Small left pleural effusion. There is no right pleural effusion Axilla, supraclavicular regions, chest wall:No axillary or supraclavicular adenopathy.. There is enlargement of the left thyroid consistent with a 3 cm left nodule. This is unchanged Musculoskeletal:No thoracic compression fractures. No lytic lesions. No sternal or rib lesions Upper Abdomen:There is massive splenomegaly. Spleen measures 27 cm in maximum AP dimension. Craniocaudal dimension is not assessed. This is unchanged since previous CT scan dated 12/02/2019 IMPRESSION: 1. Bilateral pulmonary parenchymal infiltrates, right worse than left. Infiltrates are new since 12/08/2019 and are consistent with pneumonia. Covid pneumonia is possible 2. Severe coronary artery calcification 3. Enlarged main pulmonary artery 4. Left thyroid nodule, unchanged 5. Massive splenomegaly, unchanged 6. Nonspecific mediastinal adenopathy The exam was performed using radiation dose optimization techniques including, but not limited to, automated exposure control, adjustment of the mA and/or kV according to patient size and use of iterative reconstruction technique. Interpreted and Authenticated by: Balwinder Burrows 06/06/20
[2020-06-06 14:21] LABS: Basophils % (Auto) 0 % (0.0-2.0); Eosinophils # (Auto) 0.03 K/mcL (0.00-0.70); Eosinophils % (Auto) 0 % (0.0-7.0); Hemoglobin 5.7 g/dL (13.5-16.5); Lymphocytes # (Auto) 213.35 K/mcL (1.50-4.80); Lymphocytes % (Auto) 87.5 % (15.0-49.0); Mean Cell Volume 93.6 fL (80.0-100.0); Mean Platelet Volume 9.6 fL (7.4-10.4); Monocytes # (Auto) 24.13 K/mcL (0.10-0.90); Monocytes % (Auto) 9.9 % (1.0-12.0); Neutrophils % (Auto) 2.6 % (38.0-78.0); Platelet Count 16 K/mcL (140-440); RBC 2.03 M/mcL (4.50-5.90); Red Cell Distribution Width 16.4 % (11.5-14.5); WBC 243.9 K/mcL (4.5-11.0)
[2020-06-06 14:39] LABS: ALT/SGPT 8 U/L (<40); AST/SGOT 13 U/L (<40); Albumin 2.5 gm/dL (3.2-5.2); Alkaline Phosphatase 143 U/L (39-117); Bilirubin,Total 0.9 mg/dL (0.1-1.0); Blood Urea Nitrogen 97 mg/dL (8-23); Calcium 7.8 mg/dL (8.6-10.4); Carbon Dioxide 21 mmol/L (22-30); Chloride 87 mmol/L (96-108); Globulin 2.4 gm/dL (2.2-3.7); Glomerular Filtration Rate 18; Glucose 175 mg/dL (70-105)
[2020-06-06] MEDS ORDERED: cefTRIAXone 2 GM VIAL IV ONE (15:07)
--- NOTE | 2020-06-06 15:35 | Internal Med History&Physical ---
HPI History of Present Illness Patient information: Note initiated : 06/06/20 at 3:35 pm Service Date, if different from initiated Date: [] Patient: Artie Bhatt a 70 y/o M admitted on for weakness, SOB. Chief Complaint: Shortness of breath History of present illness: Mr. Bhatt is a 70 year old M with a history of advanced CLL/ESRD on HD/DM type II/CAD who presents with progressive worsening shortness of breath/difficulty functioning. Symptoms have evolved over the last week and has been getting 4 times a week dialysis. He usually get M//W/F. He presents to the ER due to profound dyspnea at rest. Initial work-up the ER was consistent with bilateral chest infiltrates suggestive of pneumonia/fluid overload. Generalized edema/petechiae was noted. Potassium 5.7. Covid test was ordered. Patient was started on antibiotic coverage for bilateral pneumonia. Subsequently hospitalist service was consulted for admission At the time of my evaluation patient is anxious. He could not provide a meaningful history other than that he lives with his son and grandson at [place]. He was frequently forgetful and appears lethargic. He endorsed to partner shortness of breath but denies sick contacts. He further denies diarrhea, dysur ia, headache, photophobia. He also denies fever and chills Review of systems A 10 point review system was performed and is negative except for ones discussed above PFSH PFSH All Active Problems (Updated 05/27/20 @ 13:46 by Bethany Kim MD) Erythropoietin-resistant anemia (Chronic) CLL (chronic lymphocytic leukemia) (Acute) Anemia in chronic illness (Acute) Hemorrhage complicating a procedure (Acute) ESRD (end stage renal disease) on dialysis (Chronic) Metabolic acidosis (Chronic) Complications, dialysis, catheter, mechanical (Acute) Fever (Acute) MRSA (methicillin resistant Staphylococcus aureus) septicemia (Acute) Septic thrombophlebitis (Acute) Psoas abscess, right (Acute) Iron deficiency anemia, unspecified (Chronic) Secondary hyperparathyroidism of renal origin (Chronic) Nephrotic syndrome due to diabetes mellitus (Chronic) BPH w urinary obs/LUTS (Chronic) Other lymphoid leukemia, in relapse (Chronic) Gouty arthritis (Chronic) Tubular adenoma of colon (Chronic) Constipation (Chronic) Diastolic dysfunction (Chronic) Leukemia (Chronic) 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 2 diabetes mellitus (Chronic) Localized edema due to fluid overload (Chronic) CKD (chronic kidney disease) stage 4, GFR 15-29 ml/min (Chronic) Gout due to renal impairment (Chronic) Long-term use of high-risk medication (Chronic) Encounter for long-term current use of medication (Acute) Abnormal immunological finding in serum (Chronic) Tophus (Chronic) Petechial rash (Chronic) Arteriovenous malformation (Chronic) Peripheral neuropathy (Chronic) Hx of basal cell carcinoma (Chronic) Effusion of knee joint right (Chronic) Chronic pain of right knee (Chronic) DJD (degenerative joint disease) (Chronic) Hyperlipidemia (Chronic) Sleep apnea (Chronic) Hypertension (Chronic) Tinnitus (Chronic) Anemia (Chronic) Controlled type 2 diabetes mellitus (Chronic) Olecranon bursitis of left elbow (Chronic) Chronic lymphoid leukemia (Chronic) Nasal polyp (Chronic) Hypertensive cardiomyopathy (Chronic) Gout (Acute) Vasculitis of skin (Chronic) Blunt wound (Chronic) Medical History (Updated 05/27/20 @ 13:46 by Bethany Kim MD) Abnormal immunological finding in serum (Chronic) Anemia (Chronic) Arteriovenous malformation (Chronic) Blunt wound (Chronic) Chronic lymphoid leukemia (Chronic) Chronic pain of right knee (Chronic) Constipation (Chronic) Controlled type 2 diabetes mellitus (Chronic) Diastolic dysfunction (Chronic) DJD (degenerative joint disease) (Chronic) Effusion of knee joint right (Chronic) Encounter for long-term current use of medication (Acute) Gout (Acute) Gouty arthritis (Chronic) Hx of basal cell carcinoma (Chronic) Hyperlipidemia (Chronic) Hypertension (Chronic) Hypertensive cardiomyopathy (Chronic) Leukemia (Chronic) Nasal polyp (Chronic) Olecranon bursitis of left elbow (Chronic) Other lymphoid leukemia, in relapse (Chronic) Peripheral neuropathy (Chronic) Petechial rash (Chronic) Sleep apnea (Chronic) Tinnitus (Chronic) Tophus (Chronic) Tubular adenoma of colon (Chronic) Vasculitis of skin (Chronic) Surgical History Hx of arthroscopy of knee (Chronic) Hx of colonoscopy (Chronic) Hx of inguinal herniorrhaphy (Chronic) Hx of total knee replacement (Chronic) Family History Father DM type 2 (diabetes mellitus, type 2) Grandmother DM type 2 (diabetes mellitus, type 2) Mother DM type 2 (diabetes mellitus, type 2) Brother DM type 2 (diabetes mellitus, type 2) Social History marital status: occupational status: retired other: at 34, he raised daughter and remained single physical activity: none smoking status: Former smoker alcohol intake frequency: does not drink seatbelt use: always MEDS/ALLERGIES Home Medications and Allergies Home Medications Medication Instructions Recorded Confirmed Type simvastatin 20 mg tablet 20 mg PO QDAY tab 01/05/16 02/05/20 History tramadol 50 mg tablet 100 mg PO TID tab 01/05/16 02/05/20 History insulin glargine 100 unit/mL (3 29 units SUB-Q QHS 03/13/18 02/05/20 History mL) subcutaneous pen tamsulosin 0.4 mg capsule 0.4 mg PO QDAY #90 cap 05/08/19 02/05/20 Rx ferrous gluconate 240 mg (27 mg 240 mg PO QDAY 06/19/19 02/05/20 History iron) tablet insulin aspart U-100 100 unit/mL See Rx Instructions SUB-Q BID ml 06/19/19 02/05/20 History (3 mL) subcutaneous pen acetaminophen 650 mg 1,300 mg PO Q6HP PRN tab 07/21/19 02/05/20 History tablet,extended release apixaban 5 mg PO BID 09/16/19 02/05/20 History pantoprazole 40 mg PO BIDAC 09/16/19 02/05/20 History febuxostat 40 mg tablet 40 mg PO QDAY #90 tab 11/26/19 02/05/20 Rx carvedilol 3.125 mg PO BID 01/13/20 02/05/20 History furosemide 40 mg tablet 40 mg PO BID 01/13/20 02/05/20 History oxycodone 5 mg capsule 5 mg PO Q12H PRN cap 01/13/20 02/05/20 History calcium acetate(phosphat bind) 667 1,334 mg PO TID 03/17/20 History mg capsule darbepoetin landen-albumin 60 mcg/mL mcg .ROUTE 03/17/20 History in albumin injection doxycycline hyclate 100 mg capsule 100 mg PO QDAY 03/17/20 History melatonin 3 mg capsule 6 mg PO HS PRN cap 03/17/20 History B complex-vitamin C-folic acid 0.8 1 tab PO QDAY 03/23/20 History mg tablet calcium acetate(phosphat bind) 667 1,334 mg PO TID 03/23/20 History mg capsule Allergies Allergy/AdvReac Type Severity Reaction Status Date / Time hydrochlorothiazide Allergy Mild Rash Verified 03/23/20 16:33 EXAM Constitutional Vitals: Temp Pulse Resp BP Pulse Ox 97.0 F 108 H 19 132/74 95 06/06/20 12:00 06/06/20 15:01 06/06/20 15:16 06/06/20 15:16 06/06/20 14:46 Lethargic and confused Head normocephalic Oral cavity moist No ear nose discharge Eye movement symmetrical Neck supple no lymphadenopathy S1-S2 occasionally irregular Labored breathing, right anterior chest dialysis catheter Nondistended nontender abdomen, extensive petechiae Lower extremity no cyanosis clubbing or joint swelling Skin no suspicious lesion Psych anxious but alert cooperative Neuro normal higher function DATA Data Completed and Pending Labs: Labs from last 24 hours 06/06/20 06/06/20 06/06/20 14:00 12:59 12:59 WBC 243.9 H* RBC 2.03 L Hgb 5.7 L* Hct 19.0 L* MCV 93.6 MCH 28.1 MCHC 30.0 L RDW 16.4 H Plt Count 16 L* MPV 9.6 Neut % (Auto) 2.6 L Lymph % (Auto) 87.5 H [place] % (Auto) 9.9 Eos % (Auto) 0 Baso % (Auto) 0 Lymph # (Auto) 213.35 H [place] # (Auto) 24.13 H Eos # (Auto) 0.03 Baso # (Auto) 0.10 Absolute Neutrophils 6.33 VBG Lactic Acid Sodium 122 L Potassium 6.0 H* Chloride 87 L Carbon Dioxide 21 L Anion Gap 14.0 BUN 97 H Creatinine 3.3 H GFR Calculation 18 Glucose 175 H Calcium 7.8 L Total Bilirubin 0.9 AST 13 ALT 8 Alkaline Phosphatase 143 H C-Reactive Protein Total Protein 4.9 L Albumin 2.5 L Globulin 2.4 Albumin/Globulin Ratio 1.0 SARS-CoV-2 (PCR) Negative 06/06/20 06/06/20 12:55 12:55 WBC RBC Hgb Hct MCV MCH MCHC RDW Plt Count MPV Neut % (Auto) Lymph % (Auto) [place] % (Auto) Eos % (Auto) Baso % (Auto) Lymph # (Auto) [place] # (Auto) Eos # (Auto) Baso # (Auto) Absolute Neutrophils VBG Lactic Acid 0.9 Sodium Potassium Chloride Carbon Dioxide Anion Gap BUN Creatinine GFR Calculation Glucose Calcium Total Bilirubin AST ALT Alkaline Phosphatase C-Reactive Protein 11.50 H Total Protein Albumin Globulin Albumin/Globulin Ratio SARS-CoV-2 (PCR) A/P Narrative A/P Narrative: * Bilateral multifocal eskxtgbox-[id number] versus Covid pneumonia. Antibiotic coverage. COVID-19 testing. Start dexamethasone. * Flash pulmonary edema likely secondary to volume overload. Nephrology consult for dialysis * Hyperkalemia-nephrology consult for dialysis * Anasarca secondary to underlying ESRD * CLL/thrombocytopenia-advanced with white count over to 240 K/platelets 16 * DM type II on basal prandial insulin/CC diet * Anticoagulation continue on apixaban * History of CAD/HTN on Coreg * BPH restart home dose tamsulosin * GERD on PPI * Chronic pain on oxycodone * History of hyperuricemia secondary to CLL on febuxostat * Full code * Prophylaxis apixaban Plan * Inpatient PCU admission * Community acquired pneumonia protocol * COVID-19 testing * Nephrology consult for hyperkalemia/HD * Pre-existing medical condition management home meds as above * Therapy/nutrition support * Discharge planning Critical time spent in excess of 35 minutes in addition to time spent on history and physical. Extremely complex nature of illness with advanced CLL/bilateral pneumonia/immunocompromise state and hyperkalemia requiring emergent hemodialysis. Time Spent With Patient Time: Total time spent is greater than 50% in coordination of care (as documented) at patient's floor/unit and/or counseling patient:
[2020-06-06] MEDS ORDERED: 0.9 % SODIUM CHLORIDE 250 ML IV PRN (17:34)
[2020-06-06] MEDS ORDERED: ALBUMIN HUMAN 12.5 GM/50 ML BAG IV PRN (17:34)
[2020-06-06] MEDS ORDERED: AZITHROMYCIN 500 MG in DEXTROSE 5% IN WATER 250 ML IV SCH (18:13)
[2020-06-06] MEDS ORDERED: DEXTROSE 31 GM ORAL.SUSP PO PRN (18:13)
[2020-06-06] MEDS ORDERED: ACETAMINOPHEN 650 MG/65 ML BAG IV PRN (18:13)
[2020-06-06] MEDS ORDERED: ACETAMINOPHEN 325 MG TABLET PO PRN (18:13)
[2020-06-06] MEDS ORDERED: POLYETHYLENE GLYCOL 3350 17 GM PACKET PO PRN (18:13)
[2020-06-06] MEDS ORDERED: MELATONIN 3 MG TABLET PO PRN (18:13)
[2020-06-06] MEDS ORDERED: DEXTROSE 50% 50 ML VIAL IV PRN (18:13)
[2020-06-06] MEDS ORDERED: ONDANSETRON 4 MG/2 ML VIAL IV PRN (18:13)
[2020-06-06] MEDS ORDERED: BISACODYL 10 MG SUPP.RECT PR PRN (18:13)
[2020-06-06] MEDS ORDERED: ONDANSETRON 4 MG ODT TABLET SL PRN (18:13)
[2020-06-06] MEDS ORDERED: SENNOSIDES/DOCUSATE SODIUM 1 TAB TABLET PO SCH (21:00)
--- NOTE | 2020-06-06 21:04 | Nephrology Consult Note ---
HPI Data of Consult Primary Care Provider: Fabby Damon Consult Narrative Patient Information: Note initiated : 06/06/20 at 9:02 pm Service Date, if different from initiated Date: [] Patient: Artie Bhatt 70 y/o M admitted on 06/06/20 for weakness, SOB. Chief Complaint: [Failure to thrive] This patient has longstanding diabetes mellitus progressing to end-stage renal disease in early 2019 2019. Prior to that he was undergoing treatment for CLL. On his first dialysis treatment he developed a fever and hypotension with rigors and chills was given blood cultures and vancomycin only to return from the outpatient unit to be hospitalized with bleeding from his newly placed left IJ catheter (left IJ placed because there is a infusion port on the right side.). Long story short, he had MRSA sepsis with multiple positive blood cultures septic thrombophlebitis involving the left IJ and brachiocephalic vein and was transferred to a tertiary center in [place] where his left IJ catheter was removed as well as his Port-A-Cath and he also had an infected hematoma in his neck. Why did not expect him to survive the hospitalization, he did and returned to be treated with long-term vancomycin and then doxycycline for another infectious complication that being L4-5 epidural abscess that was not surgically drained but treated with antibiotics. During all this the patient has developed transfusion dependent anemia requiring initially maybe 2 units of blood every couple of weeks and is now to the point that he has been receiving 2 units of blood on a weekly basis with no increase in his hemoglobin to speak of which is usually hovering around 6 g/dL. Is also developed thrombocytopenia. There is no evidence of intravascular hemolysis as his haptoglobin and total bilirubin are not depressed and elevated respectively. While his stool is guaiac positive he has not noticed any black tarry stools or melena which I think would be required for him to go through his many units of blood as he has been doing. He is on Eliquis which will have to be stopped, this was for his thrombotic complications but given his transfusion dependence and thrombocytopenia I do not think there is much benefit. In addition his white count is now approaching 250,000 and he has not been able to have any chemotherapy since winter 2018, and at that point it seems to have been palliative intent. Although of counseled the patient on numerous occasions that despite our best efforts he continues to decline and we prolong since the past the point of benefit from dialysis. The last time I rounded on the patient I noted a mass of spleen that was confirmed by an abdominal ultrasound last week and I believe he is sequestering his red blood cells into his spleen and hence were not seeing much improvement in his hematocrit or hemoglobin. I asked his small lot operator Dr. Toan Burton at [facility] to see the patient with an eye towards agreeing that further care is futile and we should begin making plans for end-of-life care and hospice. This morning I was called by the dialysis staff who tells me that Mr. Bhatt no longer desires to be on dialysis and would not be showing up for any future dialysis. Therefore I was quite surprised when at 3:30 today the ER called telling me the patient was being admitted and they were requesting emergent dialysis for hyperkalemia. I saw the patient after clinic at around 5:00 and he seemed ambivalent but when I pressed him for an answer he said we should go ahead and arrange for dialysis. All that was done ordered around 9:00 this evening I was called by the dialysis nurse that he is rescinded his decision and wanted to immediately stop dialysis after about 30 minutes of treatment. There will be no further dialysis offered until we have discussion as to goals of care and whether to pursue dialysis or comfort measures although in either case I consider himto have a terminal condition/status cc:: CC: Jovanny Burton Review of Systems Review of systems: See ER notes and hospitalist admission note reviewed, nothing to add Constitutional Constitutional: Present anorexia, lethargy, weakness, weight gain and other (Transfusion dependent) PFSH PFSH All Active Problems (Updated 06/06/20 @ 21:37 by Jossue Morelos MD) Anasarca associated with disorder of kidney (Acute) Transfusion-dependent anemia (Acute) Failure to thrive in adult (Acute) Erythropoietin-resistant anemia (Chronic) CLL (chronic lymphocytic leukemia) (Acute) Anemia in chronic illness (Acute) Hemorrhage complicating a procedure (Acute) ESRD (end stage renal disease) on dialysis (Chronic) Metabolic acidosis (Chronic) Complications, dialysis, catheter, mechanical (Acute) Fever (Acute) MRSA (methicillin resistant Staphylococcus aureus) septicemia (Acute) Septic thrombophlebitis (Acute) Psoas abscess, right (Acute) Iron deficiency anemia, unspecified (Chronic) Secondary hyperparathyroidism of renal origin (Chronic) Nephrotic syndrome due to diabetes mellitus (Chronic) BPH w urinary obs/LUTS (Chronic) Other lymphoid leukemia, in relapse (Chronic) Gouty arthritis (Chronic) Tubular adenoma of colon (Chronic) Constipation (Chronic) Diastolic dysfunction (Chronic) Leukemia (Chronic) 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 2 diabetes mellitus (Chronic) Localized edema due to fluid overload (Chronic) CKD (chronic kidney disease) stage 4, GFR 15-29 ml/min (Chronic) Gout due to renal impairment (Chronic) Long-term use of high-risk medication (Chronic) Encounter for long-term current use of medication (Acute) Abnormal immunological finding in serum (Chronic) Tophus (Chronic) Petechial rash (Chronic) Arteriovenous malformation (Chronic) Peripheral neuropathy (Chronic) Hx of basal cell carcinoma (Chronic) Effusion of knee joint right (Chronic) Chronic pain of right knee (Chronic) DJD (degenerative joint disease) (Chronic) Hyperlipidemia (Chronic) Sleep apnea (Chronic) Hypertension (Chronic) Tinnitus (Chronic) Anemia (Chronic) Controlled type 2 diabetes mellitus (Chronic) Olecranon bursitis of left elbow (Chronic) Chronic lymphoid leukemia (Chronic) Nasal polyp (Chronic) Hypertensive cardiomyopathy (Chronic) Gout (Acute) Vasculitis of skin (Chronic) Blunt wound (Chronic) Medical History Abnormal immunological finding in serum (Chronic) Anemia (Chronic) Arteriovenous malformation (Chronic) Blunt wound (Chronic) Chronic lymphoid leukemia (Chronic) Chronic pain of right knee (Chronic) Constipation (Chronic) Controlled type 2 diabetes mellitus (Chronic) Diastolic dysfunction (Chronic) DJD (degenerative joint disease) (Chronic) Effusion of knee joint right (Chronic) Encounter for long-term current use of medication (Acute) Gout (Acute) Gouty arthritis (Chronic) Hx of basal cell carcinoma (Chronic) Hyperlipidemia (Chronic) Hypertension (Chronic) Hypertensive cardiomyopathy (Chronic) Leukemia (Chronic) Nasal polyp (Chronic) Olecranon bursitis of left elbow (Chronic) Other lymphoid leukemia, in relapse (Chronic) Peripheral neuropathy (Chronic) Petechial rash (Chronic) Sleep apnea (Chronic) Tinnitus (Chronic) Tophus (Chronic) Tubular adenoma of colon (Chronic) Vasculitis of skin (Chronic) Surgical History Hx of arthroscopy of knee (Chronic) Hx of colonoscopy (Chronic) Hx of inguinal herniorrhaphy (Chronic) Hx of total knee replacement (Chronic) Family History Father DM type 2 (diabetes mellitus, type 2) Grandmother DM type 2 (diabetes mellitus, type 2) Mother DM type 2 (diabetes mellitus, type 2) Brother DM type 2 (diabetes mellitus, type 2) Social History marital status: occupational status: retired other: at 34, he raised daughter and remained single physical activity: none smoking status: Former smoker alcohol intake frequency: does not drink seatbelt use: always MEDS/ALLERGIES Home Medications and Allergies Home Medications Medication Instructions Recorded Confirmed Type simvastatin 20 mg tablet 20 mg PO QDAY tab 01/05/16 06/06/20 History tramadol 50 mg tablet 100 mg PO TID tab 01/05/16 06/06/20 History insulin glargine 100 unit/mL (3 29 units SUB-Q QHS 03/13/18 06/06/20 History mL) subcutaneous pen tamsulosin 0.4 mg capsule 0.4 mg PO QDAY #90 cap 05/08/19 06/06/20 Rx ferrous gluconate 240 mg (27 mg 240 mg PO QDAY 06/19/19 06/06/20 History iron) tablet insulin aspart U-100 100 unit/mL See Rx Instructions SUB-Q BID ml 06/19/19 06/06/20 History (3 mL) subcutaneous pen acetaminophen 650 mg 1,300 mg PO Q6HP PRN tab 07/21/19 02/05/20 History tablet,extended release pantoprazole 40 mg PO BIDAC 09/16/19 06/06/20 History carvedilol 3.125 mg PO BID 01/13/20 02/05/20 History furosemide 40 mg tablet 20 mg PO DAILY 01/13/20 06/06/20 History oxycodone 5 mg capsule 5 mg PO Q12H PRN cap 01/13/20 02/05/20 History calcium acetate(phosphat bind) 667 1,334 mg PO TID 03/17/20 History mg capsule darbepoetin landen-albumin 60 mcg/mL mcg .ROUTE 03/17/20 History in albumin injection doxycycline hyclate 100 mg capsule 100 mg PO QDAY 03/17/20 06/06/20 History melatonin 3 mg capsule 6 mg PO HS PRN cap 03/17/20 06/06/20 History B complex-vitamin C-folic acid 0.8 1 tab PO QDAY 03/23/20 History mg tablet calcium acetate(phosphat bind) 667 1,334 mg PO TID 03/23/20 History mg capsule apixaban [Eliquis] 5 mg PO BID 06/06/20 06/06/20 History febuxostat 40 mg PO QDAY 06/06/20 06/06/20 History prednisone 10 mg PO TID 06/06/20 06/06/20 History Allergies Allergy/AdvReac Type Severity Reaction Status Date / Time hydrochlorothiazide Allergy Mild Rash Verified 03/23/20 16:33 Physical Examination Vital Signs Vital signs: Temp Pulse Resp BP Pulse Ox 36.7 C 120 H 24 H 109/31 93 06/06/20 20:48 06/06/20 20:57 06/06/20 17:50 06/06/20 20:57 06/06/20 17:31 General Appearance General appearance: moderate distress, chronically ill, fatigue and frail EENT EENT: ATNC, PERRL and mucous membranes dry Neck Neck: no JVD, no carotid bruit and supple Respiratory Respiratory: course breath sounds and rhonchi Cardiovascular Cardiology: mid-systolic murmur, no rub, no gallops, edema, regular rate, normal S1 and normal S2 Gastrointestinal Gastrointestinal: hepatomegaly, splenomegaly (20 cm) and obese Integumentary Integumentary: ecchymotic and skin tear Neurologic Neurologic: no focal deficit, no asterixis, strength 5/5 (Diffuse weakness), CN 3-12 intact and upper extremity weakness Musculoskeletal Musculoskeletal: decreased ROM Psychiatric Psychiatric: agitated Results Lab Results Result Diagrams: 06/06/20 12:59 06/06/20 12:59 Lab results: Most recent lab results Calcium 7.8 mg/dL (8.6-10.4) L 06/06/20 12:59 A/P Assessment and plan (1) Failure to thrive in adult: Status: Acute (2) Transfusion-dependent anemia: Status: Acute (3) CLL (chronic lymphocytic leukemia): Status: Acute (4) ESRD (end stage renal disease) on dialysis: Status: Chronic Comment: dialysis on hold for few days. Plan temp femoral dialysis cath for dialysis while awaiting safe replacement of tunneled dialysis catheter. (5) Anasarca associated with disorder of kidney: Status: Acute Narrative A/P Narrative: * When this patient was seen in the ICU after refusing dialysis earlier in the day, he said he would consent to treatment provided he can get back to performing his ADLs in particular walking. * When one looks at the clinical course, there is an NO chance that he will regain the level of independence he desires. * His CLL is untreated and with a white count above 250,000 complications of hyperviscosity are sure occur. * Has a refractory anemia that is now no longer treatable by transfusions due to hypersplenism and RBC sequestration. Hemoglobin is running between 5 and 6 g/dL despite weekly transfusions * With that he has severe thrombocytopenia, being thousand on admission. * Developed anasarca that cannot be controlled by dialysis and this is led to progressive immobility and is now wheelchair bound. * I explained that we do 2 hours of dialysis tonight to correct his potassium and then a full treatment tomorrow and probably another treatment on Saturday to get him back on his Saturday schedule. Negotiated with the dialysis nurse to just do 1 hour of dialysis, and after 20 minutes of dialysi s he made it clear that he wanted dialysis stopped and this was done. * The plan going forward will be to speak with the patient and his family and I think the only path forward would be hospice care. Time Spent With Patient Time: Total time spent is greater than 50% in coordination of care (as documented) at patient's floor/unit and/or counseling patient: Total time spent with greater than 50% in coordination of care (as documented) at patient's floor/unit and/or counseling patient:: Greater than 35 minutes
[2020-06-06] MEDS: INSULIN LISPRO 1 UNIT/0.01 ML UNIT SQ SCH (23:32)
[2020-06-06] MEDS: DOCUSATE SODIUM 100 MG CAPSULE PO SCH (23:33)
[2020-06-06] MEDS: 0.9 % SODIUM CHLORIDE 10 ML SYRINGE IV SCH (23:34)
[2020-06-07] MEDS: 0.9 % SODIUM CHLORIDE 10 ML SYRINGE IV SCH (05:28)
--- NOTE | 2020-06-07 07:39 | Nephrology Progress Note ---
SUBJECTIVE Subjective Patient information: Note initiated : 06/07/20 at 7:33 am Service Date, if different from initiated Date: [] Patient: Artie Bhatt 70 y/o M admitted on 06/06/20 for weakness, SOB. Chief Complaint: [Failure to thrive] Summary of the past 1 year of progressive decline in this patient was summarized in my H&P. Today's goal is to reach a consensus on intensity of care moving forward specifically continue dialysis and transfusions versus comfort measures including hospice care and discontinuation of dialysis. Last evening we had planned on 2 hours of dialysis to treat his hyper kalemia and volume expansion, associated down to 1 hour with the patient will then asked to be taken off dialysis after 20 minutes. This is a horrible situation insofar as there simply is no treatment that I would allow the patient to achieve his stated goals of just being able to get up and around again. 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 For the past month we have been unable to get a hemoglobin above 7 despite at least 6 units of packed red blood cells over the past 3 weeks. CXR 06/06/2020 1 year trend of white count 1 year trend of platelets 2 year hemoglobin trend Interval history: The patient was dialyzed for 20 minutes last evening before making a clear he wanted no further treatment. Today he is tachypneic with altered mental status and having myoclonic jerking. In my opinion there is no hope of survival as he now has end-stage CLL hypoxic respiratory failure, end-stage renal disease and refusing dialysis before he became more confused. As shown in the above grafts the last years just had marked deterioration in his hemodynamic parameters and his chest x-ray has taking iron ARDS picture (transfusions, infection etc). I discussed at length the management and the futility of any further care other than comfort measures with the daughter who will speck with her brother before planned goals of care meeting this afternoon. She already realized how much pain and suffering he is in and is relieved at my decision to stop dialysis. Constitutional Vitals: Vital Signs Temp Pulse Resp BP Pulse Ox 37.1 C 120 H 31 H 121/77 91 06/07/20 02:02 06/06/20 20:57 06/07/20 07:00 06/07/20 07:00 06/07/20 07:00 Period Temp Pulse Resp BP Sys/Corona Pulse Ox Last 24 Hr 36.1 C-37.1 C 99-121 16-34 78-148/27-93 91-100 Intake and Output 06/06/20 06/07/20 06/07/20 21:59 05:59 13:59 Intake Total 360 250 Output Total 400 725 Balance -40 -475 Weight 92.805 kg Intake & Output: Intake & Output 06/06/20 06/07/20 06/07/20 21:59 05:59 13:59 Intake Total 360 250 Output Total 400 725 Balance -40 -475 Weight 92.805 kg Intake: IV 250 Zithromax 500 mg In Dextrose 5% 250 in Water 250 ml @ 250 mls/hr IV Q24H [facility] Rx#:[id number] Oral 360 Output: Urine Catheter Amount 650 Void Amount 75 Hemodialysis UF 400 Other: Urine Appearance Clear Uretheral (Goldstein) Clear Urine Color Pale Uretheral (Goldstein) Light Camila Urine Odor Strong General appearance: severe distress Head Head exam: Present normal inspection Eye Eye exam: Present EOMI and PERRL ENT ENT exam: Present mucous membranes dry Neck Neck exam: Absent meningismus Respiratory Respiratory exam: Present accessory muscle use and respiratory distress Additional comments: tachypnic and shallow breathing Cardiovascular Cardiovascular exam: Present systolic murmur and tachycardia GI/Abdominal GI/Abdominal exam: Present diminished bowel sounds and organomegaly (greatly enlarged spleen and liver) Extremities Exam Additional comments: diffuse edema and anasarca Neurological Exam Neurological exam: Present altered (confused and thrashing around); Absent alert, oriented X3 and reflexes normal (myoclonic jerking) Psychiatric Psychiatric exam: Present agitated Additional comments: confused Skin Additional comments: diffuse ecchymosis A/P Narrative A/P Narrative: * When this patient was seen in the ICU after refusing dialysis earlier in the day, he said he would consent to treatment provided he can get back to performing his ADLs in particular walking. * When one looks at the clinical course, there is an NO chance that he will regain the level of independence he desires. * His CLL is untreated and with a white count above 250,000 complications of hyperviscosity are sure occur. * Has a refractory anemia that is now no longer treatable by transfusions due to hypersplenism and RBC sequestration. Hemoglobin is running between 5 and 6 g/dL despite weekly transfusions * With that he has severe thrombocytopenia, being thousand on admission. * Developed anasarca that cannot be controlled by dialysis and this is led to progressive immobility and is now wheelchair bound. * I explained that we do 2 hours of dialysis tonight to correct his potassium and then a full treatment tomorrow and probably another treatment on Saturday to get him back on his Saturday schedule. Negotiated with the dialysis nurse to just do 1 hour of dialysis, and after 20 minutes of dialysis he made it clear that he wanted dialysis stopped and this was done. * The plan going forward will be to speak with the patient and his family and I think the only path forward would be hospice care. => this was done and transition to comfort care. * As there is concern for pulmonary edema => Morphine sulfate IV would be an excellent choice for reducing pulmonary venous pressure, relieving tachypnia and relieving respiratory distress in this end of life situation. Time Spent With Patient Time: Total time spent is greater than 50% in coordination of care (as documented) at patient's floor/unit and/or counseling patient: Total time spent with greater than 50% in coordination of care (as documented) a t patient's floor/unit and/or counseling patient:: Greater than 35 minutes
[2020-06-07 07:45] LABS: ALT/SGPT 8 U/L (<40); AST/SGOT 16 U/L (<40); Albumin 2.5 gm/dL (3.2-5.2); Alkaline Phosphatase 151 U/L (39-117); Bilirubin,Direct 0.4 mg/dL (<0.3); Blood Urea Nitrogen 100 mg/dL (8-23); Carbon Dioxide 18 mmol/L (22-30); Chloride 91 mmol/L (96-108); Globulin 2.5 gm/dL (2.2-3.7); Glomerular Filtration Rate 16; Glucose 174 mg/dL (70-105); Lactate Dehydrogenase 340 U/L (135-225); Phosphorous 5.3 mg/dL (2.5-4.5); Triglycerides 126 mg/dL (<150); Uric Acid 3.8 mg/dL (2.5-8.0)
[2020-06-07 07:46] LABS: Basophils # (Auto) 0.08 K/mcL (0.00-0.20); Basophils % (Auto) 0 % (0.0-2.0); Eosinophils # (Auto) 0.01 K/mcL (0.00-0.70); Eosinophils % (Auto) 0 % (0.0-7.0); Hematocrit 18.9 % (41.0-55.0); Hemoglobin 5.8 g/dL (13.5-16.5); Lymphocytes # (Auto) 198.06 K/mcL (1.50-4.80); Lymphocytes % (Auto) 85.3 % (15.0-49.0); Mean Cell Volume 92.2 fL (80.0-100.0); Mean Corpuscular HGB Conc 30.7 g/dL (31.0-36.0); Mean Platelet Volume 10.3 fL (7.4-10.4); Monocytes # (Auto) 27.34 K/mcL (0.10-0.90); Monocytes % (Auto) 11.8 % (1.0-12.0); Neutrophils % (Auto) 2.9 % (38.0-78.0); Platelet Count 16 K/mcL (140-440); RBC 2.05 M/mcL (4.50-5.90); Red Cell Distribution Width 16.1 % (11.5-14.5); WBC 232.1 K/mcL (4.5-11.0)
[2020-06-07] MEDS: INSULIN LISPRO 1 UNIT/0.01 ML UNIT SQ SCH (07:52)
[2020-06-07] MEDS ORDERED: TIOTROPIUM BROMIDE 18 MCG INHALANT INH SCH (09:00)
[2020-06-07] MEDS ORDERED: DEXAMETHASONE 4 MG TABLET PO SCH (09:00)
[2020-06-07] MEDS ORDERED: cefTRIAXone 2 GM in DEXTROSE 5% IN WATER 50 ML IV SCH (09:00)
[2020-06-07] MEDS ORDERED: MULTIVIT,THER IRON,CA,FA & MIN 1 TABLET PO SCH (09:00)
--- NOTE | 2020-06-07 09:28 | Internal Med Progress Note ---
SUBJECTIVE Subjective Patient information: Note initiated : 06/07/20 at 9:21 am Service Date, if different from initiated Date: [] Patient: Artie Bhatt a 70 y/o M admitted on 06/06/20 for weakness, SOB. Chief Complaint: [] History of present illness: Mr. Bhatt is a 70 year old M with a history of advanced CLL/ESRD on HD/DM type II/CAD who presents with progressive worsening shortness of breath/difficulty functioning. Symptoms have evolved over the last week and has been getting 4 times a week dialysis. He usually get M//W/F. He presents to the ER due to profound dyspnea at rest. Initial work-up the ER was consistent with bilateral chest infiltrates suggestive of pneumonia/fluid overload. Generalized edema/petechiae was noted. Potassium 5.7. Covid test was ordered. Patient was started on antibiotic coverage for bilateral pneumonia. Subsequently hospitalist service was co nsulted for admission At the time of my evaluation patient is anxious. He could not provide a mean ingful history other than that he lives with his son and grandson at [place]. He was frequently forgetful and appears lethargic. He endorsed to partner shortness of breath but denies sick contacts. He further denies diarrhea, dysuria, headache, photophobia. He also denies fever and chills 06/07-patient refusing all treatments including dialysis. I discussed the case with patient's daughter Crystal for transition of end-of-life care. Daughter affirmed that patient has been saying that he is done for the last 3 weeks and his refusal for dialysis in line with his wishes. Also discussed with nephrology about patient's multiple comorbidity including advanced CLL/transfusion dependent anemia/end-stage renal disease. Patient's daughter would visit along with her uncle today for care transition to palliation and end-of-life comfort care. At that time we will transfer the patient down to edical floor. Remains critical with high risk mortality in the next 24 to 48 hours Constitutional Vitals: Vital Signs Temp Pulse Resp BP Pulse Ox 99 F 120 H 30 H 130/77 94 06/07/20 08:00 06/06/20 20:57 06/07/20 09:00 06/07/20 09:00 06/07/20 09:00 Period Temp Pulse Resp BP Sys/Corona Pulse Ox Last 24 Hr 97.0 F-99 F 99-121 16-34 78-148/27-93 91-100 Intake and Output 06/06/20 06/07/20 06/07/20 21:59 05:59 13:59 Intake Total 360 250 Output Total 400 725 Balance -40 -475 Weight 92.805 kg Short of breath Labored breathing Generalized edema Lethargic Intake & Output: Intake & Output 06/06/20 06/07/20 06/07/20 21:59 05:59 13:59 Intake Total 360 250 Output Total 400 725 Balance -40 -475 Weight 92.805 kg Intake: IV 250 Zithromax 500 mg In Dextrose 5% 250 in Water 250 ml @ 250 mls/hr IV Q24H [facility] Rx#:[id number] Oral 360 Output: Urine Catheter Amount 650 Void Amount 75 Hemodialysis UF 400 Other: Urine Appearance Clear Uretheral (Goldstein) Clear Urine Color Pale Uretheral (Goldstein) Light Camila Urine Odor Strong OBJ DATA Labs CBC & Chem 7: 06/07/20 05:23 06/07/20 05:23 Labs: Abnormal Lab Results 06/07/20 06/07/20 06/07/20 05:23 05:23 05:23 WBC 232.1 H* RBC 2.05 L Hgb 5.8 L* Hct 18.9 L* MCHC 30.7 L RDW 16.1 H Plt Count 16 L* Neut % (Auto) 2.9 L Lymph % (Auto) 85.3 H Lymph # (Auto) 198.06 H [place] # (Auto) 27.34 H D-Dimer 3.72 H Sodium 126 L Potassium 5.9 H* Chloride 91 L Carbon Dioxide 18 L Anion Gap 17.0 H BUN 100 H* Creatinine 3.6 H Glucose 174 H Calcium 8.0 L Phosphorus 5.3 H Direct Bilirubin 0.4 H Alkaline Phosphatase 151 H Lactate Dehydrogenase 340 H C-Reactive Protein Total Protein 5.0 L Albumin 2.5 L Procalcitonin 06/07/20 06/06/20 06/06/20 05:23 12:59 12:59 WBC 243.9 H* RBC 2.03 L Hgb 5.7 L* Hct 19.0 L* MCHC 30.0 L RDW 16.4 H Plt Count 16 L* Neut % (Auto) 2.6 L Lymph % (Auto) 87.5 H Lymph # (Auto) 213.35 H [place] # (Auto) 24.13 H D-Dimer Sodium 122 L Potassium 6.0 H* Chloride 87 L Carbon Dioxide 21 L Anion Gap BUN 97 H Creatinine 3.3 H Glucose 175 H Calcium 7.8 L Phosphorus Direct Bilirubin Alkaline Phosphatase 143 H Lactate Dehydrogenase C-Reactive Protein Total Protein 4.9 L Albumin 2.5 L Procalcitonin 4.16 H 06/06/20 12:55 WBC RBC Hgb Hct MCHC RDW Plt Count Neut % (Auto) Lymph % (Auto) Lymph # (Auto) [place] # (Auto) D-Dimer Sodium Potassium Chloride Carbon Dioxide Anion Gap BUN Creatinine Glucose Calcium Phosphorus Direct Bilirubin Alkaline Phosphatase Lactate Dehydrogenase C-Reactive Protein 11.50 H Total Protein Albumin Procalcitonin Meds: Medications Acetaminophen (Tylenol) 650 mg PO Q4-6HP PRN; Protocol PRN Reason: Per Pain Protocol/Fever > 101 Bisacodyl (Dulcolax) 10 mg FL Q2-3DAYS PRN PRN Reason: Constipation Dexamethasone (Decadron) 6 mg PO DAILY [facility] Dextrose (Dextrose 50%) 0 ml IV UD PRN PRN Reason: Hypoglycemia Diagnostic Test (Pha) (Accu-Chek) 1 each FS ACHS [facility] Last Admin: 06/07/20 07:56 Dose: 1 each Documented by: Docusate Sodium (Colace) 100 mg PO BID [facility] Last Admin: 06/06/20 23:33 Dose: Not Given Documented by: Glucose (Insta-Glucose) 15 gm PO PRN PRN PRN Reason: Hypoglycemia Albumin Human (Buminate) 12.5 gm in 50 mls @ 100 mls/hr IV PRN PRN PRN Reason: Hypotension Sodium Chloride (Sodium Chloride 0.9%) 250 mls @ 0 mls/hr IV BOLUS PRN PRN Reason: Hypotension Azithromycin 500 mg/ Dextrose 250 mls @ 250 mls/hr IV Q24H [facility]; Protocol Stop: 06/08/20 19:12 Last Infusion: 06/07/20 04:30 Dose: Infused Documented by: Acetaminophen (Ofirmev) 650 mg in 65 mls @ 130 mls/hr IV Q6HP PRN; Protocol PRN Reason: Per Pain Protocol/Fever > 101 Ceftriaxone Sodium 2 gm/ (Dextrose) 50 mls @ 100 mls/hr IV Q24H [facility]; Protocol Insulin Human Lispro (Humalog) 0 unit SQ ACHS [facility]; Protocol Last Admin: 06/07/20 07:52 Dose: Not Given Documented by: Iron Carb/Multivit/Loring/Folic Acid (Multivitamin W/Minerals) 1 tab PO DAILY [facility] Melatonin (Melatonin 3mg Tablet) 3 mg PO HSP PRN PRN Reason: Insomnia Ondansetron HCl (Zofran Odt) 4 mg SL Q4-6HP PRN; Protocol PRN Reason: Nausea And Vomiting Ondansetron HCl (Zofran) 4 mg IV Q4-6HP PRN; Protocol PRN Reason: Nausea And Vomiting Polyethylene Glycol (Miralax) 17 gm PO DAILYP PRN PRN Reason: Constipation Senna/Docusate Sodium (Senna Plus Tablet) 1 tab PO HS [facility] Last Admin: 06/06/20 23:33 Dose: Not Given Documented by: Sodium Chloride (Saline Flush) 10 ml IV Q8 [facility] Last Admin: 06/07/20 05:28 Dose: 10 ml Documented by: Tiotropium [place] (Spiriva) 18 mcg INH DAILY [facility] A/P Narrative A/P Narrative: * Goals of care conference for transition to hospice/comfort care in the light of refractory anasarca/flash pulmonary edema/bilateral pneumonia/advanced CLL with hyperviscosity syndrome/failure to thrive * Bilateral multifocal [id number] versus Covid pneumonia. On antibiotic coverage. COVID-19 testing. However patient now refusing treatments * Flash pulmonary edema likely secondary to volume overload. Patient refused dialysis * Hyperkalemia-patient refusing dialysis * Anasarca secondary to underlying ESRD, refractory to dialysis * CLL with hyperviscosity syndrome/thrombocytopenia-advanced with white count over to 240 K/platelets 16 * DM type II on basal prandial insulin/CC diet * Refractory anemia requiring transfusion * Anticoagulation continue on apixaban * History of CAD/HTN on Coreg * BPH restart home dose tamsulosin * GERD on PPI * Chronic pain on oxycodone * History of hyperuricemia secondary to CLL on febuxostat * Full code * Prophylaxis apixaban Plan * Family care conference/transition to comfort/hospice * Maintain COVID-19 precautions * High risk mortality in the next 48 hours Time Spent With Patient Time: Total time spent is greater than 50% in coordination of care (as documented) at patient's floor/unit and/or counseling patient: QUALITY VTE Deep Vein Thrombosis/Pulmonary Embolism Present on Admission: No
[2020-06-07] MEDS: DOCUSATE SODIUM 100 MG CAPSULE PO SCH (10:05)
[2020-06-07] MEDS ORDERED: ONDANSETRON 4 MG/2 ML VIAL IV PRN (10:24)
[2020-06-07] MEDS ORDERED: ONDANSETRON 4 MG ODT TABLET SL PRN (10:24)
[2020-06-07] MEDS ORDERED: LACTOPEROXI/GLUC OXID/POT THIO 1 EACH GEL..EA. TOPICAL PRN (10:24)
[2020-06-07] MEDS: morphine 4 MG/ML VIAL IV PRN ×4 (11:33→15:31)
[2020-06-07] MEDS: LORazepam 2 MG/ML VIAL IV PRN ×2 (13:45→15:14)
[2020-06-07] MEDS ORDERED: 0.9 % SODIUM CHLORIDE 10 ML SYRINGE IV SCH (14:00)
[2020-06-07] MEDS: HYDROmorphone 1 MG/ML SYRINGE IV PRN ×2 (14:38→16:38)
--- NOTE | 2020-06-08 12:15 | Death Note ---
Discharge Sum: Prov Provider Patient information: Note initiated : 06/08/20 at 12:12 pm Service Date, if different from initiated Date: [] Patient: Artie Bhatt 70 y/o M admitted on 06/06/20 for weakness, SOB. Cause of Cardiorespiratory arrest secondary to end-stage renal disease with volume overload and hyperkalemia Events leading To ESRD Advanced CLL with hypervascular syndrome Refractory anemia Primary care physician: Fabby Damon Admitting clinician: Jovanny Trinidad Consults: 06/07/20 08:36 Consult to Physician [CONS] Routine Comment: Consulting Provider: Jovanny Trinidad Reason For Exam: Physician to Consult Pronouncing clinician: Jovanny Trinidad Discharge Sum: Diag Contributing Factors (1) Failure to thrive in adult: (2) Transfusion-dependent anemia: (3) CLL (chronic lymphocytic leukemia): (4) ESRD (end stage renal disease) on dialysis: (5) Anasarca associated with disorder of kidney: Discharge Sum: Summary Date and Time Date of admission: 06/06/20 17:50 Additional Data Attending physician: Jovanny Trniidad
== END 2020-06-07 17:18 | disposition expired | DRG 189 ==
LOC: ED 11:56 → ICU 17:50 → MEDSUR 06-07 14:05
PROVIDERS: ADMIT Internal Medicine; ATTEND Internal Medicine